=== PATIENT | male | born 1945 | race Caucasian/White ===

== ENCOUNTER 2019-09-26 08:23 | Inpatient (IN) | payer MEDICARE, BC, SELFPAY ==
[2019-09-26] VITALS (26 sets, daily range): BP systolic 132–250; BP diastolic 57–128; PULSE 62–83; RESP 16–20; TEMP 35.7–37.1; O2SAT 92–98; BMI 41.6; BMI 40.0
--- NOTE | 2019-09-26 08:29 | CT_ITS ---
STUDY: CT BRAIN WITHOUT CONTRAST REASON FOR EXAM: Male, 74 years old. PATIENT WITH HEADACHE AND N/V SINCE YESTERDAY. SEEN AT [facility] YESTERDAY FOR SAME AND DISCHARGED HOME. RADIATION DOSAGE (If Supplied By Facility): CTDIvol = ( 44.99 ) mGy, DLP = ( 897.35 ) mGycm TECHNIQUE: Transaxial CT imaging of the brain was performed without administration of intravenous contrast material. Individualized dose optimization techniques were used for this CT. COMPARISON: No relevant priors. FINDINGS: Normal soft tissue structures. Normal calvarium. There is mild cerebral atrophy with widening of the extra-axial spaces and ventricular dilatation. There are areas of decreased attenuation within the white matter tracts of the supratentorial brain, consistent with microvascular disease changes. Normal basal ganglia and thalami. Normal brainstem. Normal cerebellum. There is no intracranial hemorrhage. There are no findings of an acute ischemic infarction. Normal visualized paranasal sinuses. CT/Brain/Head without Contrast IMPRESSION: Senescent changes with no evidence of acute intracranial bleed, mass or ischemia. Electronically Signed: Dex Ferreira DO at 9:11 EDT , Service support ,
--- NOTE | 2019-09-26 08:31 | EKG12_ITS ---
Test Reason : HTN Blood Pressure : / mmHG Vent. Rate : 068 BPM Atrial Rate : 068 BPM P-R Int : 174 ms QRS Dur : 126 ms QT Int : 410 ms P-R-T Axes : 065 -27 082 degrees QTc Int : 435 ms Sinus rhythm with marked sinus arrhythmia Non-specific intra-ventricular conduction block Abnormal ECG Confirmed by CORIE SOTO, CARLEE ([id number]), pictures editor ANY ARORA ([id number]) on 10/07/2019 10:21:39 AM Referred By: CLAU Confirmed By:CARLEE FONTENOT MD
--- NOTE | 2019-09-26 08:42 | ED.RN ---
pt very [place], does have hearing aids with him.
--- NOTE | 2019-09-26 08:48 | ED.DCSUM_ITS ---
- ER Visit Summary Date of Service: 09/26/19 Chief Complaint: Headache History of Present Illness: The patient is a 74 M presenting with headache, nausea, vomiting. Patient states his headache started this morning gradual onset severe headache. He has had nausea vomiting for the past couple of days. He was seen at [facility] on September 24, 2019. At that time he had a CT scan of his abdomen which showed constipation. He was discharged with Zofran and mag citrate. He denies chest pain or shortness of breath. Denies fever. He did not take his medications today and is unsure if he took them yesterday. Physical Examination: Blood pressure 250/127, temperature 98.3. Heart rate 72, respiratory rate 18, pulse ox 96% on nasal cannula. Alert moderate distress. HEENT exam is unremarkable. Neck is supple. No meningismus Lungs are clear and equal bilaterally. Heart is regular rate and rhythm. Abdomen is soft nontender nondistended. No guarding or rebound Extremities are unremarkable. Skin is warm and dry. No focal neurologic deficit. Normal strength and sensation Remainder of exam is unremarkable. Emergency Department Course and Treatment: Repeat blood pressure 223/114. He was given labetalol IV. CBC, chemistries unremarkable other than glucose 233. EKG is sinus with sinus arrhythmia, rate of 68, no acute ischemic changes. CT head shows no acute process. His blood pressure remains high. He was started on a Cardene drip. Discussed with the hospitalist for admission. Disposition: Admission Impression: Hypertensive emergency This note was generated with [employer] dictation software. It may contain incorrect words, spelling, and punctuation that were not noted in review of the chart prior to signing ED Disposition - Plan for ED Patient:
[2019-09-26 08:52] LABS: Absolute Lymphocyte Count 1.86 X10^3/uL (0.83-4.51); Absolute Neutrophil Count 6.2 X10^3/uL (2.0-7.7); Basophil# 0.03 X10^3/uL; Basophil% 0.3 % (0-1); Eosinophil# 0.12 X10^3/uL; Eosinophils% 1.3 % (0-5); Hematocrit 53.6 % (40-54); Hemoglobin 17.4 g/dL (13.0-16.5); Lymphocyte # 1.86 X10^3/ul (4.0); Lymphocyte % 20.2 % (19-41); Mean Corp Hgb Conc 32.5 g/dL (32-36); Mean Corpuscular Volume 92.4 fL (80-94); Mean Platelet Vol. 10.2 fl (6.2-12.0); Monocyte# 0.88 X10^3/uL; Monocyte% 9.6 % (0-10); NRBC Flagged by Analyzer 0 % (0-5); Neutrophil # 6.23 X10^3/uL (2.7-7.7); Neutrophil % 67.6 % (47-70); Platelet Count 184 K/mm3 (150-450); RBC Distribution Width CV 13.8 % (11.6-14.6); RBC Distribution Width SD 45.1 fl (35.1-43.9); White Blood Count 9.2 K/mm3 (4.4-11.0)
[2019-09-26 09:09] LABS: AST(SGOT) 13 U/L (15-37); Alanine Aminotransfer ALT/SGPT 21 U/L (16-61); Albumin, Serum 3.2 g/dL (3.2-5.0); Alkaline Phosphatase 162 U/L (45-117); Bilirubin, Direct 0.22 mg/dL (0.00-0.30); Lipase 63 U/L (73-393); Protein, Total 7.2 g/dL (6.4-8.2)
[2019-09-26 09:11] LABS: Anion Gap 3 (5-15); BUN 15 mg/dL (7-18); BUN/Creat Ratio 12.8 RATIO (10-20); Calcium,Total 9.2 mg/dL (8.5-10.1); Chloride 99 mmol/L (98-107); Creatinine, Serum 1.17 mg/dL (0.70-1.30); EST Glomerular Filtration Rate 65 mL/min (>60); Est Glom Filt Rate - Afr Amer 79 mL/min (>60); Estimated Creatinine Clearance 55.21 ml/min; Glucose 233 mg/dL (74-106); Potassium 4.4 mmol/L (3.5-5.1); Sodium Level 136 mmol/L (136-145)
--- NOTE | 2019-09-26 09:18 | ED.RN ---
MD AWARE OF BP.
--- NOTE | 2019-09-26 11:04 | HP.PCM_ITS ---
Problem List (1) Hypertensive emergency Status: Acute History of Present Illness Date of Admission: 09/26/19 Chief Complaint: headache The patient is a 74 year old M presents with a left sided headache that began today. Headache is left sided. He presented to the ED. He states that he is compliant with his medication and has not missed any doses (except today). In the ED he had a Bp of 250/127. He received 20mg of IV labetolol at 0842 and BP remained high, so he then was started on a nicardipine gtt at 1001. Currently gtt is at 5mcg/h and BP at 1038 was 172/85. History is limited from the patient as he has profound presbycusis and unable to decipher much of what is asked of him. [] Past Medical History Medical History: Medical History (Last Updated 09/26/19 @ 11:[address] Teodoro Moses, DO) DM2 (diabetes mellitus, type 2) E11.9 HTN (hypertension) I10 Allergies No Known Allergies Allergy (Verified 09/26/19 08:28) Home Medications: Ambulatory Orders Medication Instructions Recorded Aspirin [Aspir 81] 81 mg PO DAILY 09/26/19 Atorvastatin Calcium [Lipitor] 40 mg PO DAILY 09/26/19 Carvedilol [Coreg] 25 mg PO BID 09/26/19 Doxycycline 100 mg PO DAILY 09/26/19 Duloxetine HCl 60 mg PO DAILY 09/26/19 Fluticasone/Salmeterol [Advair Hfa 2 puff INHALATION BID 09/26/19 115-21 Mcg Inhaler] Furosemide [Lasix] 40 mg PO DAILY 09/26/19 Gabapentin 300 mg PO TID 09/26/19 Insulin Detemir [Levemir FlexPen] 60 unit SQ DAILY 09/26/19 Insulin Detemir [Levemir FlexPen] 80 unit SQ DAILY 09/26/19 Ipratropium/Albuterol Sulfate 3 ml IH DAILY 09/26/19 [Iprat-Albut 0.5-3(2.5) mg/3 ml] Lactulose 30 ml PO DAILY 09/26/19 Lisinopril [Zestril] 20 mg PO BID 09/26/19 Oxycodone HCl/Acetaminophen 1 ea PO Q6H PRN 09/26/19 [Oxycodon-Acetaminophen 7.5-325] Pantoprazole Sodium [Protonix] 40 mg PO DAILY 09/26/19 Smoking Status: Former smoker Review of Systems Constitutional: Denies: Fever Eyes: Reports: Blurred vision. Denies: Double vision Unable to obtain accurate/complete ROS d/t: Limited due to profound presbycusis even with speaking loud. VTE Information - Inpt Only VTE Present on Admission: No VTE Pharm Prophylaxis ordered?: Yes Patient Problems: Active and Suspected Problems Hypertensive emergency (Acute) - Physical Exam Vitals/I&O's: Vital Signs Temp Pulse Resp BP Pulse Ox 37.1 C 71 17 172/85 H 96 09/26/19 09:59 09/26/19 10:38 09/26/19 10:38 09/26/19 10:38 09/26/19 10:38 Oxygen Flow Rate (L/min) 3 Oxygen Delivery Method Nasal Cannula Weight: 124.3 kg Body Mass Index (BMI) 41.6 Intake and Output for Last 24 Hours 09/24/19 09/25/19 09/26/19 23:59 23:59 23:59 Output Total 1350 / 1350 Balance -1350 / -1350 General: Alert, No apparent distress, - - [place] HEENT: Atraumatic, Normocephalic, - - No icterus Oral: Moist Mucosa, No Gingival or Mucosal Lesions/ Ulcerations Neck: No Nodes, Thyroid Normal Size and Texture Lungs: Clear to auscultation, Normal air movement, No rhonchi, No wheeze, No rales Cardiovascular: Regular rate, Regular Rhythm, Normal S1, Normal S2, No murmurs Abdomen: Bowel Sounds Present, Soft, Non Tender, Non-Distended, No Hepato- splenomegaly Extremities: No edema, No Calf Tenderness Skin: No rashes, No breakdown Neurological: Motor Exam 5/5 strength throughout, Coordination normal Psych/Mental Status: Normal Affect, Appropriate Laboratory Results 09/26/19 08:25: Troponin I < 0.015 09/26/19 08:30: WBC 9.2, RBC 5.80, Hgb 17.4 H, Hct 53.6, MCV 92.4, MCH 30.0, MCHC 32.5, RDW Std Deviation 45.1 H, RDW Coeff of Fredo 13.8, Plt Count 184, MPV 10.2, Immature Gran % (Auto) 1.000 H, Neut % (Auto) 67.6, Lymph % (Auto) 20.2, [place] % (Auto) 9.6, Eos % (Auto) 1.3, Baso % (Auto) 0.3, Absolute Neuts (auto) 6.2, Absolute Lymphs (auto) 1.86, Nucleated RBC % 0 09/26/19 08:30: Sodium 136, Potassium 4.4, Chloride 99, Carbon Dioxide 34.0 H, Anion Gap 3 L, BUN 15, Creatinine 1.17, Estim Creat Clear Calc 55.21, Est GFR (MDRD) Af Amer 79, Est GFR (MDRD) Non-Af 65, BUN/Creatinine Ratio 12.8, Glucose 233 H, Calcium 9.2 09/26/19 08:31: Total Bilirubin 0.80, Direct Bilirubin 0.22, AST 13 L, ALT 21, Alkaline Phosphatase 162 H, Total Protein 7.2, Albumin 3.2, Globulin 4.0, Lipase 63 L Clinical Impression(s) from Imaging Studies Brain CT 09/26/19 08:29 IMPRESSION: Senescent changes with no evidence of acute intracranial bleed, mass or ischemia. Electronically Signed: Dex Ferreira DO at 9:11 EDT , Service support , Current Medications Nicardipine HCl 25 mg/ Sodium (Chloride) 250 mls @ 50 mls/hr CONT INF .Q5H [facility]AU[facility]N; Protocol Stop: 09/26/19 14:19 Last Admin: 09/26/19 10:01 Dose: 5 mg/hr, 50 mls/hr Documented by: Assessment/Plan All Active Problems Hypertensive emergency (Acute) 1. hypertensive emergency * presented at 250/127, now down to 172/85 * he received a 1 time dose of labetolol and nicardipine gtt. * as BP is improved will have the patient take his AM meds and hold gtt * If BP remains stable, can deescalate to PCU status * If need to resume nicardipine gtt, will continue with ICU status 2. Headache * no SAH on CT * If persist despite medication, BP control, consider CTA +/- LP * acetaminophen, ketorolac 3. DM2 * continue basal * add SSI 4. VTE prophylaxis: LMWH Inpatient E&M: 70296 Init Hosp L3
[2019-09-26] MEDS: Ondansetron 4 MG/2 ML Vial IV ×2 (11:52→21:40)
[2019-09-26] MEDS: Lisinopril 20 MG Tablet PO ×2 (11:58→21:42)
[2019-09-26] MEDS: Furosemide 40 MG Tablet PO (11:58)
[2019-09-26] MEDS: Acetaminophen 325 MG Tablet 650 MG PO ×2 (11:58→19:02)
[2019-09-26] MEDS: Carvedilol 25 MG Tablet PO ×2 (11:58→21:42)
[2019-09-26 12:36] LABS: Bedside Glucose 235 mg/dL (70-110)
[2019-09-26] MEDS: Albuterol 2.5 MG/3 ML VIAL.NEB. INHALATION (13:41)
[2019-09-26] MEDS: Gabapentin 300 MG Capsule PO ×2 (14:55→21:42)
[2019-09-26] MEDS: oxyCODONE 5 MG Tablet PO (14:55)
[2019-09-26] MEDS: Magnesium Citrate 300 ML 150 ML PO (16:53)
[2019-09-26] MEDS: Insulin Lispro 100 UNIT/ML INSULN.PEN SC (16:57)
[2019-09-26 17:15] LABS: Bedside Glucose 193 mg/dL (70-110)
[2019-09-26] MEDS: 0.9% Saline Lock 10 ML Syringe IV ×3 (18:58→21:40)
[2019-09-26] MEDS: hydrALAZINE 20 MG/ML Vial 10 MG IV (18:58)
[2019-09-26] MEDS: proCHLORPERazine 10 MG/2 ML Vial 5 MG IV (19:00)
[2019-09-26 19:15] LABS: Bedside Glucose 176 mg/dL (70-110)
--- NOTE | 2019-09-26 19:16 | NURSING ---
Patient gives verbal consent for yelena Cuello to be updated. Attempted to leave message. Unable to. Voicemail box is full.
[2019-09-26] MEDS: Labetalol 20 MG/4 ML Vial 10 MG IV (20:34)
--- NOTE | 2019-09-26 20:49 | NURSING ---
PC from Khushboo kirk. Pt gave this nurse permission to update her. Update given. Reid RN
[2019-09-26 22:05] LABS: Bedside Glucose 202 mg/dL (70-110)
[2019-09-27] VITALS (18 sets, daily range): BP systolic 81–151; BP diastolic 45–83; PULSE 63–84; RESP 14–20; TEMP 36.6–36.9; O2SAT 92–95
[2019-09-27] MEDS: oxyCODONE 5 MG Tablet PO (00:31)
[2019-09-27] MEDS: proCHLORPERazine 10 MG/2 ML Vial 5 MG IV (02:42)
[2019-09-27] MEDS: Acetaminophen 325 MG Tablet 650 MG PO (02:42)
[2019-09-27] MEDS: Gabapentin 300 MG Capsule PO ×3 (05:59→21:19)
[2019-09-27 06:50] LABS: Anion Gap 6 (5-15); BUN 18 mg/dL (7-18); BUN/Creat Ratio 11.9 RATIO (10-20); Calcium,Total 8.7 mg/dL (8.5-10.1); Chloride 95 mmol/L (98-107); Creatinine, Serum 1.51 mg/dL (0.70-1.30); EST Glomerular Filtration Rate 49 mL/min (>60); Est Glom Filt Rate - Afr Amer 59 mL/min (>60); Estimated Creatinine Clearance 42.78 ml/min; Glucose 199 mg/dL (74-106); Potassium 4.5 mmol/L (3.5-5.1); Sodium Level 134 mmol/L (136-145)
[2019-09-27] MEDS: Insulin Lispro 100 UNIT/ML INSULN.PEN SC ×2 (06:55→13:01)
[2019-09-27 07:00] LABS: Bedside Glucose 183 mg/dL (70-110)
[2019-09-27] MEDS: Ipratropium/Albuterol Sulfate 3 ML AMPUL.NEB INHALATION (07:08)
[2019-09-27] MEDS: Budesonide Respules 0.5 MG/2 ML AMPUL.NEB. INHALATION ×2 (07:16→18:46)
[2019-09-27] MEDS: Carvedilol 25 MG Tablet PO (10:30)
[2019-09-27] MEDS: Lactulose 20 GM/30 ML UDC 30 GM PO (10:30)
[2019-09-27] MEDS: Pantoprazole Sodium 40 MG Tablet PO (10:30)
[2019-09-27] MEDS: DULoxetine Hcl 60 MG Capsule PO (10:30)
[2019-09-27] MEDS: Doxycycline 100 MG CAPSULE PO (10:30)
[2019-09-27] MEDS: Aspirin E.C. 81 MG Tablet PO (10:30)
[2019-09-27] MEDS: Furosemide 40 MG Tablet PO (10:30)
[2019-09-27] MEDS: Enoxaparin 40 MG/0.4 ML Syringe SC (10:31)
[2019-09-27] MEDS: Lisinopril 20 MG Tablet PO (10:31)
[2019-09-27] MEDS: 0.9% Saline Lock 10 ML Syringe IV (10:31)
--- NOTE | 2019-09-27 11:04 | PN_ITS ---
<Damion Luevano - Last Filed: 09/27/19 11:04> Patient Problems: Active and Suspected Problems (Last Updated 09/26/19 @ 11:[address] Teodoro Moses DO) Hypertensive emergency (Acute) Reason for Visit: constipation Subjective: HTN now normalized. Ongoing generalized abdominal discomfort. Some nausea this AM no vomiting. No BM today. He has chronic constipation issues that he notes are due to his home pain regimen. No fever/chills. No cough/SOB. No BM after mag citrate. Vitals/I&O's: Vital Signs Temp Pulse Resp BP Pulse Ox 98.4 F 83 17 108/60 94 09/27/19 08:19 09/27/19 08:19 09/27/19 08:19 09/27/19 08:19 09/27/19 08:19 Oxygen Flow Rate (L/min) 2 Oxygen Delivery Method Nasal Cannula Weight: 263 lb 10.766 oz Body Mass Index (BMI) 40.0 Intake and Output for Last 24 Hours 09/25/19 09/26/19 09/27/19 23:59 23:59 23:59 Intake Total 363.34 / 363.34 100 / 100 Output Total 3375 / 3375 Balance -3011.66 / -3011.66 100 / 100 General: Alert, Oriented x3, Cooperative HEENT: Atraumatic, PERRLA, EOMI, Normocephalic Neck: Supple, No JVD, Negative Carotid Bruits Lungs: Clear to auscultation, Normal air movement Cardiovascular: Regular rate, No murmurs Abdomen: Soft, Hypoactive Bowel Sounds, Tender Extremities: No edema, Capillary Refill Less than 3 Seconds Skin: No rashes, No breakdown Musculoskeletal: No Tenderness to Palpation of Joints or Extremities Neurological: Cranial nerves II-XII grossly intact Psych/Mental Status: Normal Affect, Appropriate, Alert and oriented to time, place, person, mood and affect Laboratory Results 09/26/19 12:31: POC Glucose 235 H 09/26/19 16:41: POC Glucose 193 H 09/26/19 19:05: POC Glucose 176 H 09/26/19 21:47: POC Glucose 202 H 09/27/19 04:53: Sodium 134 L, Potassium 4.5, Chloride 95 L, Carbon Dioxide 33.0 H, Anion Gap 6, BUN 18, Creatinine 1.51 H, Estim Creat Clear Calc 42.78, Est GFR (MDRD) Af Amer 59 L, Est GFR (MDRD) Non-Af 49 L, BUN/Creatinine Ratio 11.9, Glucose 199 H, Calcium 8.7 09/27/19 06:54: POC Glucose 183 H Current Medications Acetaminophen (Tylenol) 650 mg PO Q6H PRN PRN PRN Reason: Pain Score 1-10/Temp > 100.7 F Last Admin: 09/27/19 02:42 Dose: 650 mg Documented by: Albuterol Sulfate (Ventolin Aerosols) 2.5 mg INHALATION Q6HWA.RT [facility] Last Admin: 09/26/19 19:05 Dose: Not Given Documented by: Albuterol/Ipratropium (Duoneb) 3 ml INHALATION DAILY [facility] Aspirin (Ecotrin) 81 mg PO DAILY [facility] Last Admin: 09/27/19 10:30 Dose: 81 mg Documented by: Atorvastatin Calcium (Lipitor) 40 mg PO QHS [facility] Budesonide (Pulmicort Aerosol) 0.5 mg INHALATION Q12H.RT [facility] Last Admin: 09/27/19 07:16 Dose: 0.5 mg Documented by: Carvedilol (Coreg) 25 mg PO BID [facility] Last Admin: 09/27/19 10:30 Dose: 25 mg Documented by: Dextrose (D50w Syringe) 0 gm IV X1 PRN; Protocol PRN Reason: Hypoglycemia Doxycycline Monohydrate (Doxycycline) 100 mg PO DAILY [facility] Last Admin: 09/27/19 10:30 Dose: 100 mg Documented by: Duloxetine HCl (Cymbalta) 60 mg PO DAILY [facility] Last Admin: 09/27/19 10:30 Dose: 60 mg Documented by: Enoxaparin Sodium (Lovenox) 40 mg SC DAILY [facility] Last Admin: 09/27/19 10:31 Dose: 40 mg Documented by: Furosemide (Lasix) 40 mg PO DAILY [facility] Last Admin: 09/27/19 10:30 Dose: 40 mg Documented by: Gabapentin (Neurontin) 300 mg PO TID [facility] Last Admin: 09/27/19 05:59 Dose: 300 mg Documented by: Glucagon () 1 mg IM .X1 PRN PRN Reason: Hypoglycemia Hydralazine HCl (Apresoline Iv) 10 mg IV Q4H PRN PRN PRN Reason: BLOOD PRESSURE Last Admin: 09/26/19 18:58 Dose: 10 mg Documented by: Sodium Chloride () 250 mls @ 15 mls/hr IV .[id number] PRN PRN Reason: Saline Flush Sodium Chloride () 250 mls @ 15 mls/hr IV .[id number] PRN PRN Reason: Additional IVPB Infusion Insulin Glargine (Lantus ([facility])) 55 units SC QHS [facility] Last Admin: 09/26/19 21:48 Dose: 55 units Documented by: Insulin Glargine (Lantus ([facility])) 75 units SC 1100 [facility] Insulin Human Lispro (Humalog Kwikpen ([facility])) 0 unit SC TIDAC [facility]; Protocol Last Admin: 09/27/19 06:55 Dose: 1 units Documented by: Ketorolac Tromethamine (Toradol ([facility])) 15 mg IV Q6H PRN PRN PRN Reason: pain 1-10/10 Stop: 10/01/19 11:12 Labetalol HCl (Trandate) 10 mg IV Q4H PRN PRN PRN Reason: SBP > 160 Last Admin: 09/26/19 20:34 Dose: 10 mg Documented by: Lactulose (Chronulac, Cephulac) 30 gm PO DAILY [facility] Last Admin: 09/27/19 10:30 Dose: 30 gm Documented by: Lisinopril (Zestril) 20 mg PO BID [facility] Last Admin: 09/27/19 10:31 Dose: 20 mg Documented by: Ondansetron HCl (Zofran) 4 mg IV Q8H PRN PRN PRN Reason: NAUSEA/VOMITING Last Admin: 09/26/19 21:40 Dose: 4 mg Documented by: Oxycodone HCl (Oxyir) 5 mg PO Q6H PRN PRN PRN Reason: Pain Score 1-10/10 Last Admin: 09/27/19 00:31 Dose: 5 mg Documented by: Pantoprazole Sodium (Protonix) 40 mg PO DAILY [facility] Last Admin: 09/27/19 10:30 Dose: 40 mg Documented by: Prochlorperazine Edisylate (Compazine Iv) 5 mg IV Q4H PRN PRN PRN Reason: NAUSEA/VOMITING Last Admin: 09/27/19 02:42 Dose: 5 mg Documented by: Sodium Chloride () 10 - 40 ml IV UD PRN PRN Reason: SALINE FLUSH Last Admin: 09/27/19 10:31 Dose: 10 ml Documented by: STROKE Vital Signs/Narrative: Vital Signs Temp Pulse Resp BP Pulse Ox 09/27/19 08:19 98.4 F 83 17 108/60 94 09/27/19 07:19 80 20 H 93 09/27/19 07:15 78 Medical Necessity - Tobacco Use Smoking Status: Former smoker Assessment/Plan All Active Problems (Last Updated 09/26/19 @ 11:[address] Teodoro Moses, DO) Hypertensive emergency (Acute) 1. HTN emergency - resolved. Off nicardipine. No lebatolol or hydralazine given today. Home regimen continued. If BP goes back up will add to his oral regimen. CT brain with no SAH. 2. Constipation, chronic opiate related - add fleets enema. Pt will need more aggressive daily regimen with his ongoing opiate use. 3. DMt2 - continue current regimen DVT ppx: lovenox This patient was seen by Damion Luevano PA-C under the supervision of Dr. Moses. <Teodoro Moses - Last Filed: 09/27/19 11:48> Subjective: Still with left sided headache. No BM. Vitals/I&O's: Vital Signs Temp Pulse Resp BP Pulse Ox 36.9 C 83 17 108/60 94 09/27/19 08:19 09/27/19 08:19 09/27/19 08:19 09/27/19 08:19 09/27/19 08:19 Oxygen Flow Rate (L/min) 2 Oxygen Delivery Method Nasal Cannula Weight: 119.6 kg Body Mass Index (BMI) 40.0 Intake and Output for Last 24 Hours 09/25/19 09/26/19 09/27/19 23:59 23:59 23:59 Intake Total 363.34 / 363.34 100 / 100 Output Total 3375 / 3375 Balance -3011.66 / -3011.66 100 / 100 General: Alert, Cooperative HEENT: Atraumatic, Normocephalic Lungs: Clear to auscultation, Normal air movement, No rhonchi, No wheeze Cardiovascular: Regular rate, Regular Rhythm, Normal S1, Normal S2, No murmurs Abdomen: Soft, Hypoactive Bowel Sounds, Tender Extremities: No edema, No Calf Tenderness Skin: No rashes, No breakdown Psych/Mental Status: Normal Affect, Appropriate Laboratory Results 09/26/19 12:31: POC Glucose 235 H 09/26/19 16:41: POC Glucose 193 H 09/26/19 19:05: POC Glucose 176 H 09/26/19 21:47: POC Glucose 202 H 09/27/19 04:53: Sodium 134 L, Potassium 4.5, Chloride 95 L, Carbon Dioxide 33.0 H, Anion Gap 6, BUN 18, Creatinine 1.51 H, Estim Creat Clear Calc 42.78, Est GFR (MDRD) Af Amer 59 L, Est GFR (MDRD) Non-Af 49 L, BUN/Creatinine Ratio 11.9, Glucose 199 H, Calcium 8.7 09/27/19 06:54: POC Glucose 183 H Current Medications Acetaminophen (Tylenol) 650 mg PO Q6H PRN PRN PRN Reason: Pain Score 1-10/Temp > 100.7 F Last Admin: 09/27/19 02:42 Dose: 650 mg Documented by: Albuterol Sulfate (Ventolin Aerosols) 2.5 mg INHALATION Q6HWA.RT PRN PRN Reason: SHORTNESS OF BREATH Albuterol/Ipratropium (Duoneb) 3 ml INHALATION DAILY [facility] Aspirin (Ecotrin) 81 mg PO DAILY [facility] Last Admin: 09/27/19 10:30 Dose: 81 mg Documented by: Atorvastatin Calcium (Lipitor) 40 mg PO QHS [facility] Budesonide (Pulmicort Aerosol) 0.5 mg INHALATION Q12H.RT [facility] Last Admin: 09/27/19 07:16 Dose: 0.5 mg Documented by: Carvedilol (Coreg) 25 mg PO BID [facility] Last Admin: 09/27/19 10:30 Dose: 25 mg Documented by: Dextrose (D50w Syringe) 0 gm IV X1 PRN; Protocol PRN Reason: Hypoglycemia Doxycycline Monohydrate (Doxycycline) 100 mg PO DAILY [facility] Last Admin: 09/27/19 10:30 Dose: 100 mg Documented by: Duloxetine HCl (Cymbalta) 60 mg PO DAILY [facility] Last Admin: 09/27/19 10:30 Dose: 60 mg Documented by: Enoxaparin Sodium (Lovenox) 40 mg SC DAILY [facility] Last Admin: 09/27/19 10:31 Dose: 40 mg Documented by: Furosemide (Lasix) 40 mg PO DAILY [facility] Last Admin: 09/27/19 10:30 Dose: 40 mg Documented by: Gabapentin (Neurontin) 300 mg PO TID [facility] Last Admin: 09/27/19 05:59 Dose: 300 mg Documented by: Glucagon () 1 mg IM .X1 PRN PRN Reason: Hypoglycemia Hydralazine HCl (Apresoline Iv) 10 mg IV Q4H PRN PRN PRN Reason: BLOOD PRESSURE Last Admin: 09/26/19 18:58 Dose: 10 mg Documented by: Sodium Chloride () 250 mls @ 15 mls/hr IV .[id number] PRN PRN Reason: Saline Flush Sodium Chloride () 250 mls @ 15 mls/hr IV .[id number] PRN PRN Reason: Additional IVPB Infusion Insulin Glargine (Lantus ([facility])) 55 units SC QHS [facility] Last Admin: 09/26/19 21:48 Dose: 55 units Documented by: Insulin Glargine (Lantus ([facility])) 75 units SC 1100 [facility] Last Admin: 09/27/19 11:26 Dose: Not Given Documented by: Insulin Human Lispro (Humalog Kwikpen ([facility])) 0 unit SC TIDAC [facility]; Protocol Last Admin: 09/27/19 06:55 Dose: 1 units Documented by: Ketorolac Tromethamine (Toradol ([facility])) 15 mg IV Q6H PRN PRN PRN Reason: pain 1-01/08 Stop: 10/01/19 11:12 Last Admin: 09/27/19 11:11 Dose: 15 mg Documented by: Labetalol HCl (Trandate) 10 mg IV Q4H PRN PRN PRN Reason: SBP > 160 Last Admin: 09/26/19 20:34 Dose: 10 mg Documented by: Lactulose (Chronulac, Cephulac) 30 gm PO DAILY [facility] Last Admin: 09/27/19 10:30 Dose: 30 gm Documented by: Lisinopril (Zestril) 20 mg PO BID [facility] Last Admin: 09/27/19 10:31 Dose: 20 mg Documented by: Ondansetron HCl (Zofran) 4 mg IV Q8H PRN PRN PRN Reason: NAUSEA/VOMITING Last Admin: 09/27/19 11:11 Dose: 4 mg Documented by: Oxycodone HCl (Oxyir) 5 mg PO Q6H PRN PRN PRN Reason: Pain Score 1-10/10 Last Admin: 09/27/19 00:31 Dose: 5 mg Documented by: Pantoprazole Sodium (Protonix) 40 mg PO DAILY [facility] Last Admin: 09/27/19 10:30 Dose: 40 mg Documented by: Prochlorperazine Edisylate (Compazine Iv) 5 mg IV Q4H PRN PRN PRN Reason: NAUSEA/VOMITING Last Admin: 09/27/19 02:42 Dose: 5 mg Documented by: Sodium Chloride () 10 - 40 ml IV UD PRN PRN Reason: SALINE FLUSH Last Admin: 09/27/19 10:31 Dose: 10 ml Documented by: STROKE Vital Signs/Narrative: Vital Signs Temp Pulse Resp BP Pulse Ox 09/27/19 08:19 36.9 C 83 17 108/60 94 Assessment/Plan Patient seen and examined independently. Data reviewed. I agree with the above note by the physician cancer genetics assistant. 1. hypertensive emergency * improved * presented at 250/127 * he received a 1 time dose of labetolol and nicardipine gtt. * as BP is improved will have the patient take his AM meds and hold gtt * off nicardipine gtt since 09/25 2. Headache * improved * no SAH on CT * If persist despite medication, BP control, consider CTA +/- LP * acetaminophen, ketorolac 3. DM2 * continue basal * add SSI 4. constipation * refractory to Mag Citrate * add fleets 5. VTE prophylaxis: LMWH Inpatient E&M: 30108 Subs Hosp L2
[2019-09-27] MEDS: Fleet Enema 1 ML RECTAL (11:10)
[2019-09-27] MEDS: Ondansetron 4 MG/2 ML Vial IV (11:11)
[2019-09-27] MEDS: Ketorolac 15 MG/ML Vial IV (11:11)
[2019-09-27 12:41] LABS: Bedside Glucose 221 mg/dL (70-110)
--- NOTE | 2019-09-27 13:33 | RAD_ITS ---
HISTORY: PAIN EXAM: KUB COMPARISON: None FINDINGS: # of images incl. paperwork: 3 Hardware fixation of the right SI joint. Hardware fixation of the pubic rami and pubic symphysis. Right upper quadrant surgical clips. Right hemipelvis surgical clip. Multilevel degenerative disc disease and facet arthropathy. Severe bilateral femoral acetabular arthritis much greater on the left than right with [id number] sclerosis and subcortical cystic degenerative change No free air is perceived. No dilated or loops of bowel are seen. There is no mass or suspicious calcification. No evidence of obstruction. RAD/Abdomen Single View (Portable) IMPRESSION: No bowel obstruction or perforation perceived.. at 2306 Reported and signed by: Malcolm Infante MD Electronically Signed: Malcolm Infante MD at 23:05 EDT Tel , Service support ,
[2019-09-27] MEDS: Magnesium Hydroxide 30 ML UDC PO (14:58)
--- NOTE | 2019-09-27 15:47 | NURSING ---
Soap suds enema completed per order. Patient tolerated well. Continent of large, soft brown bm. Patient states he does feel better since having bm.
[2019-09-27 17:00] LABS: Bedside Glucose 141 mg/dL (70-110)
[2019-09-27] MEDS: Atorvastatin Calcium 40 MG Tablet PO (21:19)
[2019-09-27 21:30] LABS: Bedside Glucose 210 mg/dL (70-110)
[2019-09-28] VITALS (7 sets, daily range): BP systolic 99–126; BP diastolic 46–66; PULSE 59–81; RESP 16–18; TEMP 36.4–36.6; O2SAT 90–97
[2019-09-28] MEDS: Ketorolac 15 MG/ML Vial IV ×2 (03:53→14:16)
[2019-09-28] MEDS: 0.9% Saline Lock 10 ML Syringe IV ×2 (03:55→14:18)
[2019-09-28] MEDS: Gabapentin 300 MG Capsule PO ×2 (05:15→14:16)
[2019-09-28] MEDS: oxyCODONE 5 MG Tablet PO (05:23)
[2019-09-28] MEDS: Ipratropium/Albuterol Sulfate 3 ML AMPUL.NEB INHALATION (07:00)
[2019-09-28] MEDS: Budesonide Respules 0.5 MG/2 ML AMPUL.NEB. INHALATION (07:00)
[2019-09-28] MEDS: Insulin Lispro 100 UNIT/ML INSULN.PEN SC ×2 (07:00→11:43)
[2019-09-28 07:06] LABS: Bedside Glucose 174 mg/dL (70-110)
[2019-09-28] MEDS: DULoxetine Hcl 60 MG Capsule PO (10:23)
[2019-09-28] MEDS: Carvedilol 25 MG Tablet PO (10:23)
[2019-09-28] MEDS: Lactulose 20 GM/30 ML UDC 30 GM PO (10:23)
[2019-09-28] MEDS: Pantoprazole Sodium 40 MG Tablet PO (10:24)
[2019-09-28] MEDS: Aspirin E.C. 81 MG Tablet PO (10:24)
[2019-09-28] MEDS: Furosemide 40 MG Tablet PO (10:24)
[2019-09-28] MEDS: Lisinopril 20 MG Tablet PO (10:24)
[2019-09-28] MEDS: Enoxaparin 40 MG/0.4 ML Syringe SC (10:24)
[2019-09-28] MEDS: Doxycycline 100 MG CAPSULE PO (10:24)
[2019-09-28] MEDS: Magnesium Hydroxide 30 ML UDC PO (10:24)
--- NOTE | 2019-09-28 10:58 | CASEMGMT ---
JOANNA LE assessment: Face to Face with patient for initial transition planning/care coordination assessment. JOANNA LE introduced self and role at [facility], pt voices understanding and consents to assessment at this time. Pt is sitting up in bed in no distress at this time. Pt is A/Ox4 at this time and answers all questions appropriately at this time. Pt is hard of hearing. Care providers, pharmacy, and demographics verified at this time. Presentation: Pt w/ headache/N/V since yesterday. Pt seen at [facility] yesterday for same and discharged home. Admitting dx: Hypertensive emergency PCP: Erik Specialists: Pt states no current specialists. Preferred Pharmacy: [facility] Insurance: [employer] A/B, Miles Prescription Benefit: Yes Living Will/HPOA: Pt states does not have LW/HPOA and declines AD info at this time. LNOK: Salima Ramos, daughter Living Arrangements: Pt states lives with daughter in a 1 story house and states no concerns at home at this time. Pt states is independent with ADL's. Transportation: Pt states drives self and states no transportation concerns at this time. DME/HHC: Pt states has the following DME: cane, walker, cpap, and 3liters home oxygen w/ portable concentrator thru [facility]. Pt states has had HHC in the past and has been to [facility] in the past. Pt states no concerns with going home at time of discharge. Pt states is retired. Pt states does not smoke(quit in 1998) or drink ETOH. Pt states no further concerns/needs at this time. CM to follow for any further discharge planning/needs. Advised pt to ask for CM if any further questions/concerns/needs arise, voices understanding. Pt Goal: Home Plan[place] JOANNA LE
[2019-09-28] MEDS: Acetaminophen 325 MG Tablet 650 MG PO (11:49)
[2019-09-28 11:51] LABS: Bedside Glucose 210 mg/dL (70-110)
[2019-09-28] MEDS: Polyethylene Glycol 3350 17 GM PACKET PO (11:54)
--- NOTE | 2019-09-28 14:21 | DCINST_ITS ---
- Discharge Diagnoses Current Active Problems: Current Active and Chronic Problems (Last Updated 09/26/19 @ 11:[address] Teodoro Moses, DO) Hypertensive emergency (Acute) You will use the following diet at home:: Cardiac Your food should be the consistency of: Regular Your liquids should be the consistency of: Regular/Thin Discharge Activity: Return to Normal Activity Allergies/Adverse Reactions: Allergies No Known Allergies Allergy (Verified 09/26/19 08:28) Medications to take at Discharge Aspirin [Aspir 81] 81 mg PO DAILY 09/26/19 Atorvastatin Calcium [Lipitor] 40 mg PO DAILY 09/26/19 Carvedilol [Coreg] 25 mg PO BID 09/26/19 Doxycycline 100 mg PO DAILY 09/26/19 Duloxetine HCl 60 mg PO DAILY 09/26/19 Fluticasone/Salmeterol [Advair Hfa 115-21 Mcg Inhaler] 2 puff INHALATION BID 09/26/19 Furosemide [Lasix] 40 mg PO DAILY 09/26/19 Gabapentin 300 mg PO TID 09/26/19 Insulin Detemir [Levemir FlexPen] 55 unit SQ QHS 09/26/19 Insulin Detemir [Levemir FlexPen] 75 unit SQ DAILY 09/26/19 Ipratropium/Albuterol Sulfate [Iprat-Albut 0.5-3(2.5) mg/3 ml] 3 ml IH DAILY 09/26/19 Lactulose 30 ml PO DAILY 09/26/19 Lisinopril [Zestril] 20 mg PO BID 09/26/19 Oxycodone HCl/Acetaminophen [Oxycodon-Acetaminophen 7.5-325] 1 ea PO Q6H PRN 09/26/19 Pantoprazole Sodium [Protonix] 40 mg PO DAILY 09/26/19 Magnesium Hydroxide [Milk Of Magnesia] 30 ml PO DAILY #1 bottle 09/28/19 Polyethylene Glycol 3350 [Miralax] 17 gm PO DAILY PRN PRN #1 packet 09/28/19 The following prescriptions were given: Magnesium Hydroxide [Milk Of Magnesia] 30 ml PO DAILY #1 bottle Transmission Status: Received by [facility] [id number] Polyethylene Glycol 3350 [Miralax] 17 gm PO DAILY PRN PRN #1 packet PRN Reason: Constipation Transmission Status: Received by [facility] [id number] Please follow up with your Primary Care Physician in: 1-2 weeks Test Results: Test results from this visit will be discussed in further detail at your follow- up appointment, if applicable. Proposed Discharge Date: 09/28/19
--- NOTE | 2019-09-28 14:22 | DS.PCM_ITS ---
Discharge Date and Diagnosis - Problem List Patient Problems: Active and Suspected Problems (Last Updated 09/26/19 @ 11:[address] Teodoro Moses DO) Hypertensive emergency (Acute) Date of Admission: 09/26/19 Date of Discharge: 09/28/19 - Primary Discharge Diagnosis Acute Problems: Active Problems (Last Updated 09/26/19 @ 11:[address] Teodoro Moses DO) Hypertensive emergency (Acute) 2/2 pain due to severe constipation Constipation due to chronic opiate use DMt2 Hospital Course and Treatment Imaging Results: CT/Brain/Head without Contrast IMPRESSION: Senescent changes with no evidence of acute intracranial bleed, mass or ischemia. RAD/Abdomen Single View (Portable) IMPRESSION: No bowel obstruction or perforation perceived.. Operations: None Procedures: None Summary of Care Provided: Hospital course: The patient is a 74 year old M past medical history as above notable for chronic opiate use for chronic pain syndrome, who presented to the emergency room with complaints of headache, also with nausea, abdominal pain. The patient was found to have a severely elevated blood pressure at 250/127 and was given 20 mg of IV labetalol. Blood pressure was still elevated and he was started on a nicardipine drip. Patient was admitted to the PCU and placed on telemetry. CT of the brain was negative for bleed. Troponin was negative. The patient also complained of severe constipation for which she was recently seen in the ER with no luck moving his bowels. He was felt to have severe constipation aggravating abdominal pain and nausea which likely was contributing to his severely increased blood pressure. Patient was given an aggressive bowel regimen, in addition to his daily lactulose he was given milk of magnesia, MiraLAX, fleets enema, soapsuds enema. After the 2 enemas he was able to have multiple large bowel movements and had resolution of his constipation. He had well-controlled blood pressure on his home regimen after this with the need for no additional agents. A follow-up KUB did not show any obstruction. He does continue to have some retained stool and likely has more bowel movement pending. I have advised him to continue using daily milk of magnesia in addition to daily lactulose, and to use MiraLAX as needed if he still remains constipated. The patient was discharged home in stable condition. He will need follow-up with his PCP in 1 to 2 weeks. This patient was seen by Damion Luevano PA-C under the supervision of Doctor Shantell. [] Patient Problems: Active and Suspected Problems (Last Updated 09/26/19 @ 11:[address] Teodoro Moses DO) Hypertensive emergency (Acute) - Physical Exam Vitals/I&O's: Vital Signs Temp Pulse Resp BP Pulse Ox 97.5 F L 71 16 126/66 H 92 09/28/19 10:20 09/28/19 10:20 09/28/19 10:20 09/28/19 10:20 09/28/19 10:20 Oxygen Flow Rate (L/min) 3 Oxygen Delivery Method Nasal Cannula Weight: 260 lb 9.382 oz Body Mass Index (BMI) 40.0 Intake and Output for Last 24 Hours 09/26/19 09/27/19 09/28/19 23:59 23:59 23:59 Intake Total 363.34 / 363.34 2670 / 3150 720 / 720 Output Total 3375 / 3375 500 / 500 Balance -3011.66 / -3011.66 2670 / 3150 220 / 220 Laboratory Results 09/27/19 16:37: POC Glucose 141 H 09/27/19 21:17: POC Glucose 210 H 09/28/19 06:58: POC Glucose 174 H 09/28/19 11:42: POC Glucose 210 H Current Medications Acetaminophen (Tylenol) 650 mg PO Q6H PRN PRN PRN Reason: Pain Score 1-10/Temp > 100.7 F Last Admin: 09/28/19 11:49 Dose: 650 mg Documented by: Albuterol Sulfate (Ventolin Aerosols) 2.5 mg INHALATION Q6HWA.RT PRN PRN Reason: SHORTNESS OF BREATH Albuterol/Ipratropium (Duoneb) 3 ml INHALATION DAILY [facility] Last Admin: 09/28/19 07:00 Dose: 3 ml Documented by: Aspirin (Ecotrin) 81 mg PO DAILY [facility] Last Admin: 09/28/19 10:24 Dose: 81 mg Documented by: Atorvastatin Calcium (Lipitor) 40 mg PO QHS [facility] Last Admin: 09/27/19 21:19 Dose: 40 mg Documented by: Budesonide (Pulmicort Aerosol) 0.5 mg INHALATION Q12H.RT [facility] Last Admin: 09/28/19 07:00 Dose: 0.5 mg Documented by: Carvedilol (Coreg) 25 mg PO BID [facility] Last Admin: 09/28/19 10:23 Dose: 25 mg Documented by: Dextrose (D50w Syringe) 0 gm IV X1 PRN; Protocol PRN Reason: Hypoglycemia Doxycycline Monohydrate (Doxycycline) 100 mg PO DAILY [facility] Last Admin: 09/28/19 10:24 Dose: 100 mg Documented by: Duloxetine HCl (Cymbalta) 60 mg PO DAILY [facility] Last Admin: 09/28/19 10:23 Dose: 60 mg Documented by: Enoxaparin Sodium (Lovenox) 40 mg SC DAILY [facility] Last Admin: 09/28/19 10:24 Dose: 40 mg Documented by: Furosemide (Lasix) 40 mg PO DAILY [facility] Last Admin: 09/28/19 10:24 Dose: 40 mg Documented by: Gabapentin (Neurontin) 300 mg PO TID [facility] Last Admin: 09/28/19 14:16 Dose: 300 mg Documented by: Glucagon () 1 mg IM .X1 PRN PRN Reason: Hypoglycemia Hydralazine HCl (Apresoline Iv) 10 mg IV Q4H PRN PRN PRN Reason: BLOOD PRESSURE Last Admin: 09/26/19 18:58 Dose: 10 mg Documented by: Sodium Chloride () 250 mls @ 15 mls/hr IV .[id number] PRN PRN Reason: Saline Flush Sodium Chloride () 250 mls @ 15 mls/hr IV .[id number] PRN PRN Reason: Additional IVPB Infusion Insulin Glargine (Lantus (Bk)) 55 units SC QHS [facility] Last Admin: 09/27/19 21:17 Dose: 55 units Documented by: Insulin Glargine (Lantus (Bk)) 75 units SC 1100 [facility] Last Admin: 09/28/19 11:50 Dose: 75 units Documented by: Insulin Human Lispro (Humalog Kwikpen ([facility])) 0 unit SC TIDAC [facility]; Protocol Last Admin: 09/28/19 11:43 Dose: 2 units Documented by: Ketorolac Tromethamine (Toradol ([facility])) 15 mg IV Q6H PRN PRN PRN Reason: pain -01/08 Stop: 10/01/19 11:12 Last Admin: 09/28/19 14:16 Dose: 15 mg Documented by: Labetalol HCl (Trandate) 10 mg IV Q4H PRN PRN PRN Reason: SBP > 160 Last Admin: 09/26/19 20:34 Dose: 10 mg Documented by: Lactulose (Chronulac, Cephulac) 30 gm PO DAILY [facility] Last Admin: 09/28/19 10:23 Dose: 30 gm Documented by: Lisinopril (Zestril) 20 mg PO BID [facility] Last Admin: 09/28/19 10:24 Dose: 20 mg Documented by: Magnesium Hydroxide (Milk Of Magnesia) 30 ml PO DAILY [facility] Last Admin: 09/28/19 10:24 Dose: 30 ml Documented by: Ondansetron HCl (Zofran) 4 mg IV Q8H PRN PRN PRN Reason: NAUSEA/VOMITING Last Admin: 09/27/19 11:11 Dose: 4 mg Documented by: Oxycodone HCl (Oxyir) 5 mg PO Q6H PRN PRN PRN Reason: Pain Score 1-10/10 Last Admin: 09/28/19 05:23 Dose: 5 mg Documented by: Pantoprazole Sodium (Protonix) 40 mg PO DAILY [facility] Last Admin: 09/28/19 10:24 Dose: 40 mg Documented by: Prochlorperazine Edisylate (Compazine Iv) 5 mg IV Q4H PRN PRN PRN Reason: NAUSEA/VOMITING Last Admin: 09/27/19 02:42 Dose: 5 mg Documented by: Sodium Chloride () 10 - 40 ml IV UD PRN PRN Reason: SALINE FLUSH Last Admin: 09/28/19 14:18 Dose: 10 ml Documented by: Discharge Activity: Return to Normal Activity Home Medications: Medications to take at Discharge Aspirin [Aspir 81] 81 mg PO DAILY 09/26/19 Atorvastatin Calcium [Lipitor] 40 mg PO DAILY 09/26/19 Carvedilol [Coreg] 25 mg PO BID 09/26/19 Doxycycline 100 mg PO DAILY 09/26/19 Duloxetine HCl 60 mg PO DAILY 09/26/19 Fluticasone/Salmeterol [Advair Hfa 115-21 Mcg Inhaler] 2 puff INHALATION BID 09/26/19 Furosemide [Lasix] 40 mg PO DAILY 09/26/19 Gabapentin 300 mg PO TID 09/26/19 Insulin Detemir [Levemir FlexPen] 55 unit SQ QHS 09/26/19 Insulin Detemir [Levemir FlexPen] 75 unit SQ DAILY 09/26/19 Ipratropium/Albuterol Sulfate [Iprat-Albut 0.5-3(2.5) mg/3 ml] 3 ml IH DAILY 09/26/19 Lactulose 30 ml PO DAILY 09/26/19 Lisinopril [Zestril] 20 mg PO BID 09/26/19 Oxycodone HCl/Acetaminophen [Oxycodon-Acetaminophen 7.5-325] 1 ea PO Q6H PRN 09/26/19 Pantoprazole Sodium [Protonix] 40 mg PO DAILY 09/26/19 Magnesium Hydroxide [Milk Of Magnesia] 30 ml PO DAILY #1 bottle 09/28/19 Polyethylene Glycol 3350 [Miralax] 17 gm PO DAILY PRN PRN #1 packet 09/28/19 Following Prescrptions Were Given to Patient: Magnesium Hydroxide [Milk Of Magnesia] 30 ml PO DAILY #1 bottle Transmission Status: Received by [facility] 1448 Polyethylene Glycol 3350 [Miralax] 17 gm PO DAILY PRN PRN #1 packet PRN Reason: Constipation Transmission Status: Received by [facility] 1448 Primary Care Physician: Dex Valencia DO [Primary Care Provider] - Please follow up with your Primary Care Physician in: 1-2 weeks Medical Necessity - Tobacco Use Smoking Status: Former smoker Meaningful Use Info Meaningful Use Diagnoses (Choose all that apply): None applicable
--- NOTE | 2019-09-28 15:15 | NURSING ---
Spoke with Dr. Stinson, who wants pt to be seen by PCP this week to get kidney function rechecked. Pt notified and verbalizes understanding.
== END 2019-09-28 18:16 | disposition home or self-care (01) | DRG 305 ==
LOC: ED 09:38 → ICU 12:46 → PCU 15:28
PROVIDERS: Emergency Provider Emergency Medicine; PCP Family Medicine; Visit Provider Internal Medicine
DX: I16.0 Hypertensive urgency (principal); Z68.41 Body mass index [BMI] 40.0-44.9, adult; K59.03 Drug induced constipation; T40.605A Adverse effect of unspecified narcotics, initial encounter; E11.9 Type 2 diabetes mellitus without complications; E66.01 Morbid (severe) obesity due to excess calories; Z79.891 Long term (current) use of opiate analgesic; H91.10 Presbycusis, unspecified ear; I10 Essential (primary) hypertension; Z79.4 Long term (current) use of insulin; Z79.82 Long term (current) use of aspirin; Z79.899 Other long term (current) drug therapy; Z87.891 Personal history of nicotine dependence; R51 Headache
CPT/HCPCS: 70450; 74018; 80048; 80076; 82962; 83690; 84484; 85025; 93005; 94640; 99285; J7040; J7050; A4216; J2405

== ENCOUNTER 2019-10-17 12:59 | Emergency (ER) | payer MEDICARE, BC, SELFPAY ==
[2019-09-26 11:13] VITALS: BMI 40.0
[2019-10-17 13:01] VITALS: BP 142/80; PULSE 83; RESP 18; TEMP 35.9; O2SAT 94; BMI 40.4
[2019-10-17 13:13] VITALS: O2SAT 95
--- NOTE | 2019-10-17 13:37 | CT_ITS ---
STUDY: CT ABDOMEN AND PELVIS WITH CONTRAST REASON FOR EXAM: Male, 74 years old. Left flank pain. RADIATION DOSAGE (If Supplied By Facility): CTDIvol = ( 19.65 ) mGy, DLP = ( 1540.76 ) mGycm TECHNIQUE: Transaxial images were obtained from the dome of the diaphragm to the symphysis pubis without oral contrast. 100 ml of Isovue-370 contrast was administered. Sagittal and coronal images were reconstructed. Individualized dose optimization techniques were used for this CT. COMPARISON: None. FINDINGS: The visualized lung bases are clear. The visualized portions of the heart and pericardium are within normal limits. The patient is status post cholecystectomy. The liver is within normal limits. There are no suspicious hepatic lesions. The spleen is normal in size. The pancreas is within normal limits. The adrenal glands are within normal limits. There are no renal or ureteral stones. There is no hydronephrosis. There are no focal renal lesions. Normal visualized stomach. There is no bowel obstruction or inflammation. The appendix is visualized and appears normal. The aorta is normal in caliber. There is no abdominal or pelvic free air, free fluid, fluid collection or lymphadenopathy. There are no destructive osseous lesions. There are postsurgical changes in the pubic symphysis and right sacroiliac joint. There are degenerative changes in the hips. CT/Abdomen/Pelvis W IV Cont ONLY IMPRESSION: No acute abdominal or pelvic pathology. Electronically Signed: Contreras Urbina, at 15:19 EDT Tel , Service support ,
--- NOTE | 2019-10-17 13:45 | ED.DCSUM_ITS ---
History of Present Illness Chief Complaint: Flank Pain Informant: Patient - Abdominal Pain/Flank Pain Onset: Days Context: Gradual Onset Timing: Continuous Narrative: Patient is a 74-year-old male with history of chronic pain on chronic opioid therapy as well as hypertension constipation presenting with worsening left flank pain. Patient states with past 3 to 4 months he has had a bulge in his left flank area. Yesterday while he was driving to his primary care doctor he had sudden onset of severe worsening of the pain. Pain radiates slightly to his groin area. He has associated nausea, and episode of vomiting and diarrhea. He denies any blood in his stool. He denies any blood in his vomit. Patient states before that episode diarrhea his last bowel movement 3 days before. Patient states the pain seems to be worse when he lays on his left side. PCP yesterday thought he might have an abdominal wall hernia. He also has a bad hip on that side to his not sure if the pains are related or not. He denies any associated chest pain or shortness of breath. Patient wears 3 L of oxygen at his baseline. He denies any worsening swelling of his legs. Denies any other complaints at this time. Past Medical History - Allergies and Home Meds Allergies/Adverse Reactions: Allergies No Known Allergies Allergy (Verified 10/17/19 13:00) Primary Care Physician: Dex Valencai DO [Primary Care Provider] - Past Medical History: - - Pretension, diabetes mellitus, coronary artery disease, chronic pain, constipation, GERD Surgical History: - Smoking Status: Former smoker Review of Systems General: Reports: Malaise. Denies: Chills, Fever, Sweats Eyes: Denies: Visual changes - bilaterally, Diplopia ENT: Denies: Rhinorrhea, Sore throat Cardiovascular: Denies: Chest pain, Palpitations Respiratory: Denies: Dyspnea, Cough, Dyspnea on exertion Gastrointestinal: Reports: Abdominal pain, Nausea, Vomiting, Diarrhea. Denies: Melena, Hematochezia Genitourinary: Denies: Dysuria, Hematuria, Frequency Musculoskeletal: Denies: Back pain, Extremity Pain Skin: Denies: Rash, Wounds Neurological: Denies: Headache, Weakness, Numbness Physical Exam Vital Signs/Narrative: Vital Signs Temp Pulse Resp BP Pulse Ox 10/17/19 13:13 95 10/17/19 13:01 96.6 F L 83 18 142/80 H 94 Inital Vital Signs reviewed: Yes General: Well nourished, Well developed, No Acute Distress Head: Normocephalic, Atraumatic Eyes: Perrl, EOMI ENT: Moist mucous membranes, No rhinorrhea Neck: Supple, Nontender, No JVD Cardiovascular: Regular rate, Regular rhythm, No murmurs Respiratory: No distress, CTA bilaterally, Chest nontender. Negative for: Diminished, Decreased Air Movement Abdomen: Soft, Nontender, Nondistended, Normal bowel sounds, - - Protuberant abdomen, asymmetry of the left abdomen compared to the right consistent with a possibly large abdominal wall hernia. The area itself is soft. No ascites or fluid wave appreciated.. Negative for: Guarding, Rebound tenderness Back: Nontender, Normal Inspection. Negative for: CVA tenderness, Spinal t enderness Extremities: Nontender, No edema Skin: Normal color, No rash Neurological: Alert, Oriented x3, Cranial nerves II-XII grossly intact, Normal Strength, Normal Sensation Psychological: Normal affect, Normal Mood Diagnostic/Tx/Re-eval Clinical Impression(s) from Imaging Studies Abdomen/Pelvis CT 10/17/19 13:37 IMPRESSION: No acute abdominal or pelvic pathology. Electronically Signed: Contreras Urbina, at 15:19 EDT Tel , Service support , Laboratory Data 10/17/19 10/17/19 10/17/19 13:45 13:45 14:50 WBC 9.5 RBC 5.43 Hgb 16.5 Hct 49.3 MCV 90.8 MCH 30.4 MCHC 33.5 RDW Std Deviation 42.5 RDW Coeff of Fredo 13.1 Plt Count 207 MPV 10.3 Immature Gran % (Auto) 0.800 Neut % (Auto) 75.4 H Lymph % (Auto) 14.3 L [place] % (Auto) 7.9 Eos % (Auto) 1.3 Baso % (Auto) 0.3 Absolute Neuts (auto) 7.2 Absolute Lymphs (auto) 1.36 Nucleated RBC % 0 Sodium 132 L Potassium 4.5 Chloride 99 Carbon Dioxide 28.0 Anion Gap 5 BUN 16 Creatinine 1.24 Estim Creat Clear Calc 53.85 Est GFR (MDRD) Af Amer 74 Est GFR (MDRD) Non-Af 61 BUN/Creatinine Ratio 12.9 Glucose 415 H Calcium 8.9 Total Bilirubin 0.90 AST 12 L ALT 23 Alkaline Phosphatase 180 H Troponin I < 0.015 Total Protein 7.0 Albumin 3.3 Globulin 3.7 Albumin/Globulin Ratio 0.9 Lipase 90 Urine Color Yellow Urine Clarity Clear Urine pH 6.5 Ur Specific [place] 1.010 Urine Protein 100 H Urine Glucose (UA) 1000 H Urine Ketones Negative Urine Occult Blood 10 H Urine Nitrite Negative Urine Bilirubin Negative Urine Urobilinogen Normal Ur Leukocyte Esterase Negative Urine RBC 0 SEEN Urine WBC 0 SEEN Ur Squamous Epith Cells 0 SEEN Urine Bacteria 0 SEEN Urine Mucus 0 SEEN - Medical Decision Making Clinical Impression(s) from Imaging Studies Abdomen/Pelvis CT 10/17/19 13:37 IMPRESSION: No acute abdominal or pelvic pathology. Electronically Signed: Contreras Valdezedison, at 15:19 EDT Tel , Service support , Laboratory Data 10/17/19 10/17/19 10/17/19 13:45 13:45 14:50 WBC 9.5 RBC 5.43 Hgb 16.5 Hct 49.3 MCV 90.8 MCH 30.4 MCHC 33.5 RDW Std Deviation 42.5 RDW Coeff of Fredo 13.1 Plt Count 207 MPV 10.3 Immature Gran % (Auto) 0.800 Neut % (Auto) 75.4 H Lymph % (Auto) 14.3 L [place] % (Auto) 7.9 Eos % (Auto) 1.3 Baso % (Auto) 0.3 Absolute Neuts (auto) 7.2 Absolute Lymphs (auto) 1.36 Nucleated RBC % 0 Sodium 132 L Potassium 4.5 Chloride 99 Carbon Dioxide 28.0 Anion Gap 5 BUN 16 Creatinine 1.24 Estim Creat Clear Calc 53.85 Est GFR (MDRD) Af Amer 74 Est GFR (MDRD) Non-Af 61 BUN/Creatinine Ratio 12.9 Glucose 415 H Calcium 8.9 Total Bilirubin 0.90 AST 12 L ALT 23 Alkaline Phosphatase 180 H Troponin I < 0.015 Total Protein 7.0 Albumin 3.3 Globulin 3.7 Albumin/Globulin Ratio 0.9 Lipase 90 Urine Color Yellow Urine Clarity Clear Urine pH 6.5 Ur Specific [place] 1.010 Urine Protein 100 H Urine Glucose (UA) 1000 H Urine Ketones Negative Urine Occult Blood 10 H Urine Nitrite Negative Urine Bilirubin Negative Urine Urobilinogen Normal Ur Leukocyte Esterase Negative Urine RBC 0 SEEN Urine WBC 0 SEEN Ur Squamous Epith Cells 0 SEEN Urine Bacteria 0 SEEN Urine Mucus 0 SEEN Evaluated for 3 to 4 months of left flank pain. He feels that he has a bulge in his abdomen. His abdomen is asymmetric and he has a broad bulge that is noted on exam. It is soft and does not really feel like abscess, fluid collection or hernia. Patient abdomen is protuberant and this might just be an asymmetry of it. There is no overlying skin changes. His abdomen is otherwise soft. Work- up including CT of abdomen pelvis and blood work does not show any acute process. The exact cause of pain is not clear however I do not suspect diverticulitis, obstruction, pyelonephritis or kidney stone. Lab work was remarkable for hyperglycemia with a normal anion gap. Patient states he ate a slice of cake before coming in. He states his blood sugars actually been under more control lately. He is counseled that his blood sugar is elevated today and to keep a close eye on it. Patient is given a Lidoderm patch for pain control. He is instructed to follow-up with his primary care doctor for further evaluation. Patient is counseled on signs and symptoms requiring return to the emergency room. Patient verbalizes agreement and understand this plan. Patient discharged home in stable and improved condition. ED Disposition - Plan for ED Patient: Disposition: Home or Assisted Living Diagnosis: Abdominal pain of unknown cause, Hyperglycemia due to diabetes mellitus Instructions: ED Diabetic Hyperglycemia, ED Flank Pain Uncertain Cause Referrals: Dex Valencia DO [Primary Care Provider] - Additional Instructions: A Lidoderm patch was placed on you today. If you find it helpful you can buy them [id number]. They are 4% Lidoderm patches and they are sold at most pharmacies/drugstores.
[2019-10-17 13:57] LABS: Absolute Lymphocyte Count 1.36 X10^3/uL (0.83-4.51); Absolute Neutrophil Count 7.2 X10^3/uL (2.0-7.7); Basophil# 0.03 X10^3/uL; Basophil% 0.3 % (0-1); Eosinophil# 0.12 X10^3/uL; Eosinophils% 1.3 % (0-5); Hematocrit 49.3 % (40-54); Hemoglobin 16.5 g/dL (13.0-16.5); Lymphocyte # 1.36 X10^3/ul (4.0); Lymphocyte % 14.3 % (19-41); Mean Corp Hgb Conc 33.5 g/dL (32-36); Mean Corpuscular Hgb 30.4 pg (27.0-32.0); Mean Corpuscular Volume 90.8 fL (80-94); Mean Platelet Vol. 10.3 fl (6.2-12.0); Monocyte# 0.75 X10^3/uL; Monocyte% 7.9 % (0-10); NRBC Flagged by Analyzer 0 % (0-5); Neutrophil # 7.17 X10^3/uL (2.7-7.7); Neutrophil % 75.4 % (47-70); Platelet Count 207 K/mm3 (150-450); RBC Distribution Width CV 13.1 % (11.6-14.6); RBC Distribution Width SD 42.5 fl (35.1-43.9); Red Blood Count 5.43 M/mm3 (4.6-6.2); White Blood Count 9.5 K/mm3 (4.4-11.0)
[2019-10-17 14:14] LABS: ALB/GLOB Ratio 0.9 RATIO (0.9-2.4); AST(SGOT) 12 U/L (15-37); Alanine Aminotransfer ALT/SGPT 23 U/L (16-61); Albumin, Serum 3.3 g/dL (3.2-5.0); Alkaline Phosphatase 180 U/L (45-117); Anion Gap 5 (5-15); BUN 16 mg/dL (7-18); BUN/Creat Ratio 12.9 RATIO (10-20); Calcium,Total 8.9 mg/dL (8.5-10.1); Chloride 99 mmol/L (98-107); Creatinine, Serum 1.24 mg/dL (0.70-1.30); EST Glomerular Filtration Rate 61 mL/min (>60); Est Glom Filt Rate - Afr Amer 74 mL/min (>60); Estimated Creatinine Clearance 53.85 ml/min; Globulin 3.7 g/dL (2.2-4.2); Glucose 415 mg/dL (74-106); Lipase 90 U/L (73-393); Potassium 4.5 mmol/L (3.5-5.1); Sodium Level 132 mmol/L (136-145)
[2019-10-17 14:57] LABS: Bacteria 0 SEEN /hpf (None Seen); Mucous, Urine 0 SEEN /hpf (<or=2+); Red Blood Cells-Urine 0 SEEN /hpf (0-5); Squamous Epithelial Cells - UA 0 SEEN /hpf (0-5); White Blood Cells 0 SEEN /hpf (0-5)
[2019-10-17 15:02] LABS: Color, Urine Yellow (Yellow); Glucose, Dipstick 1000 mg/dl (Normal); Ketone-Dipstick Negative (Negative); Leukocyte Esterase-Dipstick Negative /ul (Negative); Nitrite-Dipstick Negative (Negative); Occult Blood-Urine 10 /ul (Negative); Protein-Dipstick 100 mg/dl (Negative); Urine Bilirubin Dipstick Negative (Negative); Urine Clarity Clear (Clear); Urine Urobilinogen Normal (Normal); Urine pH 6.5 (5.0 - 8.0)
[2019-10-17] MEDS: Lidocaine 5% Patch 1 PATCH TOPICAL (16:26)
[2019-10-17 16:34] VITALS: BP 186/93; PULSE 89; RESP 18; O2SAT 99
== END 2019-10-17 17:00 | disposition home or self-care (01) ==
PROVIDERS: Emergency Provider Emergency Medicine; PCP Family Medicine
DX: R10.9 Unspecified abdominal pain (principal); E11.65 Type 2 diabetes mellitus with hyperglycemia; I10 Essential (primary) hypertension; Z79.891 Long term (current) use of opiate analgesic; G89.29 Other chronic pain; K21.9 Gastro-esophageal reflux disease without esophagitis; I25.10 Atherosclerotic heart disease of native coronary artery without angina pectoris; Z87.891 Personal history of nicotine dependence; Z79.4 Long term (current) use of insulin; Z79.899 Other long term (current) drug therapy
CPT/HCPCS: 74177; 80053; 81001; 83690; 84484; 85025; 99284; Q9967; A4216

== ENCOUNTER 2019-11-29 15:44 | Emergency (ER) | payer MEDICARE, BC, SELFPAY ==
[2019-11-29 15:45] VITALS: BP 119/66; PULSE 72; RESP 20; TEMP 36.6; BMI 39.8
--- NOTE | 2019-11-29 16:22 | CT_ITS ---
STUDY: CT BRAIN WITHOUT CONTRAST REASON FOR EXAM: Male, 74 years old. DYSARTHRIA, HTN URGENCY, NOT MAKING SENSE PER FAMILY,CY=[id number], COPD,DB RADIATION DOSAGE (If Supplied By Facility): CTDIvol = ( 44.99 ) mGy, DLP = ( 863.60 ) mGycm TECHNIQUE: Transaxial CT imaging of the brain was performed without administration of intravenous contrast material. Individualized dose optimization techniques were used for this CT. COMPARISON: 09/26/2019. FINDINGS: Normal soft tissue structures. Normal calvarium. There is mild cerebral atrophy with widening of the extra-axial spaces and ventricular dilatation. There are areas of decreased attenuation within the white matter tracts of the supratentorial brain, consistent with microvascular disease changes. There is no intracranial hemorrhage. There are no findings of an acute ischemic infarction. Chronic left occipital infarct is unchanged compared to the prior study. Normal visualized paranasal sinuses. Prior mastoidectomy. There is soft tissue density in the left middle air cavity. Left ossicles are eroded or destroyed. No change compared to the prior study. CT/Brain/Head without Contrast IMPRESSION: 1. No acute findings. 2. Chronic left occipital infarct. 3. Microvascular ischemia. Mild atrophy. 4. Left mastoidectomy with chronic soft tissue changes in the mesotympanum. Electronically Signed: Kinga Lopez MD at 17:58 EDT Tel , Service support ,
--- NOTE | 2019-11-29 16:22 | EKG12_ITS ---
Test Reason : Blood Pressure : / mmHG Vent. Rate : 074 BPM Atrial Rate : 074 BPM P-R Int : 192 ms QRS Dur : 120 ms QT Int : 410 ms P-R-T Axes : 010 -40 054 degrees QTc Int : 455 ms Sinus rhythm with Premature atrial complexes Left axis deviation Non-specific intra-ventricular conduction delay Abnormal ECG Confirmed by CORIE SOTO, CARLEE ([id number]), graphic editor PRASANNA LOBO ([id number]) on 12/03/2019 11:26:19 AM Referred By: MINOO Confirmed By:CARLEE FONTENOT MD
--- NOTE | 2019-11-29 16:23 | ED.DCSUM_ITS ---
History of Present Illness Chief Complaint: Fatigue Informant: Patient, Family, Electronic Intelligence Officer Narrative: Patient presents via EMS with a chief complaint of slurred speech which has resolved. Patient states that he was having difficulty maintaining his blood sugars during the night consequently did not get out of bed till around 10 this morning. He states that he did eat some breakfast. Just prior to arrival he states he took a Percocet 7.5 mg tablet. He is prescribed this to take up to 4 times per day for chronic pain. Shortly thereafter his brother noticed that he was having slurred speech and could not understand him. He denied any arm or leg symptoms other than his chronic pain. No headache or visual symptoms. Patient states that he did drink some juice upon EMS arrival his blood sugar was in the normal range. Family is at his bedside and states that he seems appropriate at his baseline for them. Past Medical History - Allergies and Home Meds Allergies/Adverse Reactions: Allergies No Known Allergies Allergy (Verified 11/29/19 16:51) Primary Care Physician: Dex Valencia DO [Primary Care Provider] - Surgical History: - Smoking Status: Former smoker Review of Systems General: Denies: Chills, Fever, Sweats Eyes: Denies: Visual changes - bilaterally, Diplopia ENT: Denies: Rhinorrhea, Sore throat Cardiovascular: Denies: Chest pain, Palpitations Respiratory: Denies: Dyspnea, Cough, Dyspnea on exertion Gastrointestinal: Denies: Abdominal pain, Nausea, Vomiting, Diarrhea, Melena, Hematochezia Genitourinary: Denies: Dysuria, Hematuria, Frequency Musculoskeletal: Reports: Extremity Pain - Dysarthria. Denies: Back pain Skin: Denies: Rash, Wounds Neurological: Reports: -. Denies: Headache, Weakness, Numbness Physical Exam Vital Signs/Narrative: Vital Signs Temp Pulse Resp BP 11/29/19 15:45 97.8 F 72 20 H 119/66 Inital Vital Signs reviewed: Yes General: Well nourished, Well developed, No Acute Distress Head: Normocephalic, Atraumatic Eyes: Perrl, EOMI ENT: Moist mucous membranes, No rhinorrhea Neck: Supple, Nontender Cardiovascular: Regular rate, Regular rhythm, No murmurs Respiratory: No distress, CTA bilaterally, Chest nontender Abdomen: Soft, Nontender, Nondistended, Normal bowel sounds Back: Nontender, Normal Inspection Extremities: Nontender, No edema Skin: Normal color, No rash Neurological: Alert, Oriented x3, Cranial nerves II-XII grossly intact, Normal Strength, Normal Sensation Psychological: Normal affect, Normal Mood Diagnostic/Tx/Re-eval Clinical Impression(s) from Imaging Studies Brain CT 11/29/19 16:22 IMPRESSION: 1. No acute findings. 2. Chronic left occipital infarct. 3. Microvascular ischemia. Mild atrophy. 4. Left mastoidectomy with chronic soft tissue changes in the mesotympanum. Electronically Signed: Kinga Lopez MD at 17:58 EDT Tel , Service support , Laboratory Last Values WBC 14.1 K/mm3 (4.4-11.0) H 11/29/19 16:40 RBC 4.91 M/mm3 (4.6-6.2) 11/29/19 16:40 Hgb 14.4 g/dL (13.0-16.5) 11/29/19 16:40 Hct 45.7 % (40-54) 11/29/19 16:40 MCV 93.1 fL (80-94) 11/29/19 16:40 MCH 29.3 pg (27.0-32.0) 11/29/19 16:40 MCHC 31.5 g/dL (32-36) L 11/29/19 16:40 RDW Std Deviation 44.5 fl (35.1-43.9) H 11/29/19 16:40 RDW Coeff of Fredo 13.1 % (11.6-14.6) 11/29/19 16:40 Plt Count 205 K/mm3 (150-450) 11/29/19 16:40 MPV 10.2 fl (6.2-12.0) 11/29/19 16:40 Immature Gran % (Auto) 0.600 % (0.0-0.9) 11/29/19 16:40 Neut % (Auto) 76.9 % (47-70) H 11/29/19 16:40 Lymph % (Auto) 10.1 % (19-41) L 11/29/19 16:40 [place] % (Auto) 11.6 % (0-10) H 11/29/19 16:40 Eos % (Auto) 0.6 % (0-5) 11/29/19 16:40 Baso % (Auto) 0.2 % (0-1) 11/29/19 16:40 Absolute Neuts (auto) 10.8 X10^3/uL (2.0-7.7) H 11/29/19 16:40 Absolute Lymphs (auto) 1.43 X10^3/uL (0.83-4.51) 11/29/19 16:40 Nucleated RBC % 0 % (0-5) 11/29/19 16:40 Diff Path Review July11/29/19 16:40 Sodium 136 mmol/L (136-145) 11/29/19 16:40 Potassium 4.2 mmol/L (3.5-5.1) 11/29/19 16:40 Chloride 104 mmol/L (98-107) 11/29/19 16:40 Carbon Dioxide 29.0 mmol/L (21.0-32.0) 11/29/19 16:40 Anion Gap 3 (5-15) L 11/29/19 16:40 BUN 41 mg/dL (7-18) H 11/29/19 16:40 Creatinine 1.66 mg/dL (0.70-1.30) H 11/29/19 16:40 Estim Creat Clear Calc 40.22 ml/min 11/29/19 16:40 Est GFR (MDRD) Af Amer 53 mL/min (>60) L 11/29/19 16:40 Est GFR (MDRD) Non-Af 43 mL/min (>60) L 11/29/19 16:40 BUN/Creatinine Ratio 24.7 RATIO (10-20) H 11/29/19 16:40 Glucose 219 mg/dL (74-106) H 11/29/19 16:40 Calcium 8.2 mg/dL (8.5-10.1) L 11/29/19 16:40 Total Bilirubin 0.90 mg/dL (0.20-1.00) 11/29/19 16:40 AST 110 U/L (15-37) H 11/29/19 16:40 ALT 172 U/L (16-61) H 11/29/19 16:40 Alkaline Phosphatase 156 U/L (45-117) H 11/29/19 16:40 Total Protein 6.1 g/dL (6.4-8.2) L 11/29/19 16:40 Albumin 2.7 g/dL (3.2-5.0) L 11/29/19 16:40 Globulin 3.4 g/dL (2.2-4.2) 11/29/19 16:40 Albumin/Globulin Ratio 0.8 RATIO (0.9-2.4) L 11/29/19 16:40 Urine Color Yellow (Yellow) 11/29/19 18:24 Urine Clarity Clear (Clear) 11/29/19 18:24 Urine pH 5.0 (5.0 - 8.0) 11/29/19 18:24 Ur Specific [place] 1.020 (1.002-1.030) 11/29/19 18:24 Urine Protein 500 mg/dl (Negative) H 11/29/19 18:24 Urine Glucose (UA) 50 mg/dl (Normal) H 11/29/19 18:24 Urine Ketones Negative mg/dl (Negative) 11/29/19 18:24 Urine Occult Blood Negative /ul (Negative) 11/29/19 18:24 Urine Nitrite Negative (Negative) 11/29/19 18:24 Urine Bilirubin Negative mg/dL (Negative) 11/29/19 18:24 Urine Urobilinogen Normal mg/dl (Normal) 11/29/19 18:24 Ur Leukocyte Esterase 100 /ul (Negative) H 11/29/19 18:24 Urine RBC 0 SEEN /hpf (0-5) 11/29/19 18:24 Urine WBC 0-5 SEEN /hpf (0-5) 11/29/19 18:24 Ur Squamous Epith Cells 0 SEEN /hpf (0-5) 11/29/19 18:24 Urine Bacteria 0 SEEN /hpf (None Seen) 11/29/19 18:24 Hyaline Casts 0-5 SEEN /lpf (0-5) 11/29/19 18:24 Urine Mucus 0 SEEN /hpf (<or=2+) 11/29/19 18:24 - Rhythm Strip Rhythm Strip: Sinus Rhythm Rate: 74 Ectopy: PAC(s) - EKG Initial EKG Interpretation: Sinus Rhythm - EKG demonstrates a sinus rhythm with PACs. No concerning features of ACS. Nonspecific intraventricular conduction delay - Medical Decision Making Blood work shows some evidence of dehydration he received a liter of IV fluids. He has had no symptoms since he has been here. Given his problems with managing his blood sugar recently is very possible he was hypoglycemic and after ingestion of juice his symptoms resolved. Is also possible this could be opiate reaction. Less likely but still possible would be TIA. Patient states he feels fine after eating. He would like to go home I think this is a very reasonable option for him. Return if worsening or concerns and follow-up with primary care this week. ED Disposition - Plan for ED Patient: Disposition: Home or Assisted Living Diagnosis: Dysarthria, Dehydration Instructions: ED Dehydration Adult Referrals: Dex Valencia DO [Primary Care Provider] - 3-5 Days Additional Instructions: Please monitor your blood sugar carefully and stay in contact with your slip cover cutter.
[2019-11-29 16:45] LABS: Absolute Lymphocyte Count 1.43 X10^3/uL (0.83-4.51); Absolute Neutrophil Count 10.8 X10^3/uL (2.0-7.7); Basophil# 0.03 X10^3/uL; Basophil% 0.2 % (0-1); Eosinophil# 0.09 X10^3/uL; Eosinophils% 0.6 % (0-5); Hematocrit 45.7 % (40-54); Hemoglobin 14.4 g/dL (13.0-16.5); Lymphocyte # 1.43 X10^3/ul (4.0); Lymphocyte % 10.1 % (19-41); Mean Corp Hgb Conc 31.5 g/dL (32-36); Mean Corpuscular Hgb 29.3 pg (27.0-32.0); Mean Corpuscular Volume 93.1 fL (80-94); Mean Platelet Vol. 10.2 fl (6.2-12.0); Monocyte# 1.64 X10^3/uL; Monocyte% 11.6 % (0-10); NRBC Flagged by Analyzer 0 % (0-5); Neutrophil # 10.82 X10^3/uL (2.7-7.7); Neutrophil % 76.9 % (47-70); POSITIVE DIFFERENTIAL YES; Platelet Count 205 K/mm3 (150-450); RBC Distribution Width CV 13.1 % (11.6-14.6); RBC Distribution Width SD 44.5 fl (35.1-43.9); Red Blood Count 4.91 M/mm3 (4.6-6.2); White Blood Count 14.1 K/mm3 (4.4-11.0)
[2019-11-29 16:55] LABS: Differential Indicated SCAN CRITERIA MET
[2019-11-29 17:05] VITALS: BP 114/62; PULSE 78; RESP 17
[2019-11-29 17:11] LABS: ALB/GLOB Ratio 0.8 RATIO (0.9-2.4); AST(SGOT) 110 U/L (15-37); Alanine Aminotransfer ALT/SGPT 172 U/L (16-61); Albumin, Serum 2.7 g/dL (3.2-5.0); Alkaline Phosphatase 156 U/L (45-117); Anion Gap 3 (5-15); BUN 41 mg/dL (7-18); BUN/Creat Ratio 24.7 RATIO (10-20); Calcium,Total 8.2 mg/dL (8.5-10.1); Chloride 104 mmol/L (98-107); Creatinine, Serum 1.66 mg/dL (0.70-1.30); EST Glomerular Filtration Rate 43 mL/min (>60); Est Glom Filt Rate - Afr Amer 53 mL/min (>60); Estimated Creatinine Clearance 40.22 ml/min; Globulin 3.4 g/dL (2.2-4.2); Glucose 219 mg/dL (74-106); Potassium 4.2 mmol/L (3.5-5.1); Protein, Total 6.1 g/dL (6.4-8.2); Sodium Level 136 mmol/L (136-145)
[2019-11-29] MEDS: 0.9% Normal Saline 1,000 ML 999 ML IV (18:00)
[2019-11-29 18:34] LABS: Bacteria 0 SEEN /hpf (None Seen); Mucous, Urine 0 SEEN /hpf (<or=2+); Red Blood Cells-Urine 0 SEEN /hpf (0-5); Squamous Epithelial Cells - UA 0 SEEN /hpf (0-5)
[2019-11-29 18:40] LABS: Color, Urine Yellow (Yellow); Glucose, Dipstick 50 mg/dl (Normal); Ketone-Dipstick Negative (Negative); Leukocyte Esterase-Dipstick 100 /ul (Negative); Nitrite-Dipstick Negative (Negative); Occult Blood-Urine Negative /ul (Negative); Protein-Dipstick 500 mg/dl (Negative); Urine Bilirubin Dipstick Negative (Negative); Urine Clarity Clear (Clear); Urine Urobilinogen Normal (Normal)
[2019-11-29 18:48] LABS: White Blood Cells 0-5 SEEN /hpf (0-5)
[2019-11-29 18:49] LABS: Hyaline Cast 0-5 SEEN /lpf (0-5)
[2019-11-29 19:09] VITALS: BP 140/66; PULSE 76; RESP 20
[2019-11-30 09:42] LABS: Pathologist Review Reviewed
== END 2019-11-29 19:42 | disposition home or self-care (01) ==
PROVIDERS: Emergency Provider Emergency Medicine; PCP Family Medicine
DX: E86.0 Dehydration (principal); R47.1 Dysarthria and anarthria; G89.29 Other chronic pain; Z79.891 Long term (current) use of opiate analgesic; Z87.891 Personal history of nicotine dependence
CPT/HCPCS: 70450; 80053; 81001; 85025; 93005; 96360; 99285; J7030; A4216

== ENCOUNTER 2019-12-05 01:51 | Emergency (ER) | payer MEDICARE, BC, SELFPAY ==
[2019-12-05] VITALS (8 sets, daily range): BP systolic 129–159; BP diastolic 60–114; PULSE 65–78; RESP 14–24; TEMP 36.2–37; O2SAT 93–99; BMI 39.9
--- NOTE | 2019-12-05 02:15 | ED.RN ---
This nurse spoke with jose l noyola to update pt medicines at [phone] per pt request.
[2019-12-05 02:16] LABS: Bedside Glucose 139 mg/dL (70-110)
--- NOTE | 2019-12-05 02:20 | EKG12_ITS ---
Test Reason : N/V Blood Pressure : / mmHG Vent. Rate : 073 BPM Atrial Rate : 073 BPM P-R Int : 186 ms QRS Dur : 112 ms QT Int : 396 ms P-R-T Axes : 056 -53 036 degrees QTc Int : 436 ms Sinus rhythm with marked sinus arrhythmia Left axis deviation ICRBBB Abnormal ECG Confirmed by CORIE SOTO, CARLEE ([id number]), book or script editor ANY ARORA ([id number]) on 12/09/2019 10:04:32 AM Referred By: Confirmed By:CARLEE FONTENOT MD
--- NOTE | 2019-12-05 02:20 | CT_ITS ---
STUDY: CT ABDOMEN AND PELVIS WITH CONTRAST REASON FOR EXAM: Male, 74 years old. VOMITING SINCE 9PM,ELEVATED WBC,diaphoretic -- hx:diabetes,hld,htn,copd,cholecystectomy RADIATION DOSAGE (If Supplied By Facility): CTDIvol = ( 23.71 ) mGy, DLP = ( 1266.81 ) mGycm TECHNIQUE: Transaxial 3.75 mm images were obtained from the dome of the diaphragm to the symphysis pubis without oral contrast. IV 100mL Isovue-370 was administered. Sagittal and coronal images were reconstructed. There is obesity, the entirety of soft tissue is not imaged. Individualized dose optimization techniques were used for this CT. COMPARISON: CT abdomen pelvis 10/17/2019. FINDINGS: Mild atelectasis/scarring in the bases. The visualized portions of the heart are within normal limits. Mild stable hepatosplenomegaly.. There are surgical clips in the gallbladder fossa consistent with a prior cholecystectomy. Otherwise normal spleen. Normal pancreas. Stable bilateral nodularity of the adrenal glands. Mild stable bilateral renal cortical thinning. There is no obstructive uropathy, obstructive renal or ureteral calculi.. Normal visualized stomach. Mild fluid-filled small bowel without obstruction. Fecal stasis. Normal colon. The appendix is visualized and appears normal. Normal abdominal aorta. Normal inferior vena cava. Normal retroperitoneum. Normal urinary bladder. There is a stable left-sided inguinal hernia containing adipose tissue. Subcutaneous stranding of the anterior abdominal wall. There are diffuse degenerative changes of the visualized lumbar spine and bilateral hip joints. Prior surgical fusion of the symphysis pubis and right iliosacral joint. CT/Abdomen/Pelvis W IV Cont ONLY IMPRESSION: Mild small bowel ileus suspected. There is no other acute abdomen and pelvic pathology. Other nonacute findings as outlined above. Electronically Signed: Maria E Blankenship MD at 5:13 EDT , Service support ,
--- NOTE | 2019-12-05 02:31 | ED.DCSUM_ITS ---
- ER Visit Summary Date of Service: 12/05/19 Chief Complaint: Vomiting History of Present Illness: The patient is a 74 M presenting with vomiting. He states this started around 9 PM. He states he had several episodes of vomiting. He does not believe he had blood in his emesis. He denies diarrhea. He c omplains of left lower quadrant abdominal pain. He has had subjective fever. He denies chest pain or shortness of breath. He has a mild headache. Denies other complaints. Physical Examination: Vitals are stable. Patient is afebrile. Alert no acute distress. HEENT exam is unremarkable. Neck is supple. Lungs are clear and equal bilaterally. Heart is regular rate and rhythm. Abdomen is soft left lower quadrant tenderness with no guarding or rebound Extremities are unremarkable. Skin is warm and dry. No focal neurologic deficit. Remainder of exam is unremarkable. Emergency Department Course and Treatment: Patient was given IV fluids, Zofran. EKG is sinus rhythm rate of 73 with no acute ischemic changes. CBC shows white count 17. Chemistries show glucose 149, BUN 28. Alk phos 180. ALT 66, lipase 217. Troponin is negative. CT abdomen pelvis shows mild small bowel ileus suspected. There is no other acute abdomen and pelvic pathology. Patient feels improved in the ED. He is tolerating p.o. He began to feel nauseated again. He will be observed. Will be signed out to the oncoming physician. Disposition: pending Impression: Vomiting, Ileus This note was generated with [employer] dictation software. It may contain incorrect words, spelling, and punctuation that were not noted in review of the chart prior to signing ED Disposition - Plan for ED Patient: Referrals: Dex Valencia DO [Primary Care Provider] -
[2019-12-05 02:32] LABS: Absolute Lymphocyte Count 1.32 X10^3/uL (0.83-4.51); Absolute Neutrophil Count 13.7 X10^3/uL (2.0-7.7); Basophil# 0.03 X10^3/uL; Basophil% 0.2 % (0-1); Differential Indicated SCAN CRITERIA MET; Eosinophil# 0.18 X10^3/uL; Eosinophils% 1.1 % (0-5); Hemoglobin 17.2 g/dL (13.0-16.5); Lymphocyte # 1.32 X10^3/ul (4.0); Lymphocyte % 7.7 % (19-41); Mean Corp Hgb Conc 32.5 g/dL (32-36); Mean Corpuscular Hgb 29.8 pg (27.0-32.0); Mean Corpuscular Volume 91.9 fL (80-94); Mean Platelet Vol. 10.2 fl (6.2-12.0); Monocyte# 1.66 X10^3/uL; Monocyte% 9.7 % (0-10); NRBC Flagged by Analyzer 0 % (0-5); Neutrophil # 13.73 X10^3/uL (2.7-7.7); Neutrophil % 80.6 % (47-70); POSITIVE DIFFERENTIAL YES; Platelet Count 253 K/mm3 (150-450); RBC Distribution Width CV 12.9 % (11.6-14.6); RBC Distribution Width SD 43.5 fl (35.1-43.9); Red Blood Count 5.77 M/mm3 (4.6-6.2)
[2019-12-05] MEDS: 0.9% Normal Saline 1,000 ML 1000 ML IV (02:37)
[2019-12-05] MEDS: Ondansetron 4 MG/2 ML Vial IV (02:37)
[2019-12-05 02:59] LABS: AST(SGOT) 24 U/L (15-37); Alanine Aminotransfer ALT/SGPT 66 U/L (16-61); Albumin, Serum 3.5 g/dL (3.2-5.0); Alkaline Phosphatase 180 U/L (45-117); Anion Gap 8 (5-15); BUN 28 mg/dL (7-18); BUN/Creat Ratio 23.5 RATIO (10-20); Calcium,Total 8.5 mg/dL (8.5-10.1); Chloride 104 mmol/L (98-107); Creatinine, Serum 1.19 mg/dL (0.70-1.30); EST Glomerular Filtration Rate 64 mL/min (>60); Est Glom Filt Rate - Afr Amer 77 mL/min (>60); Estimated Creatinine Clearance 56.11 ml/min; Globulin 3.6 g/dL (2.2-4.2); Glucose 149 mg/dL (74-106); Lipase 217 U/L (73-393); Potassium 3.9 mmol/L (3.5-5.1); Protein, Total 7.1 g/dL (6.4-8.2); Sodium Level 139 mmol/L (136-145)
[2019-12-05 03:24] LABS: Differential Comment SCANNED
[2019-12-05 04:35] LABS: Mucous, Urine 0 SEEN /hpf (<or=2+); Red Blood Cells-Urine 0 SEEN /hpf (0-5); Squamous Epithelial Cells - UA 0 SEEN /hpf (0-5); White Blood Cells 0 SEEN /hpf (0-5)
[2019-12-05 04:36] LABS: Color, Urine Yellow (Yellow); Glucose, Dipstick 50 mg/dl (Normal); Ketone-Dipstick Negative (Negative); Leukocyte Esterase-Dipstick Negative /ul (Negative); Nitrite-Dipstick Negative (Negative); Occult Blood-Urine Negative /ul (Negative); Protein-Dipstick 500 mg/dl (Negative); Urine Bilirubin Dipstick Negative (Negative); Urine Clarity Clear (Clear); Urine Urobilinogen Normal (Normal)
[2019-12-05 04:47] LABS: Bacteria RARE /hpf (None Seen); Fine Granular Cast- Urine 0-5 SEEN /lpf (0-5)
--- NOTE | 2019-12-05 07:11 | ED.RN ---
PT ABLE TO KEEP WATER DOWN. PT STATES SLIGHTLY NAUSEATED BUT STATES FEELS BETTER
--- NOTE | 2019-12-05 07:39 | ED.RN ---
daughter called for check in-updated
--- NOTE | 2019-12-05 08:11 | ED.RN ---
pt states ate a sandwich and had a drink. states ready to go home
--- NOTE | 2019-12-05 08:20 | ED.VISSUMM ---
- ER Visit Summary Date of Service: 12/05/19 Chief Complaint: [] History of Present Illness: The patient is a 74 M [] Physical Examination: [] Test Results: [] Emergency Department Course and Treatment: [] Treatment Plan: [] Disposition: Patient signed out to me to follow patient pending p.o. challenge. He presented with nausea, vomiting and sweating. Lab work-up was remarkable for leukocytosis with no shift and a very mild transaminitis which is not significantly changed from before. Urinalysis does not show infection. CT of the abdomen and pelvis with contrast shows a stable inguinal hernia and a small bowel ileus that is mild. Likely this is the cause of his nausea and vomiting. As patient is tolerating drink and food, and otherwise feels well I think he is a good candidate for outpatient follow-up. He will be discharged home with a course of Zofran. He is given return precautions. He verbalized agreement understand this plan. His daughter comes to pick him up. Impression: Ileus Nausea and vomiting, not intractable This note was generated with [employer] dictation software. It may contain incorrect words, spelling, and punctuation that were not noted in review of the chart prior to signing ED Disposition - Plan for ED Patient: Disposition: Home or Assisted Living Diagnosis: Nausea and vomiting in adult, Ileus Instructions: ED Nausea Vomiting Adult, ED Diet for Vomiting or Diarrhea Adult Prescriptions: Ondansetron [Zofran Odt] 4 mg PO Q8H PRN PRN #10 tab PRN Reason: Nausea Transmission Status: Pending to [id number] Referrals: Dex Valencia DO [Primary Care Provider] - Additional Instructions: Try to stick to a bland diet over the next 24 to 48 hours. Drink plenty fluids. Return the emergency room if you have worsening symptoms, develop abdominal pain or cannot keep any fluids down.
[2019-12-08 13:47] LABS: Pathologist Review Reviewed
== END 2019-12-05 09:21 | disposition home or self-care (01) ==
PROVIDERS: Emergency Provider Emergency Medicine; PCP Family Medicine
DX: K56.7 Ileus, unspecified (principal); R11.2 Nausea with vomiting, unspecified; E11.9 Type 2 diabetes mellitus without complications; Z79.4 Long term (current) use of insulin; Z79.899 Other long term (current) drug therapy
CPT/HCPCS: 36415; 74177; 80053; 81001; 82962; 83690; 84484; 85025; 93005; 96361; 96374; 99285; J7030; Q9967; J2405

== ENCOUNTER 2020-01-25 11:36 | Observation (INO) | payer MEDICARE, BC, SELFPAY ==
[2019-12-05 01:52] VITALS: BMI 39.9
--- NOTE | 2020-01-18 13:09 | EKG12_ITS ---
Test Reason : PREOP Blood Pressure : / mmHG Vent. Rate : 070 BPM Atrial Rate : 070 BPM P-R Int : 178 ms QRS Dur : 122 ms QT Int : 398 ms P-R-T Axes : 055 -61 055 degrees QTc Int : 429 ms Sinus rhythm with marked sinus arrhythmia Left anterior fascicular block Abnormal ECG Confirmed by CORIE SOTO, CARLEE ([id number]), proposal editor PRASANNA LOBO ([id number]) on 01/19/2020 9:13:44 AM Referred By: Doug Weller Confirmed By:CARLEE FONTENOT MD
[2020-01-18 13:18] LABS: Absolute Lymphocyte Count 2.69 X10^3/uL (0.83-4.51); Absolute Neutrophil Count 4.4 X10^3/uL (2.0-7.7); Basophil# 0.03 X10^3/uL; Basophil% 0.4 % (0-1); Eosinophil# 0.15 X10^3/uL; Eosinophils% 1.8 % (0-5); Hematocrit 49.4 % (40-54); Hemoglobin 15.8 g/dL (13.0-16.5); Lymphocyte # 2.69 X10^3/ul (4.0); Mean Corpuscular Hgb 29.6 pg (27.0-32.0); Mean Corpuscular Volume 92.7 fL (80-94); Monocyte# 0.83 X10^3/uL; Monocyte% 10.2 % (0-10); NRBC Flagged by Analyzer 0 % (0-5); Neutrophil # 4.39 X10^3/uL (2.7-7.7); Neutrophil % 53.7 % (47-70); Platelet Count 211 K/mm3 (150-450); RBC Distribution Width CV 12.7 % (11.6-14.6); RBC Distribution Width SD 43.6 fl (35.1-43.9); Red Blood Count 5.33 M/mm3 (4.6-6.2); White Blood Count 8.2 K/mm3 (4.4-11.0)
[2020-01-18 13:43] LABS: Magnesium 1.9 mg/dL (1.6-2.6)
[2020-01-18 13:50] LABS: Anion Gap 6 (5-15); BUN 24 mg/dL (7-18); Chloride 99 mmol/L (98-107); EST Glomerular Filtration Rate 63 mL/min (>60); Est Glom Filt Rate - Afr Amer 76 mL/min (>60); Glucose 89 mg/dL (74-106); Potassium 4.1 mmol/L (3.5-5.1); Sodium Level 136 mmol/L (136-145)
[2020-01-18 14:11] LABS: Hemoglobin A1c 7.5 % (3.8-5.6)
[2020-01-25] VITALS (12 sets, daily range): BP systolic 106–154; BP diastolic 49–78; PULSE 57–76; RESP 16–18; TEMP 36.1–36.9; O2SAT 95–98; BMI 38.1
[2020-01-25] MEDS: Lactated Ringers 1,000 ML 100 ML IV (11:23)
[2020-01-25 11:25] LABS: Bedside Glucose 132 mg/dL (70-110)
[2020-01-25] MEDS: Gabapentin 600 MG Tablet PO (11:40)
[2020-01-25] MEDS: Acetaminophen 500 MG Tablet 1000 MG PO ×2 (11:40→21:40)
[2020-01-25] MEDS: Cefazolin 2 GM in 0.9% Normal Saline 100 ML IV (12:22)
--- NOTE | 2020-01-25 12:30 | HIP_PTH ---
PATIENT: CHIQUITA BAIN LOC: MS3 U#:[id number] AGE/SX: 74/M ROOM: [facility] [place] RE01/25/[address]: Dr. Doug Weller DO : 1945 BED: 1 DIS: 01/26/2020 SPEC #: [id number] RECD: 01/25/20 15:44 STATUS: WOLF REQ #: [id number] FELICITAS: 01/25/20 12:[address]: Doug Weller DEPT: SURGICAL PATHOLOGY RECD BY: Sarah Patino ENTERED: 01/26/20 09:40 SP TYPE: TOTAL HIP OTHR DR: Dr. Dex Valencia DO Tissues: Hip, NOS Procedures: Decalcification bone/plaque Surgery Specimen Level IV HEADER OPERATION: ERAS, total hip replacement PRE-OP DIAGNOSIS: Unilateral primary osteoarthritis left hip TISSUE SUBMITTED: Bone and soft tissue left hip MICROSCOPIC DIAGNOSIS Bone and soft tissue, left hip, total hip replacement/resection: Femoral head with degenerative osteoarthritic changes. Fragments of fibroadipose tissue, fibroconnective tissue and skeletal muscle tissue with reactive changes. KEO:bre 01/29/20 MICROSCOPIC DESCRIPTION Slides are reviewed. GROSS DESCRIPTION Received is one container labeled with the patient's name and designated bone and soft tissue hip, left. The specimen consists of a hand femoral head with portion of femoral neck. The femoral head measures 5 x 5 x 5 cm and the femoral neck measures 1.5 cm in length. The articular surface displays prominent osteophyte formation, eburnation and bone erosion. Also present in the specimen container are multiple irregular fragments of bone reamings and pink-yellow soft tissue measuring in aggregate 11 x 12 x 4 cm. Controller Mechanic sections are submitted in two cassettes as follows: 1 - soft tissue, 2 - bone after decalcification. / KEO:bre 01/26/20 TC:5 CPT: 77206, 25103
[2020-01-25] MEDS: Lactated Ringers 1,000 ML 125 ML IV ×2 (13:00→21:39)
--- NOTE | 2020-01-25 13:40 | PCM.OPRPT ---
Report of Operation Date of Procedure: 01/25/20 Pre-Operative Diagnosis: OA left hip Post-Operative Diagnosis: same Surgery/Procedure Performed:: left THR market research specialist: Jabier Gr Type of Anesthesia:: Spinal Anesthesiologist: Lele Bradford Estimated Blood Loss (mL): 150 cc - Admit VTE Documentation VTE Present on Admission: No VTE Mechan Device Prophylaxis: SCD's, Thigh High DAVEY Hose VTE Pharm Prophylaxis ordered?: Yes
--- NOTE | 2020-01-25 14:20 | RAD_ITS ---
STUDY: X-RAY - PELVIS AND LEFT HIP REASON FOR EXAM: Male, 74 years old. Post op left hip TECHNIQUE: 2 views of the pelvis and hip. COMPARISON: Comparison is made with prior study dated 09/27/2019. FINDINGS: There is a non-specific bowel gas pattern. Normal visualized soft tissue structures. The patient is status post screw fixation of the right sacroiliac joint as well as prior screw and mesh fixation of the superior pubic rami bilaterally. Normal bilateral ischial tuberosities. Patient is status post left total hip replacement. There is good alignment. Moderate degree of joint space narrowing and osteoarthritis involving the right hip joint. RAD/Hip Min 2 Views (Portable) IMPRESSION: Status post left total hip replacement. There is good alignment. Electronically Signed: Dorian Pantoja, at 14:43 EDT , Service support ,
[2020-01-25 14:46] LABS: Bedside Glucose 56 mg/dL (70-110)
[2020-01-25 14:48] LABS: Hematocrit 41.2 % (40-54); Hemoglobin 13.4 g/dL (13.0-16.5); Mean Corp Hgb Conc 32.5 g/dL (32-36); Mean Corpuscular Hgb 30.1 pg (27.0-32.0); Mean Corpuscular Volume 92.6 fL (80-94); Mean Platelet Vol. 10.1 fl (6.2-12.0); Platelet Count 200 K/mm3 (150-450); RBC Distribution Width CV 12.8 % (11.6-14.6); RBC Distribution Width SD 43.3 fl (35.1-43.9); Red Blood Count 4.45 M/mm3 (4.6-6.2); White Blood Count 8.8 K/mm3 (4.4-11.0)
[2020-01-25 15:06] LABS: Anion Gap 6 (5-15); BUN 19 mg/dL (7-18); BUN/Creat Ratio 17.1 RATIO (10-20); Calcium,Total 8.3 mg/dL (8.5-10.1); Chloride 108 mmol/L (98-107); Creatinine, Serum 1.11 mg/dL (0.70-1.30); EST Glomerular Filtration Rate 69 mL/min (>60); Est Glom Filt Rate - Afr Amer 84 mL/min (>60); Estimated Creatinine Clearance 60.16 ml/min; Glucose 62 mg/dL (74-106); Potassium 3.8 mmol/L (3.5-5.1); Sodium Level 141 mmol/L (136-145)
[2020-01-25 15:16] LABS: Bedside Glucose 58 mg/dL (70-110)
[2020-01-25 15:36] LABS: Bedside Glucose 104 mg/dL (70-110)
[2020-01-25] MEDS: Gabapentin 300 MG Capsule PO (16:27)
[2020-01-25] MEDS: oxyCODONE 5 MG Tablet PO ×2 (16:27→21:47)
[2020-01-25] MEDS: Aspirin 81 MG TAB.CHEW PO (16:28)
[2020-01-25] MEDS: Lactulose 20 GM/30 ML UDC PO ×2 (18:03→21:39)
[2020-01-25] MEDS: Albuterol 2.5 MG/3 ML VIAL.NEB. INHALATION (19:10)
[2020-01-25] MEDS: Cefazolin 1 GM/50 ML BAG IV (20:07)
[2020-01-25] MEDS: Atorvastatin Calcium 40 MG Tablet PO (21:40)
[2020-01-25] MEDS: Senna/Docusate Sodium 1 Tablet 2 TABLET PO (21:40)
[2020-01-25] MEDS: Carvedilol 25 MG Tablet PO (21:41)
[2020-01-25] MEDS: Lubiprostone 24 MCG Capsule PO (21:43)
[2020-01-25] MEDS: Insulin Lispro 100 UNIT/ML INSULN.PEN SC (21:44)
[2020-01-25 22:15] LABS: Bedside Glucose 202 mg/dL (70-110)
[2020-01-26] MEDS: oxyCODONE 5 MG Tablet PO ×4 (02:03→15:06)
[2020-01-26 02:07] VITALS: BP 125/64; PULSE 64; RESP 18; TEMP 36.4; O2SAT 95
[2020-01-26 02:20] VITALS: PULSE 60; RESP 18
[2020-01-26] MEDS: Albuterol 2.5 MG/3 ML VIAL.NEB. INHALATION ×2 (02:20→06:55)
[2020-01-26] MEDS: Cefazolin 1 GM/50 ML BAG IV (04:17)
[2020-01-26] MEDS: Acetaminophen 500 MG Tablet 1000 MG PO ×2 (05:17→13:34)
[2020-01-26] MEDS: Insulin Lispro 100 UNIT/ML INSULN.PEN SC ×2 (06:31→11:40)
[2020-01-26 06:41] LABS: Bedside Glucose 174 mg/dL (70-110)
[2020-01-26 06:55] VITALS: PULSE 72; RESP 18; O2SAT 90
--- NOTE | 2020-01-26 07:38 | PCM.PN.ORT ---
Subjective: Patient lying in bed pain well managed. Patient denies chest pain, shortness of breath, calf pain, nausea vomiting. Patient states he is ready for discharge home today. Objective: The dressing is clean dry intact. Negative signs and symptoms of DVT. Vital signs labs reviewed noted in medical record. Patient is afebrile. Patient is neurovascular is otherwise intact. Patient no respiratory distress, speaking in full sentences. - Physical Exam Vitals/I&O's: Vital Signs Temp Pulse Resp BP Pulse Ox 97.5 F L 60 18 125/64 H 95 01/26/20 02:07 01/26/20 02:20 01/26/20 02:20 01/26/20 02:07 01/26/20 02:07 Oxygen Flow Rate (L/min) 3 Oxygen Delivery Method Nasal Cannula Weight: 117.1 kg Body Mass Index (BMI) 38.1 Intake and Output for Last 24 Hours 01/24/20 01/25/20 01/26/20 23:59 23:59 23:59 Intake Total 2922.41 / 3422.41 1590 / 1590 Output Total 725 / 725 Balance 2922.41 / 3422.41 865 / 865 General: Alert, Oriented x3, Cooperative HEENT: PERRLA Oral: Moist Mucosa Neurological: Cranial nerves II-XII grossly intact Psych/Mental Status: Normal Affect, Alert and oriented to time, place, person, mood and affect Laboratory Results 01/25/20 11:09: POC Glucose 132 H 01/25/20 14:35: WBC 8.8, RBC 4.45 L, Hgb 13.4, Hct 41.2, MCV 92.6, MCH 30.1, MCHC 32.5, RDW Std Deviation 43.3, RDW Coeff of Fredo 12.8, Plt Count 200, MPV 10.1 01/25/20 14:35: Sodium 141, Potassium 3.8, Chloride 108 H, Carbon Dioxide 27.0, Anion Gap 6, BUN 19 H, Creatinine 1.11, Estim Creat Clear Calc 60.16, Est GFR (MDRD) Af Amer 84, Est GFR (MDRD) Non-Af 69, BUN/Creatinine Ratio 17.1, Glucose 62 L, Calcium 8.3 L 01/25/20 14:42: POC Glucose 56 L 01/25/20 15:02: POC Glucose 58 L 01/25/20 15:32: POC Glucose 104 01/25/20 21:37: POC Glucose 202 H 01/26/20 06:29: POC Glucose 174 H Current Medications Acetaminophen (Acetaminophen 500 Mg Tablet) 1,000 mg PO Q8 [facility] Last Admin: 01/26/20 05:17 Dose: 1,000 mg Documented by: Albuterol Sulfate (Albuterol 2.5 Mg/3 Ml Vial.Neb.) 2.5 mg INHALATION Q6H.RT [facility] Last Admin: 01/26/20 06:55 Dose: 2.5 mg Documented by: Aspirin (Aspirin 81 Mg Tab.Chew) 81 mg PO BIDCM [facility] Last Admin: 01/25/20 16:28 Dose: 81 mg Documented by: Atorvastatin Calcium (Atorvastatin Calcium 40 Mg Tablet) 40 mg PO DAILY@2200 [facility] Last Admin: 01/25/20 21:40 Dose: 40 mg Documented by: Carvedilol (Carvedilol 25 Mg Tablet) 25 mg PO BID [facility] Last Admin: 01/25/20 21:41 Dose: 25 mg Documented by: Duloxetine HCl (Duloxetine Hcl 60 Mg Capsule) 60 mg PO DAILY [facility] Furosemide (Furosemide 40 Mg Tablet) 40 mg PO DAILY [facility] Gabapentin (Gabapentin 300 Mg Capsule) 300 mg PO TIDCM [facility] Last Admin: 01/25/20 16:27 Dose: 300 mg Documented by: Insulin Glargine (Insulin Glargine 100 Units/Ml Pen) 70 units SC DAILY [facility] Insulin Human Lispro (Insulin Lispro 100 Unit/Ml Insuln.Pen) 0 unit SC [facility]; Protocol Last Admin: 01/26/20 06:31 Dose: 1 units Documented by: Lactulose (Lactulose 20 Gm/30 Ml Udc) 20 gm PO 4X/DAY [facility] Last Admin: 01/25/20 21:39 Dose: 20 gm Documented by: Lisinopril (Lisinopril 20 Mg Tablet) 20 mg PO DAILY [facility] Lubiprostone (Lubiprostone 24 Mcg Capsule) 24 mcg PO BID [facility] Last Admin: 01/25/20 21:43 Dose: 24 mcg Documented by: Ondansetron HCl (Ondansetron 4 Mg/2 Ml Vial) 4 mg IV Q8H PRN PRN PRN Reason: NAUSEA Oxycodone HCl (Oxycodone 5 Mg Tablet) 5 - 10 mg PO Q4H PRN PRN PRN Reason: Pain Score 4-10 Last Admin: 01/26/20 06:31 Dose: 10 mg Documented by: Pantoprazole Sodium (Pantoprazole Sodium 40 Mg Tablet) 40 mg PO DAILY [facility] Polyethylene Glycol (Polyethylene Glycol 3350 17 Gm Packet) 17 gm PO DAILY [facility] Promethazine HCl (Promethazine 25 Mg/Ml Syringe) 12.5 mg IM Q6H PRN PRN; Protocol PRN Reason: NAUSEA/VOMITING Senna/Docusate Sodium (Senna/Docusate Sodium 1 Tablet) 2 tablet PO BID [facility] Last Admin: 01/25/20 21:40 Dose: 2 tablet Documented by: Sodium Chloride (0.9% Nacl Peripheral Flush Adult/Peds) 5 - 15 ml IV UD PRN PRN Reason: SALINE FLUSH Sodium Chloride (0.9% Saline Lock 10 Ml Syringe) 10 - 40 ml IV UD PRN PRN Reason: SALINE FLUSH Medical Necessity - Tobacco Use Smoking Status: Former smoker Tobacco Use: Non-smoker Assessment/Plan All Active Problems (Last Updated 09/26/19 @ 11:[address] Teodoro Moses, DO) Hypertensive emergency (Acute) Status post left total hip arthroplasty Plan 1. Continue all pain medications as prescribed 2. Continue physical therapy weight-bear as tolerated with walker 3. Continue aspirin 81 mg 1 p.o. every 12 hours x30 days for postop DVT prophylaxis 4. Encourage incentive spirometry 5. Follow-up as scheduled see pink sheet 6. Discharge home today after p.m. therapy
[2020-01-26 07:40] VITALS: BP 155/76; PULSE 97; RESP 18; TEMP 36.7; O2SAT 98
[2020-01-26 07:41] LABS: Hematocrit 41.5 % (40-54); Hemoglobin 13.2 g/dL (13.0-16.5); Mean Corp Hgb Conc 31.8 g/dL (32-36); Mean Corpuscular Volume 94.3 fL (80-94); Mean Platelet Vol. 10.3 fl (6.2-12.0); Platelet Count 161 K/mm3 (150-450); RBC Distribution Width CV 12.6 % (11.6-14.6); RBC Distribution Width SD 43.4 fl (35.1-43.9); White Blood Count 8.8 K/mm3 (4.4-11.0)
--- NOTE | 2020-01-26 07:46 | DCINST_ITS ---
Discharge Diet: No Restrictions Discharge Activity: May Not Drive, May Shower, Use Walker May shower in (days): 3 - only if incision is dry and without drainage. Do NOT soak/submerge in tub/pool/poe/stream/hot tub. May resume sexual activity in: No Restrictions Ice area for (Minutes): 20 - every hour while awake Weight Bearing Status: Weight bearing as tolerated Lifting Restrictions: 20 pounds Elevate: Operative Extremity Call your doctor if your incision/area has: Continuous Slow Oozing, Sudden Increased Bleeding, Increased Pain/ Swelling, Increased Redness, Foul Smelling Discharge Call your doctor if you observe: Fever of 101 or Higher, Inability to urinate, Inability to have a bowel movement, Shortness of breath, Fainting spells, Chest pain, Increased palpitations (irregular heartbeat), Calf discomfort, Uncontrolled pain Change Dressing in (Days):: 0 - Change daily and as needed. Remove Dressing in (days):: 8 Cleanse incision/area with: Soap & Water Allergies/Adverse Reactions: Allergies celecoxib [From Celebrex] Adverse Reaction (Verified 01/25/20 10:58) PT UNSURE OF REACTION Medications to take at Discharge Atorvastatin Calcium [Lipitor] 40 mg PO DAILY 09/26/19 Carvedilol [Coreg] 25 mg PO BID 09/26/19 Duloxetine HCl 60 mg PO DAILY 09/26/19 Furosemide [Lasix] 40 mg PO DAILY 09/26/19 Gabapentin 300 mg PO TID 09/26/19 Insulin Detemir [Levemir FlexPen] 70 unit SQ DAILY 09/26/19 Lactulose 30 ml PO 4X/DAY 09/26/19 Lisinopril [Zestril] 20 mg PO DAILY 09/26/19 Pantoprazole Sodium [Protonix] 40 mg PO DAILY 09/26/19 Albuterol Aerosols [Ventolin Aerosols] 2.5 mg INHALATION Q6H 11/29/19 Ondansetron [Zofran Odt] 4 mg PO Q8H PRN PRN #10 tab 12/05/19 Albuterol Sulfate [Albuterol Sulfate HFA] 2 puff IH Q6H 01/13/20 Insulin Lispro [Humalog] 0 unit SQ TID 01/13/20 Lubiprostone [Amitiza] 24 mcg PO BID 01/13/20 Polyethylene Glycol 3350 [Miralax] 17 gm PO DAILY 01/13/20 Acetaminophen [Tylenol] 1,000 mg PO Q8 #90 tab 01/26/20 Aspirin [Aspirin, Baby] 81 mg PO BIDCM #60 tab.chew 01/26/20 Oxycodone [Oxyir] 5 - 10 mg PO Q4H PRN PRN 7 Days #84 tablet 01/26/20 Senna/Docusate Sodium [Senokot-S] 2 tablet PO BID tablet 01/26/20 The following prescriptions were given: Aspirin [Aspirin, Baby] 81 mg PO BIDCM #60 tab.chew Transmission Status: Pending to [id number] Oxycodone [Oxyir] 5 - 10 mg PO Q4H PRN PRN 7 Days #84 tablet PRN Reason: Pain Score 4-10 Transmission Status: Sent to [id number] Acetaminophen [Tylenol] 1,000 mg PO Q8 #90 tab Transmission Status: Pending to [id number] Orders to be completed after discharge: 12 Lead EKG [[facility]] Time Frame: 01/18/20, Facility: [facility], Location: Cardiovascular Services Primary Care Physician: Dex Valencia DO [Primary Care Provider] - Test Results: Test results from this visit will be discussed in further detail at your follow- up appointment, if applicable. Please Follow Up With: Jabier Gr PA-C When: as scheduled see pink sheet
[2020-01-26] MEDS: Lisinopril 20 MG Tablet PO (07:56)
[2020-01-26] MEDS: Aspirin 81 MG TAB.CHEW PO (07:56)
[2020-01-26] MEDS: Pantoprazole Sodium 40 MG Tablet PO (07:56)
[2020-01-26] MEDS: Lactulose 20 GM/30 ML UDC PO ×2 (07:56→13:34)
[2020-01-26] MEDS: Furosemide 40 MG Tablet PO (07:56)
[2020-01-26] MEDS: Senna/Docusate Sodium 1 Tablet 2 TABLET PO (07:56)
[2020-01-26] MEDS: Carvedilol 25 MG Tablet PO (07:56)
[2020-01-26] MEDS: DULoxetine Hcl 60 MG Capsule PO (07:56)
[2020-01-26] MEDS: Lubiprostone 24 MCG Capsule PO (07:57)
[2020-01-26] MEDS: Gabapentin 300 MG Capsule PO ×2 (07:57→11:40)
[2020-01-26] MEDS: Polyethylene Glycol 3350 17 GM PACKET PO (07:57)
[2020-01-26 08:05] LABS: Anion Gap 3 (5-15); BUN 18 mg/dL (7-18); BUN/Creat Ratio 14.8 RATIO (10-20); Calcium,Total 7.8 mg/dL (8.5-10.1); Chloride 101 mmol/L (98-107); Creatinine, Serum 1.22 mg/dL (0.70-1.30); EST Glomerular Filtration Rate 62 mL/min (>60); Est Glom Filt Rate - Afr Amer 75 mL/min (>60); Estimated Creatinine Clearance 54.73 ml/min; Glucose 175 mg/dL (74-106); Potassium 4.1 mmol/L (3.5-5.1); Sodium Level 135 mmol/L (136-145)
--- NOTE | 2020-01-26 10:55 | CASEMGMT ---
Addendum entered by Rivas Toro 01/26/20 19:27: 1500: Call has been placed to [facility]. They confirm pt is receiving SN services only. They were made aware of pt/family wishing to continue w/[facility] for SN services and also go to [facility] for OP therapy. They confirmed that insurance will not cover for both HHC and OP therapy at the same time. They can add PT/OT services to [facility] if pt/family wish. JOANNA LE to room at this time. Salima, pt's daughter, is now present. Salima placed call to pt's niece/caregiver, Giuliana at this time as well and placed her on speaker phone. Pt, Salima, and Giuliana all made aware that [facility] confirms pt cannot have HHC and OP therapy at this time. Salima and Giuliana discussed plan. Giuliana states that Dr Weller was adamant that pt go to [facility] for OP therapy. They decided together and with pt's approval to have [facility] see pt tomorrow and discharge him from their services and then pt will go to OP therapy on Sunday 01/28 @ 0900 as scheduled. Giuliana and Salima state they will look into pt going to PCP or podiatry office to assist with Uniboot application until compression socks arrive. Call placed to [facility] and spoke w/Merry. She was made aware pt is discharging home today and was updated on above. She states they will plan to discharge pt from [facility] services this week and will help facilitate pt/family with plans for Uniboot application. Discharge instructions faxed to [facility] at this time. Plan: Home w/family support. [facility] plan to discharge pt from their services this week and pt to begin OP therapy @ [facility] on Saturday. Original Note: RN MIMI RETAIL MAINTENANCE TECHNICIAN CM to room to meet with patient for initial transition planning/care coordination assessment. JOANNA LE introduced self and role at [facility]. Pt voices understanding and consents to assessment at this time. Pt sitting up in recliner chair at this time. Pt is A/O at this time and answers all questions appropriately. Pt's niece, Giuliana, is pt's primary caregiver and she was on facetime call during assessment as well. Care providers, pharmacy, and demographics verified/updated at this time. PCP: Dr Valencia Specialists: Dr Weller-ortho, Dr May--pulmonology in [place]. Dr Suazo--endocrinology in [place]. Also sees manager systems (Dr Laboy in [place]), college tutor in [place], and decontamination worker (Dr Mcneal in [place]) Preferred Pharmacy: [facility] Insurance: [facility], [place] Prescription Benefit: Yes Living Will/HPOA: [facility] does not have LW or HCPOA . Interested in more information. LNOK: DaughterSalima. Niece, Giuliana Living Arrangements: Lives in one-story home w/ramp. Daughter, Salima, lives w/him but she works full-time. NieceGiuliana, lives nearby and helps take care of him daily. Pt able to bath/dress self. Giuliana manages all home tasks, medication mgmt, appts, grocery shopping, and meals. Transportation: Giuliana and Salima DME: has the following DME: glucometer w/button on chest, shower chair, raised toilet seat, cane, CPAP, nebulizer, intermediate card tender, sock aide. Pt also has O2 @ 3 L/M through [employer] continuously. Uses 3 L/M bleed-in through CPAP. Pt/Giuliana state no need for further DME at this time. HHC/SNF: SNF in [place] after trach. Giuliana states pt is active w/[facility] for SN. She states the plan is for him to go to [facility] for OP therapy and keep SN through HHC. Giuliana states Dr Weller wants pt to go to [facility] for OP therapy instead of doing therapy through HHC in order to be able to work on the machines. She states nurse comes in weekly to apply uniboots until the compression socks come in. Pt has one more fitting for the socks remaining. RN MIMI informed Giuliana that insurance will not cover for HHC and OP therapy at the same time. She states [facility] was aware of this plan and are okay with it. Giuliana made aware this RN CM would inquire about this and would talk with her and pt's daughter after this was checked into. Giuliana also states they would like to have an aide as well to stay with pt @ night. Giuliana made aware, an aide through [facility] would only come in to help bath/dress, that they do not stay longer than this. PLAN: TBD. Home w/resumption of HHC: SN and add PT/OT or OP therapy @ [facility]. Zay GARVINN RN CM
[2020-01-26 11:45] LABS: Bedside Glucose 229 mg/dL (70-110)
[2020-01-26 15:10] VITALS: BP 105/52; PULSE 69; RESP 18; TEMP 36.5; O2SAT 96
--- NOTE | 2020-01-26 15:51 | CASEMGMT ---
Social Work Note SW received referral for advanced directives. SW attempted to meet with pt, pt currently discharging from [facility] is getting wheeled out of pt's room. SW provided pt with advanced directives documents and was previously provided vp digital marketing social media and crm rack card for pt to schedule outpatient appointment. Dorota White MSW, OBSTETRIC ANAESTHETIST
== END 2020-01-26 15:49 | disposition home health service (06) ==
LOC: MS3 19:07
PROVIDERS: Anesthesiology; Admitting Provider Orthopaedic Surgery; PCP Family Medicine; Referring Provider Orthopaedic Surgery; Visit Provider Orthopaedic Surgery
PROC: 0SRB0JZ Replacement of Left Hip Joint with Synthetic Substitute, Open Approach (ICD-10-PCS; CPT 27130; principal; 2020-01-25 12:05)
DX: M16.12 Unilateral primary osteoarthritis, left hip (principal); Z79.899 Other long term (current) drug therapy; I10 Essential (primary) hypertension; Z87.891 Personal history of nicotine dependence; J44.9 Chronic obstructive pulmonary disease, unspecified; G47.30 Sleep apnea, unspecified; K21.9 Gastro-esophageal reflux disease without esophagitis; E11.9 Type 2 diabetes mellitus without complications; E78.00 Pure hypercholesterolemia, unspecified; N19 Unspecified kidney failure
CPT/HCPCS: 01214; 27130; 36415; 73502; 80048; 82962; 83036; 83735; 85025; 85027; 87081; 87635; 88305; 88311; 93005; 94640; 96361; 96365; 96366; 97116; 97162; 97166; 97530; 97535; 99218; 99251; C1776; C9803; J7120; A4216; G0378; G0379; G0463; J2405; U0003

== ENCOUNTER 2020-01-31 15:18 | Inpatient (IN) | payer MEDICARE, BC, SELFPAY ==
[2020-01-25 16:14] VITALS: BMI 38.1
[2020-01-31] VITALS (8 sets, daily range): BP systolic 149–176; BP diastolic 67–86; PULSE 58–80; RESP 16–20; TEMP 36.6–36.7; O2SAT 98–100; BMI 40.1; BMI 38.4; BMI 38.3
--- NOTE | 2020-01-31 16:28 | CT_ITS ---
We are attempting to reach an attending provider to discuss findings. An addendum with communication details will be sent when the communication is complete. STUDY: CT BRAIN WITHOUT CONTRAST REASON FOR EXAM: Male, 74 years old. ARM WEAKNESS, RECENT HIP REPLACEMENT RADIATION DOSAGE (If Supplied By Facility): CTDIvol = ( 44.99 ) mGy, DLP = ( 880.47 ) mGycm TECHNIQUE: Transaxial CT imaging of the brain was performed without administration of intravenous contrast material. Individualized dose optimization techniques were used for this CT. COMPARISON: 11/29/2019 FINDINGS: Normal soft tissue structures. Normal calvarium. Left lens replacement. Normal size ventricles and extra-axial spaces for the patient''s age. There are areas of decreased attenuation within the white matter tracts of the supratentorial brain, consistent with microvascular disease changes. Normal age-related changes of the basal ganglia. Normal brainstem. Normal cerebellum. There is no intracranial hemorrhage. There are no findings of an acute ischemic infarction. Remote left superior temporooccipital infarct. Interval development of ischemic changes in the more inferior left temporooccipital region. An acute infarct is not excluded and correlation with MRI is recommended if possible. Normal visualized paranasal sinuses. Left mastoidectomy. Prosthetic stapes on the left. CT/Brain/Head without Contrast IMPRESSION: Interval development of ischemic changes in the inferior left temporooccipital region. An acute infarct is not excluded and correlation with MRI is recommended if possible. No evidence of hemorrhage. Electronically Signed: Miles Bansal MD at 17:25 EST Tel , Service support ,
--- NOTE | 2020-01-31 16:29 | EKG12_ITS ---
Test Reason : Blood Pressure : / mmHG Vent. Rate : 059 BPM Atrial Rate : 059 BPM P-R Int : 174 ms QRS Dur : 134 ms QT Int : 418 ms P-R-T Axes : 096 026 074 degrees QTc Int : 413 ms Sinus bradycardia with Premature atrial complexes Non-specific intra-ventricular conduction block Abnormal ECG Confirmed by RASHID SOTO, EVELYN ([id number]), communications editor PRASANNA LOBO ([id number]) on 02/02/2020 11:29:13 AM Referred By: [facility] Confirmed By:EVELYN MIKE MD
--- NOTE | 2020-01-31 16:32 | ED.VIS.GEN ---
History of Present Illness Chief Complaint: Lower Extremity Injury Informant: Patient, Family Onset: Days Context: Gradual Onset Narrative: Patient is a 74-year-old male that is 6 days postop from left total hip performed by Dr. Weller, presenting from home for increased swelling of his left lower extremity, bleeding through his dressing and increased arm weakness. His daughter and niece have been taking care of him. They note that he has been more weak for the past few days and seems to be shaking in his hands and dropping things. The door is having a hard time holding a can of soda. Patient's been seen in his recliner not elevating his leg since has been home. Patient has some chronic paresthesias of his leg but this is unchanged. States his pain is controlled with pain medication but worse with movement. He is not sure if he is on any blood thinners. He denies any worsening shortness of breath. He states he wears oxygen at home because of COPD but his breathing feels like it is at his baseline. No other complaints at this time. Past Medical History - Allergies and Home Meds Allergies/Adverse Reactions: Allergies celecoxib [From Celebrex] Adverse Reaction (Verified 01/31/20 15:23) PT UNSURE OF REACTION Past Medical History: - - Diabetes mellitus, hypertension, COPD, GERD Surgical History: - Lives: With Family Smoking Status: Current every day smoker - Family History Maternal Family History: Reports: No pertinent history Paternal Family History: Reports: No pertinent history Review of Systems General: Denies: Chills, Fever, Sweats Eyes: Denies: Visual changes - bilaterally, Diplopia ENT: Denies: Rhinorrhea, Sore throat Cardiovascular: Denies: Chest pain, Palpitations Respiratory: Denies: Dyspnea, Cough, Dyspnea on exertion Gastrointestinal: Denies: Abdominal pain, Nausea, Vomiting, Diarrhea, Melena, Hematochezia Genitourinary: Denies: Dysuria, Hematuria, Frequency Musculoskeletal: Reports: Swelling - LLE, Extremity Pain - left hip-surgical site . Denies: Back pain Skin: Denies: Rash, Wounds Neurological: Reports: Weakness - bilateral hands , - - tremor . Denies: Headache, Numbness Physical Exam Vital Signs/Narrative: Vital Signs Temp Pulse Resp BP Pulse Ox 01/31/20 16:29 65 18 149/67 H 99 01/31/20 15:19 98.0 F 62 19 H 155/77 H 100 Inital Vital Signs reviewed: Yes General: Well nourished, Well developed, Obese, No Acute Distress Head: Normocephalic, Atraumatic Eyes: Perrl, EOMI ENT: Moist mucous membranes, No rhinorrhea Neck: Supple, Nontender, No JVD Cardiovascular: Regular rate, Regular rhythm, No murmurs Respiratory: No distress, CTA bilaterally, Chest nontender Abdomen: Soft, Nontender, Nondistended, Normal bowel sounds Back: Nontender, Normal Inspection Extremities: Tenderness - with ROM of left hip , Edema - L>R, 3+ pitting. Negative for: Calf Tenderness Skin: Normal color, No rash, - - Incision site of left hip is clean and dry. Rose in place. No active bleeding. No infectious findings. Neurological: Alert, Oriented x3, Cranial nerves II-XII grossly intact, Normal Strength, Normal Sensation, - - NIH equals 0, normal [id number] and coordination. Negative for: Normal Gait, Left side facial droop, Right side facial droop Psychological: Normal affect, Normal Mood Diagnostic/Tx/Re-eval Chest X-Ray - ED: 1 View, Read by ED Physician, Read by Radiologist, No Acute Disease Clinical Impression(s) from Imaging Studies Brain CT 01/31/20 16:28 IMPRESSION: Interval development of ischemic changes in the inferior left temporooccipital region. An acute infarct is not excluded and correlation with MRI is recommended if possible. No evidence of hemorrhage. Electronically Signed: Miles Bansal MD at 17:25 EST Tel , Service support , ADDENDUM: 01/31/20 1828 IMPRESSION: Interval development of ischemic changes in the inferior left temporooccipital region. An acute infarct is not excluded and correlation with MRI is recommended if possible. No evidence of hemorrhage. N.B. : The above information has been verbally conveyed by Miles Bansal MD to Amanda Hallman MD, on 01/31/2020 18:21:43 (ET). Electronically Signed: Miles Bansal MD at 17:25 EST Tel , Service support , Chest X-Ray 01/31/20 17:00 IMPRESSION: No acute pulmonary findings. Electronically Signed: Miles Bansal MD at 17:30 EST Tel , Service support , Hip/Pelvis X-Ray 01/31/20 17:00 IMPRESSION: Stable unremarkable left hip arthroplasty. Electronically Signed: Miles Bansal MD at 17:32 EST Tel , Service support , Chest CTA 01/31/20 17:38 IMPRESSION: Normal CTA chest examination, without a demonstrated pulmonary embolism or aortic dissection. Electronically Signed: Miles Bansal MD at 18:26 EST Tel , Service support , Laboratory Data 01/31/20 01/31/20 01/31/20 15:40 15:40 15:52 WBC 7.2 RBC 4.22 L Hgb 12.6 L Hct 40.3 MCV 95.5 H MCH 29.9 MCHC 31.3 L RDW Std Deviation 46.2 H RDW Coeff of Fredo 13.2 Plt Count 278 MPV 10.2 Immature Gran % (Auto) 2.000 H Neut % (Auto) 60.1 Lymph % (Auto) 20.9 Ballard % (Auto) 14.6 H Eos % (Auto) 1.8 Baso % (Auto) 0.6 Absolute Neuts (auto) 4.3 Absolute Lymphs (auto) 1.50 Nucleated RBC % 0 Sodium 139 Potassium 4.2 Chloride 103 Carbon Dioxide 32.0 Anion Gap 4 L BUN 28 H Creatinine 1.29 Estim Creat Clear Calc 51.76 Est GFR (MDRD) Af Amer 70 Est GFR (MDRD) Non-Af 58 L BUN/Creatinine Ratio 21.7 H Glucose 92 Calcium 8.5 Total Bilirubin 0.60 AST 12 L ALT 22 Alkaline Phosphatase 134 H Troponin I 0.059 H Total Protein 6.2 L Albumin 2.4 L Globulin 3.8 Albumin/Globulin Ratio 0.6 L Urine Color Yellow Urine Clarity Clear Urine pH 6.0 Ur Specific [place] 1.010 Urine Protein 30 H Urine Glucose (UA) Normal Urine Ketones Negative Urine Occult Blood Negative Urine Nitrite Negative Urine Bilirubin Negative Urine Urobilinogen 1 H Ur Leukocyte Esterase Negative Urine RBC 0 SEEN Urine WBC 0 SEEN Ur Squamous Epith Cells 0 SEEN Urine Bacteria 0 SEEN Urine Mucus 0 SEEN - Rhythm Strip Rhythm Strip: Sinus Rhythm Rate: 59 Ectopy: PAC(s) - EKG Initial EKG Interpretation: Sinus Bradycardia, - - Sinus bradycardia at a rate of 59 with PACs Normal axis Normal intervals Normal ST segments - Medical Decision Making Patient is evaluated for wound check from a left total hip last week as well as generalized weakness and weakness of his upper extremity since his surgery. On exam patient has no focal neurologic deficits. He is slightly somnolent but answers questions appropriately. He has some blood soaking through his dressing but there is no active bleeding underneath the dressing and the incision site appears to be healing very well. No drainage, redness or signs of infection. Generalized work-up including head CT, EKG and lab work is obtained. He does have some pain with range of motion of the hips I did obtain a x-ray which does not show any acute process. His surgical dressing is exchanged per the recommendation of orthopedics. Patient does have asymmetric edema which is not surprising given his recent hip surgery however I do not have access to ultrasound to rule out DVT. He does have a bump in his troponin but no acute EKG changes. CTA obtained given his leg swelling, recent surgery and patient of his troponin. Negative for any acute process. Kidney function is at his baseline. CT of the brain also shows an area of possible acute infarct. He does not have neurologic symptoms consistent with the area of infarct however he needs to be evaluated further for these new findings. Patient is agreeable this plan of care. Case also discussed with his daughter over the phone who is agreeable with plan of care. While patient was in the ER attempting to give a urine sample he did fall forward and landed on his knees. He did not hit his hip. X-ray obtained of the left knee does not show any acute process. He did not hit his head. Note patient is incredibly weak and cannot really weight-bear at all. Patient is given a dose of aspirin in the emergency room. ED Disposition - Plan for ED Patient: Disposition: [facility] Diagnosis: Abnormal cardiac enzyme level, Status post left hip replacement, Acute ischemic stroke
[2020-01-31 16:37] LABS: Bacteria 0 SEEN /hpf (None Seen); Mucous, Urine 0 SEEN /hpf (<or=2+); Red Blood Cells-Urine 0 SEEN /hpf (0-5); Squamous Epithelial Cells - UA 0 SEEN /hpf (0-5); White Blood Cells 0 SEEN /hpf (0-5)
[2020-01-31 16:43] LABS: Absolute Neutrophil Count 4.3 X10^3/uL (2.0-7.7); Basophil# 0.04 X10^3/uL; Basophil% 0.6 % (0-1); Eosinophil# 0.13 X10^3/uL; Eosinophils% 1.8 % (0-5); Hematocrit 40.3 % (40-54); Hemoglobin 12.6 g/dL (13.0-16.5); Lymphocyte % 20.9 % (19-41); Mean Corp Hgb Conc 31.3 g/dL (32-36); Mean Corpuscular Hgb 29.9 pg (27.0-32.0); Mean Corpuscular Volume 95.5 fL (80-94); Mean Platelet Vol. 10.2 fl (6.2-12.0); Monocyte# 1.05 X10^3/uL; Monocyte% 14.6 % (0-10); NRBC Flagged by Analyzer 0 % (0-5); Neutrophil # 4.31 X10^3/uL (2.7-7.7); Neutrophil % 60.1 % (47-70); Platelet Count 278 K/mm3 (150-450); RBC Distribution Width CV 13.2 % (11.6-14.6); RBC Distribution Width SD 46.2 fl (35.1-43.9); Red Blood Count 4.22 M/mm3 (4.6-6.2); White Blood Count 7.2 K/mm3 (4.4-11.0)
[2020-01-31 16:51] LABS: Color, Urine Yellow (Yellow); Glucose, Dipstick Normal (Normal); Ketone-Dipstick Negative (Negative); Leukocyte Esterase-Dipstick Negative /ul (Negative); Nitrite-Dipstick Negative (Negative); Occult Blood-Urine Negative /ul (Negative); Protein-Dipstick 30 mg/dl (Negative); Urine Bilirubin Dipstick Negative (Negative); Urine Clarity Clear (Clear); Urine Urobilinogen 1 mg/dl (Normal)
[2020-01-31 17:00] LABS: ALB/GLOB Ratio 0.6 RATIO (0.9-2.4); AST(SGOT) 12 U/L (15-37); Alanine Aminotransfer ALT/SGPT 22 U/L (16-61); Albumin, Serum 2.4 g/dL (3.2-5.0); Alkaline Phosphatase 134 U/L (45-117); Anion Gap 4 (5-15); BUN 28 mg/dL (7-18); BUN/Creat Ratio 21.7 RATIO (10-20); Calcium,Total 8.5 mg/dL (8.5-10.1); Chloride 103 mmol/L (98-107); Creatinine, Serum 1.29 mg/dL (0.70-1.30); EST Glomerular Filtration Rate 58 mL/min (>60); Est Glom Filt Rate - Afr Amer 70 mL/min (>60); Estimated Creatinine Clearance 51.76 ml/min; Globulin 3.8 g/dL (2.2-4.2); Glucose 92 mg/dL (74-106); Potassium 4.2 mmol/L (3.5-5.1); Protein, Total 6.2 g/dL (6.4-8.2); Sodium Level 139 mmol/L (136-145)
--- NOTE | 2020-01-31 17:00 | RAD_ITS ---
STUDY: X-RAY - PELVIS AND LEFT HIP REASON FOR EXAM: Male, 74 years old. Pt had hip replacement here 3 days ago. Family concerned with swelling of lt leg and drainage on dressing. TECHNIQUE: 2 views of the pelvis and hip. COMPARISON: 01/25/2020 FINDINGS: Stable right sacroiliac hardware. Stable hardware in the bilateral superior pubic rami and across the pubic symphysis. The left-sided superior pubic ramus plate is fractured, unchanged. Stable left hip arthroplasty. Stable right hip osteoarthritis. Clips in the pelvis. Pelvic phleboliths. Left lateral skin luís. RAD/HIP, UNI W/ Pelvis 2-3 Views IMPRESSION: Stable unremarkable left hip arthroplasty. Electronically Signed: Miles Bansal MD at 17:32 EST Tel , Service support ,
--- NOTE | 2020-01-31 17:00 | RAD_ITS ---
STUDY: X-RAY CHEST REASON FOR EXAM: Male, 74 years old. WEAKNESS TECHNIQUE: Single frontal view of the chest. COMPARISON: None. FINDINGS: The lungs are clear and expanded. There is no demonstrated pleural abnormality. Prominent cardiac silhouette. Normal mediastinum and jose. Normal visualized pulmonary arteries. Normal visualized aortic arch and descending thoracic aorta. Normal visualized thoracic spine. Normal visualized ribs, clavicles, and shoulders. There is no demonstrated abnormality of the visualized soft tissue structures of the upper abdomen. RAD/Chest 1 View (Portable) IMPRESSION: No acute pulmonary findings. Electronically Signed: Miles Bansal MD at 17:30 EST Tel , Service support ,
--- NOTE | 2020-01-31 17:38 | CT_ITS ---
STUDY: CTA CHEST REASON FOR EXAM: Male, 74 years old. SOB. Lt hip replacement 3 days ago. Lt leg red and swollen RADIATION DOSAGE (If Supplied By Facility): CTDIvol = ( 15.04 ) mGy, DLP = ( 569.54 ) mGycm TECHNIQUE: The examination was performed with the intravenous administration of IV 100mL Isovue-370. Post-processing of the angiographic images was performed, with multiplanar reformation and 3D reconstruction. Individualized dose optimization techniques were used for this CT. COMPARISON: None. FINDINGS: Normal enhancement of the main pulmonary artery and right and left pulmonary arteries. Normal enhancement of the bilateral peripheral pulmonary arteries. There is no demonstrated pulmonary embolism. Normal thoracic aorta and visualized great vessels. There is no demonstrated aortic dissection. Normal heart and pericardium. Normal mediastinum. Normal hilar regions. Normal visualized trachea and bronchi. Right lower lobe atelectasis. Normal pleura. Normal chest wall structures. There are degenerative changes of thoracic spine. Normal visualized upper abdomen. CT/CTA Chest W/WO Contrast IMPRESSION: Normal CTA chest examination, without a demonstrated pulmonary embolism or aortic dissection. Electronically Signed: Miles Bansal MD at 18:26 EST Tel , Service support ,
[2020-01-31] MEDS: Aspirin 81 MG TAB.CHEW 324 MG PO (18:52)
--- NOTE | 2020-01-31 18:59 | HP.PCM_ITS ---
Problem List (1) Status post left hip replacement Status: Acute (2) Abnormal cardiac enzyme level Status: Acute (3) Acute ischemic stroke Status: Suspected (4) Chronic pain syndrome Status: Chronic (5) Chronic respiratory failure Status: Chronic (6) Type 2 diabetes mellitus Status: Chronic (7) Hypertension Status: Chronic History of Present Illness Date of Admission: 01/31/20 Chief Complaint: Drainage through the left hip surgical scar, weakness. The patient is a 74 year old M with past medical history as mentioned above presented to the emergency room because of increasing drainage and bleeding from the dressing of the left hip surgical scar as well as weakness. The patient is a very poor informant and was not able to provide consistent history. He mentioned that he came in today because of bleeding and drainage on the dressing of the left hip surgery that he had 6 days ago. Patient underwent left total hip replacement 6 days ago and he was discharged home. His daughter and niece has been taking care of him. Today, they noted that there is more drainage coming from the dressing on the surgical scar. They stated that he has been very weak, both hands, similar and he has been dropping things from his hands. Patient states that he had chronic paresthesia of both legs because of neuropathy. He mentioned that his left leg is more swollen than usual but usually both legs are mildly swollen and red. He denied fever or chills. He reported chronic cough, no worsening shortness of breath. He had a history of type 2 diabetes mellitus, has been on insulin and hemoglobin A1c was 7.5% on December,. He had a history of hypertension which seemed to be under fair control on Coreg and lisinopril. He had a history of chronic respiratory failure, has been on home oxygen at 3 L. He had remote history of tracheostomy and tracheostomy opening still there. In the emergency department, his blood pressure was slight elevated, was afebrile, pulse ox was 96% on 3 L which is his baseline. Routine blood work was remarkable for hemoglobin of 12.6 g/dL, otherwise normal. LFT was unremarkable. EKG revealed sinus bradycardia and PACs, no acute segment changes. Troponin was 0.059. Urinalysis was unremarkable. CT scan brain showed development of ischemic changes in the inferior left temporal occipital region, acute infarct cannot be ruled out. X- ray of the pelvis and left hip revealed stable left hip arthroplasty. Chest x- ray showed no acute findings. CTA chest showed no PE or dissection, no infiltrate or consolidation. He is being admitted for suspected stroke and abnormal cardiac enzymes in setting of recent left total hip replacement. Past Medical History Past Medical History (Chronic Problems): Chronic Problems (Last Updated 09/26/19 @ 11:[address] Teodoro Moses DO) Chronic pain syndrome (Chronic) Chronic respiratory failure (Chronic) Type 2 diabetes mellitus (Chronic) Hypertension (Chronic) Medical History: Medical History (Last Updated 09/26/19 @ 11:[address] Teodoro Moses DO) DM2 (diabetes mellitus, type 2) E11.9 HTN (hypertension) I10 Allergies celecoxib [From Celebrex] Adverse Reaction (Verified 01/31/20 15:23) PT UNSURE OF REACTION Home Medications: Ambulatory Orders Medication Instructions Recorded Atorvastatin Calcium [Lipitor] 40 mg PO DAILY 09/26/19 Carvedilol [Coreg] 25 mg PO BID 09/26/19 Duloxetine HCl 60 mg PO DAILY 09/26/19 Furosemide [Lasix] 40 mg PO DAILY 09/26/19 Gabapentin 300 mg PO TID 09/26/19 Insulin Detemir [Levemir FlexPen] 70 unit SQ DAILY 09/26/19 Lactulose 30 ml PO 4X/DAY 09/26/19 Lisinopril [Zestril] 20 mg PO DAILY 09/26/19 Pantoprazole Sodium [Protonix] 40 mg PO DAILY 09/26/19 Albuterol Aerosols [Ventolin 2.5 mg INHALATION Q6H 11/29/19 Aerosols] Ondansetron [Zofran Odt] 4 mg PO Q8H PRN PRN #10 tab 12/05/19 Albuterol Sulfate [Albuterol 2 puff IH Q6H 01/13/20 Sulfate HFA] Insulin Lispro [Humalog] 0 unit SQ TID 01/13/20 Lubiprostone [Amitiza] 24 mcg PO BID 01/13/20 Polyethylene Glycol 3350 [Miralax] 17 gm PO DAILY 01/13/20 Acetaminophen [Tylenol] 1,000 mg PO Q8 #90 tab 01/26/20 Aspirin [Aspirin, Baby] 81 mg PO BIDCM #60 tab.chew 01/26/20 Oxycodone [Oxyir] 5 - 10 mg PO Q4H PRN PRN 7 Days 01/26/20 #84 tab Senna/Docusate Sodium [Senokot-S] 2 tab PO BID tab 01/26/20 Doxycycline [Vibramycin] 100 mg PO BID 01/31/20 Latanoprost 0.005% [Xalatan 1 drp EACH EYE QHS 01/31/20 Opthalmic] Surgical History: total knee arthroplasty, - - Tracheostomy. Lives: With Family Smoking Status: Former smoker Alcohol: None Drugs: None - *Family History Maternal History Items: No pertinent history Paternal History Items: No pertinent history Review of Systems Constitutional: Reports: Weakness. Denies: Anorexia, Chills, Fever Eyes: Denies: Blurred vision, Double vision, Drainage, Redness HEENT: Reports: Difficulty Hearing. Denies: Ear Pain, Eye Pain, Nasal Congestion, Sore Throat Cardiovascular: Denies: Chest Pain, Chest Pressure, Chest Tightness, Heaviness, Light Headedness, Palpitations, Syncope Respiratory: Reports: Cough. Denies: Pleuritic Pain, Shortness of Breath, Sputum production, Wheezing Gastrointestinal: Denies: Abdominal Pain, Constipation, Diarrhea, Nausea, Vomiting Genitourinary: Denies: Dysuria, Frequency, Hematuria Musculoskeletal: Denies: Arm Pain, Back Pain, Foot Pain Skin: Denies: Dryness, Rash Neurological: Denies: Balance problems, Double vision, Slurred speech, Confusion, Headaches, Numbness Psychiatric: Reports: Depression. Denies: Anxiety Endocrine: Denies: Change in Body Habitus, Polydipsia, Polyuria VTE Information - Inpt Only VTE Present on Admission: No VTE Mechan Device Prophylaxis: None VTE Pharm Prophylaxis ordered?: Yes Patient Problems: Active and Suspected Problems (Last Updated 09/26/19 @ 11:[address] Teodoro Moses, DO) Status post left hip replacement (Acute) Abnormal cardiac enzyme level (Acute) Acute ischemic stroke (Suspected) - Physical Exam Vitals/I&O's: Vital Signs Temp Pulse Resp BP Pulse Ox 98.0 F 80 20 H 171/86 H 100 01/31/20 15:19 01/31/20 18:49 01/31/20 18:49 01/31/20 18:49 01/31/20 18:49 Oxygen Flow Rate (L/min) 2 Oxygen Delivery Method Nasal Cannula Weight: 272 lb 4.334 oz Body Mass Index (BMI) 40.1 General: Alert, Oriented x3, Cooperative, No apparent distress HEENT: Atraumatic, PERRLA, EOMI, Normocephalic, - - Tracheostomy opening, no tube. Oral: Moist Mucosa, No Gingival or Mucosal Lesions/ Ulcerations Neck: Supple, No JVD, Negative Carotid Bruits, Trachea Midline, Thyroid Normal Size and Texture Lungs: Clear to auscultation, Normal air movement, No wheeze, No rales, Diminished, Rhonchi Cardiovascular: Regular rate, Regular Rhythm, Normal S1, Normal S2, PMI Normal Abdomen: Bowel Sounds Present, Soft, Non Tender, Non-Distended, No Hepato- splenomegaly, Obese Extremities: No clubbing, No cyanosis, Edema - Chronic bilateral lymphedema, stasis dermatitis. Skin: No rashes, No breakdown, Incision Lymphatic: No Cervical, Supraclavicular, or Inguinal Adenopathy Neurological: Cranial nerves II-XII grossly intact, Motor Exam 5/5 strength throughout Psych/Mental Status: Normal Affect, Appropriate, Alert and oriented to time, place, person, mood and affect Laboratory Results 01/31/20 15:40: WBC 7.2, RBC 4.22 L, Hgb 12.6 L, Hct 40.3, MCV 95.5 H, MCH 29.9, MCHC 31.3 L, RDW Std Deviation 46.2 H, RDW Coeff of Fredo 13.2, Plt Count 278, MPV 10.2, Immature Gran % (Auto) 2.000 H, Neut % (Auto) 60.1, Lymph % (Auto) 20.9, [place] % (Auto) 14.6 H, Eos % (Auto) 1.8, Baso % (Auto) 0.6, Absolute Neuts (auto) 4.3, Absolute Lymphs (auto) 1.50, Nucleated RBC % 0 01/31/20 15:40: Sodium 139, Potassium 4.2, Chloride 103, Carbon Dioxide 32.0, Anion Gap 4 L, BUN 28 H, Creatinine 1.29, Estim Creat Clear Calc 51.76, Est GFR (MDRD) Af Amer 70, Est GFR (MDRD) Non-Af 58 L, BUN/Creatinine Ratio 21.7 H, Glucose 92, Calcium 8.5, Total Bilirubin 0.60, AST 12 L, ALT 22, Alkaline Phosphatase 134 H, Troponin I 0.059 H, Total Protein 6.2 L, Albumin 2.4 L, Globulin 3.8, Albumin/Globulin Ratio 0.6 L 01/31/20 15:52: Urine Color Yellow, Urine Clarity Clear, Urine pH 6.0, Ur Specific [place] 1.010, Urine Protein 30 H, Urine Glucose (UA) Normal, Urine Ketones Negative, Urine Occult Blood Negative, Urine Nitrite Negative, Urine Bilirubin Negative, Urine Urobilinogen 1 H, Ur Leukocyte Esterase Negative, Ur ine RBC 0 SEEN, Urine WBC 0 SEEN, Ur Squamous Epith Cells 0 SEEN, Urine Bacteria 0 SEEN, Urine Mucus 0 SEEN Clinical Impression(s) from Imaging Studies Brain CT 01/31/20 16:28 IMPRESSION: Interval development of ischemic changes in the inferior left temporooccipital region. An acute infarct is not excluded and correlation with MRI is recommended if possible. No evidence of hemorrhage. Electronically Signed: Miles Bansal MD at 17:25 EST Tel , Service support , ADDENDUM: 01/31/20 1828 IMPRESSION: Interval development of ischemic changes in the inferior left temporooccipital region. An acute infarct is not excluded and correlation with MRI is recommended if possible. No evidence of hemorrhage. N.B. : The above information has been verbally conveyed by Miles Bansal MD to Amanda Hallman MD, on 01/31/2020 18:21:43 (ET). Electronically Signed: Miles Bansal MD at 17:25 EST Tel , Service support , Chest X-Ray 01/31/20 17:00 IMPRESSION: No acute pulmonary findings. Electronically Signed: Miles Bansal MD at 17:30 EST Tel , Service support , Hip/Pelvis X-Ray 01/31/20 17:00 IMPRESSION: Stable unremarkable left hip arthroplasty. Electronically Signed: Miles Bansal MD at 17:32 EST Tel , Service support , Chest CTA 01/31/20 17:38 IMPRESSION: Normal CTA chest examination, without a demonstrated pulmonary embolism or aortic dissection. Electronically Signed: Miles Bansal MD at 18:26 EST Tel , Service support , Current Medications Iopamidol (Contrast Allergy Safety Check) 0 ml IV X1 VAUGHN Assessment/Plan All Active Problems (Last Updated 09/26/19 @ 11:[address] Teodoro Moses, DO) Status post left hip replacement (Acute) Abnormal cardiac enzyme level (Acute) This is a 75 years old male patient presented to the emergency room because of drainage on the dressing of the left hip surgical scar as well as vague weakness and he was found to have abnormal findings on the CT scan brain which could be due to acute stroke and also found to have abnormal cardiac enzymes and he is being admitted for evaluation and treatment. #1 upper extremity weakness/dropping objects/abnormal CT scan brain: His symptoms are nonfocal. CT brain revealed development of ischemic changes in the inferior left temporal occipital region, acute infarct cannot be ruled out. Patient has no focal deficit on physical exam. EKG reviewed as above, revealed sinus bradycardia, PACs, no acute changes. Blood pressure slightly elevated. Acute stroke cannot be ruled out. Plan: Admit to PCU, cardiac monitoring, NIH stroke scale, continue aspirin and statins, MRI brain, 2D echocardiogram, bilateral carotid Doppler, repeat CBC and BMP tomorrow morning, PT OT evaluation and treatment. #2 abnormal cardiac enzymes: Without chest pain or acute ischemic changes on EKG. Plan: Cardiac monitoring, serial cardiac enzymes, 2D echocardiogram, repeat EKG tomorrow morning, continue aspirin, statins, Coreg and lisinopril. #3 status post recent left hip replacement: No active bleeding at the surgical site. X-ray of the hip reviewed, unremarkable. Plan: Pain control, orthopedic surgery consult. #4 type 2 diabetes mellitus: ADA diet, Accu-Cheks, insulin sliding scale, continue Levemir. Hemoglobin A1c was 7.5% this month. #5 hypertension: Blood pressure slightly elevated, will allow permissive hypertension in case of acute stroke, continue Coreg, hold lisinopril. #6 chronic respiratory failure: On home oxygen at 3 L, currently he is stable on 3 L. Chest x-ray showed no acute findings. #7 depression: Continue duloxetine. #8 chronic bilateral leg lymphedema: With chronic erythema, continue Lasix. #9 chronic pain syndrome: OxyIR as needed for pain, Tylenol as needed. #10 DVT prophylaxis: Subcu Lovenox. This note was generated with [employer] dictation software. It may contain incorrect words, spelling, and punctuation that were not noted in checking the note before signing. Inpatient E&M: 73405 Init Hosp L3
--- NOTE | 2020-01-31 19:26 | NURSING ---
Pt's melany Giordano informed of pt's fall from the side of the bed and that patient to be admitted pending a room assignment..
--- NOTE | 2020-01-31 19:38 | RAD_ITS ---
STUDY: X-RAY - LEFT KNEE REASON FOR EXAM: Male, 74 years old. LEFT KNEE PAIN TECHNIQUE: 2 view(s) of the knee. COMPARISON: None. FINDINGS: Normal visualized distal femur. Normal visualized proximal tibia and fibula. Normal proximal tibiofibular articulation. Normal medial femorotibial compartment. Normal lateral femorotibial compartment. Normal patellofemoral articulation. The soft tissue structures are unremarkable. RAD/Knee 1 or 2 Views IMPRESSION: Normal x-ray examination of the knee. Electronically Signed: Miles Bansal MD at 20:08 EST Tel , Service support ,
--- NOTE | 2020-01-31 20:49 | ECHOCS_ITS ---
Reason For Study: ABN EKG Procedure This was a 2D Doppler, Color Flow transthoracic echocardiogram. The study was technically difficult. Due to body habitus and recent LT THR. Exam performed in supine position. Contrast injection was performed. Exam performed portable in patient room. Left Ventricle Normal LV size. Mild concentric left ventricular hypertrophy. Left ventricular systolic function is normal. The estimated ejection fraction is 60 %. Stage 1 diastolic dysfunction. No regional wall motion abnormalities noted. Right Ventricle Normal RV size. Normal systolic function. Atria Normal left atrium. Normal right atrium. Mitral Valve Normal mitral valve. Tricuspid Valve Normal tricuspid valve. Aortic Valve Trisinus/trileaflet aortic valve. Pulmonic Valve Normal pulmonic valve. Great Vessels Normal aortic root. The pulmonary artery is normal size. Normal inferior vena cava. Pericardium/Pleural No pericardial effusion. Medication Diluted definity 3.0ml given slow IV push to enhance endocardial definition. MMode/2D Measurements & Calculations LVIDd: 6.1 cm IVSd: 1.3 cm Ao root diam: 3.4 cm LVIDs: 4.5 cm LVPWd: 1.2 cm LA dimension: 4.2 cm RVDd: 3.9 cm FS: 25.9 % LAV(MOD-bp): 60.4 ml LA A4 area: 19.9 cm2 RA A4 area: 22.0 cm2 LAV(MOD-bp) Indexed: 26.2 ml/m2 LAV(MOD-sp2): 61.8 ml LAV(MOD-sp4): 57.2 ml Time Measurements MV dec time: 0.26 sec Doppler Measurements & Calculations MV E max gerardo: 102.0 cm/sec Lat Peak E' Gerardo: 9.5 cm/sec Med Peak E' Gerardo: 7.6 cm/sec MV A max gerardo: 110.1 cm/sec E/E' lat: 10.7 E/E' med: 13.4 MV E/A: 0.93 LV V1 max: 132.0 cm/sec PA V2 max: 97.1 cm/sec LV V1 max P.0 mmHg Interpretation Summary Normal LV size. Mild concentric left ventricular hypertrophy. Left ventricular systolic function is normal. The estimated ejection fraction is 60 %. Stage 1 diastolic dysfunction. Contrast injection was performed. Ordering Physician: Fani Cordova Referring Physician: Dex Valencia Performed By: Odilia Randhawa, VICKIE, RVT
--- NOTE | 2020-01-31 20:49 | CDU_ITS ---
Reason For Study: STROKE Rt. Velocities/BP Lt. Velocities/BP Prox CCA 136/17 cm/sec. Prox CCA 155/16 cm/sec. Mid CCA 132/15 cm/sec. Mid CCA 171/18 cm/sec. Dist CCA 101/13 cm/sec. Dist CCA 118/19 cm/sec. Prox ICA 85/16 cm/sec. Prox ICA 91/29 cm/sec. Mid ICA 94/25 cm/sec. Mid ICA 103/34 cm/sec. Dist ICA 67/16 cm/sec. Dist ICA 156/32 cm/sec. Rt. ICA/CCA = .7. Lt. ICA/CCA = 1.0. Prox ECA 119/0 cm/sec. Prox ECA 138/10 cm/sec. Rt. Vert. 65/16 cm/sec. Lt. Vert. 83/19 cm/sec. Right Extracranial There is homogeneous, irregular atherosclerotic plaque noted in the right common carotid artery. There is heterogeneous, irregular atherosclerotic plaque noted in the right internal carotid artery. There is homogeneous, smooth atherosclerotic plaque noted in the right external carotid artery. Antegrade flow is noted in the right vertebral artery. There is heterogeneous, irregular atherosclerotic plaque noted in the right bulb. Left Extracranial There is homogeneous, smooth atherosclerotic plaque noted in the left common carotid artery. There is heterogeneous, irregular atherosclerotic plaque noted in the left internal carotid artery. There is heterogeneous, smooth atherosclerotic plaque noted in the left external carotid artery. Antegrade flow is noted in the left vertebral artery. There is heterogeneous, irregular atherosclerotic plaque noted in the left bulb. Procedure Carotid Duplex [id number]. Exam performed portable in patient room. Interpretation Summary Irregular plaque at the proximal right internal carotid artery with a less than 50% stenosis. Less than 50% stenosis right external carotid Irregular plaque at the proximal left internal carotid with 50 to 69% stenosis suggested in the distal left internal carotid. Hemodynamically significant stenosis does not appear to be present Less than 50% stenosis left external carotid Patent and antegrade vertebrals bilaterally Ordering Physician: Fani Cordova Referring Physician: BERNARDO CANALES Performed By: Manuela Delatorre, VICKIE, RVT
[2020-01-31 21:01] LABS: Prothrombin Time (Protime)PT. 12.4 SECONDS (11.7-14.9)
[2020-01-31] MEDS: Gabapentin 300 MG Capsule PO (22:21)
[2020-01-31] MEDS: Acetaminophen 325 MG Tablet 650 MG PO (22:22)
[2020-01-31] MEDS: oxyCODONE 5 MG Tablet PO (22:22)
[2020-01-31] MEDS: Latanoprost 0.005% 1 Bottle 1 DRP EACH EYE (22:22)
[2020-01-31] MEDS: Lactulose 20 GM/30 ML UDC PO (22:22)
[2020-01-31] MEDS: Atorvastatin Calcium 40 MG Tablet PO (22:23)
[2020-01-31 22:35] LABS: Bedside Glucose 136 mg/dL (70-110)
[2020-02-01] VITALS (13 sets, daily range): BP systolic 129–172; BP diastolic 49–80; PULSE 59–92; RESP 16–18; TEMP 36.2–37.1; O2SAT 97–100; BMI 38.3
[2020-02-01 03:11] LABS: Anion Gap 4 (5-15); BUN 24 mg/dL (7-18); BUN/Creat Ratio 22.4 RATIO (10-20); Calcium,Total 8.6 mg/dL (8.5-10.1); Chloride 104 mmol/L (98-107); Creatinine, Serum 1.07 mg/dL (0.70-1.30); EST Glomerular Filtration Rate 72 mL/min (>60); Est Glom Filt Rate - Afr Amer 87 mL/min (>60); Glucose 120 mg/dL (74-106); Potassium 4.6 mmol/L (3.5-5.1); Sodium Level 138 mmol/L (136-145)
[2020-02-01 03:46] LABS: Bedside Glucose 115 mg/dL (70-110)
[2020-02-01 04:05] LABS: Absolute Neutrophil Count 5.3 X10^3/uL (2.0-7.7); Basophil# 0.05 X10^3/uL; Basophil% 0.6 % (0-1); Eosinophil# 0.12 X10^3/uL; Eosinophils% 1.5 % (0-5); Hematocrit 37.2 % (40-54); Hemoglobin 11.8 g/dL (13.0-16.5); Mean Corp Hgb Conc 31.7 g/dL (32-36); Mean Corpuscular Hgb 29.8 pg (27.0-32.0); Mean Corpuscular Volume 93.9 fL (80-94); Mean Platelet Vol. 9.9 fl (6.2-12.0); Monocyte# 1.19 X10^3/uL; Monocyte% 14.5 % (0-10); NRBC Flagged by Analyzer 0 % (0-5); Neutrophil # 5.32 X10^3/uL (2.7-7.7); Neutrophil % 64.6 % (47-70); Platelet Count 271 K/mm3 (150-450); RBC Distribution Width CV 13.1 % (11.6-14.6); RBC Distribution Width SD 44.7 fl (35.1-43.9); Red Blood Count 3.96 M/mm3 (4.6-6.2); White Blood Count 8.2 K/mm3 (4.4-11.0)
[2020-02-01] MEDS: oxyCODONE 5 MG Tablet PO ×4 (04:18→23:08)
[2020-02-01] MEDS: Acetaminophen 325 MG Tablet 650 MG PO ×4 (04:19→23:07)
--- NOTE | 2020-02-01 05:55 | EKG12_ITS ---
Test Reason : AM EKG Blood Pressure : / mmHG Vent. Rate : 068 BPM Atrial Rate : 068 BPM P-R Int : 168 ms QRS Dur : 124 ms QT Int : 398 ms P-R-T Axes : 051 -08 071 degrees QTc Int : 423 ms Sinus rhythm with Premature atrial complexes Poor R wave progression Confirmed by CORIE SOTO, CARLEE ([id number]), supervising film or videotape editor PRASANNA LOBO ([id number]) on 02/03/2020 10:45:40 AM Referred By: VALENTIN Confirmed By:CARLEE FONTENOT MD
[2020-02-01] MEDS: Gabapentin 300 MG Capsule PO ×3 (06:42→21:37)
[2020-02-01 07:06] LABS: Bedside Glucose 96 mg/dL (70-110)
[2020-02-01] MEDS: Carvedilol 25 MG Tablet PO ×2 (08:16→16:46)
[2020-02-01] MEDS: Aspirin 81 MG TAB.CHEW PO ×2 (08:17→16:46)
--- NOTE | 2020-02-01 08:30 | MRI_ITS ---
We are attempting to reach an attending provider to discuss findings. An addendum with communication details will be sent when the communication is complete. STUDY: MRI BRAIN WITHOUT CONTRAST REASON FOR EXAM: Male, 74 years old. weakness, recent hip surgery TECHNIQUE: Standardized multiplanar fat and water weighted pulse sequences were obtained. COMPARISON: CT 01/31/2020 FINDINGS: There is mild cerebral atrophy with widening of the extra-axial spaces and ventricular dilatation. There are a limited number of small white matter hyperintensities, distributed throughout the deep white matter tracts of the cerebral hemispheres, consistent with mild chronic white matter ischemic changes. 3 cm area of hyperintensity the posterior left parietal lobe demonstrates restricted diffusion consistent with an acute infarct. Normal T2* images of the brain without demonstrated susceptibility artifact. There is no demonstrated hemosiderin stain. Normal bilateral basal ganglia. Normal thalami. There is no extra-axial fluid accumulation. Normal flow voids within the major intracranial circulation suggesting patency by spin echo criteria. There is enlargement of the sella turcica with increased CSF within the sella and flattening of the pituitary gland consistent with an empty sellar syndrome. Normal infundibular stalk, hypothalamus, and optic chiasm. Normal tectal plate and pineal gland. Normal midbrain, murali and medulla. Normal cerebellum. Normal basal cisterns. 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 Normal bilateral internal auditory canals. There is an ocular lens implant the left globe. Normal right globe. The intraorbital contents otherwise are normal. Normal visualized paranasal sinuses. Normal calvarium and skull base. Normal visualized soft tissue structures. Normal visualized upper cervical spine. MRI/Brain without Contrast IMPRESSION: Involutional changes of the brain, as described above. 3 cm acute infarct in the posterior left parietal lobe. Electronically Signed: Cristhian Grier MD at 10:05 EST Tel , Service support ,
--- NOTE | 2020-02-01 09:30 | PN_ITS ---
Patient Problems: Active and Suspected Problems (Last Updated 09/26/19 @ 11:[address] Teodoro Moses, DO) Acute ischemic stroke (Acute) Status post left hip replacement (Acute) Abnormal cardiac enzyme level (Acute) Acute ischemic stroke (Suspected) Reason for Visit: Suspected CVA Subjective: Patient is a 75-year-old lady with recent left total hip replacement who presented with weakness as well as drainage involving the scar. CT of the brain obtained demonstrated Interval development of ischemic changes in the inferior left temporooccipital region admitted to monitored bed for subsequent work-up Objective: GENERAL: cooperative HEENT: Atraumatic; EYES; Anicteric, Normal Conjunctiva NECK; supple, normal thyroid, RESPIRATORY: Diminished to auscultation CARDIOVASCULAR: Regular S1 S2, GI: soft, normoactive bowel sounds, : No Renal angle tenderness; EXTREMITIES: No edema, no clubbing, MUSCULOSKELETAL: Left hip incision with some drainage NEURO: Awake; no lateralizing signs. SKIN: No Rash PSYCH; Flat affect Vitals/I&O's: Vital Signs Temp Pulse Resp BP Pulse Ox 97.6 F L 63 16 164/65 H 99 02/01/20 07:41 02/01/20 07:41 02/01/20 07:41 02/01/20 07:41 02/01/20 07:41 Oxygen Flow Rate (L/min) 3 Oxygen Delivery Method Nasal Cannula Weight: 117.9 kg Body Mass Index (BMI) 38.3 Intake and Output for Last 24 Hours 01/31/20 01/31/20 02/01/20 00:59 23:59 23:59 Intake Total 480 / 480 Output Total 600 / 600 Balance -120 / -120 Laboratory Results 01/31/20 15:40: WBC 7.2, RBC 4.22 L, Hgb 12.6 L, Hct 40.3, MCV 95.5 H, MCH 29.9, MCHC 31.3 L, RDW Std Deviation 46.2 H, RDW Coeff of Fredo 13.2, Plt Count 278, MPV 10.2, Immature Gran % (Auto) 2.000 H, Neut % (Auto) 60.1, Lymph % (Auto) 20.9, Elk % (Auto) 14.6 H, Eos % (Auto) 1.8, Baso % (Auto) 0.6, Absolute Neuts (auto) 4.3, Absolute Lymphs (auto) 1.50, Nucleated RBC % 0 01/31/20 15:40: Sodium 139, Potassium 4.2, Chloride 103, Carbon Dioxide 32.0, Anion Gap 4 L, BUN 28 H, Creatinine 1.29, Estim Creat Clear Calc 51.76, Est GFR (MDRD) Af Amer 70, Est GFR (MDRD) Non-Af 58 L, BUN/Creatinine Ratio 21.7 H, Glucose 92, Calcium 8.5, Total Bilirubin 0.60, AST 12 L, ALT 22, Alkaline Phosphatase 134 H, Troponin I 0.059 H, Total Protein 6.2 L, Albumin 2.4 L, Globulin 3.8, Albumin/Globulin Ratio 0.6 L 01/31/20 15:40: PT 12.4, INR 1.0 01/31/20 15:52: Urine Color Yellow, Urine Clarity Clear, Urine pH 6.0, Ur Specific [place] 1.010, Urine Protein 30 H, Urine Glucose (UA) Normal, Urine Ketones Negative, Urine Occult Blood Negative, Urine Nitrite Negative, Urine Bilirubin Negative, Urine Urobilinogen 1 H, Ur Leukocyte Esterase Negative, Urine RBC 0 SEEN, Urine WBC 0 SEEN, Ur Squamous Epith Cells 0 SEEN, Urine Bacteria 0 SEEN, Urine Mucus 0 SEEN 01/31/20 21:21: Troponin I 0.054 H 01/31/20 22:19: POC Glucose 136 H 01/31/20 23:50: Troponin I 0.045 02/01/20 02:48: WBC 8.2, RBC 3.96 L, Hgb 11.8 L, Hct 37.2 L, MCV 93.9, MCH 29.8, MCHC 31.7 L, RDW Std Deviation 44.7 H, RDW Coeff of Fredo 13.1, Plt Count 271, MPV 9.9, Immature Gran % (Auto) 1.800 H, Neut % (Auto) 64.6, Lymph % (Auto) 17.0 L, [place]k % (Auto) 14.5 H, Eos % (Auto) 1.5, Baso % (Auto) 0.6, Absolute Neuts (auto) 5.3, Absolute Lymphs (auto) 1.40, Nucleated RBC % 0 02/01/20 02:48: Sodium 138, Potassium 4.6, Chloride 104, Carbon Dioxide 30.0, Anion Gap 4 L, BUN 24 H, Creatinine 1.07, Estim Creat Clear Calc 62.40, Est GFR (MDRD) Af Amer 87, Est GFR (MDRD) Non-Af 72, BUN/Creatinine Ratio 22.4 H, Glucose 120 H, Calcium 8.6 02/01/20 02:48: Troponin I 0.036 02/01/20 03:42: POC Glucose 115 H 02/01/20 06:39: POC Glucose 96 Current Medications Acetaminophen (Acetaminophen 325 Mg Tablet) 650 mg PO Q6H PRN PRN PRN Reason: Pain Score 1-10/Temp > 100.7 F Last Admin: 02/01/20 04:19 Dose: 650 mg Documented by: Albuterol Sulfate (Albuterol 2.5 Mg/3 Ml Vial.Neb.) 2.5 mg INHALATION Q2H PRN PRN PRN Reason: Shortness of breath, wheezing Aspirin (Aspirin 81 Mg Tab.Chew) [facility] Last Admin: 02/01/20 08:17 Dose: 81 mg Documented by: Atorvastatin Calcium (Atorvastatin Calcium 40 Mg Tablet) 40 mg PO DAILY@2200 [facility] Last Admin: 01/31/20 22:23 Dose: 40 mg Documented by: Carvedilol (Carvedilol 25 Mg Tablet) [facility] Last Admin: 02/01/20 08:16 Dose: 25 mg Documented by: Duloxetine HCl (Duloxetine Hcl 60 Mg Capsule) 60 mg PO DAILY [facility] Enoxaparin Sodium (Enoxaparin 40 Mg/0.4 Ml Syringe) 40 mg SC DAILY [facility] Furosemide (Furosemide 40 Mg Tablet) 40 mg PO DAILY [facility] Gabapentin (Gabapentin 300 Mg Capsule) 300 mg PO TID [facility] Last Admin: 02/01/20 06:42 Dose: 300 mg Documented by: Insulin Glargine (Insulin Glargine 100 Units/Ml Pen) 70 units SC DAILY [facility] Insulin Human Lispro (Insulin Lispro 100 Unit/Ml Insuln.Pen) 0 unit SC [facility]; Protocol Last Admin: 02/01/20 06:43 Dose: Not Given Documented by: Lactulose (Lactulose 20 Gm/30 Ml Udc) 20 gm PO 4X/DAY [facility] Last Admin: 01/31/20 22:22 Dose: 20 gm Documented by: Latanoprost (Latanoprost 0.005% 1 Bottle) 1 drop EACH EYE QHS [facility] Last Admin: 01/31/20 22:22 Dose: 1 drop Documented by: Lubiprostone (Lubiprostone 24 Mcg Capsule) 24 mcg PO BID [facility] Magnesium Hydroxide (Magnesium Hydroxide 30 Ml Udc) 30 ml PO DAILY PRN PRN PRN Reason: Constipation Ondansetron HCl (Ondansetron 4 Mg/2 Ml Vial) 4 mg IV Q8H PRN PRN PRN Reason: NAUSEA/VOMITING Oxycodone HCl (Oxycodone 5 Mg Tablet) 5 mg PO Q6H PRN PRN PRN Reason: Pain Score 6-10 Last Admin: 02/01/20 04:18 Dose: 5 mg Documented by: Pantoprazole Sodium (Pantoprazole Sodium 40 Mg Tablet) 40 mg PO DAILY [facility] Polyethylene Glycol (Polyethylene Glycol 3350 17 Gm Packet) 17 gm PO DAILY [facility] Senna/Docusate Sodium (Senna/Docusate Sodium 1 Tablet) 2 tablet PO BID PRN PRN PRN Reason: Constipation Sodium Chloride (0.9% Saline Lock 10 Ml Syringe) 10 - 40 ml IV UD PRN PRN Reason: SALINE FLUSH Zolpidem Tartrate (Zolpidem Tartrate 5 Mg Tablet) 5 mg PO QHS PRN PRN PRN Reason: INSOMNIA STROKE Vital Signs/Narrative: Vital Signs Temp Pulse Resp BP Pulse Ox 02/01/20 07:41 97.6 F L 63 16 164/65 H 99 02/01/20 06:40 67 Medical Necessity - Tobacco Use Smoking Status: Former smoker Assessment/Plan All Active Problems (Last Updated 09/26/19 @ 11:[address] Teodoro Moses, DO) Acute ischemic stroke (Acute) Status post left hip replacement (Acute) Abnormal cardiac enzyme level (Acute) Patient is a 75-year-old lady with recent left total hip replacement who presented with weakness as well as drainage involving the scar. CT of the brain obtained demonstrated Interval development of ischemic changes in the inferior left temporooccipital region admitted to monitored bed for subsequent work-up 1. Acute ischemic CVA ?CT of the brain obtained demonstrated Interval development of ischemic changes in the inferior left temporooccipital region. Admitted to monitored bed where patient is currently undergoing subsequent work-up to rule out acute CVA. MRI demonstrated a 3 cm acute infarct in the posterior left parietal lobe. Consult subsequently placed to neurology. As part of patient's management 2D echo and lipid panel ordered 2. Elevated cardiac enzymes ?Patient denied any chest pain EKG did not show any acute ischemic changes currently on a monitored bed for continuous telemetry echo ordered 3. Status post left hip replacement -On 01/25/[address] Weller consult placed orthopedic surgery 4. Hypertension - Blood pressure controlled, home medications continued with dose adjustment as needed 5. Depression ?Patient is on duloxetine did continue 6. Chronic hypoxic respiratory failure ?Patient is on baseline oxygen 3 L 7. Bilateral lymphedema ?Patient is on Lasix 8. Chronic pain syndrome -Pain medication as tolerated 9. Morbid obesity with BMI of 38.4 ?Weight loss advised 10. DVT prophylaxis ?Lovenox Clinical Impression(s) from Imaging Studies Brain CT 01/31/20 16:28 IMPRESSION: Interval development of ischemic changes in the inferior left temporooccipital region. An acute infarct is not excluded and correlation with MRI is recommended if possible. No evidence of hemorrhage. Electronically Signed: Miles Bansal MD at 17:25 EST Tel , Service support , ADDENDUM: 01/31/20 1828 IMPRESSION: Interval development of ischemic changes in the inferior left temporooccipital region. An acute infarct is not excluded and correlation with MRI is recommended if possible. No evidence of hemorrhage. N.B. : The above information has been verbally conveyed by Miles Bansal MD to Amanda Hallman MD, on 01/31/2020 18:21:43 (ET). Electronically Signed: Miles Bansal MD at 17:25 EST Tel , Service support , Chest X-Ray 01/31/20 17:00 IMPRESSION: No acute pulmonary findings. Electronically Signed: Miles Bansal MD at 17:30 EST Tel , Service support , Hip/Pelvis X-Ray 01/31/20 17:00 IMPRESSION: Stable unremarkable left hip arthroplasty. Electronically Signed: Miles Bansal MD at 17:32 EST Tel , Service support , Chest CTA 01/31/20 17:38 IMPRESSION: Normal CTA chest examination, without a demonstrated pulmonary embolism or aortic dissection. Electronically Signed: Miles Bansal MD at 18:26 EST Tel , Service support , Knee X-Ray 01/31/20 19:38 IMPRESSION: Normal x-ray examination of the knee. Electronically Signed: Miles Bansal MD at 20:08 EST Tel , Service support , Brain MRI 02/01/20 08:30 IMPRESSION: Involutional changes of the brain, as described above. 3 cm acute infarct in the posterior left parietal lobe. Electronically Signed: Cristhian Grier MD at 10:05 EST Tel , Service support , ADDENDUM: 02/01/20 1022 IMPRESSION: Involutional changes of the brain, as described above. 3 cm acute infarct in the posterior left parietal lobe. N.B. : The above information has been verbally conveyed by Cristhian Grier MD to Naa Vick RN, on 02/01/2020 10:15:42 (ET). Electronically Signed: Cristhian Grier MD at 10:05 EST Tel , Service support , Inpatient E&M: 73121 Subs Hosp L2
[2020-02-01] MEDS: Enoxaparin 40 MG/0.4 ML Syringe SC (10:07)
[2020-02-01] MEDS: Furosemide 40 MG Tablet PO (10:19)
[2020-02-01] MEDS: Senna/Docusate Sodium 1 Tablet 2 TABLET PO (10:19)
[2020-02-01] MEDS: Lactulose 20 GM/30 ML UDC PO ×4 (10:20→21:37)
[2020-02-01] MEDS: Polyethylene Glycol 3350 17 GM PACKET PO (10:20)
[2020-02-01] MEDS: DULoxetine Hcl 60 MG Capsule PO (10:20)
[2020-02-01] MEDS: Pantoprazole Sodium 40 MG Tablet PO (10:20)
--- NOTE | 2020-02-01 10:44 | CASEMGMT ---
Social Work Patient positive for stroke. PHQ-9 completed with patient. Patient with a 3/27 score. Patient with appropriate and engaged affect. Patient reports to have support from patient niece in the community. Patient reports to have a daughter as well but I haven't talked to her in awhile. Patient reports that patient niece helps me a lot. This social work nurse inquiring if patient has a health care power of cargo checker, patient denies having completed paperwork and is declining to complete documents while in the hospital. Robin DENNIS, ELIGIO
--- NOTE | 2020-02-01 10:51 | TELEMED_ITS ---
SOC Telemed has confirmed receipt of a request for visit. This document confirms receipt of the order initiating the consult. To find the results of the consultation, please view the patient's reports for the scanned Telemed Consult.
[2020-02-01 11:26] LABS: Bedside Glucose 234 mg/dL (70-110)
[2020-02-01] MEDS: Insulin Lispro 100 UNIT/ML INSULN.PEN SC ×3 (11:59→20:49)
--- NOTE | 2020-02-01 12:58 | CON.PCM_ITS ---
Reason for Consult Date of Consultation: 02/01/20 Reason for Consultation: Drainage s/p fall left THR wound History of Present Illness: The patient is a 74 year old M []who was brought into the ED by his family because they noticed RUE weakness. He fell while in the ED and it was noticed that he had sligh drainage from his hip incision. He underwent left THR on 01/25/2020 with no complications. PMHX, PSHx, Family HX, ROS, Medications and allergies reviewed as per the intake H & P. Past Medical History Past Medical History (Chronic Problems): Chronic Problems (Last Updated 09/26/19 @ 11:[address] Teodoro Moses DO) Chronic pain syndrome (Chronic) Chronic respiratory failure (Chronic) Type 2 diabetes mellitus (Chronic) Hypertension (Chronic) Medical History: Medical History (Last Updated 09/26/19 @ 11:[address] Teodoro Moses DO) DM2 (diabetes mellitus, type 2) E11.9 HTN (hypertension) I10 Allergies celecoxib [From Celebrex] Adverse Reaction (Verified 01/31/20 15:23) PT UNSURE OF REACTION Home Medications: Ambulatory Orders Medication Instructions Recorded Atorvastatin Calcium [Lipitor] 40 mg PO DAILY 09/26/19 Carvedilol [Coreg] 25 mg PO BID 09/26/19 Duloxetine HCl 60 mg PO DAILY 09/26/19 Furosemide [Lasix] 40 mg PO DAILY 09/26/19 Gabapentin 300 mg PO TID 09/26/19 Insulin Detemir [Levemir FlexPen] 70 unit SQ DAILY 09/26/19 Lactulose 30 ml PO 4X/DAY 09/26/19 Lisinopril [Zestril] 20 mg PO DAILY 09/26/19 Pantoprazole Sodium [Protonix] 40 mg PO DAILY 09/26/19 Albuterol Aerosols [Ventolin 2.5 mg INHALATION Q6H 11/29/19 Aerosols] Ondansetron [Zofran Odt] 4 mg PO Q8H PRN PRN #10 tab 12/05/19 Albuterol Sulfate [Albuterol 2 puff IH Q6H 01/13/20 Sulfate HFA] Insulin Lispro [Humalog] 0 unit SQ TID 01/13/20 Lubiprostone [Amitiza] 24 mcg PO BID 01/13/20 Polyethylene Glycol 3350 [Miralax] 17 gm PO DAILY 01/13/20 Acetaminophen [Tylenol] 1,000 mg PO Q8 #90 tab 01/26/20 Aspirin [Aspirin, Baby] 81 mg PO BIDCM #60 tab.chew 01/26/20 Oxycodone [Oxyir] 5 - 10 mg PO Q4H PRN PRN 7 Days 01/26/20 #84 tab Senna/Docusate Sodium [Senokot-S] 2 tab PO BID tab 01/26/20 Doxycycline [Vibramycin] 100 mg PO BID 01/31/20 Latanoprost 0.005% [Xalatan 1 drp EACH EYE QHS 01/31/20 Opthalmic] Surgical History: total knee arthroplasty, - - Tracheostomy. Lives: With Family Smoking Status: Former smoker Alcohol: None Drugs: None - *Family History Maternal History Items: No pertinent history Paternal History Items: No pertinent history Patient Problems: Active and Suspected Problems (Last Updated 09/26/19 @ 11:[address] Teodoro Moses, DO) Acute ischemic stroke (Acute) Status post left hip replacement (Acute) Abnormal cardiac enzyme level (Acute) Acute ischemic stroke (Suspected) - Physical Exam Vitals/I&O's: Vital Signs Temp Pulse Resp BP Pulse Ox 97.2 F L 60 18 143/56 H 98 02/01/20 11:53 02/01/20 11:53 02/01/20 11:53 02/01/20 11:53 02/01/20 11:53 Oxygen Flow Rate (L/min) 3 Oxygen Delivery Method Nasal Cannula Weight: 259 lb 14.8 oz Body Mass Index (BMI) 38.3 Intake and Output for Last 24 Hours 01/31/20 01/31/20 02/01/20 00:59 23:59 23:59 Intake Total 880 / 880 Output Total 1400 / 1400 Balance -520 / -520 General: Alert, Oriented x3, Cooperative, No apparent distress Extremities: Edema - With chronic vascular insufficiency changes bilaterally, unchanged from prior to surgery. Skin: Incision - Stable with minimal distal drainage. Patient had his dressing changed in the ED and ther has been no new drainage Neurological: Motor Exam 5/5 strength throughout, Sensory exam intact to light touch and pain Comment: MRI of brain reealed a left parietal lobe ischemic infarct Laboratory Results 01/31/20 15:40: WBC 7.2, RBC 4.22 L, Hgb 12.6 L, Hct 40.3, MCV 95.5 H, MCH 29.9, MCHC 31.3 L, RDW Std Deviation 46.2 H, RDW Coeff of Fredo 13.2, Plt Count 278, MPV 10.2, Immature Gran % (Auto) 2.000 H, Neut % (Auto) 60.1, Lymph % (Auto) 20.9, [place] % (Auto) 14.6 H, Eos % (Auto) 1.8, Baso % (Auto) 0.6, Absolute Neuts (auto) 4.3, Absolute Lymphs (auto) 1.50, Nucleated RBC % 0 01/31/20 15:40: Sodium 139, Potassium 4.2, Chloride 103, Carbon Dioxide 32.0, Anion Gap 4 L, BUN 28 H, Creatinine 1.29, Estim Creat Clear Calc 51.76, Est GFR (MDRD) Af Amer 70, Est GFR (MDRD) Non-Af 58 L, BUN/Creatinine Ratio 21.7 H, Glucose 92, Calcium 8.5, Total Bilirubin 0.60, AST 12 L, ALT 22, Alkaline Phosphatase 134 H, Troponin I 0.059 H, Total Protein 6.2 L, Albumin 2.4 L, Globulin 3.8, Albumin/Globulin Ratio 0.6 L 01/31/20 15:40: PT 12.4, INR 1.0 01/31/20 15:52: Urine Color Yellow, Urine Clarity Clear, Urine pH 6.0, Ur Specific [place] 1.010, Urine Protein 30 H, Urine Glucose (UA) Normal, Urine Ketones Negative, Urine Occult Blood Negative, Urine Nitrite Negative, Urine Bilirubin Negative, Urine Urobilinogen 1 H, Ur Leukocyte Esterase Negative, Urine RBC 0 SEEN, Urine WBC 0 SEEN, Ur Squamous Epith Cells 0 SEEN, Urine Bacteria 0 SEEN, Urine Mucus 0 SEEN 01/31/20 21:21: Troponin I 0.054 H 01/31/20 22:19: POC Glucose 136 H 01/31/20 23:50: Troponin I 0.045 02/01/20 02:48: WBC 8.2, RBC 3.96 L, Hgb 11.8 L, Hct 37.2 L, MCV 93.9, MCH 29.8, MCHC 31.7 L, RDW Std Deviation 44.7 H, RDW Coeff of Fredo 13.1, Plt Count 271, MPV 9.9, Immature Gran % (Auto) 1.800 H, Neut % (Auto) 64.6, Lymph % (Auto) 17.0 L, [place] % (Auto) 14.5 H, Eos % (Auto) 1.5, Baso % (Auto) 0.6, Absolute Neuts (auto) 5.3, Absolute Lymphs (auto) 1.40, Nucleated RBC % 0 02/01/20 02:48: Sodium 138, Potassium 4.6, Chloride 104, Carbon Dioxide 30.0, Anion Gap 4 L, BUN 24 H, Creatinine 1.07, Estim Creat Clear Calc 62.40, Est GFR (MDRD) Af Amer 87, Est GFR (MDRD) Non-Af 72, BUN/Creatinine Ratio 22.4 H, Glucose 120 H, Calcium 8.6 02/01/20 02:48: Troponin I 0.036 02/01/20 03:42: POC Glucose 115 H 02/01/20 06:39: POC Glucose 96 02/01/20 11:14: POC Glucose 234 H Current Medications Acetaminophen (Acetaminophen 325 Mg Tablet) 650 mg PO Q6H PRN PRN PRN Reason: Pain Score 1-10/Temp > 100.7 F Last Admin: 02/01/20 10:41 Dose: 650 mg Documented by: Albuterol Sulfate (Albuterol 2.5 Mg/3 Ml Vial.Neb.) 2.5 mg INHALATION Q2H PRN PRN PRN Reason: Shortness of breath, wheezing Aspirin (Aspirin 81 Mg Tab.Chew) [facility] Last Admin: 02/01/20 08:17 Dose: 81 mg Documented by: Atorvastatin Calcium (Atorvastatin Calcium 40 Mg Tablet) 40 mg PO DAILY@2200 [facility] Last Admin: 01/31/20 22:23 Dose: 40 mg Documented by: Carvedilol (Carvedilol 25 Mg Tablet) [facility] Last Admin: 02/01/20 08:16 Dose: 25 mg Documented by: Duloxetine HCl (Duloxetine Hcl 60 Mg Capsule) 60 mg PO DAILY [facility] Last Admin: 02/01/20 10:20 Dose: 60 mg Documented by: Enoxaparin Sodium (Enoxaparin 40 Mg/0.4 Ml Syringe) 40 mg SC DAILY [facility] Last Admin: 02/01/20 10:07 Dose: 40 mg Documented by: Furosemide (Furosemide 40 Mg Tablet) 40 mg PO DAILY [facility] Last Admin: 02/01/20 10:19 Dose: 40 mg Documented by: Gabapentin (Gabapentin 300 Mg Capsule) 300 mg PO TID [facility] Last Admin: 02/01/20 06:42 Dose: 300 mg Documented by: Insulin Glargine (Insulin Glargine 100 Units/Ml Pen) 70 units SC DAILY [facility] Last Admin: 02/01/20 10:08 Dose: 70 units Documented by: Insulin Human Lispro (Insulin Lispro 100 Unit/Ml Insuln.Pen) 0 unit SC [facility]; Protocol Last Admin: 02/01/20 11:59 Dose: 2 units Documented by: Lactulose (Lactulose 20 Gm/30 Ml Udc) 20 gm PO 4X/DAY [facility] Last Admin: 02/01/20 10:20 Dose: 20 gm Documented by: Latanoprost (Latanoprost 0.005% 1 Bottle) 1 drop EACH EYE QHS [facility] Last Admin: 01/31/20 22:22 Dose: 1 drop Documented by: Lubiprostone (Lubiprostone 24 Mcg Capsule) 24 mcg PO BID [facility] Magnesium Hydroxide (Magnesium Hydroxide 30 Ml Udc) 30 ml PO DAILY PRN PRN PRN Reason: Constipation Ondansetron HCl (Ondansetron 4 Mg/2 Ml Vial) 4 mg IV Q8H PRN PRN PRN Reason: NAUSEA/VOMITING Oxycodone HCl (Oxycodone 5 Mg Tablet) 5 mg PO Q6H PRN PRN PRN Reason: Pain Score 6-10 Last Admin: 02/01/20 10:40 Dose: 5 mg Documented by: Pantoprazole Sodium (Pantoprazole Sodium 40 Mg Tablet) 40 mg PO DAILY [facility] Last Admin: 02/01/20 10:20 Dose: 40 mg Documented by: Polyethylene Glycol (Polyethylene Glycol 3350 17 Gm Packet) 17 gm PO DAILY [facility] Last Admin: 02/01/20 10:20 Dose: 17 gm Documented by: Senna/Docusate Sodium (Senna/Docusate Sodium 1 Tablet) 2 tablet PO BID PRN PRN PRN Reason: Constipation Last Admin: 02/01/20 10:19 Dose: 2 tablet Documented by: Sodium Chloride (0.9% Saline Lock 10 Ml Syringe) 10 - 40 ml IV UD PRN PRN Reason: SALINE FLUSH Zolpidem Tartrate (Zolpidem Tartrate 5 Mg Tablet) 5 mg PO QHS PRN PRN PRN Reason: INSOMNIA Assessment/Plan All Active Problems (Last Updated 09/26/19 @ 11:[address] Teodoro Moses, DO) Acute ischemic stroke (Acute) Status post left hip replacement (Acute) Abnormal cardiac enzyme level (Acute) s/p Left THR -- continue PT with WBAT Left parietal lobe acute ischemic infarct (etiology undetermined) -- treatment as per hospitalist. Patient may need rehabilitation unit stay secondary to CVA.
--- NOTE | 2020-02-01 14:00 | CASEMGMT ---
JOANNA LE assessment: Face to Face with patient for initial transition planning/care coordination assessment. JOANNA LE introduced self and role at [facility], pt voices understanding and consents to assessment at this time. Pt is sitting up in chair in no distress at this time. Pt is A/Ox4 at this time and answers all questions appropriately at this time. Pt is currently on 3liters of oxygen nc at this time and pt states this is his home dose. Care providers, pharmacy, and demographics verified at this time Presentation: Pt had hip replacement 3 days ago and family concerned with swelling of left leg and drainage on dressing Admitting dx: Susp stroke, abn cardiac enzyme PCP: Erik Specialists: Pt states no current specialists. [facility]erred [facility]acy: [facility] Insurance: [employer] A/B, [place] Prescription Benefit: Yes Living Will/HPOA: Pt states does not have LW/HPOA and declines AD info at this time. LNOK: Giuliana Ramos, niece/blast furnace operator; Salima Ramos, daughter Living Arrangements: Pt states lives with daughter in 1 story home with 2-3steps in and states no concerns at home at this time. Pt states niece/daughter help with ADL's. Transportation: Pt states drives self and states no transportation concerns at this time. DME/HHC: Pt states has the following DME: cane, walker, grab bars, shower chair and 3liters nc home oxygen but is not sure who it's through. Pt states no need for any further DME. Pt states has had HHC in the past and has been to [facility] in the past. Pt states that his niece cares for him and is at home with him for about 6hours/day. Pt states no concerns with going home at time of discharge. Pt states is retired. Pt states does not smoke cigarettes or drink ETOH. Pt states no further concerns/needs at this time. CM to follow for any further discharge planning/needs. Advised pt to ask for CM if any further questions/concerns/needs arise, voices understanding. Pt Goal: [place] JOANNA LE
[2020-02-01 17:16] LABS: Bedside Glucose 229 mg/dL (70-110)
--- NOTE | 2020-02-01 17:37 | NURSING ---
This RN updated the pt's daughter, Salima and niece, Alejandrina via phone.
[2020-02-01 21:26] LABS: Bedside Glucose 236 mg/dL (70-110)
[2020-02-01] MEDS: Latanoprost 0.005% 1 Bottle 1 DRP EACH EYE (21:37)
[2020-02-01] MEDS: Atorvastatin Calcium 40 MG Tablet PO (21:37)
[2020-02-02] VITALS (9 sets, daily range): BP systolic 117–174; BP diastolic 54–82; PULSE 60–99; RESP 18; TEMP 36.2–36.6; O2SAT 98–100; BMI 38.3
[2020-02-02] MEDS: Gabapentin 300 MG Capsule PO ×3 (05:49→22:01)
[2020-02-02] MEDS: Insulin Lispro 100 UNIT/ML INSULN.PEN SC ×4 (06:34→22:00)
[2020-02-02 06:41] LABS: Bedside Glucose 178 mg/dL (70-110)
[2020-02-02 07:40] LABS: Hematocrit 37.9 % (40-54); Mean Corp Hgb Conc 31.7 g/dL (32-36); Mean Corpuscular Hgb 29.6 pg (27.0-32.0); Mean Corpuscular Volume 93.3 fL (80-94); Mean Platelet Vol. 9.3 fl (6.2-12.0); Platelet Count 270 K/mm3 (150-450); RBC Distribution Width CV 12.9 % (11.6-14.6); RBC Distribution Width SD 43.9 fl (35.1-43.9); Red Blood Count 4.06 M/mm3 (4.6-6.2); White Blood Count 9.6 K/mm3 (4.4-11.0)
[2020-02-02] MEDS: Carvedilol 25 MG Tablet PO ×2 (08:08→16:03)
[2020-02-02] MEDS: Aspirin 81 MG TAB.CHEW PO ×2 (08:08→16:03)
[2020-02-02 08:09] LABS: Anion Gap 3 (5-15); BUN 18 mg/dL (7-18); Calcium,Total 8.7 mg/dL (8.5-10.1); Chloride 98 mmol/L (98-107); EST Glomerular Filtration Rate 88 mL/min (>60); Est Glom Filt Rate - Afr Amer 107 mL/min (>60); Estimated Creatinine Clearance 74.19 ml/min; Glucose 159 mg/dL (74-106); Magnesium 1.8 mg/dL (1.6-2.6); Potassium 4.5 mmol/L (3.5-5.1); Sodium Level 135 mmol/L (136-145)
[2020-02-02] MEDS: DULoxetine Hcl 60 MG Capsule PO (09:27)
[2020-02-02] MEDS: Enoxaparin 40 MG/0.4 ML Syringe SC (09:27)
[2020-02-02] MEDS: Lactulose 20 GM/30 ML UDC PO ×3 (09:27→18:32)
[2020-02-02] MEDS: Furosemide 40 MG Tablet PO (09:27)
[2020-02-02] MEDS: Polyethylene Glycol 3350 17 GM PACKET PO (09:28)
[2020-02-02] MEDS: Pantoprazole Sodium 40 MG Tablet PO (09:31)
[2020-02-02] MEDS: Senna/Docusate Sodium 1 Tablet 2 TABLET PO (09:32)
[2020-02-02] MEDS: oxyCODONE 5 MG Tablet PO ×2 (09:46→16:03)
[2020-02-02 11:40] LABS: Bedside Glucose 292 mg/dL (70-110)
--- NOTE | 2020-02-02 12:30 | PN_ITS ---
<Damion Luevano - Last Filed: 02/03/20 11:56> Patient Problems: Active and Suspected Problems (Last Updated 09/26/19 @ 11:[address] Teodoro Moses DO) Acute ischemic stroke (Acute) Status post left hip replacement (Acute) Abnormal cardiac enzyme level (Acute) Acute ischemic stroke (Suspected) Reason for Visit: stroke Subjective: pt notes improvement in weakness. ambulating int he hallway without difficulty. no new slurred speech, vision changes, parasthesias, swallowing difficulty. pt a waiting neuro eval. Vitals/I&O's: Vital Signs Temp Pulse Resp BP Pulse Ox 98.0 F 60 18 95/55 L 96 02/03/20 09:15 02/03/20 09:15 02/03/20 09:15 02/03/20 09:15 02/03/20 09:15 Oxygen Flow Rate (L/min) 3 Oxygen Delivery Method Nasal Cannula Weight: 259 lb 14.8 oz Body Mass Index (BMI) 38.3 Intake and Output for Last 24 Hours 02/01/20 02/02/20 02/03/20 23:59 23:59 23:59 Intake Total 1520 / 1520 1030 / 1030 450 / 450 Output Total 2400 / 2400 1775 / 1775 975 / 975 Balance -880 / -880 -745 / -745 -525 / -525 General: Alert, Oriented x3, Cooperative HEENT: Atraumatic, PERRLA, EOMI, Normocephalic Neck: Supple, No JVD, Negative Carotid Bruits Lungs: Clear to auscultation, Normal air movement Cardiovascular: Regular rate, No murmurs Abdomen: Bowel Sounds Present, Soft, Non Tender Extremities: No edema, Capillary Refill Less than 3 Seconds Skin: No rashes, No breakdown Musculoskeletal: No Tenderness to Palpation of Joints or Extremities Neurological: Cranial nerves II-XII grossly intact Psych/Mental Status: Normal Affect, Appropriate Laboratory Results 02/02/20 16:44: POC Glucose 240 H 02/02/20 21:59: POC Glucose 177 H 02/03/20 06:20: WBC 10.9, RBC 4.15 L, Hgb 12.5 L, Hct 38.9 L, MCV 93.7, MCH 30.1, MCHC 32.1, RDW Std Deviation 44.3 H, RDW Coeff of Frdeo 13.1, Plt Count 293, MPV 9.4 02/03/20 06:20: Sodium 135 L, Potassium 4.3, Chloride 97 L, Carbon Dioxide 35.0 H, Anion Gap 3 L, BUN 20 H, Creatinine 1.03, Estim Creat Clear Calc 64.83, Est GFR (MDRD) Af Amer 91, Est GFR (MDRD) Non-Af 75, BUN/Creatinine Ratio 19.4, Glucose 162 H, Calcium 8.7 02/03/20 06:38: POC Glucose 170 H 02/03/20 07:50: POC Glucose 167 H STROKE Vital Signs/Narrative: Vital Signs Temp Pulse Resp BP Pulse Ox 02/03/20 09:15 98.0 F 60 18 95/55 L 96 02/03/20 09:10 98.0 F 60 18 95/55 L 96 Medical Necessity - Tobacco Use Smoking Status: Former smoker Tobacco Use: Cigarettes Assessment/Plan All Active Problems (Last Updated 09/26/19 @ 11:[address] Teodoro Moses, DO) Acute ischemic stroke (Acute) Status post left hip replacement (Acute) Abnormal cardiac enzyme level (Acute) 1. Acute ischemic stroke - neuro eval pending at time of exam. aspirin/statin continued. echo without pfo. pt doing well with improvement in new weakness. PT/OT/ST evals. Follow up neuro as o/p. 2. s/p left total hip - resume outpatient therapy, f/u with dr. Weller. 3. indeterminate trop - likel 2/2 acute cva, negative ekg, no chest pain. no significant rise. 4. HTN - stable 5. Dmt2 , obesity - home insulin + SSI. survey worker consult. DC planning: awaiting SOC consult. This patient was seenby Damion Luevano PA-C under the supervision of Dr. Curry. <Jose Curry - Last Filed: 02/03/20 12:54> Vitals/I&O's: Vital Signs Temp Pulse Resp BP Pulse Ox 98.0 F 60 18 95/55 L 96 02/03/20 09:15 02/03/20 09:15 02/03/20 09:15 02/03/20 09:15 02/03/20 09:15 Oxygen Flow Rate (L/min) 3 Oxygen Delivery Method Nasal Cannula Weight: 117.9 kg Body Mass Index (BMI) 38.3 Intake and Output for Last 24 Hours 02/01/20 02/02/20 02/03/20 23:59 23:59 23:59 Intake Total 1520 / 1520 1030 / 1030 450 / 450 Output Total 2400 / 2400 1775 / 1775 975 / 975 Balance -880 / -880 -745 / -745 -525 / -525 Laboratory Results 02/02/20 16:44: POC Glucose 240 H 02/02/20 21:59: POC Glucose 177 H 02/03/20 06:20: WBC 10.9, RBC 4.15 L, Hgb 12.5 L, Hct 38.9 L, MCV 93.7, MCH 30.1, MCHC 32.1, RDW Std Deviation 44.3 H, RDW Coeff of Fredo 13.1, Plt Count 293, MPV 9.4 02/03/20 06:20: Sodium 135 L, Potassium 4.3, Chloride 97 L, Carbon Dioxide 35.0 H, Anion Gap 3 L, BUN 20 H, Creatinine 1.03, Estim Creat Clear Calc 64.83, Est GFR (MDRD) Af Amer 91, Est GFR (MDRD) Non-Af 75, BUN/Creatinine Ratio 19.4, Glucose 162 H, Calcium 8.7 02/03/20 06:38: POC Glucose 170 H 02/03/20 07:50: POC Glucose 167 H STROKE Vital Signs/Narrative: Vital Signs Temp Pulse Resp BP Pulse Ox 02/03/20 09:15 98.0 F 60 18 95/55 L 96 02/03/20 09:10 98.0 F 60 18 95/55 L 96 Assessment/Plan This patient was seen in conjunction with Damion Luevano PA-C . I have independently interviewed and examined the patient and reviewed pertinent historical, laboratory, and other data. Please refer to Damion Luevano PA-C note for details of this patient's presentation, findings, and recommendations. I have reviewed Damion Luevano PA-C note and concur with documented findings. In brief, Patient is a 75-year-old lady with recent left total hip replacement who presented with weakness as well as drainage involving the scar. CT of the brain obtained demonstrated Interval development of ischemic changes in the inferior left temporooccipital region admitted to monitored bed for subsequent work-up Inpatient E&M: 48165 Subs Hosp L2
[2020-02-02 16:51] LABS: Bedside Glucose 240 mg/dL (70-110)
--- NOTE | 2020-02-02 21:45 | PCM.HOSP.N ---
Hospitalist Note Neurology consultation with reported NIH 1, in addition to L parietal acute infarct, noted also a small punctate diffuse weighted in the R frontal, possible embolic stroke in addition. Noted in custodial will need cardiac monitoring for PAF assessment, recommended adding plavix in addition x 21 days with 300 mg load now then 75 mg daily starting tomorrow, recommended continued BP, DM, Lipid control. Recommended continued outpatient neurology outpatient assessment as well as follow-up eye evaluation prior to any return to driving.
[2020-02-02] MEDS: Atorvastatin Calcium 40 MG Tablet PO (22:01)
[2020-02-02] MEDS: Acetaminophen 325 MG Tablet 650 MG PO (22:01)
[2020-02-02] MEDS: Latanoprost 0.005% 1 Bottle 1 DRP EACH EYE (22:01)
[2020-02-02 22:10] LABS: Bedside Glucose 177 mg/dL (70-110)
--- NOTE | 2020-02-02 22:45 | NURSING ---
NIHSS and VS late at this time d/t teleneurology consult.
[2020-02-03] VITALS (8 sets, daily range): BP systolic 95–160; BP diastolic 54–64; PULSE 60–116; RESP 14–20; TEMP 36.7; O2SAT 96–98
[2020-02-03] MEDS: oxyCODONE 5 MG Tablet PO ×2 (02:10→09:41)
[2020-02-03] MEDS: Gabapentin 300 MG Capsule PO (05:58)
[2020-02-03] MEDS: Insulin Lispro 100 UNIT/ML INSULN.PEN SC (06:39)
[2020-02-03 06:46] LABS: Bedside Glucose 170 mg/dL (70-110)
[2020-02-03 07:26] LABS: Hematocrit 38.9 % (40-54); Hemoglobin 12.5 g/dL (13.0-16.5); Mean Corp Hgb Conc 32.1 g/dL (32-36); Mean Corpuscular Hgb 30.1 pg (27.0-32.0); Mean Corpuscular Volume 93.7 fL (80-94); Mean Platelet Vol. 9.4 fl (6.2-12.0); Platelet Count 293 K/mm3 (150-450); RBC Distribution Width CV 13.1 % (11.6-14.6); RBC Distribution Width SD 44.3 fl (35.1-43.9); Red Blood Count 4.15 M/mm3 (4.6-6.2); White Blood Count 10.9 K/mm3 (4.4-11.0)
[2020-02-03] MEDS: Aspirin 81 MG TAB.CHEW PO (07:54)
[2020-02-03] MEDS: Carvedilol 25 MG Tablet PO (07:54)
[2020-02-03 08:07] LABS: Anion Gap 3 (5-15); BUN 20 mg/dL (7-18); BUN/Creat Ratio 19.4 RATIO (10-20); Calcium,Total 8.7 mg/dL (8.5-10.1); Chloride 97 mmol/L (98-107); Creatinine, Serum 1.03 mg/dL (0.70-1.30); EST Glomerular Filtration Rate 75 mL/min (>60); Est Glom Filt Rate - Afr Amer 91 mL/min (>60); Estimated Creatinine Clearance 64.83 ml/min; Glucose 162 mg/dL (74-106); Potassium 4.3 mmol/L (3.5-5.1); Sodium Level 135 mmol/L (136-145)
[2020-02-03 08:21] LABS: Bedside Glucose 167 mg/dL (70-110)
[2020-02-03] MEDS: Albuterol 2.5 MG/3 ML VIAL.NEB. INHALATION (08:40)
--- NOTE | 2020-02-03 08:51 | PCM.DC ---
- Discharge Diagnoses Current Active Problems: Current Active and Chronic Problems (Last Updated 09/26/19 @ 11:[address] Teodoro Moses, DO) Acute ischemic stroke (Acute) Status post left hip replacement (Acute) Abnormal cardiac enzyme level (Acute) Chronic pain syndrome (Chronic) Chronic respiratory failure (Chronic) Type 2 diabetes mellitus (Chronic) Hypertension (Chronic) You will use the following diet at home:: Cardiac Your food should be the consistency of: Regular Your liquids should be the consistency of: Regular/Thin Discharge Activity: May Not Drive - no driving until you have had vision evaluation with opthalmology, and until cleared by your family medicine provider, May not drive while taking narcotic pain medications. Allergies/Adverse Reactions: Allergies celecoxib [From Celebrex] Adverse Reaction (Verified 01/31/20 15:23) PT UNSURE OF REACTION Medications to take at Discharge Atorvastatin Calcium [Lipitor] 40 mg PO DAILY 09/26/19 Carvedilol [Coreg] 25 mg PO BID 09/26/19 Duloxetine HCl 60 mg PO DAILY 09/26/19 Furosemide [Lasix] 40 mg PO DAILY 09/26/19 Gabapentin 300 mg PO TID 09/26/19 Insulin Detemir [Levemir FlexPen] 70 unit SQ DAILY 09/26/19 Lactulose 30 ml PO 4X/DAY 09/26/19 Pantoprazole Sodium [Protonix] 40 mg PO DAILY 09/26/19 Albuterol Aerosols [Ventolin Aerosols] 2.5 mg INHALATION Q6H 11/29/19 Ondansetron [Zofran Odt] 4 mg PO Q8H PRN PRN #10 tab 12/05/19 Albuterol Sulfate [Albuterol Sulfate HFA] 2 puff IH Q6H 01/13/20 Insulin Lispro [Humalog] 0 unit SQ TID 01/13/20 Lubiprostone [Amitiza] 24 mcg PO BID 01/13/20 Polyethylene Glycol 3350 [Miralax] 17 gm PO DAILY 01/13/20 Acetaminophen [Tylenol] 1,000 mg PO Q8 #90 tab 01/26/20 Aspirin [Aspirin, Baby] 81 mg PO BIDCM #60 tab.chew 01/26/20 Oxycodone [Oxyir] 5 - 10 mg PO Q4H PRN PRN 7 Days #84 tab 01/26/20 Senna/Docusate Sodium [Senokot-S] 2 tab PO BID tab 01/26/20 Latanoprost 0.005% [Xalatan Opthalmic] 1 drp EACH EYE QHS 01/31/20 Acetaminophen [Tylenol Tablet] 650 mg PO Q6H PRN PRN tab 02/02/20 Magnesium Hydroxide [Milk Of Magnesia] 30 ml PO DAILY PRN PRN udc 02/02/20 Clopidogrel Bisulfate [Plavix] 75 mg PO DAILY #30 tab 02/03/20 The following prescriptions were given: Clopidogrel Bisulfate [Plavix] 75 mg PO DAILY #30 tab Transmission Status: Received by [id number] Orders to be completed after discharge: 30-Day Event [employer] [[facility]] Time Frame: 02/03/20, Location: None Selected Primary Care Physician: Dex Valencia DO [Primary Care Provider] - Please follow up with your Primary Care Physician in: 1-2 weeks Test Results: Test results from this visit will be discussed in further detail at your follow-up appointment, if applicable. Please Follow Up With: Talon Sales MD - Neurology When: 2 weeks Please Follow Up With: Doug Weller DO - Orthopedics When: as directed Please Follow Up With: opthalmology - vision exam When: 2-4 weeks Please Follow Up With: Leland Lincoln MD - 30 day heart monitor When: 4 weeks Proposed Discharge Date: 02/03/20
[2020-02-03] MEDS: Polyethylene Glycol 3350 17 GM PACKET PO (09:30)
[2020-02-03] MEDS: DULoxetine Hcl 60 MG Capsule PO (09:31)
[2020-02-03] MEDS: Enoxaparin 40 MG/0.4 ML Syringe SC (09:31)
[2020-02-03] MEDS: Pantoprazole Sodium 40 MG Tablet PO (09:31)
[2020-02-03] MEDS: Furosemide 40 MG Tablet PO (09:31)
--- NOTE | 2020-02-03 10:58 | PHA.DC.MR ---
Pharmacy Service has performed discharge medication reconciliation for this patient. Home Medications Atorvastatin Calcium [Lipitor] 40 mg PO DAILY 09/26/19 Carvedilol [Coreg] 25 mg PO BID 09/26/19 Duloxetine HCl 60 mg PO DAILY 09/26/19 Furosemide [Lasix] 40 mg PO DAILY 09/26/19 Gabapentin 300 mg PO TID 09/26/19 Insulin Detemir [Levemir FlexPen] 70 unit SQ DAILY 09/26/19 Lactulose 30 ml PO 4X/DAY 09/26/19 Pantoprazole Sodium [Protonix] 40 mg PO DAILY 09/26/19 Albuterol Aerosols [Ventolin Aerosols] 2.5 mg INHALATION Q6H 11/29/19 Ondansetron [Zofran Odt] 4 mg PO Q8H PRN PRN #10 tab 12/05/19 Albuterol Sulfate [Albuterol Sulfate HFA] 2 puff IH Q6H 01/13/20 Insulin Lispro [Humalog] 0 unit SQ TID 01/13/20 Lubiprostone [Amitiza] 24 mcg PO BID 01/13/20 Polyethylene Glycol 3350 [Miralax] 17 gm PO DAILY 01/13/20 Acetaminophen [Tylenol] 1,000 mg PO Q8 #90 tab 01/26/20 Aspirin [Aspirin, Baby] 81 mg PO BIDCM #60 tab.chew 01/26/20 Oxycodone [Oxyir] 5 - 10 mg PO Q4H PRN PRN 7 Days #84 tab 01/26/20 Senna/Docusate Sodium [Senokot-S] 2 tab PO BID tab 01/26/20 Latanoprost 0.005% [Xalatan Opthalmic] 1 drp EACH EYE QHS 01/31/20 Magnesium Hydroxide [Milk Of Magnesia] 30 ml PO DAILY PRN PRN udc 02/02/20 Clopidogrel Bisulfate [Plavix] 75 mg PO DAILY #30 tab 02/03/20 The patient's discharge medication list was reviewed for discrepancies and discrepancies were resolved.
--- NOTE | 2020-02-03 11:37 | CASEMGMT ---
Pt has OP therapy already set up s/p hip surgery and states no need for any further therapy at this time. Costa MARSHALL CM
--- NOTE | 2020-02-03 12:00 | PCM.DC.SUM ---
<ThomasrosemaryJose - Last Filed: 02/02/20 16:21> Discharge Date and Diagnosis - Problem List Patient Problems: Active and Suspected Problems (Last Updated 09/26/19 @ 11:[address] Teodoro Moses DO) Acute ischemic stroke (Acute) Status post left hip replacement (Acute) Abnormal cardiac enzyme level (Acute) Acute ischemic stroke (Suspected) - Primary Discharge Diagnosis Acute Problems: Active Problems (Last Updated 09/26/19 @ 11:[address] Teodoro Moses DO) Acute ischemic stroke (Acute) Status post left hip replacement (Acute) Abnormal cardiac enzyme level (Acute) Suspected Problems: Suspected Problems (Last Updated 09/26/19 @ 11:[address] Teodoro Moses DO) Acute ischemic stroke (Suspected) - Secondary Discharge Diagnosis Chronic Problems: Chronic Problems (Last Updated 09/26/19 @ 11:[address] Teodoro Moses DO) Chronic pain syndrome (Chronic) Chronic respiratory failure (Chronic) Type 2 diabetes mellitus (Chronic) Hypertension (Chronic) Hospital Course and Treatment Summary of Care Provided: This patient was seen in conjunction with Damion Luevano PA-C . I have independently interviewed and examined the patient and reviewed pertinent historical, laboratory, and other data. Please refer to Damion Luevano PA-C note for details of this patient's presentation, findings, and recommendations. I have reviewed Damion Luevano PA-C note and concur with documented findings. In brief, Patient is a 75-year-old lady with recent left total hip replacement who presented with weakness as well as drainage involving the scar. CT of the brain obtained demonstrated Interval development of ischemic changes in the inferior left temporooccipital region admitted to monitored bed for subsequent work-up Hospital course: As documented above Patient Problems: Active and Suspected Problems (Last Updated 09/26/19 @ 11:[address] Teodoro Moses DO) Acute ischemic stroke (Acute) Status post left hip replacement (Acute) Abnormal cardiac enzyme level (Acute) Acute ischemic stroke (Suspected) - Physical Exam Vitals/I&O's: Vital Signs Temp Pulse Resp BP Pulse Ox 97.3 F L 66 18 164/69 H 100 02/02/20 13:30 02/02/20 15:00 02/02/20 13:30 02/02/20 13:30 02/02/20 13:30 Oxygen Flow Rate (L/min) 3 Oxygen Delivery Method Nasal Cannula Weight: 117.9 kg Body Mass Index (BMI) 38.3 Intake and Output for Last 24 Hours 01/31/20 02/01/20 02/02/20 23:59 23:59 23:59 Intake Total 1520 / 1520 580 / 580 Output Total 2400 / 2400 950 / 950 Balance -880 / -880 -370 / -370 Laboratory Results 02/01/20 16:31: POC Glucose 229 H 02/01/20 20:44: POC Glucose 236 H 02/02/20 06:33: POC Glucose 178 H 02/02/20 07:10: WBC 9.6, RBC 4.06 L, Hgb 12.0 L, Hct 37.9 L, MCV 93.3, MCH 29.6, MCHC 31.7 L, RDW Std Deviation 43.9, RDW Coeff of Fredo 12.9, Plt Count 270, MPV 9.3 02/02/20 07:10: Sodium 135 L, Potassium 4.5, Chloride 98, Carbon Dioxide 34.0 H, Anion Gap 3 L, BUN 18, Creatinine 0.90, Estim Creat Clear Calc 74.19, Est GFR (MDRD) Af Amer 107, Est GFR (MDRD) Non-Af 88, BUN/Creatinine Ratio 20.0, Glucose 159 H, Calcium 8.7, Magnesium 1.8 02/02/20 11:26: POC Glucose 292 H Current Medications Acetaminophen (Acetaminophen 325 Mg Tablet) 650 mg PO Q6H PRN PRN PRN Reason: Pain Score 1-10/Temp > 100.7 F Last Admin: 02/01/20 23:07 Dose: 650 mg Documented by: Albuterol Sulfate (Albuterol 2.5 Mg/3 Ml Vial.Neb.) 2.5 mg INHALATION Q2H PRN PRN PRN Reason: Shortness of breath, wheezing Aspirin ([facility] 81 Mg [facility].Chew) [facility] Last Admin: 02/02/20 16:03 Dose: 81 mg Documented by: Atorvastatin Calcium (Atorvastatin Calcium 40 Mg Tablet) 40 mg PO DAILY@2200 [facility] Last Admin: 02/01/20 21:37 Dose: 40 mg Documented by: Carvedilol (Carvedilol 25 Mg Tablet) [facility] Last Admin: 02/02/20 16:03 Dose: 25 mg Documented by: Duloxetine HCl (Duloxetine Hcl 60 Mg Capsule) 60 mg PO DAILY [facility] Last Admin: 02/02/20 09:27 Dose: 60 mg Documented by: Enoxaparin Sodium (Enoxaparin 40 Mg/0.4 Ml Syringe) 40 mg SC DAILY [facility] Last Admin: 02/02/20 09:27 Dose: 40 mg Documented by: Furosemide (Furosemide 40 Mg Tablet) 40 mg PO DAILY [facility] Last Admin: 02/02/20 09:27 Dose: 40 mg Documented by: Gabapentin (Gabapentin 300 Mg Capsule) 300 mg PO TID [facility] Last Admin: 02/02/20 13:26 Dose: 300 mg Documented by: Insulin Glargine (Insulin Glargine 100 Units/Ml Pen) 70 units SC DAILY [facility] Last Admin: 02/02/20 09:27 Dose: 70 units Documented by: Insulin Human Lispro (Insulin Lispro 100 Unit/Ml Insuln.Pen) 0 unit SC [facility]; Protocol Last Admin: 02/02/20 11:28 Dose: 3 units Documented by: Lactulose (Lactulose 20 Gm/30 Ml Udc) 20 gm PO 4X/DAY [facility] Last Admin: 02/02/20 13:26 Dose: 20 gm Documented by: Latanoprost (Latanoprost 0.005% 1 Bottle) 1 drop EACH EYE QHS [facility] Last Admin: 02/01/20 21:37 Dose: 1 drop Documented by: Magnesium Hydroxide (Magnesium Hydroxide 30 Ml Udc) 30 ml PO DAILY PRN PRN PRN Reason: Constipation Ondansetron HCl (Ondansetron 4 Mg/2 Ml Vial) 4 mg IV Q8H PRN PRN PRN Reason: NAUSEA/VOMITING Oxycodone HCl (Oxycodone 5 Mg Tablet) 5 mg PO Q6H PRN PRN PRN Reason: Pain Score 6-10 Last Admin: 02/02/20 16:03 Dose: 5 mg Documented by: Pantoprazole Sodium (Pantoprazole Sodium 40 Mg Tablet) 40 mg PO DAILY [facility] Last Admin: 02/02/20 09:31 Dose: 40 mg Documented by: Polyethylene Glycol (Polyethylene Glycol 3350 17 Gm Packet) 17 gm PO DAILY [facility] Last Admin: 02/02/20 09:28 Dose: 17 gm Documented by: Senna/Docusate Sodium (Senna/Docusate Sodium 1 Tablet) 2 tablet PO BID PRN PRN PRN Reason: Constipation Last Admin: 02/02/20 09:32 Dose: 2 tablet Documented by: Sodium Chloride (0.9% Saline Lock 10 Ml Syringe) 10 - 40 ml IV UD PRN PRN Reason: SALINE FLUSH Zolpidem Tartrate (Zolpidem Tartrate 5 Mg Tablet) 5 mg PO QHS PRN PRN PRN Reason: INSOMNIA Home Medications: Medications to take at Discharge Atorvastatin Calcium [Lipitor] 40 mg PO DAILY 09/26/19 Carvedilol [Coreg] 25 mg PO BID 09/26/19 Duloxetine HCl 60 mg PO DAILY 09/26/19 Furosemide [Lasix] 40 mg PO DAILY 09/26/19 Gabapentin 300 mg PO TID 09/26/19 Insulin Detemir [Levemir FlexPen] 70 unit SQ DAILY 09/26/19 Lactulose 30 ml PO 4X/DAY 09/26/19 Pantoprazole Sodium [Protonix] 40 mg PO DAILY 09/26/19 Albuterol Aerosols [Ventolin Aerosols] 2.5 mg INHALATION Q6H 11/29/19 Ondansetron [Zofran Odt] 4 mg PO Q8H PRN PRN #10 tab 12/05/19 Albuterol Sulfate [Albuterol Sulfate HFA] 2 puff IH Q6H 01/13/20 Insulin Lispro [Humalog] 0 unit SQ TID 01/13/20 Lubiprostone [Amitiza] 24 mcg PO BID 01/13/20 Polyethylene Glycol 3350 [Miralax] 17 gm PO DAILY 01/13/20 Acetaminophen [Tylenol] 1,000 mg PO Q8 #90 tab 01/26/20 Aspirin [Aspirin, Baby] 81 mg PO BIDCM #60 tab.chew 01/26/20 Oxycodone [Oxyir] 5 - 10 mg PO Q4H PRN PRN 7 Days #84 tab 01/26/20 Senna/Docusate Sodium [Senokot-S] 2 tab PO BID tab 01/26/20 Latanoprost 0.005% [Xalatan Opthalmic] 1 drp EACH EYE QHS 01/31/20 Magnesium Hydroxide [Milk Of Magnesia] 30 ml PO DAILY PRN PRN udc 11/03/20 Clopidogrel Bisulfate [Plavix] 75 mg PO DAILY #30 tab 02/03/20 Following Prescriptions Were Given to Patient: Clopidogrel Bisulfate [Plavix] 75 mg PO DAILY #30 tab Transmission Status: Received by [id number] Other Amb Orders: 30-Day Event Recorder [[facility]] Time Frame: 02/03/20, Location: None Selected Primary Care Physician: Dex Valencia DO [Primary Care Provider] - Meaningful Use Info Meaningful Use Diagnoses (Choose all that apply): None applicable Inpatient E&M: 92609 Disch Hosp <Damion Luevano PA - Last Filed: 02/03/20 12:03> Discharge Date and Diagnosis Date of Admission: 01/31/20 Date of Discharge: 02/02/20 - Primary Discharge Diagnosis Acute Problems: Active Problems (Last Updated 09/26/19 @ 11:[address] Teodoro Moses DO) Acute ischemic stroke posterior left parietal lobe Recent left total hip revision Indeterminate troponin likely 2/2 acute CVA no EKG changes. Suspected Problems: Suspected Problems (Last Updated 09/26/19 @ 11:[address] Teodoro Moses DO) Acute ischemic stroke (Suspected) - Secondary Discharge Diagnosis Chronic Problems: Chronic Problems (Last Updated 09/26/19 @ 11:[address] Teodoro Moses DO) Chronic pain syndrome (Chronic) Chronic respiratory failure (Chronic) Type 2 diabetes mellitus (Chronic) Hypertension (Chronic) Hospital Course and Treatment Imaging Results: IMAGING: CT/Brain/Head without Contrast IMPRESSION: Interval development of ischemic changes in the inferior left temporooccipital region. An acute infarct is not excluded and correlation with MRI is recommended if possible. No evidence of hemorrhage. RAD/Chest 1 View (Portable) IMPRESSION: No acute pulmonary findings. RAD/HIP, UNI W/ Pelvis 2-3 Views IMPRESSION: Stable unremarkable left hip arthroplasty. CT/CTA Chest W/WO Contrast IMPRESSION: Normal CTA chest examination, without a demonstrated pulmonary embolism or aortic dissection. RAD/Knee 1 or 2 Views IMPRESSION: Normal x-ray examination of the knee. 2D TTE: Interpretation Summary Normal LV size. Mild concentric left ventricular hypertrophy. Left ventricular systolic function is normal. The estimated ejection fraction is 60 %. Stage 1 diastolic dysfunction. Contrast injection was performed. MRI/Brain without Contrast IMPRESSION: Involutional changes of the brain, as described above. 3 cm acute infarct in the posterior left parietal lobe. Consults: SOC - Teleneurology Operations: None Procedures: 2-D Echocardiogram Summary of Care Provided: Hospital course: The patient is a 74 year old M with pmhx as above notably for left total hip revision with Dr. Weller 6 days prior to presentation. He had increased weakness in the left lower extremity. In the ER CT brain showed possible acute stroke and he had indeterminate cardiac enzymes. He had no chest pain or EKG changes. CTA chest showed no PE. Troponin was cycled and became negative without a significant rise. He was admitted for stroke. MRI brain was obtained and demonstrated 3 cm left acute parietal lobe infarct. He was already on aspirin BID for his surgical dvt ppx and was taking atorvastatin at home. Echo was obtained with results as above, no PFO. Carotid duplex showed less than 50-69% stenosis left internal carotid. SOC was consulted. SOC recommended addition of plavix and 30 day monitor. teletypesetter monitor arranged with Dr. Lincoln. Follow up with cardiology in 4 weeks. He was discharged home with resumption of outpatient therapy. He will need follow up with PCP in 1-2 weeks, neurology 2 weeks, orthopedic surgery as directed. This patient was seen by Damion Luevano PA-C under the supervision of Doctor Curry. [] - Physical Exam Vitals/I&O's: Vital Signs Temp Pulse Resp BP Pulse Ox 97.3 F L 66 18 164/69 H 100 02/02/20 13:30 02/02/20 15:00 02/02/20 13:30 02/02/20 13:30 02/02/20 13:30 Oxygen Flow Rate (L/min) 3 Oxygen Delivery Method Nasal Cannula Weight: 259 lb 14.8 oz Body Mass Index (BMI) 38.3 Intake and Output for Last 24 Hours 01/31/20 02/01/20 02/02/20 23:59 23:59 23:59 Intake Total 1520 / 1520 580 / 580 Output Total 2400 / 2400 950 / 950 Balance -880 / -880 -370 / -370 General: Alert, Oriented x3, Cooperative HEENT: Atraumatic, PERRLA, EOMI, Normocephalic Neck: Supple, No JVD, Negative Carotid Bruits Lungs: Clear to auscultation, Normal air movement Cardiovascular: Regular rate, No murmurs Abdomen: Bowel Sounds Present, Soft, Non Tender Extremities: No edema, Capillary Refill Less than 3 Seconds Skin: No rashes, No breakdown Musculoskeletal: No Tenderness to Palpation of Joints or Extremities Neurological: Cranial nerves II-XII grossly intact Psych/Mental Status: Normal Affect, Appropriate, Alert and oriented to time, place, person, mood and affect Laboratory Results 02/01/20 16:31: POC Glucose 229 H 02/01/20 20:44: POC Glucose 236 H 02/02/20 06:33: POC Glucose 178 H 02/02/20 07:10: WBC 9.6, RBC 4.06 L, Hgb 12.0 L, Hct 37.9 L, MCV 93.3, MCH 29.6, MCHC 31.7 L, RDW Std Deviation 43.9, RDW Coeff of Fredo 12.9, Plt Count 270, MPV 9.3 02/02/20 07:10: Sodium 135 L, Potassium 4.5, Chloride 98, Carbon Dioxide 34.0 H, Anion Gap 3 L, BUN 18, Creatinine 0.90, Estim Creat Clear Calc 74.19, Est GFR (MDRD) Af Amer 107, Est GFR (MDRD) Non-Af 88, BUN/Creatinine Ratio 20.0, Glucose 159 H, Calcium 8.7, Magnesium 1.8 02/02/20 11:26: POC Glucose 292 H Current Medications Acetaminophen (Acetaminophen 325 Mg Tablet) 650 mg PO Q6H PRN PRN PRN Reason: Pain Score 1-10/Temp > 100.7 F Last Admin: 02/01/20 23:07 Dose: 650 mg Documented by: Albuterol Sulfate (Albuterol 2.5 Mg/3 Ml Vial.Neb.) 2.5 mg INHALATION Q2H PRN PRN PRN Reason: Shortness of breath, wheezing Aspirin (Aspirin 81 Mg Tab.Chew) 81 mg PO BIDCM [facility] Last Admin: 02/02/20 08:08 Dose: 81 mg Documented by: Atorvastatin Calcium (Atorvastatin Calcium 40 Mg Tablet) 40 mg PO DAILY@2200 [facility] Last Admin: 02/01/20 21:37 Dose: 40 mg Documented by: Carvedilol (Carvedilol 25 Mg Tablet) 25 mg PO BIDCM [facility] Last Admin: 02/02/20 08:08 Dose: 25 mg Documented by: Duloxetine HCl (Duloxetine Hcl 60 Mg Capsule) 60 mg PO DAILY [facility] Last Admin: 02/02/20 09:27 Dose: 60 mg Documented by: Enoxaparin Sodium (Enoxaparin 40 Mg/0.4 Ml Syringe) 40 mg SC DAILY [facility] Last Admin: 02/02/20 09:27 Dose: 40 mg Documented by: Furosemide (Furosemide 40 Mg Tablet) 40 mg PO DAILY [facility] Last Admin: 02/02/20 09:27 Dose: 40 mg Documented by: Gabapentin (Gabapentin 300 Mg Capsule) 300 mg PO TID [facility] Last Admin: 02/02/20 13:26 Dose: 300 mg Documented by: Insulin Glargine (Insulin Glargine 100 Units/Ml Pen) 70 units SC DAILY [facility] Last Admin: 02/02/20 09:27 Dose: 70 units Documented by: Insulin Human Lispro (Insulin Lispro 100 Unit/Ml Insuln.Pen) 0 unit SC [facility]; Protocol Last Admin: 02/02/20 11:28 Dose: 3 units Documented by: Lactulose (Lactulose 20 Gm/30 Ml Udc) 20 gm PO 4X/DAY [facility] Last Admin: 02/02/20 13:26 Dose: 20 gm Documented by: Latanoprost (Latanoprost 0.005% 1 Bottle) 1 drop EACH EYE QHS [facility] Last Admin: 02/01/20 21:37 Dose: 1 drop Documented by: Magnesium Hydroxide (Magnesium Hydroxide 30 Ml Udc) 30 ml PO DAILY PRN PRN PRN Reason: Constipation Ondansetron HCl (Ondansetron 4 Mg/2 Ml Vial) 4 mg IV Q8H PRN PRN PRN Reason: NAUSEA/VOMITING Oxycodone HCl (Oxycodone 5 Mg Tablet) 5 mg PO Q6H PRN PRN PRN Reason: Pain Score 6-10 Last Admin: 02/02/20 09:46 Dose: 5 mg Documented by: Pantoprazole Sodium (Pantoprazole Sodium 40 Mg Tablet) 40 mg PO DAILY [facility] Last Admin: 02/02/20 09:31 Dose: 40 mg Documented by: Polyethylene Glycol (Polyethylene Glycol 3350 17 Gm Packet) 17 gm PO DAILY [facility] Last Admin: 02/02/20 09:28 Dose: 17 gm Documented by: Senna/Docusate Sodium (Senna/Docusate Sodium 1 Tablet) 2 tablet PO BID PRN PRN PRN Reason: Constipation Last Admin: 02/02/20 09:32 Dose: 2 tablet Documented by: Sodium Chloride (0.9% Saline Lock 10 Ml Syringe) 10 - 40 ml IV UD PRN PRN Reason: SALINE FLUSH Zolpidem Tartrate (Zolpidem Tartrate 5 Mg Tablet) 5 mg PO QHS PRN PRN PRN Reason: INSOMNIA Discharge Diet: Low fat/ Low Cholesterol, 2000 mg Sodium Diet Discharge Activity: Return to Normal Activity Please follow up with your Primary Care Physician in: 1-2 weeks Please Follow Up With: Talon Sales MD When: 2 weeks Please Follow Up With: Doug Weller DO When: as directed Disposition: Home Minutes spent on discharge:: 35 Patient Condition:: Stable Medical Necessity - Tobacco Use Smoking Status: Former smoker Tobacco Use: Cigarettes
--- NOTE | 2020-02-04 15:35 | CASEMGMT ---
JOANNA LE Discharge F/U Phone Call LACE: 13 Strata: 3 Discharge date: 02/03/2020 Call date: 02/04/2020 Call time: [id number] Admission dx: Suspected Stroke, abn cardiac enzyme Pt's niece/caregiver, Giuliana Ramos, answered phone and answered questions for pt at this time. Niece states that pt is doing well and is night and day' compared to before and states this is a good thing. Niece states no questions regarding d/c instructions/medications at this time. Niece states f/u appt's are scheduled and plans to keep. She also states pt has first OP therapy appt tomorrow. Niece states no suggestions for [facility] at this time. Niece voices no further questions/concerns/needs at this time. [place] JOANNA LE
== END 2020-02-03 11:37 | disposition home or self-care (01) | DRG 65 ==
LOC: ED 16:25 → PCU 19:15
PROVIDERS: Admitting Provider Hospitalist; Emergency Provider Emergency Medicine; PCP Family Medicine; Visit Provider Internal Medicine
DX: I63.9 Cerebral infarction, unspecified (principal); J96.11 Chronic respiratory failure with hypoxia; Z68.41 Body mass index [BMI] 40.0-44.9, adult; Z96.642 Presence of left artificial hip joint; R74.8 Abnormal levels of other serum enzymes; J44.9 Chronic obstructive pulmonary disease, unspecified; Z99.81 Dependence on supplemental oxygen; I10 Essential (primary) hypertension; K21.9 Gastro-esophageal reflux disease without esophagitis; E66.01 Morbid (severe) obesity due to excess calories; W18.30XA Fall on same level, unspecified, initial encounter; Y93.89 Activity, other specified; Y92.230 Patient room in hospital as the place of occurrence of the external cause; Y99.8 Other external cause status; R53.1 Weakness; E11.40 Type 2 diabetes mellitus with diabetic neuropathy, unspecified; Z79.4 Long term (current) use of insulin; Z79.899 Other long term (current) drug therapy; Z87.891 Personal history of nicotine dependence; F32.9 Major depressive disorder, single episode, unspecified; I89.0 Lymphedema, not elsewhere classified; G89.4 Chronic pain syndrome
CPT/HCPCS: 36415; 70450; 70551; 71045; 71275; 73502; 73560; 80048; 80053; 81001; 82962; 83735; 84484; 85025; 85027; 85610; 92610; 93005; 93306; 93880; 94640; 94667; 97116; 97162; 97166; 97530; 99251; 99285; Q9957; Q9967; A4216; C8929; G0463

== ENCOUNTER 2020-02-05 19:07 | Emergency (ER) | payer MEDICARE, BC, SELFPAY ==
[2020-02-03 14:10] VITALS: BMI 38.3
[2020-02-05 19:07] VITALS: BP 127/49; PULSE 83; RESP 18; TEMP 36.5; O2SAT 98; BMI 37.6
--- NOTE | 2020-02-05 20:16 | ED.VIS.GEN ---
History of Present Illness Chief Complaint: Other, Pain/Inj Informant: Patient Narrative: 74-year-old male with past medical history of hypertension, COPD, diabetes presents with bleeding wound. Patient had Jason removed from his left hip wound this morning. States that this was from a recent hip replacement. Patient is on a blood thinner and had some oozing this afternoon. Was advised by his family to come to the emergency department for evaluation. Denies any fever, chills, pain in that hip. Past Medical History - Allergies and Home Meds Allergies/Adverse Reactions: Allergies celecoxib [From Celebrex] Adverse Reaction (Verified 01/31/20 15:23) PT UNSURE OF REACTION Primary Care Physician: Dex Valencia DO [Primary Care Provider] - Prior records reviewed: Yes Past Medical History: - - HTN, CVA, DM Surgical History: total knee arthroplasty, - Lives: With Family Smoking Status: Former smoker Alcohol: None Drugs: None - Family History Maternal Family History: Reports: No pertinent history Paternal Family History: Reports: No pertinent history Review of Systems General: Denies: Chills, Fever, Sweats Eyes: Denies: Visual changes - bilaterally, Diplopia ENT: Denies: Rhinorrhea, Sore throat Cardiovascular: Denies: Chest pain, Palpitations Respiratory: Denies: Dyspnea, Cough, Dyspnea on exertion Gastrointestinal: Denies: Abdominal pain, Nausea, Vomiting, Diarrhea, Melena, Hematochezia Genitourinary: Denies: Dysuria, Hematuria, Frequency Musculoskeletal: Denies: Back pain, Extremity Pain Skin: Reports: Wounds. Denies: Rash Neurological: Denies: Headache, Weakness, Numbness Physical Exam Vital Signs/Narrative: Vital Signs Temp Pulse Resp BP Pulse Ox 02/05/20 19:07 97.7 F L 83 18 127/49 H 98 General: Well nourished, Well developed, No Acute Distress Head: Normocephalic, Atraumatic Eyes: Perrl, EOMI ENT: Moist mucous membranes, No rhinorrhea Neck: Supple, Nontender Cardiovascular: Regular rate, Regular rhythm, No murmurs Respiratory: No distress, CTA bilaterally, Chest nontender Abdomen: Soft, Nontender, Nondistended, Normal bowel sounds Back: Nontender, Normal Inspection Extremities: Nontender, No edema Skin: Normal color, No rash, - - Well healing left hip incision with small area dehisence. Not actively bleeding. No surrounding erythema. Neurological: Alert, Oriented x3, Cranial nerves II-XII grossly intact, Normal Strength, Normal Sensation Psychological: Normal affect, Normal Mood Diagnostic/Tx/Re-eval - Medical Decision Making Appears well nontoxic. Vital signs within normal limits. No evidence of infection. Not actively bleeding. Patient will have the wound Steri-Stripped and will follow up with his orthopedist. Stable at time of discharge. Impression: 1. Wound bleeding - resolved 2. Wound dehiscence ED Disposition - Plan for ED Patient: Disposition: Home or Assisted Living Instructions: Wound Care Referrals: Dex Valencia DO [Primary Care Provider] - 2 Days
[2020-02-05 20:22] VITALS: BP 142/69; PULSE 72; RESP 15; O2SAT 98
== END 2020-02-05 20:56 | disposition home or self-care (01) ==
LOC: ED 20:27
PROVIDERS: Emergency Provider Emergency Medicine; PCP Family Medicine
DX: T81.30XA Disruption of wound, unspecified, initial encounter (principal); E11.9 Type 2 diabetes mellitus without complications; J44.9 Chronic obstructive pulmonary disease, unspecified; I10 Essential (primary) hypertension; Z96.642 Presence of left artificial hip joint; Z86.73 Personal history of transient ischemic attack (TIA), and cerebral infarction without residual deficits; Z87.891 Personal history of nicotine dependence; Z79.4 Long term (current) use of insulin; Z79.02 Long term (current) use of antithrombotics/antiplatelets; Z79.899 Other long term (current) drug therapy
CPT/HCPCS: 99282

== ENCOUNTER 2020-03-08 13:00 | Outpatient (RCR) | payer MEDICARE, BC, SELFPAY ==
[2020-03-02 09:17] VITALS: BP 129/48; PULSE 18; RESP 18; TEMP 36.3; BMI 40.4
--- NOTE | 2020-03-02 10:30 | PCM.WC.HP ---
(1) Peripheral vascular disease due to secondary diabetes mellitus Status: Acute Code(s): E13.51 - Other specified diabetes mellitus with diabetic peripheral angiopathy without gangrene (2) Acute ischemic stroke Status: Acute Code(s): I63.9 - Cerebral infarction, unspecified (3) Status post left hip replacement Status: Acute Code(s): Z96.642 - Presence of left artificial hip joint (4) Type 2 diabetes mellitus Status: Chronic Code(s): E11.9 - Type 2 diabetes mellitus without complications (5) Edema of both lower legs due to peripheral venous insufficiency Status: Acute Code(s): I87.2 - Venous insufficiency (chronic) (peripheral); R60.9 - Edema, unspecified (6) Stasis dermatitis of both legs Status: Acute Code(s): I87.2 - Venous insufficiency (chronic) (peripheral) History of Present Illness Date of Service: 03/02/20 Chief Complaint: Follow-up on bilateral lower extremity edema with intermittent blisters. Patient was just in [place]na boots bilaterally. History of Wound: 74-year-old white male with history of ischemic stroke approximately 3 weeks ago. Followed by Dr. Morse for possible atrial fib patient is currently has a Holter monitor. Patient complains for years discoloration of the lower extremities from knees down and blistering intermittently to bilateral lower extremities. At this time he has not have any blisters apparent. Patient displays no pitting edema just edema. Patient's last hemoglobin A1c was 7.4. Patient will be scheduled for a arterial brachial study and venous study to determine the cause of his blistering. Patient will be placed in double layer Tubigrip's till results are established. Then patient will probably refer to vascular for further studies and treatment. Past Medical History Past Medical History: Chronic Problems (Last Updated 09/26/19 @ 11:[address] Teodoro Moses, DO) Chronic pain syndrome (Chronic) Chronic respiratory failure (Chronic) Type 2 diabetes mellitus (Chronic) Hypertension (Chronic) Past Medical History: Ischemic stroke. Peripheral vascular disease due to his diabetes type 2 Surgical History: total knee arthroplasty, - Allergies/Adverse Reactions: Allergies celecoxib [From Celebrex] Adverse Reaction (Verified 03/02/20 09:29) PT UNSURE OF REACTION Home Medications: Ambulatory Orders Medication Instructions Recorded Atorvastatin Calcium [Lipitor] 40 mg PO DAILY 09/26/19 Carvedilol [Coreg] 25 mg PO BID 09/26/19 Duloxetine HCl 60 mg PO DAILY 09/26/19 Furosemide [Lasix] 40 mg PO DAILY 09/26/19 Gabapentin 300 mg PO TID 09/26/19 Insulin Detemir [Levemir FlexPen] 70 unit SQ DAILY 09/26/19 Lactulose 30 ml PO 4X/DAY 09/26/19 Pantoprazole Sodium [Protonix] 40 mg PO DAILY 09/26/19 Albuterol Aerosols [Ventolin 2.5 mg INHALATION Q6H 11/29/19 Aerosols] Ondansetron [Zofran Odt] 4 mg PO Q8H PRN PRN #10 tab 12/05/19 Albuterol Sulfate [Albuterol 2 puff IH Q6H 01/13/20 Sulfate HFA] Insulin Lispro [Humalog] 0 unit SQ TID 01/13/20 Lubiprostone [Amitiza] 24 mcg PO BID 01/13/20 Polyethylene Glycol 3350 [Miralax] 17 gm PO DAILY 01/13/20 Acetaminophen [Tylenol] 1,000 mg PO Q8 #90 tab 01/26/20 Aspirin [Aspirin, Baby] 81 mg PO BIDCM #60 tab.chew 01/26/20 Senna/Docusate Sodium [Senokot-S] 2 tab PO BID tab 01/26/20 Latanoprost 0.005% [Xalatan 1 drp EACH EYE QHS 01/31/20 Opthalmic] Magnesium Hydroxide [Milk Of 30 ml PO DAILY PRN PRN udc 02/02/20 Magnesia] Clopidogrel Bisulfate [Plavix] 75 mg PO DAILY #30 tab 02/03/20 - Family History Maternal No pertinent history Paternal No pertinent history Lives: Spouse/ Significant Other Smoking Status: Former smoker Review of Systems Constitutional: Denies: Chills, Fever Eyes: Denies: Blurred vision, Drainage, Pain HEENT: Denies: Difficulty Hearing, Difficulty Swallowing, Sore Throat, Visual Changes Cardiovascular: Denies: Chest Pain, Palpitations, Syncope Respiratory: Denies: Cough, Shortness of Breath Gastrointestinal: Denies: Abdominal Pain, Nausea, Vomiting Genitourinary: Denies: Dysuria, Frequency Musculoskeletal: Reports: - - Lower leg extremity edema. Denies: Joint Pain, Muscle pain Skin: Denies: Jaundice, Rash Neurological: Denies: Balance problems, Change in Speech, Difficulty swallowing, Focal weakness Psychiatric: Denies: Anxiety, Depression Endocrine: Denies: Change in Body Habitus Hematologic/ Lymphatic: Denies: Adenopathy - Physical Exam Vital Signs Temp Pulse Resp BP 97.4 F L 18 L 18 129/48 H 03/02/20 09:17 03/02/20 09:17 03/02/20 09:17 03/02/20 09:17 General: Oriented x3, Cooperative, Well developed HEENT: Atraumatic, PERRLA Oral: Moist Mucosa Neck: Supple, No JVD Lungs: Clear to auscultation, Normal air movement Cardiovascular: Regular rate, Regular Rhythm Abdomen: Bowel Sounds Present, Soft, Non Tender, No Hepato-splenomegaly Extremities: No clubbing, Edema Skin: No breakdown, Rash Present Wound Measurements and Assessment WC - Nurse 1 - General Ulcer Measurement Start: 03/02/20 09:04 Freq: Status: Active Protocol: Activity Type Activity Date Activity User E-Sign Co-Sign Detail Recorded Client Recorded Date Recorded By Document 03/02/20 09:17 [email or web address] [id number] 03/02/20 09:25 [facility] 03/02/20 09:17 Wound Center Nurse 1 [Edema Assessment] -Lower Limb Edema Present Yes -Right Calf (cm) 48 -Right Ankle (cm) 26.5 -Left Calf (cm) 45.5 -Left Ankle (cm) 27 WC - Nurse 2 - General Ulcer CM Notes Start: 03/02/20 09:04 Freq: Status: Active Protocol: Activity Type Activity Date Activity User E-Sign Co-Sign Detail Recorded Client Recorded Date Recorded By Document 03/02/20 09:42 MW [id number] 03/02/20 09:48 MW 03/02/20 09:42 Pain Scale: 0-10 Numeric [Pain] -Is Patient Pain Free? Yes - Nurse 3 - General Ulcer D/C NN Start: 03/02/20 09:04 Freq: Status: Active Protocol: Activity Type Activity Date Activity User E-Sign Co-Sign Detail Recorded Client Recorded Date Recorded By Document 03/02/20 10:01 MT [id number] 03/02/20 10:03 MT 03/02/20 10:01 Wound Care Nurse 3 [Compression Applied] Right -Tubular Bandage Double Layer -Size of Tubigrip Used Size F -Size F ($) 2 Left -Tubular Bandage Double Layer -Size of Tubigrip Used Size F -Size F ($) 2 - Visit Discharge [Visit Discharge Information] -Discharge Condition Stable -Ambulatory Status Cane -Transportation Private Auto -Accompanied by NIECE -Medication Reconcilliation completed No & provided to patient/care provider -Clinical Summary of Care Provided Yes Musculoskeletal: No Tenderness to Palpation of Joints or Extremities Lymphatic: No Cervical, Supraclavicular, or Inguinal Adenopathy Neurological: Cranial nerves II-XII grossly intact, Neuro grossly intact Psych/Mental Status: Normal Affect, Appropriate Debridement Note Post-Debridement Measurements/Treatment WC - Nurse 2 - General Ulcer CM Notes Start: 03/02/20 09:04 Freq: Status: Active Protocol: Activity Type Activity Date Activity User E-Sign Co-Sign Detail Recorded Client Recorded Date Recorded By Document 03/02/20 09:42 MW [id number] 03/02/20 09:48 MW 03/02/20 09:42 Pain Scale: 0-10 Numeric Is Patient Pain Free? Yes - Nurse 3 - General Ulcer D/C NN Start: 03/02/20 09:04 Freq: Status: Active Protocol: Activity Type Activity Date Activity User E-Sign Co-Sign Detail Recorded Client Recorded Date Recorded By Document 03/02/20 10:01 MT [id number] 03/02/20 10:03 MT 03/02/20 10:01 Wound Care Nurse 3 Right -Tubular Bandage Double Layer -Size of Tubigrip Used Size F -Size F ($) 2 Left -Tubular Bandage Double Layer -Size of Tubigrip Used Size F -Size F ($) 2 - Visit Discharge Discharge Condition Stable Ambulatory Status Cane Transportation Private Auto Accompanied by NIECE Medication Reconcilliation completed & No provided to patient/care provider Clinical Summary of Care Provided Yes No debridement was completed today Assessment/Plan Arterial brachial studies and venous studies Active Problems (Last Updated 09/26/19 @ 11:[address] Teodoro Moses, DO) Acute ischemic stroke (Acute) Peripheral vascular disease due to secondary diabetes mellitus (Acute) Edema of both lower legs due to peripheral venous insufficiency (Acute) Status post left hip replacement (Acute) Type 2 diabetes mellitus (Chronic) Assessment: Edema lower extremities due to his diabetes. Peripheral vascular disease due to his diabetes. Stasis dermatitis Plan: Schedule patient for the arterial brachial studies and the venous studies. Follow-up in a couple of weeks after both studies are done for results. Double layer Tubigrip's to be worn until seen again. Follow-up as needed sooner if problems occur
--- NOTE | 2020-03-08 13:11 | VDLE_ITS ---
Reason For Study: edema RIGHT LEFT CFV is compressible, spontaneous, phasic, CFV is compressible, spontaneous, phasic, competent and demonstrates normal competent, and demonstrates normal augmentation. augmentation. FV is compressible, spontaneous, phasic, FV is compressible, spontaneous, phasic, competent and demonstrates normal competent and demonstrates normal augmentation. augmentation. POP V is compressible, spontaneous, phasic, POP V is compressible, spontaneous, phasic, competent and demonstrates normal competent and demonstrates normal augmentation. augmentation. T/P Trunk is compressible. T/P Trunk is compressible. PTV is compressible. PTV is compressible. RT PerV is compressible. LT PerV is compressible. SFJ is competent and measures .83 cm. SFJ is competent and measures .67 cm. GSV proximal thigh measures .49 x .44 cm. GSV proximal thigh measures .28 x .29 cm. GSV at knee measures .34 x .37 cm. GSV at knee measures .45 x .44 cm. GSV INCOMPETENT throughout for greater than GSV INCOMPETENT throughout for greater than 0.5 seconds. 0.5 seconds. SSV proximal calf is INCOMPETENT for greater SSV proximal calf is INCOMPETENT for greater than 0.5 seconds and measures .41 x .41 cm. than 0.5 seconds and measures .34 x .36 cm. Auricular Therapist V 10 cm proximal to the medial Soleus V is dilated and noncompressible. malleolus is incompetent for greater than .5 seconds. Procedure This is a venous duplex using B-mode, color flow and spectral Doppler. Exam performed in department. The exam was diagnostic. A preliminary report was called and/or faxed to Marry Brooks. Interpretation Summary Acute deep vein thrombosis is noted in the left soleus vein. The remainder of the left lower extremity deep venous system is patent and compressible. Deep veins of the right lower extremity are patent and compressible segmentally. There is no evidence of right lower extremity deep vein thrombosis. Valvular competence appears intact within the proximal deep venous systems bilaterally. The great saphenous veins appear bilaterally patent and compressible segmentally. Sapheno-femoral junctions are bilaterally competent . Segmental valvular incompetence is noted within the great saphenous veins bilaterally. Small saphenous veins are patent and incompetent bilaterally. An incompetent block placer vein is noted in the right calf, located 10 centimeters proximal to the right medial malleolus. Ordering Physician: Marry Brooks Performed By: Kuldip Roque RVT
== END 2020-03-31 23:59 ==
LOC: CVS 13:00
PROVIDERS: PCP Family Medicine; Referring Provider Family Medicine; Visit Provider Nurse Practitioner
DX: I73.9 Peripheral vascular disease, unspecified (principal); R60.0 Localized edema
CPT/HCPCS: 93970; 99213; G0463

== ENCOUNTER → 2020-04-27 10:12 | Outpatient (CLI) | payer MEDICARE, BC, SELFPAY ==
[2020-03-04 10:05] VITALS: BMI 40.4
--- NOTE | 2020-04-27 10:15 | EKG12_ITS ---
Test Reason : FOLLOW UP Blood Pressure : / mmHG Vent. Rate : 065 BPM Atrial Rate : 065 BPM P-R Int : 166 ms QRS Dur : 118 ms QT Int : 430 ms P-R-T Axes : 020 032 044 degrees QTc Int : 447 ms Sinus rhythm with marked sinus arrhythmia Otherwise normal ECG Confirmed by RASHID SOTO, EVELYN ([id number]), mapping editor PRASANNA LOBO ([id number]) on 04/28/2020 11:16:41 AM Referred By: Dex Valencia Confirmed By:EVELYN MIKE MD
== END ==
PROVIDERS: PCP Family Medicine; Referring Provider Family Medicine; Visit Provider Family Medicine
DX: I10 Essential (primary) hypertension (principal)
CPT/HCPCS: 93005

== ENCOUNTER 2020-05-12 18:56 | Inpatient (IN) | payer MEDICARE, BC, SELFPAY ==
[2020-03-04 10:05] VITALS: BMI 40.4
[2020-05-12 18:57] VITALS: BP 176/74; PULSE 71; RESP 22; TEMP 35.9; O2SAT 95; BMI 43.9
--- NOTE | 2020-05-12 19:21 | ED.DCSUM_ITS ---
History of Present Illness Chief Complaint: General Illness Informant: Patient Narrative: 74-year-old male presenting with shortness of breath which is worse over the last couple of weeks. But has increased cough and shortness of breath. He states he has a history of heart failure. Patient states his daughter tested positive for Covid?19 however his test was negative. He has not had fevers, chills. He does state that he has body aches but states this is mostly in his back. He states it feels like my bones hurt. Patient also states that he went to follow-up with his doctor and they told him it was his kidneys and to get to the ER because he has decreased urine output over the last 3 days. That he is dehydrated from the diarrhea and nausea and vomiting. He states he has known CKD stage III. - Past Medical History (1) Essential (primary) hypertension Status: Chronic (2) Hyperlipidemia Status: Chronic (3) Ischemic cerebrovascular accident (CVA) Status: Chronic Comment: 3 cm acute infarct in the posterior left parietal lobe. MRI 01/31/2020 (4) Peripheral vascular disease due to secondary diabetes mellitus Status: Chronic (5) Stasis dermatitis of both legs Status: Chronic (6) Type 2 diabetes mellitus Status: Chronic Past Medical History - Allergies and Home Meds Allergies/Adverse Reactions: Allergies celecoxib [From Celebrex] Adverse Reaction (Verified 05/12/20 18:59) PT UNSURE OF REACTION Primary Care Physician: Dex Valencia DO [Primary Care Provider] - Prior records reviewed: Yes Past Medical History: - - reviewed in problem list Surgical History: noncontributory, total knee arthroplasty, - Lives: Alone Smoking Status: Former smoker Alcohol: None Drugs: None - Family History Maternal Family History: Reports: No pertinent history Paternal Family History: Reports: No pertinent history Review of Systems General: Denies: Chills, Fever, Malaise Eyes: Denies: Visual changes - left, Visual changes - right ENT: Denies: Bilateral ear pain, Left ear pain Cardiovascular: Denies: Chest pain, Palpitations Respiratory: Reports: Dyspnea, Cough, Dyspnea on exertion Gastrointestinal: Reports: Nausea, Vomiting, Diarrhea Genitourinary: Denies: Dysuria, Hematuria Musculoskeletal: Reports: Myalgias. Denies: Arthralgias Skin: Denies: Rash, Abscess Neurological: Denies: Headache, Parasthesia, Numbness Psych: Denies: Depression, Anxiety Physical Exam Vital Signs/Narrative: Vital Signs Temp Pulse Resp BP Pulse Ox 05/12/20 18:57 96.6 F L 71 22 H 176/74 H 95 General: Obese, No Acute Distress Head: Normocephalic, Atraumatic Eyes: Perrl, EOMI ENT: Moist mucous membranes, No rhinorrhea Cardiovascular: Regular rate, Regular rhythm Respiratory: No distress, CTA bilaterally Extremities: Nontender, Edema Skin: Normal color, No rash. Negative for: Cyanosis, Diaphoresis Neurological: Alert, Oriented x3, Cranial nerves II-XII grossly intact Psychological: Normal affect, Normal Mood Diagnostic/Tx/Re-eval Clinical Impression(s) from Imaging Studies Chest X-Ray 05/12/20 20:25 IMPRESSION: Hyperinflation and chronic interstitial changes in the lower lobes. No definitive evidence for acute cardiopulmonary pathology Electronically Signed: Dejuan Laughlin MD at 20:42 EST , Service support , Laboratory Data 05/12/20 05/12/20 05/12/20 19:48 20:00 20:00 WBC 6.9 RBC 4.54 L Hgb 13.1 Hct 41.2 MCV 90.7 MCH 28.9 MCHC 31.8 L RDW Std Deviation 44.0 H RDW Coeff of Fredo 13.2 Plt Count 149 L MPV 10.4 Immature Gran % (Auto) 0.600 Neut % (Auto) 68.4 Lymph % (Auto) 14.7 L [place] % (Auto) 15.6 H Eos % (Auto) 0.4 Baso % (Auto) 0.3 Absolute Neuts (auto) 4.7 Absolute Lymphs (auto) 1.02 Nucleated RBC % 0 Sodium 136 Potassium 4.1 Chloride 104 Carbon Dioxide 31.0 Anion Gap 1 L BUN 17 Creatinine 1.28 Estim Creat Clear Calc 45.38 Est GFR (MDRD) Af Amer 71 Est GFR (MDRD) Non-Af 59 L BUN/Creatinine Ratio 13.3 Glucose 188 H Lactic Acid Calcium 8.0 L Total Bilirubin 0.50 AST 11 L ALT 20 Alkaline Phosphatase 151 H Troponin I < 0.015 B-Natriuretic Peptide Total Protein 6.3 L Albumin 2.8 L Globulin 3.5 Albumin/Globulin Ratio 0.8 L Urine Color Yellow Urine Clarity Clear Urine pH 6.0 Ur Specific [place] 1.020 Urine Protein 500 H Urine Glucose (UA) 100 H Urine Ketones Negative Urine Occult Blood 10 H Urine Nitrite Negative Urine Bilirubin Negative Urine Urobilinogen Normal Ur Leukocyte Esterase Negative Urine RBC 0-5 SEEN Urine WBC 0 SEEN Ur Squamous Epith Cells 0-5 SEEN Urine Bacteria 0 SEEN Urine Mucus 0 SEEN 05/12/20 05/12/20 20:00 20:00 WBC RBC Hgb Hct MCV MCH MCHC RDW Std Deviation RDW Coeff of Fredo Plt Count MPV Immature Gran % (Auto) Neut % (Auto) Lymph % (Auto) [place] % (Auto) Eos % (Auto) Baso % (Auto) Absolute Neuts (auto) Absolute Lymphs (auto) Nucleated RBC % Sodium Potassium Chloride Carbon Dioxide Anion Gap BUN Creatinine Estim Creat Clear Calc Est GFR (MDRD) Af Amer Est GFR (MDRD) Non-Af BUN/Creatinine Ratio Glucose Lactic Acid 0.8 Calcium Total Bilirubin AST ALT Alkaline Phosphatase Troponin I B-Natriuretic Peptide 245.3 H Total Protein Albumin Globulin Albumin/Globulin Ratio Urine Color Urine Clarity Urine pH Ur Specific [place] Urine Protein Urine Glucose (UA) Urine Ketones Urine Occult Blood Urine Nitrite Urine Bilirubin Urine Urobilinogen Ur Leukocyte Esterase Urine RBC Urine WBC Ur Squamous Epith Cells Urine Bacteria Urine Mucus - Rhythm Strip Rhythm Strip: Sinus Rhythm Rate: 85 - EKG Follow-up EKG Interpretation: Sinus Rhythm, Sinus Arrythmia, - - PVCs - Medical Decision Making Patient presents with shortness of breath, cough, worsening lower extremity edema. He was concerned he was in renal failure because he had not made urine in a couple days. He did urinate prior to coming to the ER. Patient states he has not had a fever, myalgias, change in taste or smell. Patient is having difficulty getting around his home because he has lower extremity edema that is significantly worse. He is wearing his 3 L of oxygen which she wears baseline. He denies chest pain but has some lower back pain that he states is from coughing. Patient had EKG performed on arrival which is sinus rhythm with a slight sinus arrhythmia interpreted by myself. Chest x-ray shows no acute cardiopulmonary process as interpreted by myself and radiology does agree. Patient lab work shows no leukocytosis. GFR is slightly decreased but he is not in renal failure. Electrolytes are normal. Urinalysis was negative. Patient did have a Covid antigen test which was positive. I think given his significant morbidities and lower extremity edema he should be admitted to the hospital. I spoke with hospitalist who agreed. Patient stable on admission. Impression: 1. CHF exacerbation 2. Covid?19 ED Disposition - Plan for ED Patient: Disposition: Home or Assisted Living Referrals: Dex Valencia DO [Primary Care Provider] -
--- NOTE | 2020-05-12 19:30 | EKG12_ITS ---
Test Reason : GENERAL Blood Pressure : / mmHG Vent. Rate : 085 BPM Atrial Rate : 085 BPM P-R Int : 160 ms QRS Dur : 114 ms QT Int : 382 ms P-R-T Axes : -16 -25 055 degrees QTc Int : 454 ms Sinus rhythm with sinus arrhythmia with occasional Premature ventricular complexes Otherwise normal ECG Confirmed by FREDY SOTO, BRIGETTE ([id number]), writer editor PRASANNA LOBO ([id number]) on 05/16/2020 12:32:05 P M Referred By: SLOANE Confirmed By:MJ DANIEL MD
[2020-05-12 20:00] VITALS: BP 181/91; PULSE 63; RESP 22; TEMP 37.1; O2SAT 98
[2020-05-12 20:12] LABS: Bacteria 0 SEEN /hpf (None Seen); Mucous, Urine 0 SEEN /hpf (<or=2+); White Blood Cells 0 SEEN /hpf (0-5)
[2020-05-12] MEDS: Ondansetron 4 MG/2 ML Vial IV (20:12)
[2020-05-12 20:15] LABS: Color, Urine Yellow (Yellow); Glucose, Dipstick 100 mg/dl (Normal); Ketone-Dipstick Negative (Negative); Leukocyte Esterase-Dipstick Negative /ul (Negative); Nitrite-Dipstick Negative (Negative); Occult Blood-Urine 10 /ul (Negative); Protein-Dipstick 500 mg/dl (Negative); Urine Bilirubin Dipstick Negative (Negative); Urine Clarity Clear (Clear); Urine Urobilinogen Normal (Normal)
[2020-05-12 20:17] LABS: Absolute Lymphocyte Count 1.02 X10^3/uL (0.83-4.51); Absolute Neutrophil Count 4.7 X10^3/uL (2.0-7.7); Basophil# 0.02 X10^3/uL; Basophil% 0.3 % (0-1); Eosinophil# 0.03 X10^3/uL; Eosinophils% 0.4 % (0-5); Hematocrit 41.2 % (40-54); Hemoglobin 13.1 g/dL (13.0-16.5); Lymphocyte # 1.02 X10^3/ul (4.0); Lymphocyte % 14.7 % (19-41); Mean Corp Hgb Conc 31.8 g/dL (32-36); Mean Corpuscular Hgb 28.9 pg (27.0-32.0); Mean Corpuscular Volume 90.7 fL (80-94); Mean Platelet Vol. 10.4 fl (6.2-12.0); Monocyte# 1.08 X10^3/uL; Monocyte% 15.6 % (0-10); NRBC Flagged by Analyzer 0 % (0-5); Neutrophil # 4.73 X10^3/uL (2.7-7.7); Neutrophil % 68.4 % (47-70); Platelet Count 149 K/mm3 (150-450); RBC Distribution Width CV 13.2 % (11.6-14.6); Red Blood Count 4.54 M/mm3 (4.6-6.2); White Blood Count 6.9 K/mm3 (4.4-11.0)
[2020-05-12 20:18] LABS: POSITIVE COUNT NO; POSITIVE DIFFERENTIAL NO; POSITIVE MORPHOLOGY NO
--- NOTE | 2020-05-12 20:25 | RAD_ITS ---
STUDY: X-RAY CHEST REASON FOR EXAM: Male, 74 years old. pt not producing urine, diarrhea, legs swollen, vomiting and nausea, left side pain, increased cough TECHNIQUE: AP portable COMPARISON: 01/31/2020 FINDINGS: Lungs are hyperinflated and there is prominence of interstitial markings in both lower lobes.. There is no demonstrated pleural abnormality. The heart is mildly enlarged. Normal mediastinum and jose. Normal visualized pulmonary arteries. Normal visualized aortic arch and descending thoracic aorta. Spine and shoulders demonstrate degenerative change Normal visualized ribs, clavicles, and shoulders. There is no demonstrated abnormality of the visualized soft tissue structures of the upper abdomen. No significant change since prior study. RAD/Chest 1 View (Portable) IMPRESSION: Hyperinflation and chronic interstitial changes in the lower lobes. No definitive evidence for acute cardiopulmonary pathology Electronically Signed: Dejuan Laughlin MD at 20:42 EST , Service support ,
[2020-05-12] MEDS: Morphine 4 MG/ML Syringe IM (20:27)
[2020-05-12 20:33] LABS: ALB/GLOB Ratio 0.8 RATIO (0.9-2.4); AST(SGOT) 11 U/L (15-37); Alanine Aminotransfer ALT/SGPT 20 U/L (16-61); Albumin, Serum 2.8 g/dL (3.2-5.0); Alkaline Phosphatase 151 U/L (45-117); Anion Gap 1 (5-15); BUN 17 mg/dL (7-18); BUN/Creat Ratio 13.3 RATIO (10-20); Chloride 104 mmol/L (98-107); Creatinine, Serum 1.28 mg/dL (0.70-1.30); EST Glomerular Filtration Rate 59 mL/min (>60); Est Glom Filt Rate - Afr Amer 71 mL/min (>60); Estimated Creatinine Clearance 45.38 ml/min; Globulin 3.5 g/dL (2.2-4.2); Glucose 188 mg/dL (74-106); Potassium 4.1 mmol/L (3.5-5.1); Protein, Total 6.3 g/dL (6.4-8.2); Sodium Level 136 mmol/L (136-145)
[2020-05-12 20:49] LABS: Red Blood Cells-Urine 0-5 SEEN /hpf (0-5); Squamous Epithelial Cells - UA 0-5 SEEN /hpf (0-5)
[2020-05-12 20:59] LABS: BNP,B-Type NATRIURETIC PEPTIDE 245.3 pg/mL (0-100)
[2020-05-12 21:00] VITALS: BP 189/64; PULSE 64; RESP 15; TEMP 37.1; O2SAT 98
[2020-05-12 21:01] LABS: Lactic Acid 0.8 mmol/L (0.4-1.9)
[2020-05-12 22:00] VITALS: BP 184/68; PULSE 77; RESP 18; TEMP 36.8; O2SAT 95
--- NOTE | 2020-05-12 22:13 | HP.PCM_ITS ---
History of Present Illness Date of Admission: 05/12/20 Chief Complaint: worsening lower extremity edema, nausea, vomiting, diarrhea The patient is a 74 year old M with an extensive PMH as outlined who was admitted via the ED with a complaint of nausea, vomiting, diarrhea and worsening lower extremity edema. he says the nausea, vomiting and diarrhea started about 3 days ago and was worsening. He had been told by his PCP he had stage 3 kidney disease, so he was worried his kidneys were also being affected as he wasn't eating and drinking very well and his urine output had decreased. He denied any fever, though he admitted to chills; he denied any shortness of breath, wheezing, or coughing. Review of systems was otherwise negative. Vitals in the ED showed temp of 98.5F, with BP of 189/74, ID of 76 and RR of 21; he was saturating at 96% on 3 L of oxygen which is his baseline. Chemistry showed sodium of 136 with creatinine of 1.28. Initial BNP was 245.3 initial troponin was negative. CBC was essentially unremarkable chest x-ray shows hyperinflation and chronic interstitial changes in the lower lobes with no evidence of acute cardiopulmonary pathology. EKG showed no acute ST changes. Covid test done in the ED was positive. He has been admitted to be managed for COVID-19 infection. [] Past Medical History Past Medical History (Chronic Problems): Chronic Problems (Last Reviewed 03/04/20 @ 10:[address] Leland Lincoln MD) Ischemic cerebrovascular accident (CVA) (Chronic 01/31/20) 3 cm acute infarct in the posterior left parietal lobe. 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 Leland Linclon MD) Ischemic cerebrovascular accident (CVA) (Chronic) Onset Date: 01/31/20 I63.9 3 cm acute infarct in the posterior left parietal lobe. 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) I87.2, R60.9 Stasis dermatitis of both legs (Chronic) I87.2 Type 2 diabetes mellitus (Chronic) E11.9 COPD (chronic obstructive pulmonary disease) J44.9 Chronic pain syndrome G89.4 Chronic respiratory failure J96.10 Obesity E66.9 Elevated troponin Onset Date: 01/31/20 R77.8 Allergies celecoxib [From Celebrex] Adverse Reaction (Verified 05/12/20 18:59) PT UNSURE OF REACTION Home Medications: Ambulatory Orders Medication Instructions Recorded Atorvastatin Calcium [Lipitor] 40 mg PO DAILY 09/26/19 Carvedilol [Coreg] 25 mg PO BID 09/26/19 Duloxetine HCl 60 mg PO DAILY 09/26/19 Furosemide [Lasix] 40 mg PO DAILY 09/26/19 Gabapentin 300 mg PO TID 09/26/19 Insulin Detemir [Levemir FlexPen] 60 unit SQ DAILY 09/26/19 Lactulose 30 ml PO 4X/DAY 09/26/19 Pantoprazole Sodium [Protonix] 40 mg PO DAILY 09/26/19 Albuterol Aerosols [Ventolin 2.5 mg INHALATION Q6H 11/29/19 Aerosols] Ondansetron [Zofran Odt] 4 mg PO Q8H PRN PRN #10 tab 12/05/19 Albuterol Sulfate [Albuterol 2 puff IH Q6H 01/13/20 Sulfate HFA] Insulin Lispro [Humalog] 0 unit SQ TID 01/13/20 Lubiprostone [Amitiza] 24 mcg PO BID 01/13/20 Polyethylene Glycol 3350 [Miralax] 17 gm PO DAILY 01/13/20 Acetaminophen [Tylenol] 1,000 mg PO Q8 #90 tab 01/26/20 Aspirin [Aspirin, Baby] 81 mg PO BIDCM #60 tab.chew 01/26/20 Latanoprost 0.005% [Xalatan 1 drp EACH EYE QHS 11/01/20 Opthalmic] Clopidogrel Bisulfate [Plavix] 75 mg PO DAILY #30 tab 02/03/20 fluoxetine 10 mg capsule 10 mg PO DAILY cap 03/04/20 lisinopril 10 mg tablet 10 mg PO DAILY tab 03/04/20 Buprenorphine 10 mcg TD QWEEK 05/12/20 Doxycycline Hyclate 100 mg PO DAILY 05/12/20 Apixaban [Eliquis] 5 mg PO DAILY 05/13/20 Surgical History: Surgical History (Last Reviewed 03/04/20 @ 10:[address] Leland Lincoln MD) History of tracheostomy Z98.890 Status post left hip replacement Z96.642 Surgical History: noncontributory, total knee arthroplasty, - Lives: Alone Smoking Status: Former smoker Alcohol: None Drugs: None - *Family History Maternal History Items: No pertinent history Paternal History Items: No pertinent history Review of Systems Constitutional: Reports: Anorexia, Malaise, Weakness, Fatigue. Denies: Chills, Fever Eyes: Denies: Blurred vision HEENT: Denies: Head Aches, Sinus Congestion, Sinus Drainage Cardiovascular: Denies: Chest Pain, Palpitations Respiratory: Denies: Cough, Shortness of breath at rest, Sputum production Gastrointestinal: Reports: Diarrhea, Nausea, Vomiting. Denies: Abdominal Pain Genitourinary: Reports: - - decreaed urine output. Denies: Dysuria Musculoskeletal: Denies: Joint Pain, Joint Tenderness Skin: Denies: Rash, Wounds Neurological: Denies: Numbness, Tingling, Focal weakness Psychiatric: Denies: Anxiety, Depression, Homicidal Ideations, Suicidal Ideations Hematologic/ Lymphatic: Denies: Easy Bruising, Easy Bleeding VTE Information - Inpt Only VTE Present on Admission: No VTE Pharm Prophylaxis ordered?: Yes Patient Problems: Active and Suspected Problems (Last Reviewed 03/04/20 @ 10:[address] Leland Lincoln MD) COVID-19 (Acute) - Physical Exam Vitals/I&O's: Vital Signs Temp Pulse Resp BP Pulse Ox 98.7 F 64 15 189/64 H 98 05/12/20 21:00 05/12/20 21:00 05/12/20 21:00 05/12/20 21:00 05/12/20 21:00 Oxygen Flow Rate (L/min) 3 Oxygen Delivery Method Nasal Cannula Weight: 264 lb Body Mass Index (BMI) 43.9 General: Alert, Oriented x3, Cooperative, No apparent distress HEENT: Atraumatic, PERRLA, EOMI, Normocephalic, - - hard of hearing Oral: Dry Mucosa Neck: Supple, No JVD, Negative Carotid Bruits Lungs: - - diminished breath sounds bibasally, no wheezes or crackles. Cardiovascular: Regular rate, Regular Rhythm, Normal S1, Normal S2, No murmurs Abdomen: Bowel Sounds Present, Soft, Non Tender, Non-Distended, No Hepato- splenomegaly Extremities: No clubbing, No cyanosis, Capillary Refill Less than 3 Seconds, - - 2+bipedal nonpitting edema due to lymphedema Skin: No rashes, No breakdown, - - stasis dermatitis of both Lower extremities Musculoskeletal: No Tenderness to Palpation of Joints or Extremities Lymphatic: No Cervical, Supraclavicular, or Inguinal Adenopathy Neurological: Cranial nerves II-XII grossly intact, Neuro grossly intact, Motor Exam 5/5 strength throughout Psych/Mental Status: Normal Affect, Appropriate, Alert and oriented to time, place, person, mood and affect Microbiology Past 72 Hours 05/12/20 19:45 Mucosa - Nose SARS-CoV-2 Antigen (Rapid) - Final SARS-CoV-2 (COVID 19) Laboratory Results 05/12/20 19:48: Urine Color Yellow, Urine Clarity Clear, Urine pH 6.0, Ur Specific [place] 1.020, Urine Protein 500 H, Urine Glucose (UA) 100 H, Urine Ketones Negative, Urine Occult Blood 10 H, Urine Nitrite Negative, Urine Bilirubin Negative, Urine Urobilinogen Normal, Ur Leukocyte Esterase Negative, Urine RBC 0-5 SEEN, Urine WBC 0 SEEN, Ur Squamous Epith Cells 0-5 SEEN, Urine Bacteria 0 SEEN, Urine Mucus 0 SEEN 05/12/20 20:00: WBC 6.9, RBC 4.54 L, Hgb 13.1, Hct 41.2, MCV 90.7, MCH 28.9, MCHC 31.8 L, RDW Std Deviation 44.0 H, RDW Coeff of Fredo 13.2, Plt Count 149 L, MPV 10.4, Immature Gran % (Auto) 0.600, Neut % (Auto) 68.4, Lymph % (Auto) 14.7 L, Div[place] % (Auto) 15.6 H, Eos % (Auto) 0.4, Baso % (Auto) 0.3, Absolute Neuts (auto) 4.7, Absolute Lymphs (auto) 1.02, Nucleated RBC % 0 05/12/20 20:00: Sodium 136, Potassium 4.1, Chloride 104, Carbon Dioxide 31.0, Anion Gap 1 L, BUN 17, Creatinine 1.28, Estim Creat Clear Calc 45.38, Est GFR (MDRD) Af Amer 71, Est GFR (MDRD) Non-Af 59 L, BUN/Creatinine Ratio 13.3, Glucose 188 H, Calcium 8.0 L, Total Bilirubin 0.50, AST 11 L, ALT 20, Alkaline Phosphatase 151 H, Troponin I < 0.015, Total Protein 6.3 L, Albumin 2.8 L, Gl obulin 3.5, Albumin/Globulin Ratio 0.8 L 05/12/20 20:00: Lactic Acid 0.8 05/12/20 20:00: B-Natriuretic Peptide 245.3 H Assessment/Plan All Active Problems (Last Reviewed 03/04/20 @ 10:[address] Leland Lincoln MD) COVID-19 (Acute) 74 y/o admitted with a complaint of nausea, vomiting and diarrhea and found to be covid 19 positive. #Acute COVID 19 infection * admit to COVID 19 floor * hydrate gently with IVF * start remdesivir and decadrone * check covid labs * titrate oxygen to maintain sats >90% * breathing treatment with bronchodilators * check D dimer, and if elevated, check CTA of the chest * #Acute gastroenteritis * Nausea, vomiting and diarrhea improving. Been hydrated gently with IV fluids. * If diarrhea persists, will get stool for enteric pathogens. #Benign essential hypertension * BP was elevaged at time of review. * continue home meds- carvedilol and lisinopril * IV hydralazine prn * #Chronic respiratory failure due to COPD: not in exacerbation. Breathing treatments with bronchodilators. Titrate oxygen to maintain saturation above 90%. Tach chronic lower extremity edema with stasis dermatitis: Consult wound care. #Hyperlipidemia: On statin #History of CVA in posterior left parietal lobe: on aspirin and plavix as well as statin. #Chronic pain syndrome: Follows with Dr. Austin. On buprenorphine 10 mcg also on gabapentin #Type 2 diabetes mellitus: ISS. Accuchecks ACHS. continue lantus 60Iu daily. #Depression: on prozac. DVT prohylaxis: on lovenox Code status: full code * Patient counseled extensively about different types of CODE STATUS including full code, DNR CCA and DNR CCA. Patient elects to be full code. * Total [id number] time 17 minutes. Inpatient E&M: 08448 Init Hosp L3 Procedures: 79969 Advncd Care Plan 30 Min
[2020-05-12 22:23] VITALS: BP 189/74; PULSE 76; RESP 21; TEMP 36.9; O2SAT 96
[2020-05-12] MEDS: Morphine 4 MG/ML Syringe IV (22:29)
[2020-05-12 23:27] VITALS: BP 214/90; PULSE 87; RESP 20; TEMP 37.1; O2SAT 100
[2020-05-12 23:37] VITALS: BMI 44.2
[2020-05-12 23:48] VITALS: BMI 44.2
[2020-05-12 23:53] LABS: International Normalized Ratio 1.1; Prothrombin Time (Protime)PT. 13.8 SECONDS (11.7-14.9)
[2020-05-12 23:58] LABS: D-Dimer Quantitative (DVT/PE) 3.65 FEU/ug/m (0.27-0.49)
[2020-05-13] VITALS (20 sets, daily range): BP systolic 146–197; BP diastolic 60–96; PULSE 60–104; RESP 14–20; TEMP 36.6–36.9; O2SAT 88–97
[2020-05-13 00:31] LABS: Procalcitonin 0.14 ng/mL (0.00-0.09)
[2020-05-13] MEDS: oxyCODONE 5 MG Tablet PO ×3 (00:35→17:12)
[2020-05-13] MEDS: dexAMETHasone 10 MG/ML Vial 6 MG IV ×2 (00:37→12:19)
[2020-05-13] MEDS: 0.9% Saline Lock 10 ML Syringe IV ×5 (00:37→18:10)
--- NOTE | 2020-05-13 00:52 | CT_ITS ---
STUDY: CTA CHEST REASON FOR EXAM: Male, 74 years old. ELEVATED D-DIMER, LOWER EXTEM EDEMA, CHILLS. RADIATION DOSAGE (If Supplied By Facility): CTDIvol = ( 16.225 ) mGy, DLP = ( 596.45 ) mGycm TECHNIQUE: The examination was performed with the intravenous administration of IV 100mL Isovue-370. Post-processing of the angiographic images was performed, with multiplanar reformation and 3D reconstruction. Individualized dose optimization techniques were used for this CT. COMPARISON: Portable chest x-ray 05/12/2020. CTA chest 01/31/2020. FINDINGS: Normal enhancement of the main pulmonary artery and right and left pulmonary arteries. Normal enhancement of the bilateral peripheral pulmonary arteries. There is no demonstrated pulmonary embolism. Normal thoracic aorta and visualized great vessels. There is no demonstrated aortic dissection. Normal heart and pericardium. There are calcifications of the coronary arteries. Normal mediastinum. Mild enlargement of right hilar lymph nodes with short diameter 1 cm. Mild increased size of mediastinal and left hilar lymph nodes likely lymphoid hyperplasia. Normal visualized trachea and bronchi. The lungs are well expanded. Stable bilateral hazy groundglass opacification and faint reticulonodular pattern with increased off airspace disease in the right middle lobe and lower lobe with component of atelectasis and volume loss, probable mild atelectasis in the left lower lobe, increased since previous exam. Trace right pleural fluid. Normal chest wall structures. There are degenerative changes of spine and shoulder joints. Stable bilateral perirenal stranding and prominent adrenal glands. CT/CTA Chest W/WO Contrast IMPRESSION: No demonstrated pulmonary embolism, aneurysm, leak or arterial dissection. Mild bilateral groundglass opacification and reticulonodular lung parenchyma appears stable which may be due to Inflammation such as pneumonitis, viral pneumonia is not excluded. Increased airspace disease in the right lower and middle lobe with atelectatic changes and volume loss, trace right pleural fluid. Superimposed inflammation since previous examination possible. No masses or pulmonary nodules. Mediastinal and hilar lymphoid hyperplasia / mild lymphadenopathy suspected. Other nonacute findings as outlined above. Electronically Signed: Maria E Blankenship MD at 3:34 EST , Service support ,
[2020-05-13 00:53] LABS: CPK Total, Creatine Kinase 65 U/L (39-308); LDH 171 U/L (87-241)
[2020-05-13] MEDS: hydrALAZINE 20 MG/ML Vial 10 MG IV ×2 (01:02→12:20)
[2020-05-13] MEDS: Albuterol 2.5 MG/3 ML VIAL.NEB. INHALATION ×4 (01:27→19:30)
[2020-05-13] MEDS: Morphine 4 MG/ML Syringe IV ×2 (03:00→10:37)
[2020-05-13] MEDS: Ondansetron 4 MG/2 ML Vial IV (03:56)
[2020-05-13] MEDS: Acetaminophen 500 MG Tablet 1000 MG PO ×3 (05:30→22:35)
[2020-05-13 06:00] LABS: Absolute Lymphocyte Count 0.68 X10^3/uL (0.83-4.51); Absolute Neutrophil Count 5.2 X10^3/uL (2.0-7.7); Basophil# 0.01 X10^3/uL; Basophil% 0.2 % (0-1); Hematocrit 43.5 % (40-54); Hemoglobin 13.4 g/dL (13.0-16.5); Lymphocyte # 0.68 X10^3/ul (4.0); Mean Corp Hgb Conc 30.8 g/dL (32-36); Mean Corpuscular Hgb 28.5 pg (27.0-32.0); Mean Corpuscular Volume 92.4 fL (80-94); Mean Platelet Vol. 10.3 fl (6.2-12.0); Monocyte# 0.24 X10^3/uL; Monocyte% 3.9 % (0-10); NRBC Flagged by Analyzer 0 % (0-5); Neutrophil # 5.23 X10^3/uL (2.7-7.7); Neutrophil % 84.3 % (47-70); Platelet Count 156 K/mm3 (150-450); RBC Distribution Width CV 13.1 % (11.6-14.6); RBC Distribution Width SD 44.6 fl (35.1-43.9); Red Blood Count 4.71 M/mm3 (4.6-6.2); White Blood Count 6.2 K/mm3 (4.4-11.0)
[2020-05-13 06:33] LABS: ALB/GLOB Ratio 0.8 RATIO (0.9-2.4); AST(SGOT) 45 U/L (15-37); Alanine Aminotransfer ALT/SGPT 50 U/L (16-61); Albumin, Serum 2.9 g/dL (3.2-5.0); Alkaline Phosphatase 183 U/L (45-117); Anion Gap 3 (5-15); BUN 14 mg/dL (7-18); BUN/Creat Ratio 13.2 RATIO (10-20); Calcium,Total 8.2 mg/dL (8.5-10.1); Chloride 100 mmol/L (98-107); Creatinine, Serum 1.06 mg/dL (0.70-1.30); EST Glomerular Filtration Rate 73 mL/min (>60); Est Glom Filt Rate - Afr Amer 88 mL/min (>60); Estimated Creatinine Clearance 52.75 ml/min; Globulin 3.6 g/dL (2.2-4.2); Glucose 214 mg/dL (74-106); Magnesium 1.7 mg/dL (1.6-2.6); Potassium 4.4 mmol/L (3.5-5.1); Protein, Total 6.5 g/dL (6.4-8.2); Sodium Level 134 mmol/L (136-145)
[2020-05-13 07:00] LABS: Alkaline Phosphatase 178 U/L (45-117)
[2020-05-13] MEDS: Pantoprazole Sodium 40 MG Tablet PO (08:07)
[2020-05-13] MEDS: Gabapentin 300 MG Capsule PO ×3 (08:07→17:12)
[2020-05-13] MEDS: Clopidogrel Bisulfate 75 MG Tablet PO (08:07)
[2020-05-13] MEDS: Polyethylene Glycol 3350 17 GM PACKET PO (08:08)
[2020-05-13] MEDS: Atorvastatin Calcium 40 MG Tablet PO (08:08)
[2020-05-13] MEDS: FLUoxetine 10 MG Capsule PO (08:08)
[2020-05-13] MEDS: Lactulose 20 GM/30 ML UDC PO (08:09)
--- NOTE | 2020-05-13 08:40 | NURSING ---
female phoned in- states she is Khushboo Klein- per pt okay to transfer phone to him and he can speak with her but pt states he would like all information to go through Giuliana Ramos. Says his daughter is his POA but she is home sick with COVID so she isn't feeling well. Khushboo informed that pt states information to be released to [facility] but okay to transfer Khushboo into his room to speak with him. Phone call transferred into pt room. Phoned Giuliana Ramos- inquired about amitiza and buprenorphine patch and cpap and brining those into hospital. Giuliana states she thinks she is waiting on refill for amitiza to be filled, states his buprenorphine patch was just applied last Saturday so not due to be changed until this upcoming Saturday and that she will bring in his CPAP from home. Instructions provided as to how to place belongings in labeled bag so can be delievered to correct unit/room and she verbalizes understanding.
[2020-05-13] MEDS: DULoxetine Hcl 60 MG Capsule PO (10:40)
[2020-05-13] MEDS: Carvedilol 25 MG Tablet PO ×2 (10:41→22:35)
[2020-05-13] MEDS: Doxycycline 100 MG CAPSULE PO (10:41)
[2020-05-13] MEDS: Aspirin E.C. 81 MG Tablet PO (10:41)
[2020-05-13] MEDS: Enoxaparin 40 MG/0.4 ML Syringe SC (10:49)
[2020-05-13] MEDS: Lisinopril 10 MG Tablet PO (10:49)
--- NOTE | 2020-05-13 10:55 | PCS.PANDOC ---
PANDEMIC DOCUMENTATION INITIATED: Date: 03/07/2020 Time:
--- NOTE | 2020-05-13 11:33 | CASEMGMT ---
Addendum entered by Brent Hoskins 05/13/20 15:01: Patient has portable concentrator available per niece so patient will not need any further oxygen scripts for discharge. Agusto GUARDADO Original Note: JOANNA LE Assessment Intro role of CM to patient via phone to room. The patient is awake, alert and able to participate in assessment. Pt states he lives independently in own home. No care needs. His niece Giuliana Ramos is contact printer dry film for information re: medical and he would prefer we call her. He lives with his daughter Salima Ramos who is also positive for covid-19. COVID-19 test: Positive Rapid @ [facility] Diagnosis: COVID 19 PCP: Dr. Dex Valencia Insurance [facility] Pharmacy: [facility] Prescription coverage: yes Living arrangements: Pt lives independently at home. States no care needs and no assistance needed with ADL's, meals, chores. LNOK: Niece Giuliana is contact. Patient does have daughter Salima, but states he would like Giuliana to be contacted first. HHC: past, not sure of agency SNF: denies DME: walker, cane, cpap, oxygen 2L continuous and through cpap. Pt states he has a concentrator, but no portability. Does not know supplier. Asked JOANNA LE to contact yelena to ask. Call to giuliana and she will check who concentrator was through and call back. Pt DC goal: home DC PLAN: home on discharge. Pt denies concerns at this time. PT/OT ordered, evals pending. Agusto GUARDADO
[2020-05-13] MEDS: Ondansetron ODT 4 MG Tablet PO ×2 (12:19→15:29)
--- NOTE | 2020-05-13 14:08 | PCM.HP.ID ---
Problem List (1) COVID-19 Status: Acute Reason for Consult: covid Consulted by: Dr. Stinson History of Present Illness: The patient is a 74 year old M with chronic lung disease, on 3L O2 at home, presented with sx starting around 2/3, c/o chills, severe aches, fatigue, diarrhea, increased cough. No change in taste or smell. Daughter at home sick with covid. No chest pain. Sx worsened, came to ED 05/12, covid Ag (+), admitted on dex and remdesivir. Feeling much better today. Full ROS performed and neg except as noted above. - Medical History Past Medical History (Chronic Problems): Chronic Problems (Last Reviewed 03/04/20 @ 10:[address] Leland Lincoln MD) Ischemic cerebrovascular accident (CVA) (Chronic 01/31/20) 3 cm acute infarct in the posterior left parietal lobe. MRI 01/31/2020 Essential (primary) hypertension (Chronic) Hyperlipidemia (Chronic) Stenosis of left carotid artery (Chronic) Irregular plaque at the proximal left internal carotid with 50 to 69% stenosis suggested in the distal left internal carotid 02/01/2020 Peripheral vascular disease due to secondary diabetes mellitus (Chronic) Edema of both lower legs due to peripheral venous insufficiency (Chronic) Stasis dermatitis of both legs (Chronic) Type 2 diabetes mellitus (Chronic) Allergies/Adverse Reactions: Allergies celecoxib [From Celebrex] Adverse Reaction (Verified 05/12/20 18:59) PT UNSURE OF REACTION Home Medications: Ambulatory Orders Medication Instructions Recorded Atorvastatin Calcium [Lipitor] 40 mg PO DAILY 09/26/19 Carvedilol [Coreg] 25 mg PO BID 09/26/19 Duloxetine HCl 60 mg PO DAILY 09/26/19 Furosemide [Lasix] 40 mg PO DAILY 09/26/19 Gabapentin 300 mg PO TID 09/26/19 Insulin Detemir [Levemir FlexPen] 60 unit SQ DAILY 09/26/19 Lactulose 30 ml PO 4X/DAY 09/26/19 Pantoprazole Sodium [Protonix] 40 mg PO DAILY 09/26/19 Albuterol Aerosols [Ventolin 2.5 mg INHALATION Q6H 11/29/19 Aerosols] Ondansetron [Zofran Odt] 4 mg PO Q8H PRN PRN #10 tab 12/05/19 Albuterol Sulfate [Albuterol 2 puff IH Q6H 01/13/20 Sulfate HFA] Insulin Lispro [Humalog] 0 unit SQ TID 01/13/20 Lubiprostone [Amitiza] 24 mcg PO BID 01/13/20 Polyethylene Glycol 3350 [Miralax] 17 gm PO DAILY 01/13/20 Acetaminophen [Tylenol] 1,000 mg PO Q8 #90 tab 01/26/20 Aspirin [Aspirin, Baby] 81 mg PO BIDCM #60 tab.chew 01/26/20 Latanoprost 0.005% [Xalatan 1 drp EACH EYE QHS 01/31/20 Opthalmic] Clopidogrel Bisulfate [Plavix] 75 mg PO DAILY #30 tab 02/03/20 fluoxetine 10 mg capsule 10 mg PO DAILY cap 03/04/20 lisinopril 10 mg tablet 10 mg PO DAILY tab 03/04/20 Buprenorphine 10 mcg TD QWEEK 05/12/20 Doxycycline Hyclate 100 mg PO DAILY 05/12/20 - Social History SMOKING STATUS:: Former smoker Vital Signs Temp Pulse Resp BP Pulse Ox 98.1 F 104 H 20 H 180/60 H 93 05/13/20 10:50 05/13/20 12:20 05/13/20 13:00 05/13/20 12:20 05/13/20 12:27 Oxygen Flow Rate (L/min) 3 Oxygen Delivery Method Nasal Cannula Weight: 120.4 kg Body Mass Index (BMI) 44.2 Microbiology Past 72 Hours 05/12/20 19:45 SARS-CoV-2 Antigen (Rapid) - Final Mucosa - Nose SARS-CoV-2 (COVID 19) Laboratory Tests Past 24 Hrs 05/12/20 05/12/20 05/12/20 19:48 20:00 20:00 WBC 6.9 RBC 4.54 L Hgb 13.1 Hct 41.2 MCV 90.7 MCH 28.9 MCHC 31.8 L RDW Std Deviation 44.0 H RDW Coeff of Fredo 13.2 Plt Count 149 L MPV 10.4 Immature Gran % (Auto) 0.600 Neut % (Auto) 68.4 Lymph % (Auto) 14.7 L [place] % (Auto) 15.6 H Eos % (Auto) 0.4 Baso % (Auto) 0.3 Absolute Neuts (auto) 4.7 Absolute Lymphs (auto) 1.02 Nucleated RBC % 0 PT INR D-Dimer Quant (PE/DVT) Sodium 136 Potassium 4.1 Chloride 104 Carbon Dioxide 31.0 Anion Gap 1 L BUN 17 Creatinine 1.28 Estim Creat Clear Calc 45.38 Est GFR (MDRD) Af Amer 71 Est GFR (MDRD) Non-Af 59 L BUN/Creatinine Ratio 13.3 Glucose 188 H Lactic Acid Calcium 8.0 L Magnesium Total Bilirubin 0.50 AST 11 L ALT 20 Alkaline Phosphatase 151 H Lactate Dehydrogenase Total Creatine Kinase Troponin I < 0.015 B-Natriuretic Peptide Total Protein 6.3 L Albumin 2.8 L Globulin 3.5 Albumin/Globulin Ratio 0.8 L Procalcitonin Urine Color Yellow Urine Clarity Clear Urine pH 6.0 Ur Specific [place] 1.020 Urine Protein 500 H Urine Glucose (UA) 100 H Urine Ketones Negative Urine Occult Blood 10 H Urine Nitrite Negative Urine Bilirubin Negative Urine Urobilinogen Normal Ur Leukocyte Esterase Negative Urine RBC 0-5 SEEN Urine WBC 0 SEEN Ur Squamous Epith Cells 0-5 SEEN Urine Bacteria 0 SEEN Urine Mucus 0 SEEN 05/12/20 05/12/20 05/12/20 20:00 20:00 20:00 WBC RBC Hgb Hct MCV MCH MCHC RDW Std Deviation RDW Coeff of Fredo Plt Count MPV Immature Gran % (Auto) Neut % (Auto) Lymph % (Auto) [place] % (Auto) Eos % (Auto) Baso % (Auto) Absolute Neuts (auto) Absolute Lymphs (auto) Nucleated RBC % PT 13.8 INR 1.1 D-Dimer Quant (PE/DVT) 3.65 H* Sodium Potassium Chloride Carbon Dioxide Anion Gap BUN Creatinine Estim Creat Clear Calc Est GFR (MDRD) Af Amer Est GFR (MDRD) Non-Af BUN/Creatinine Ratio Glucose Lactic Acid 0.8 Calcium Magnesium Total Bilirubin AST ALT Alkaline Phosphatase Lactate Dehydrogenase Total Creatine Kinase Troponin I B-Natriuretic Peptide 245.3 H Total Protein Albumin Globulin Albumin/Globulin Ratio Procalcitonin Urine Color Urine Clarity Urine pH Ur Specific [place] Urine Protein Urine Glucose (UA) Urine Ketones Urine Occult Blood Urine Nitrite Urine Bilirubin Urine Urobilinogen Ur Leukocyte Esterase Urine RBC Urine WBC Ur Squamous Epith Cells Urine Bacteria Urine Mucus 05/12/20 05/13/20 05/13/20 20:00 00:25 05:38 WBC 6.2 RBC 4.71 Hgb 13.4 Hct 43.5 MCV 92.4 MCH 28.5 MCHC 30.8 L RDW Std Deviation 44.6 H RDW Coeff of Fredo 13.1 Plt Count 156 MPV 10.3 Immature Gran % (Auto) 0.600 Neut % (Auto) 84.3 H Lymph % (Auto) 11.0 L [place] % (Auto) 3.9 Eos % (Auto) 0.0 Baso % (Auto) 0.2 Absolute Neuts (auto) 5.2 Absolute Lymphs (auto) 0.68 L Nucleated RBC % 0 PT INR D-Dimer Quant (PE/DVT) Sodium Potassium Chloride Carbon Dioxide Anion Gap BUN Creatinine Estim Creat Clear Calc Est GFR (MDRD) Af Amer Est GFR (MDRD) Non-Af BUN/Creatinine Ratio Glucose Lactic Acid Calcium Magnesium Total Bilirubin AST ALT Alkaline Phosphatase Lactate Dehydrogenase 171 Total Creatine Kinase 65 Troponin I < 0.015 B-Natriuretic Peptide Total Protein Albumin Globulin Albumin/Globulin Ratio Procalcitonin 0.14 H Urine Color Urine Clarity Urine pH Ur Specific [place] Urine Protein Urine Glucose (UA) Urine Ketones Urine Occult Blood Urine Nitrite Urine Bilirubin Urine Urobilinogen Ur Leukocyte Esterase Urine RBC Urine WBC Ur Squamous Epith Cells Urine Bacteria Urine Mucus 05/13/20 05/13/20 05:38 05:38 WBC RBC Hgb Hct MCV MCH MCHC RDW Std Deviation RDW Coeff of Fredo Plt Count MPV Immature Gran % (Auto) Neut % (Auto) Lymph % (Auto) [place] % (Auto) Eos % (Auto) Baso % (Auto) Absolute Neuts (auto) Absolute Lymphs (auto) Nucleated RBC % PT INR D-Dimer Quant (PE/DVT) Sodium 134 L Potassium 4.4 Chloride 100 Carbon Dioxide 31.0 Anion Gap 3 L BUN 14 Creatinine 1.06 Estim Creat Clear Calc 52.75 Est GFR (MDRD) Af Amer 88 Est GFR (MDRD) Non-Af 73 BUN/Creatinine Ratio 13.2 Glucose 214 H Lactic Acid Calcium 8.2 L Magnesium 1.7 Total Bilirubin 0.60 AST 45 H ALT 50 Alkaline Phosphatase 183 H 178 H Lactate Dehydrogenase Total Creatine Kinase Troponin I B-Natriuretic Peptide Total Protein 6.5 Albumin 2.9 L Globulin 3.6 Albumin/Globulin Ratio 0.8 L Procalcitonin Urine Color Urine Clarity Urine pH Ur Specific [place] Urine Protein Urine Glucose (UA) Urine Ketones Urine Occult Blood Urine Nitrite Urine Bilirubin Urine Urobilinogen Ur Leukocyte Esterase Urine RBC Urine WBC Ur Squamous Epith Cells Urine Bacteria Urine Mucus - Other Studies Radiology: [] reviewed Other Studies: [] Route of nutrition/ use of supplements: [] Nutritional Intake: [] IV Site: [] Martinez Catheter: [] - Physical Exam General: Alert, Oriented x3, Cooperative, No apparent distress HEENT: Atraumatic, PERRLA, EOMI Neck: Supple, No Nodes Lungs: Clear to auscultation, Diminished Cardiovascular: Regular rate, Regular Rhythm Abdomen: Soft, Non Tender, Non-Distended Extremities: No edema Skin: No rashes Musculoskeletal: No Tenderness to Palpation of Joints or Extremities Neurological: Cranial nerves II-XII grossly intact - Assessment/Plan Antibiotics: [] Assessment/Plan: [] covid with hypoxia - on 3L at home. Sx started around 2/3, so he is about on his 10th day of symptoms. Sat as low as 92% on 3L O2 here. Feeling better on dex and remdesivir. Will order another dose of remdesivir for now. Ok for home today or tomorrow to complete 10 days total of dex. Quarantine for 20 days total, stop date 05/24. D-dimer was elevated, consider 2 weeks of eliquis 2.5mg bid or xarelto 10mg daily. will follow, thank you, d/w Dr. Stinson and nursing
--- NOTE | 2020-05-13 16:19 | PCM.PROGNOTE ---
Patient Problems: Active and Suspected Problems (Last Reviewed 03/04/20 @ 10:[address] Leland Lincoln MD) COVID-19 (Acute) Subjective: Patient was seen and examined today, I had extensive conversation with the patient as well as his knees who provides most of his medical care as an outpatient. I also talked with infectious diseases about his care, infectious diseases stated that the patient could be discharged home on dexamethasone. Patient's niece however stated she felt more comfortable with the patient getting another dose of remdesivir and he could be reevaluated in the morning for discharge and I agreed. I also called the patient's PCP and clarified some meds that the patient was taking, he was supposed to be on Eliquis 5 mg twice daily but he was only taking it daily at home. Patient does not complain of any increased shortness of breath today, he does complain of body aches and chronic pain. - Physical Exam Vitals/I&O's: Vital Signs Temp Pulse Resp BP Pulse Ox 97.8 F 70 18 167/81 H 96 05/13/20 15:37 05/13/20 15:37 05/13/20 15:37 05/13/20 15:37 05/13/20 15:45 Oxygen Flow Rate (L/min) 3 Oxygen Delivery Method Nasal Cannula Weight: 120.4 kg Body Mass Index (BMI) 44.2 Intake and Output for Last 24 Hours 05/11/20 05/12/20 05/13/20 23:59 23:59 23:59 Intake Total 751.25 / 751.25 Output Total 1350 / 1350 Balance -598.75 / -598.75 General: Alert, Oriented x3, Cooperative, No apparent distress, Well developed HEENT: Atraumatic, PERRLA, EOMI, Normocephalic, - - There is a small tracheostomy opening present on the patient's neck Oral: Moist Mucosa Neck: Supple, No JVD, Trachea Midline, Thyroid Normal Size and Texture Lungs: Clear to auscultation, No rhonchi, No wheeze, Diminished Cardiovascular: Regular rate, Regular Rhythm, Normal S1, Normal S2, No murmurs, PMI Normal, No rub noted, No Gallop Abdomen: Bowel Sounds Present, Soft, Non Tender, Non-Distended Extremities: No clubbing, No cyanosis, Capillary Refill Less than 3 Seconds Skin: No rashes, No breakdown Musculoskeletal: No Tenderness to Palpation of Joints or Extremities Neurological: Cranial nerves II-XII grossly intact, Neuro grossly intact, Sensory exam intact to light touch and pain, Coordination normal Psych/Mental Status: Normal Affect, Appropriate, Alert and oriented to time, place, person, mood and affect Microbiology Past 72 Hours 05/12/20 19:45 Mucosa - Nose SARS-CoV-2 Antigen (Rapid) - Final SARS-CoV-2 (COVID 19) Laboratory Results 05/12/20 19:48: Urine Color Yellow, Urine Clarity Clear, Urine pH 6.0, Ur Specific [place] 1.020, Urine Protein 500 H, Urine Glucose (UA) 100 H, Urine Ketones Negative, Urine Occult Blood 10 H, Urine Nitrite Negative, Urine Bilirubin Negative, Urine Urobilinogen Normal, Ur Leukocyte Esterase Negative, Urine RBC 0-5 SEEN, Urine WBC 0 SEEN, Ur Squamous Epith Cells 0-5 SEEN, Urine Bacteria 0 SEEN, Urine Mucus 0 SEEN 05/12/20 20:00: WBC 6.9, RBC 4.54 L, Hgb 13.1, Hct 41.2, MCV 90.7, MCH 28.9, MCHC 31.8 L, RDW Std Deviation 44.0 H, RDW Coeff of Fredo 13.2, Plt Count 149 L, MPV 10.4, Immature Gran % (Auto) 0.600, Neut % (Auto) 68.4, Lymph % (Auto) 14.7 L, [place] % (Auto) 15.6 H, Eos % (Auto) 0.4, Baso % (Auto) 0.3, Absolute Neuts (auto) 4.7, Absolute Lymphs (auto) 1.02, Nucleated RBC % 0 05/12/20 20:00: Sodium 136, Potassium 4.1, Chloride 104, Carbon Dioxide 31.0, Anion Gap 1 L, BUN 17, Creatinine 1.28, Estim Creat Clear Calc 45.38, Est GFR (MDRD) Af Amer 71, Est GFR (MDRD) Non-Af 59 L, BUN/Creatinine Ratio 13.3, Glucose 188 H, Calcium 8.0 L, Total Bilirubin 0.50, AST 11 L, ALT 20, Alkaline Phosphatase 151 H, Troponin I < 0.015, Total Protein 6.3 L, Albumin 2.8 L, Globulin 3.5, Albumin/Globulin Ratio 0.8 L 05/12/20 20:00: Lactic Acid 0.8 05/12/20 20:00: B-Natriuretic Peptide 245.3 H 05/12/20 20:00: PT 13.8, INR 1.1, D-Dimer Quant (PE/DVT) 3.65 H* 05/12/20 20:00: Procalcitonin 0.14 H 05/13/20 00:25: Lactate Dehydrogenase 171, Total Creatine Kinase 65, Troponin I < 0.015 05/13/20 05:38: WBC 6.2, RBC 4.71, Hgb 13.4, Hct 43.5, MCV 92.4, MCH 28.5, MCHC 30.8 L, RDW Std Deviation 44.6 H, RDW Coeff of Fredo 13.1, Plt Count 156, MPV 10.3, Immature Gran % (Auto) 0.600, Neut % (Auto) 84.3 H, Lymph % (Auto) 11.0 L, [place] % (Auto) 3.9, Eos % (Auto) 0.0, Baso % (Auto) 0.2, Absolute Neuts (auto) 5.2, Absolute Lymphs (auto) 0.68 L, Nucleated RBC % 0 05/13/20 05:38: Sodium 134 L, Potassium 4.4, Chloride 100, Carbon Dioxide 31.0, Anion Gap 3 L, BUN 14, Creatinine 1.06, Estim Creat Clear Calc 52.75, Est GFR (MDRD) Af Amer 88, Est GFR (MDRD) Non-Af 73, BUN/Creatinine Ratio 13.2, Glucose 214 H, Calcium 8.2 L, Magnesium 1.7, Total Bilirubin 0.60, AST 45 H, ALT 50, Alkaline Phosphatase 183 H, Total Protein 6.5, Albumin 2.9 L, Globulin 3.6, Albumin/Globulin Ratio 0.8 L 05/13/20 05:38: Alkaline Phosphatase 178 H Current Medications Acetaminophen (Acetaminophen 500 Mg Tablet) 1,000 mg PO Q8 [facility] Last Admin: 05/13/20 15:29 Dose: 1,000 mg Documented by: Albuterol Sulfate (Albuterol 2.5 Mg/3 Ml Vial.Neb.) 2.5 mg INHALATION Q6HWA.RT [facility] Last Admin: 05/13/20 13:00 Dose: 2.5 mg Documented by: Apixaban (Apixaban 5 Mg Tablet) 5 mg PO BID [facility] Aspirin (Aspirin E.C. 81 Mg Tablet) 81 mg PO DAILY@0800 [facility] Atorvastatin Calcium (Atorvastatin Calcium 40 Mg Tablet) 40 mg PO DAILY [facility] Last Admin: 05/13/20 08:08 Dose: 40 mg Documented by: Carvedilol (Carvedilol 25 Mg Tablet) 25 mg PO BID [facility] Last Admin: 05/13/20 10:41 Dose: 25 mg Documented by: Dexamethasone (Dexamethasone 4 Mg Tablet) 6 mg PO DAILY [facility] Doxycycline Monohydrate (Doxycycline 100 Mg Capsule) 100 mg PO DAILY [facility] Last Admin: 05/13/20 10:41 Dose: 100 mg Documented by: Duloxetine HCl (Duloxetine Hcl 60 Mg Capsule) 60 mg PO DAILY [facility] Last Admin: 05/13/20 10:40 Dose: 60 mg Documented by: Fluoxetine HCl (Fluoxetine 10 Mg Capsule) 10 mg PO DAILY [facility] Last Admin: 05/13/20 08:08 Dose: 10 mg Documented by: Gabapentin (Gabapentin 300 Mg Capsule) 300 mg PO TIDCM [facility] Last Admin: 05/13/20 12:20 Dose: 300 mg Documented by: Sodium Chloride () 250 mls @ 15 mls/hr IV .[id number] PRN PRN Reason: Saline Flush Last Infusion: 05/13/20 00:50 Dose: 0 mls/hr Documented by: Sodium Chloride () 250 mls @ 15 mls/hr IV .[id number] PRN PRN Reason: Additional IVPB Infusion Remdesivir 100 mg/ Sodium (Chloride) 250 mls @ 125 mls/hr IV Q24H [facility] Stop: 05/16/20 16:29 Last Admin: 05/13/20 15:29 Dose: 125 mls/hr Documented by: Insulin Glargine (Insulin Glargine 100 Units/Ml Pen) 60 units SC DAILY [facility] Last Admin: 05/13/20 10:43 Dose: 60 units Documented by: Lactulose (Lactulose 20 Gm/30 Ml Udc) 20 gm PO 0800,1200,1700,2200 [facility] Last Admin: 05/13/20 14:06 Dose: Not Given Documented by: Latanoprost (Latanoprost 0.005% 1 Bottle) 1 drop EACH EYE QHS [facility] Lisinopril (Lisinopril 10 Mg Tablet) 10 mg PO DAILY [facility] Last Admin: 05/13/20 10:49 Dose: 10 mg Documented by: Lubiprostone (Lubiprostone 24 Mcg Capsule) 24 mcg PO BID [facility] Morphine Sulfate (Morphine 4 Mg/Ml Syringe) 4 mg IV Q3H PRN PRN PRN Reason: Pain Score 6-10 Last Admin: 05/13/20 10:37 Dose: 4 mg Documented by: Non-Formulary Medication (Buprenorphine) 10 mcg TD QWEEK [facility] Ondansetron HCl (Ondansetron Odt 4 Mg Tablet) 4 mg PO Q8H PRN PRN PRN Reason: NAUSEA Last Admin: 05/13/20 12:19 Dose: 4 mg Documented by: Ondansetron HCl (Ondansetron 4 Mg/2 Ml Vial) 4 mg IV Q8H PRN PRN PRN Reason: NAUSEA/VOMITING Last Admin: 05/13/20 03:56 Dose: 4 mg Documented by: Oxycodone HCl (Oxycodone 5 Mg Tablet) 5 mg PO Q4H PRN PRN PRN Reason: Pain Score 4-5 Last Admin: 05/13/20 12:19 Dose: 5 mg Documented by: Pantoprazole Sodium (Pantoprazole Sodium 40 Mg Tablet) 40 mg PO DAILY [facility] Last Admin: 05/13/20 08:07 Dose: 40 mg Documented by: Polyethylene Glycol (Polyethylene Glycol 3350 17 Gm Packet) 17 gm PO DAILY [facility] Last Admin: 05/13/20 08:08 Dose: 17 gm Documented by: Sodium Chloride (0.9% Saline Lock 10 Ml Syringe) 10 - 40 ml IV UD PRN PRN Reason: SALINE FLUSH Last Admin: 05/13/20 12:20 Dose: 10 ml Documented by: Throat Lozenges (Benzocaine/Menthol 1 Lozenge) 1 lozenge MUCOUS MEM Q2H PRN PRN PRN Reason: SORE THROAT Medical Necessity - Tobacco Use Smoking Status: Former smoker Assessment/Plan All Active Problems (Last Reviewed 03/04/20 @ 10:[address] Leland Lincoln MD) COVID-19 (Acute) #1 COVID-19 pneumonia-patient will remain on remdesivir and dexamethasone at this time #2 chronic hypoxic respiratory failure secondary to COPD and sleep apnea-patient's present oxygen setting is the same as his home setting. 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 Inpatient E&M: 33241 Subs Hosp L2
--- NOTE | 2020-05-13 17:14 | NURSING ---
pt monitoring his blood sugar with his own freestyle eduard device- reports blood sugar 385
[2020-05-13] MEDS: Latanoprost 0.005% 1 Bottle 1 DRP EACH EYE (22:33)
[2020-05-13] MEDS: Insulin Lispro 100 UNIT/ML INSULN.PEN SC (22:35)
[2020-05-13] MEDS: APIXABAN 5 MG TABLET PO (22:35)
[2020-05-13 22:46] LABS: Bedside Glucose 315 mg/dL (70-110)
[2020-05-14] VITALS (7 sets, daily range): BP systolic 154–163; BP diastolic 78–89; PULSE 55–79; RESP 15–18; TEMP 36.4–36.8; O2SAT 93–96
[2020-05-14] MEDS: Albuterol 2.5 MG/3 ML VIAL.NEB. INHALATION ×2 (02:30→07:40)
[2020-05-14] MEDS: oxyCODONE 5 MG Tablet PO ×2 (04:02→08:37)
[2020-05-14 06:06] LABS: Hematocrit 40.6 % (40-54); Hemoglobin 12.6 g/dL (13.0-16.5); Mean Corpuscular Volume 90.2 fL (80-94); Mean Platelet Vol. 10.3 fl (6.2-12.0); Platelet Count 160 K/mm3 (150-450); RBC Distribution Width CV 12.9 % (11.6-14.6); RBC Distribution Width SD 42.7 fl (35.1-43.9); White Blood Count 7.5 K/mm3 (4.4-11.0)
[2020-05-14] MEDS: Acetaminophen 500 MG Tablet 1000 MG PO ×2 (06:20→11:38)
[2020-05-14] MEDS: Insulin Lispro 100 UNIT/ML INSULN.PEN SC (06:21)
--- NOTE | 2020-05-14 06:22 | NURSING ---
Blood glucose checked on pt's home equipment. 270
[2020-05-14 06:42] LABS: ALB/GLOB Ratio 0.7 RATIO (0.9-2.4); AST(SGOT) 20 U/L (15-37); Alanine Aminotransfer ALT/SGPT 33 U/L (16-61); Albumin, Serum 2.5 g/dL (3.2-5.0); Alkaline Phosphatase 151 U/L (45-117); Anion Gap 4 (5-15); BUN 22 mg/dL (7-18); Calcium,Total 8.1 mg/dL (8.5-10.1); Chloride 98 mmol/L (98-107); Creatinine, Serum 1.22 mg/dL (0.70-1.30); EST Glomerular Filtration Rate 62 mL/min (>60); Est Glom Filt Rate - Afr Amer 75 mL/min (>60); Estimated Creatinine Clearance 47.61 ml/min; Globulin 3.4 g/dL (2.2-4.2); Glucose 299 mg/dL (74-106); Potassium 4.1 mmol/L (3.5-5.1); Protein, Total 5.9 g/dL (6.4-8.2); Sodium Level 133 mmol/L (136-145)
[2020-05-14] MEDS: FLUoxetine 10 MG Capsule PO (08:38)
[2020-05-14] MEDS: dexAMETHasone 4 MG Tablet 6 MG PO (08:38)
[2020-05-14] MEDS: Gabapentin 300 MG Capsule PO ×2 (08:38→11:38)
[2020-05-14] MEDS: APIXABAN 5 MG TABLET PO (08:38)
[2020-05-14] MEDS: Doxycycline 100 MG CAPSULE PO (08:38)
[2020-05-14] MEDS: Pantoprazole Sodium 40 MG Tablet PO (08:39)
[2020-05-14] MEDS: Aspirin E.C. 81 MG Tablet PO (08:39)
[2020-05-14] MEDS: Atorvastatin Calcium 40 MG Tablet PO (08:45)
[2020-05-14] MEDS: DULoxetine Hcl 60 MG Capsule PO (08:47)
[2020-05-14] MEDS: Lisinopril 10 MG Tablet PO (08:47)
[2020-05-14] MEDS: Carvedilol 25 MG Tablet PO (08:51)
--- NOTE | 2020-05-14 09:20 | DCINST_ITS ---
- Discharge Diagnoses Current Active Problems: Current Active and Chronic Problems (Last Reviewed 03/04/20 @ 10:[address] Leland Lincoln MD) COVID-19 (Acute) Ischemic cerebrovascular accident (CVA) (Chronic 01/31/20) 3 cm acute infarct in the posterior left parietal lobe. MRI 01/31/2020 Essential (primary) hypertension (Chronic) Hyperlipidemia (Chronic) Peripheral vascular disease due to secondary diabetes mellitus (Chronic) Stasis dermatitis of both legs (Chronic) Type 2 diabetes mellitus (Chronic) You will use the following diet at home:: No restrictions Your food should be the consistency of: Regular Your liquids should be the consistency of: Regular/Thin Discharge Activity: Return to Normal Activity Weight Bearing Status: Full weight bearing Additional Instructions: Quarantine for 10 days after symptoms/positive COVID test Start dexamethasone 05/15/20 Allergies/Adverse Reactions: Allergies celecoxib [From Celebrex] Adverse Reaction (Verified 05/12/20 18:59) PT UNSURE OF REACTION Medications to take at Discharge Atorvastatin Calcium [Lipitor] 40 mg PO DAILY 09/26/19 Carvedilol [Coreg] 25 mg PO BID 09/26/19 Duloxetine HCl 60 mg PO DAILY 09/26/19 Furosemide [Lasix] 40 mg PO DAILY 09/26/19 Gabapentin 300 mg PO TID 09/26/19 Insulin Detemir [Levemir FlexPen] 60 unit SQ DAILY 09/26/19 Lactulose 30 ml PO 4X/DAY 09/26/19 Pantoprazole Sodium [Protonix] 40 mg PO DAILY 09/26/19 Albuterol Aerosols [Ventolin Aerosols] 2.5 mg INHALATION Q6H 11/29/19 Ondansetron [Zofran Odt] 4 mg PO Q8H PRN PRN #10 tab 12/05/19 Albuterol Sulfate [Albuterol Sulfate HFA] 2 puff IH Q6H 01/13/20 Insulin Lispro [Humalog] 0 unit SQ TID 01/13/20 Lubiprostone [Amitiza] 24 mcg PO BID 01/13/20 Polyethylene Glycol 3350 [Miralax] 17 gm PO DAILY 01/13/20 Acetaminophen [Tylenol] 1,000 mg PO Q8 #90 tab 01/26/20 Latanoprost 0.005% [Xalatan Opthalmic] 1 drp EACH EYE QHS 11/01/20 fluoxetine 10 mg capsule 10 mg PO DAILY cap 03/04/20 lisinopril 10 mg tablet 10 mg PO DAILY tab 03/04/20 Buprenorphine 10 mcg TD QWEEK 05/12/20 Doxycycline Hyclate 100 mg PO DAILY 05/12/20 Apixaban [Eliquis] 5 mg PO BID tab 05/14/20 Aspirin E.C. [Ecotrin] 81 mg PO DAILY@0800 tab 05/14/20 dexAMETHasone [Dexamethasone] 6 mg PO DAILY #21 tab 05/14/20 The following prescriptions were given: dexAMETHasone [Dexamethasone] 6 mg PO DAILY #21 tab Transmission Status: Pending to [id number] Primary Care Physician: Dex Valencia DO [Primary Care Provider] - Please follow up with your Primary Care Physician in: in 2 weeks Test Results: Test results from this visit will be discussed in further detail at your follow- up appointment, if applicable.
--- NOTE | 2020-05-14 18:23 | PCM.DC.SUM ---
Discharge Date and Diagnosis - Problem List Patient Problems: Active and Suspected Problems (Last Reviewed 03/04/20 @ 10:[address] Leland Lincoln MD) COVID-19 (Acute) Date of Admission: 05/12/20 Date of Discharge: 05/14/20 - Primary Discharge Diagnosis Acute Problems: Active Problems (Last Reviewed 03/04/20 @ 10:[address] 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 Leland Lincoln MD) Ischemic cerebrovascular accident (CVA) (Chronic 01/31/20) 3 cm acute infarct in the posterior left parietal lobe. MRI 01/31/2020 Essential (primary) hypertension (Chronic) Hyperlipidemia (Chronic) Stenosis of left carotid artery (Chronic) Irregular plaque at the proximal left internal carotid with 50 to 69% stenosis suggested in the distal left internal carotid 02/01/2020 Peripheral vascular disease due to secondary diabetes mellitus (Chronic) Edema of both lower legs due to peripheral venous insufficiency (Chronic) Stasis dermatitis of both legs (Chronic) Type 2 diabetes mellitus (Chronic) Hospital Course and Treatment Operations: None Procedures: None Summary of Care Provided: The patient is a 74 year old M was seen in the emergency room at [facility] with a chief complaint of worsening shortness of breath over 2 weeks. Patient had increased cough also. Patient stated his daughter tested positive for COVID-19 however his recent test was negative. Work-up in the emergency room included a CBC which was normal, D-dimer was elevated at 3.65, beta natruretic peptide was elevated at 245, patient underwent a CTA of his chest which showed no evidence of pulmonary emboli but showed evidence of bilateral groundglass opacification and retronodular lung parenchyma. Increased airspace disease in the right lower and middle lobe with atelectatic changes and volume loss was also noted. Patient's Covid antigen test was positive. Patient was admitted to [place] [address], he was given IV remdesivir and dexamethasone, he was seen in consultation by infectious diseases. Patient was able to maintain his pulse ox on home oxygen setting 3 L. On 05/14/2020, patient was seen and examined: General: Alert, Oriented x3, Cooperative, No apparent distress, Well developed HEENT: Atraumatic, PERRLA, EOMI, Normocephalic, - - There is a small tracheostomy opening present on the patient's neck Oral: Moist Mucosa Neck: Supple, No JVD, Trachea Midline, Thyroid Normal Size and Texture, there is a presence of a small tracheostomy in the lower neck Lungs: Clear to auscultation, No rhonchi, No wheeze, Diminished Cardiovascular: Regular rate, Regular Rhythm, Normal S1, Normal S2, No murmurs, PMI Normal, No rub noted, No Gallop Abdomen: Bowel Sounds Present, Soft, Non Tender, Non-Distended Extremities: No clubbing, No cyanosis, Capillary Refill Less than 3 Seconds Skin: No rashes, No breakdown Musculoskeletal: No Tenderness to Palpation of Joints or Extremities Neurological: Cranial nerves II-XII grossly intact, Neuro grossly intact, Sensory exam intact to light touch and pain, Coordination normal Psych/Mental Status: Normal Affect, Appropriate, Alert and oriented to time, place, person, mood and affect Patient was seen and examined on 05/14/2020 and felt to be stable for discharge home. Patient Problems: Active and Suspected Problems (Last Reviewed 03/04/20 @ 10:[address] Leland Lincoln MD) COVID-19 (Acute) - Physical Exam Vitals/I&O's: Vital Signs Temp Pulse Resp BP Pulse Ox 97.6 F L 79 15 163/89 H 93 05/14/20 11:41 05/14/20 11:41 05/14/20 11:41 05/14/20 11:41 05/14/20 11:41 Oxygen Flow Rate (L/min) 3 Oxygen Delivery Method Nasal Cannula Weight: 120.4 kg Body Mass Index (BMI) 44.2 Intake and Output for Last 24 Hours 05/12/20 05/13/20 05/14/20 23:59 23:59 23:59 Intake Total 1781.25 / 1781.25 900 / 900 Output Total 1350 / 1350 640 / 640 Balance 431.25 / 431.25 260 / 260 Microbiology Past 72 Hours 05/12/20 19:45 Mucosa - Nose SARS-CoV-2 Antigen (Rapid) - Final SARS-CoV-2 (COVID 19) Laboratory Results 05/13/20 22:27: POC Glucose 315 H 05/14/20 05:36: WBC 7.5, RBC 4.50 L, Hgb 12.6 L, Hct 40.6, MCV 90.2, MCH 28.0, MCHC 31.0 L, RDW Std Deviation 42.7, RDW Coeff of Fredo 12.9, Plt Count 160, MPV 10.3 05/14/20 05:36: Sodium 133 L, Potassium 4.1, Chloride 98, Carbon Dioxide 31.0, Anion Gap 4 L, BUN 22 H, Creatinine 1.22, Estim Creat Clear Calc 47.61, Est GFR (MDRD) Af Amer 75, Est GFR (MDRD) Non-Af 62, BUN/Creatinine Ratio 18.0, Glucose 299 H, Calcium 8.1 L, Total Bilirubin 0.40, AST 20, ALT 33, Alkaline Phosphatase 151 H, Total Protein 5.9 L, Albumin 2.5 L, Globulin 3.4, Albumin/Globulin Ratio 0.7 L Discharge Activity: Return to Normal Activity Weight Bearing Status: Full weight bearing Home Medications: Medications to take at Discharge Atorvastatin Calcium [Lipitor] 40 mg PO DAILY 09/26/19 Carvedilol [Coreg] 25 mg PO BID 09/26/19 Duloxetine HCl 60 mg PO DAILY 09/26/19 Furosemide [Lasix] 40 mg PO DAILY 09/26/19 Gabapentin 300 mg PO TID 09/26/19 Insulin Detemir [Levemir FlexPen] 60 unit SQ DAILY 09/26/19 Lactulose 30 ml PO 4X/DAY 09/26/19 Pantoprazole Sodium [Protonix] 40 mg PO DAILY 09/26/19 Albuterol Aerosols [Ventolin Aerosols] 2.5 mg INHALATION Q6H 11/29/19 Ondansetron [Zofran Odt] 4 mg PO Q8H PRN PRN #10 tab 12/05/19 Albuterol Sulfate [Albuterol Sulfate HFA] 2 puff IH Q6H 01/13/20 Insulin Lispro [Humalog] 0 unit SQ TID 01/13/20 Lubiprostone [Amitiza] 24 mcg PO BID 01/13/20 Polyethylene Glycol 3350 [Miralax] 17 gm PO DAILY 01/13/20 Acetaminophen [Tylenol] 1,000 mg PO Q8 #90 tab 01/26/20 Latanoprost 0.005% [Xalatan Opthalmic] 1 drp EACH EYE QHS 01/31/20 fluoxetine 10 mg capsule 10 mg PO DAILY cap 03/04/20 lisinopril 10 mg tablet 10 mg PO DAILY tab 03/04/20 Buprenorphine 10 mcg TD QWEEK 05/12/20 Doxycycline Hyclate 100 mg PO DAILY 05/12/20 Apixaban [Eliquis] 5 mg PO BID tab 05/14/20 Aspirin E.C. [Ecotrin] 81 mg PO DAILY@0800 tab 05/14/20 dexAMETHasone [Dexamethasone] 6 mg PO DAILY #21 tab 05/14/20 Following Prescriptions Were Given to Patient: dexAMETHasone [Dexamethasone] 6 mg PO DAILY #21 tab Transmission Status: Received by [id number] Primary Care Physician: Dex Valencia DO [Primary Care Provider] - Please follow up with your Primary Care Physician in: in 2 weeks Disposition: Home Minutes spent on discharge:: 32 Patient Condition:: Stable Medical Necessity - Tobacco Use Smoking Status: Former smoker Meaningful Use Info Meaningful Use Diagnoses (Choose all that apply): None applicable Inpatient E&M: 44062 Disch Hosp
--- NOTE | 2020-05-16 14:09 | CASEMGMT ---
Addendum entered by Brent Hoskins 05/16/20 14:13: Patient returned call to hospital. Pt states he is doing well. His oxygen is staying above 91%. Reviewed if he feels increased shortness of breath or his oxygen level by the pulse ox reading is below 90% at rest or with activity and does not return above 90% to contact his PCP. He will have a telephone f/u with this week. Reviewed decadron order. Pt has medication and no questions. He is quarantining @ home and has family bringing meals for him. No concerns and no care improvement suggestions. Kevyn SARKARM Original Note: JOANNA LE DC PHONE CALL DC DATE: 05/14/20 DC Disposition: Home Diagnosis on Discharge: COVID-19 pneumonia LACE/STRATA: 14/4 Attempted call to patient's home. No answer and no messaging with name identifier. Kevyn SARKARM
== END 2020-05-14 13:00 | disposition home or self-care (01) | DRG 177 ==
LOC: ED 22:14 → MS2 22:37
PROVIDERS: Admitting Provider Student in an Organized Health Care Education/Training Program; Emergency Provider Student in an Organized Health Care Education/Training Program; PCP Family Medicine; Visit Provider Internal Medicine
DX: U07.1 COVID-19 (principal); J12.82 Pneumonia due to coronavirus disease 2019; J44.0 Chronic obstructive pulmonary disease with (acute) lower respiratory infection; J96.11 Chronic respiratory failure with hypoxia; Z68.41 Body mass index [BMI] 40.0-44.9, adult; I12.9 Hypertensive chronic kidney disease with stage 1 through stage 4 chronic kidney disease, or unspecified chronic kidney disease; G47.30 Sleep apnea, unspecified; E11.51 Type 2 diabetes mellitus with diabetic peripheral angiopathy without gangrene; E78.5 Hyperlipidemia, unspecified; Z86.718 Personal history of other venous thrombosis and embolism; E86.0 Dehydration; Z86.73 Personal history of transient ischemic attack (TIA), and cerebral infarction without residual deficits; E11.22 Type 2 diabetes mellitus with diabetic chronic kidney disease; Z87.891 Personal history of nicotine dependence; E66.9 Obesity, unspecified; Z99.81 Dependence on supplemental oxygen; Z79.4 Long term (current) use of insulin; Z79.899 Other long term (current) drug therapy; Z79.51 Long term (current) use of inhaled steroids; Z79.02 Long term (current) use of antithrombotics/antiplatelets; K52.9 Noninfective gastroenteritis and colitis, unspecified; G89.4 Chronic pain syndrome; F32.9 Major depressive disorder, single episode, unspecified; R79.1 Abnormal coagulation profile; Z93.0 Tracheostomy status; I87.2 Venous insufficiency (chronic) (peripheral); R60.0 Localized edema; N18.9 Chronic kidney disease, unspecified
CPT/HCPCS: 36415; 71045; 71275; 80053; 81001; 82550; 82962; 83605; 83615; 83735; 83880; 84075; 84145; 84484; 85025; 85027; 85379; 85610; 87040; 87426; 93005; 94640; 97162; 97166; 99251; 99285; J7050; Q9967; A4216; G0463; J2405

== ENCOUNTER 2020-05-24 13:01 | Inpatient (IN) | payer MEDICARE, BC, SELFPAY ==
[2020-05-24] VITALS (7 sets, daily range): BP systolic 138–151; BP diastolic 57–71; PULSE 69–85; RESP 18–24; TEMP 36–36.7; O2SAT 91–95; BMI 39.0; BMI 39.1
[2020-05-24 14:19] LABS: Absolute Lymphocyte Count 1.07 X10^3/uL (0.83-4.51); Absolute Neutrophil Count 10.7 X10^3/uL (2.0-7.7); Basophil# 0.01 X10^3/uL; Basophil% 0.1 % (0-1); Hematocrit 42.1 % (40-54); Hemoglobin 13.3 g/dL (13.0-16.5); Lymphocyte # 1.07 X10^3/ul (4.0); Mean Corp Hgb Conc 31.6 g/dL (32-36); Mean Corpuscular Hgb 28.1 pg (27.0-32.0); Mean Platelet Vol. 10.4 fl (6.2-12.0); Monocyte% 11.3 % (0-10); NRBC Flagged by Analyzer 0 % (0-5); Neutrophil # 10.66 X10^3/uL (2.7-7.7); Neutrophil % 79.9 % (47-70); Platelet Count 149 K/mm3 (150-450); RBC Distribution Width CV 13.2 % (11.6-14.6); RBC Distribution Width SD 43.4 fl (35.1-43.9); Red Blood Count 4.73 M/mm3 (4.6-6.2); White Blood Count 13.3 K/mm3 (4.4-11.0)
--- NOTE | 2020-05-24 14:25 | RAD_ITS ---
STUDY: X-RAY CHEST REASON FOR EXAM: Male, 74 years old. Cough TECHNIQUE: Single AP portable view of the chest. COMPARISON: Comparison is made with prior study dated 05/12/2020. FINDINGS: EKG electrodes are seen. Mild degree of vascular congestion. There now is evidence of the patchy infiltrates at both lung bases as well as in the right midlung. There is no demonstrated pleural abnormality. There is borderline cardiomegaly. Normal mediastinum and jose. Normal visualized pulmonary arteries. Normal visualized aortic arch and descending thoracic aorta. Normal visualized thoracic spine. There is degenerative osteoarthritis of the bilateral shoulders. There is no demonstrated abnormality of the visualized soft tissue structures of the upper abdomen. RAD/Chest 1 View (Portable) IMPRESSION: Findings suggest a mild degree of vascular congestion with superimposed bibasilar pulmonary infiltrates. Electronically Signed: oDrian Pantoja MD at 14:53 EST , Service support ,
[2020-05-24 14:43] LABS: ALB/GLOB Ratio 0.6 RATIO (0.9-2.4); AST(SGOT) 16 U/L (15-37); Alanine Aminotransfer ALT/SGPT 22 U/L (16-61); Alkaline Phosphatase 83 U/L (45-117); Anion Gap 5 (5-15); BUN 24 mg/dL (7-18); BUN/Creat Ratio 16.7 RATIO (10-20); Calcium,Total 7.7 mg/dL (8.5-10.1); Chloride 104 mmol/L (98-107); Creatinine, Serum 1.44 mg/dL (0.70-1.30); EST Glomerular Filtration Rate 51 mL/min (>60); Est Glom Filt Rate - Afr Amer 62 mL/min (>60); Estimated Creatinine Clearance 46.37 ml/min; Globulin 3.4 g/dL (2.2-4.2); Glucose 162 mg/dL (74-106); Lactic Acid 0.8 mmol/L (0.4-1.9); Potassium 4.4 mmol/L (3.5-5.1); Protein, Total 5.4 g/dL (6.4-8.2); Sodium Level 136 mmol/L (136-145)
--- NOTE | 2020-05-24 15:05 | ED.VISSUMM ---
- ER Visit Summary Date of Service: 05/24/20 Chief Complaint: Increasing shortness of breath and failure to thrive History of Present Illness: The patient is a 74 M diagnosed with COVID-19 on May 13. Patient was hospitalized for 2 days at that time per the family. He has been doing well over the last week with nausea and increased shortness of breath and generalized weakness. Decreased p.o. intake. Today his pulse ox was 81% on 2 to 3 L at home and then to increase his oxygen. He has been on oxygen in the past due to COPD prior to ever being diagnosed with Covid. Patient has extensive past medical history of a stroke, CHF, COPD, reflux, insulin-dependent diabetes, hypertension prior tracheostomy. Physical Examination: Older male vital signs stable on 4 L is 93%. He does not look septic or toxic he looks generally weak. H EENT exam unremarkable. Pupils round reactive light. Mildly dry mucous membranes. Neck nontender no lymphadenopathy. Lungs coarse breath sounds bilaterally. Few scattered rhonchi. No rales or wheezing. Heart regular rhythm no murmur. Rate about 75. Abdomen soft nontender normal bowel sounds no peritoneal signs. Patient moving all 4 extremities. He has chronic bilateral lower extremity edema and venous stasis changes that is not new. No calf pain. Neurologically is awake and alert. Answering questions and following commands. Moving all 4 extremities. Family is present in the room. Test Results: Chest x-ray portable 1 view shows bilateral streaking consistent with Covid pneumonitis. Film was interpreted by myself. CBC showed a white count of 13.3. Hemoglobin 13. No bands. Chemistry showed BUN 24 creatinine 1.4 consistent with mild dehydration. Gap of 5. Liver enzymes normal. Troponin normal. Lactic acid normal at 0.8. Emergency Department Course and Treatment: Older male extensive past medical history with Covid diagnosed about 11 days ago. Progressively getting worse. Requiring more oxygen and having decreased oral intake. He will need admission. Patient undergo work-up. He is receiving IV fluids and IV Decadron. Treatment Plan: To the hospitalist about admission to [facility]. Disposition: Admission Impression: COVID-19 pneumonitis Failure to thrive Hypoxia secondary to Covid pneumonitis Mild dehydration History of prior stroke, diabetes, COPD requiring O2 This note was generated with [employer] software. It may contain incorrect words, spelling, and punctuation that were not noted in review of the chart prior to signing ED Disposition - Plan for ED Patient: Referrals: Dex Valencia DO [Primary Care Provider] -
--- NOTE | 2020-05-24 15:28 | EKG12_ITS ---
Test Reason : SOB Blood Pressure : / mmHG Vent. Rate : 075 BPM Atrial Rate : 075 BPM P-R Int : 140 ms QRS Dur : 108 ms QT Int : 388 ms P-R-T Axes : 013 -26 041 degrees QTc Int : 433 ms Sinus rhythm with marked sinus arrhythmia Otherwise normal ECG Confirmed by RASHID SOTO, EVELYN ([id number]), editor managing director PRASANNA LOBO ([id number]) on 05/25/2020 12:51:06 PM Referred By: CHARLENE Confirmed By:EVELYN MIKE MD
--- NOTE | 2020-05-24 15:36 | PCM.HP.STD ---
Problem List (1) Chronic respiratory failure Status: Chronic (2) Ischemic cerebrovascular accident (CVA) Status: Chronic Comment: 3 cm acute infarct in the posterior left parietal lobe. MRI 01/31/2020 (3) Essential (primary) hypertension Status: Chronic (4) Hyperlipidemia Status: Chronic (5) Peripheral vascular disease due to secondary diabetes mellitus Status: Chronic (6) Stasis dermatitis of both legs Status: Chronic (7) Type 2 diabetes mellitus Status: Chronic History of Present Illness Date of Admission: 05/24/20 Chief Complaint: Shortness of breath, diarrhea. The patient is a 74 year old M with past medical history as mentioned above presented to the emergency room because of shortness of breath. Patient's niece was at the bedside and she is the caregiver and she has assisted patient giving history. Patient stated that his shortness of breath has been getting worse over the last 2 days, it is at rest, aggravated by any activity, associated with productive cough with minimal sputum and without relieving factors. He reported associated subjective fever as well and weakness and fatigue. Patient's niece mentioned that today, his pulse ox was 82% on 3 L. Patient does use home oxygen at 3 L at baseline. She increased his oxygen up to 4 L and his pulse ox was up to 90%. Patient denied any chest pain, palpitation, dizziness or lightheadedness. He reported diarrhea over the last couple of weeks, at least 4-5 times daily, loose stool without blood. He reported associated vague abdominal discomfort with this diarrhea as well as nausea and vomiting. He denied urinary symptoms. He was admitted for COVID-19 pneumonia on May 12, 2020 and he was discharged on May 14, 2020, discharged on oxygen at 3 L with his baseline at home. Her symptoms of COVID-19 started around May 07, 2020. In the emergency department, patient was afebrile, blood pressure and heart rate were stable, pulse ox was 92% on 4 L. Routine blood work was remarkable for mild leukocytosis, BUN of 24, creatinine is 1.44. LFT was unremarkable. Troponin was negative. Chest x-ray revealed patchy infiltrate at the lung bases which is consistent with recent COVID-19 pneumonia. He is being admitted for worsening shortness of breath in context of recent COVID-19 pneumonia, probable secondary bacterial HCAP, acute kidney injury. Past Medical History Past Medical History (Chronic Problems): Chronic Problems (Last Reviewed 03/04/20 @ 10:[address] Leland Linocln MD) Chronic respiratory failure (Chronic) Ischemic cerebrovascular accident (CVA) (Chronic 01/31/20) 3 cm acute infarct in the posterior left parietal lobe. 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 Leland Lincoln MD) Ischemic cerebrovascular accident (CVA) (Chronic) Onset Date: 01/31/20 I63.9 3 cm acute infarct in the posterior left parietal lobe. 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) I87.2, R60.9 Stasis dermatitis of both legs (Chronic) I87.2 Type 2 diabetes mellitus (Chronic) E11.9 COPD (chronic obstructive pulmonary disease) J44.9 Chronic pain syndrome G89.4 Chronic respiratory failure J96.10 Obesity E66.9 Elevated troponin Onset Date: 01/31/20 R77.8 Allergies celecoxib [From Celebrex] Adverse Reaction (Verified 05/12/20 18:59) PT UNSURE OF REACTION Home Medications: Ambulatory Orders Medication Instructions Recorded Atorvastatin Calcium [Lipitor] 40 mg PO DAILY 09/26/19 Carvedilol [Coreg] 25 mg PO BID 09/26/19 Furosemide [Lasix] 40 mg PO DAILY 09/26/19 Gabapentin 300 mg PO TID 09/26/19 Insulin Detemir [Levemir FlexPen] 60 unit SQ DAILY 09/26/19 Pantoprazole Sodium [Protonix] 40 mg PO DAILY 09/26/19 Albuterol Aerosols [Ventolin 2.5 mg INHALATION Q6H 11/29/19 Aerosols] Ondansetron [Zofran Odt] 4 mg PO Q8H PRN PRN #10 tab 12/05/19 Albuterol Sulfate [Albuterol 2 puff IH Q6H 01/13/20 Sulfate HFA] Insulin Lispro [Humalog] 0 unit SQ BID 01/13/20 Polyethylene Glycol 3350 [Miralax] 17 gm PO DAILY 01/13/20 Latanoprost 0.005% [Xalatan 1 drp EACH EYE DAILY 01/31/20 Opthalmic] fluoxetine 10 mg capsule 10 mg PO DAILY cap 03/04/20 Buprenorphine 10 mcg TD QWEEK 05/12/20 Doxycycline Hyclate 100 mg PO DAILY 05/12/20 Apixaban [Eliquis] 5 mg PO BID tab 05/14/20 Aspirin E.C. [Ecotrin] 81 mg PO DAILY@0800 tab 05/14/20 Acetaminophen [Tylenol] 1,000 mg PO Q8 PRN 05/24/20 Lisinopril 10 mg PO DAILY 05/24/20 Surgical History: Surgical History (Last Reviewed 03/04/20 @ 10:[address] Leland Lincoln MD) History of tracheostomy Z98.890 Status post left hip replacement Z96.642 Surgical History: total knee arthroplasty, - Psychiatric History: No pertinent psych hx Lives: With Family Smoking Status: Former smoker Alcohol: None Drugs: None - *Family History Maternal History Items: No pertinent history Paternal History Items: No pertinent history Review of Systems Constitutional: Reports: Fever, Weakness, Fatigue. Denies: Anorexia, Chills Eyes: Denies: Blurred vision, Double vision, Drainage, Redness HEENT: Denies: Difficulty Hearing, Ear Pain, Eye Pain, Nasal Congestion, Sore Throat Cardiovascular: Denies: Chest Pain, Chest Pressure, Chest Tightness, Heaviness, Light Headedness, Palpitations, Syncope Respiratory: Reports: Cough, Shortness of Breath, Shortness of breath upon exertion, Sputum production. Denies: Pleuritic Pain, Wheezing Gastrointestinal: Reports: Diarrhea, Nausea, Vomiting. Denies: Abdominal Pain, Constipation Genitourinary: Denies: Dysuria, Frequency, Hematuria Musculoskeletal: Denies: Arm Pain, Back Pain, Foot Pain Skin: Denies: Dryness, Rash Neurological: Denies: Balance problems, Double vision, Change in Speech, Slurred speech, Confusion, Focal weakness, Headaches, Incoordination Psychiatric: Denies: Anxiety, Depression Endocrine: Denies: Change in Body Habitus, Polydipsia, Polyuria VTE Information - Inpt Only VTE Present on Admission: No VTE Mechan Device Prophylaxis: None VTE Pharm Prophylaxis ordered?: No - Physical Exam Vitals/I&O's: Vital Signs Temp Pulse Resp BP Pulse Ox 97.6 F L 75 18 147/57 H 93 05/24/20 13:05 05/24/20 13:05 05/24/20 13:05 05/24/20 13:05 05/24/20 13:05 Oxygen Flow Rate (L/min) 3 Oxygen Delivery Method Nasal Cannula Weight: 264 lb 8.875 oz Body Mass Index (BMI) 39.0 General: Alert, Oriented x3, Cooperative, - - Mildly short of breath. HEENT: Atraumatic, PERRLA, EOMI, Normocephalic Oral: Moist Mucosa, No Gingival or Mucosal Lesions/ Ulcerations Neck: Supple, No JVD, Negative Carotid Bruits, Trachea Midline, Thyroid Normal Size and Texture Lungs: No wheeze, No rales, Diminished, Rhonchi, - - Decreased breath sounds bilateral, bilateral rhonchi. Cardiovascular: Regular rate, Regular Rhythm, Normal S1, Normal S2, PMI Normal Abdomen: Bowel Sounds Present, Soft, Non Tender, Non-Distended, No Hepato-splenomegaly, Obese Extremities: No clubbing, No cyanosis, Edema - Stasis dermatitis. Skin: No rashes, No breakdown Lymphatic: No Cervical, Supraclavicular, or Inguinal Adenopathy Neurological: Cranial nerves II-XII grossly intact, Motor Exam 5/5 strength throughout Psych/Mental Status: Normal Affect, Appropriate, Alert and oriented to time, place, person, mood and affect Laboratory Results 05/24/20 14:00: WBC 13.3 H, RBC 4.73, Hgb 13.3, Hct 42.1, MCV 89.0, MCH 28.1, MCHC 31.6 L, RDW Std Deviation 43.4, RDW Coeff of Fredo 13.2, Plt Count 149 L, MPV 10.4, Immature Gran % (Auto) 0.700, Neut % (Auto) 79.9 H, Lymph % (Auto) 8.0 L, Moore % (Auto) 11.3 H, Eos % (Auto) 0.0, Baso % (Auto) 0.1, Absolute Neuts (auto) 10.7 H, Absolute Lymphs (auto) 1.07, Nucleated RBC % 0 05/24/20 14:00: Sodium 136, Potassium 4.4, Chloride 104, Carbon Dioxide 27.0, Anion Gap 5, BUN 24 H, Creatinine 1.44 H, Estim Creat Clear Calc 46.37, Est GFR (MDRD) Af Amer 62, Est GFR (MDRD) Non-Af 51 L, BUN/Creatinine Ratio 16.7, Glucose 162 H, Calcium 7.7 L, Total Bilirubin 0.60, AST 16, ALT 22, Alkaline Phosphatase 83, Troponin I < 0.015, Total Protein 5.4 L, Albumin 2.0 L, Globulin 3.4, Albumin/Globulin Ratio 0.6 L 05/24/20 14:00: Lactic Acid 0.8 Clinical Impression(s) from Imaging Studies Chest X-Ray 05/24/20 14:25 IMPRESSION: Findings suggest a mild degree of vascular congestion with superimposed bibasilar pulmonary infiltrates. Electronically Signed: Dorian Pantoja MD at 14:53 EST , Service support , Current Medications Sodium Chloride () 1,000 mls @ 999 mls/hr IV .Q1H1M ONE Stop: 05/24/20 16:05 Assessment/Plan All Active Problems (Last Reviewed 03/04/20 @ 10:[address] Leland Lincoln MD) COVID-19 (Acute) This is a 74 years old male patient presented to the emergency room because of increasing shortness of breath with cough, had recent COVID-19 pneumonia, found to have bilateral pulmonary infiltrate on chest x-ray with leukocytosis and he reported subjective fever and he is being admitted for probable secondary bacterial pneumonia and also found to have acute kidney injury. #1 recent bilateral COVID-19 pneumonia with probable superimposed secondary bacterial healthcare associated pneumonia: Patient was discharged from the hospital on May 14, 2020, received IV in the severe and Decadron for acute COVID-19 pneumonia. Chest x-ray reviewed. Pulse ox was around 92% on 4 L of oxygen in the ED which is close to baseline. Plan: Admit to [facility] COVID-19 floor, COVID-19 isolation precautions, albuterol inhaler, incentive spirometer, start IV Zosyn, repeat CBC and BMP tomorrow morning, PT OT evaluation and treatment. #2 chronic hypoxic respiratory failure: Patient use oxygen at home at 3 L. He needed up to 4 L in the ED. Plan as above, IV antibiotics, bronchodilators, incentive spirometer, wean off oxygen as tolerated. #3 acute kidney injury: Admission BUN is 24, creatinine is 1.44. Baseline kidney function is normal. Plan: Gentle IV fluids for hydration, input output chart, encourage oral intake, repeat BMP tomorrow morning. #4 history of CVA: Stable, continue aspirin, Eliquis and statins. #5 hypertension: Blood pressure stable, continue Coreg and lisinopril. #6 type 2 diabetes mellitus: ADA diet, Accu-Cheks, insulin sliding scale, continue Lantus. #7 hyperlipidemia: Continue statins. #8 CODE STATUS: Full code, discussed with the patient. #9 DVT prophylaxis: Continue Eliquis. This note was generated with orderbolt dictation software. It may contain incorrect words, spelling, and punctuation that were not noted in checking the note before signing. Inpatient E&M: 04151 Init Hosp L3
[2020-05-24] MEDS: 0.9% Normal Saline 1,000 ML 999 ML IV (15:54)
[2020-05-24] MEDS: dexAMETHasone 10 MG/ML Vial IV (15:55)
[2020-05-24] MEDS: 0.9% Normal Saline 1,000 ML 75 ML IV (18:03)
[2020-05-24] MEDS: Gabapentin 300 MG Capsule PO (18:17)
[2020-05-24] MEDS: Insulin Lispro 100 UNIT/ML INSULN.PEN SC ×2 (18:17→21:31)
[2020-05-24] MEDS: Lactulose 20 GM/30 ML UDC PO (18:17)
[2020-05-24] MEDS: Carvedilol 25 MG Tablet PO (18:17)
[2020-05-24 18:26] LABS: Bedside Glucose 175 mg/dL (70-110)
[2020-05-24] MEDS: APIXABAN 5 MG TABLET PO (20:27)
[2020-05-24] MEDS: Acetaminophen 325 MG Tablet 650 MG PO (20:27)
[2020-05-24] MEDS: Latanoprost 0.005% 1 Bottle 1 DRP EACH EYE (20:27)
[2020-05-24] MEDS: Atorvastatin Calcium 40 MG Tablet PO (20:27)
[2020-05-24 20:57] LABS: International Normalized Ratio 1.2; Prothrombin Time (Protime)PT. 14.6 SECONDS (11.7-14.9)
[2020-05-25] VITALS (15 sets, daily range): BP systolic 132–167; BP diastolic 56–113; PULSE 55–70; RESP 15–20; TEMP 35.9–36.3; O2SAT 90–97
[2020-05-25 00:01] LABS: Bedside Glucose 343 mg/dL (70-110)
[2020-05-25 03:06] LABS: Bedside Glucose 362 mg/dL (70-110)
[2020-05-25 03:32] LABS: D-Dimer Quantitative (DVT/PE) 3.28 FEU/ug/m (0.27-0.49)
[2020-05-25] MEDS: Insulin Lispro 100 UNIT/ML INSULN.PEN 10 UNIT SC (04:45)
[2020-05-25 06:03] LABS: Absolute Lymphocyte Count 0.61 X10^3/uL (0.83-4.51); Absolute Neutrophil Count 4.3 X10^3/uL (2.0-7.7); Basophil# 0.01 X10^3/uL; Basophil% 0.2 % (0-1); Hematocrit 44.6 % (40-54); Hemoglobin 14.2 g/dL (13.0-16.5); Lymphocyte # 0.61 X10^3/ul (4.0); Lymphocyte % 11.4 % (19-41); Mean Corp Hgb Conc 31.8 g/dL (32-36); Mean Corpuscular Hgb 28.7 pg (27.0-32.0); Mean Corpuscular Volume 90.1 fL (80-94); Monocyte# 0.34 X10^3/uL; Monocyte% 6.4 % (0-10); NRBC Flagged by Analyzer 0 % (0-5); Neutrophil # 4.28 X10^3/uL (2.7-7.7); Neutrophil % 80.3 % (47-70); Platelet Count 117 K/mm3 (150-450); RBC Distribution Width CV 13.2 % (11.6-14.6); RBC Distribution Width SD 43.4 fl (35.1-43.9); Red Blood Count 4.95 M/mm3 (4.6-6.2); White Blood Count 5.3 K/mm3 (4.4-11.0)
[2020-05-25 06:23] LABS: Anion Gap 6 (5-15); BUN 27 mg/dL (7-18); BUN/Creat Ratio 20.1 RATIO (10-20); Chloride 104 mmol/L (98-107); Creatinine, Serum 1.34 mg/dL (0.70-1.30); EST Glomerular Filtration Rate 56 mL/min (>60); Est Glom Filt Rate - Afr Amer 67 mL/min (>60); Estimated Creatinine Clearance 49.83 ml/min; Glucose 338 mg/dL (74-106); Potassium 4.8 mmol/L (3.5-5.1); Sodium Level 138 mmol/L (136-145)
--- NOTE | 2020-05-25 07:20 | CT_ITS ---
STUDY: CTA CHEST REASON FOR EXAM: Male, 74 years old. ? PE SOB. COVID POSITIVE 05/07/20. HISTORY OF CHRONIC RESPIRATORY FAILURE RADIATION DOSAGE (If Supplied By Facility): CTDIvol = ( 12.66 ) mGy, DLP = ( 547.37 ) mGycm TECHNIQUE: The examination was performed with the intravenous administration of IV 100mL Isovue-370. Post-processing of the angiographic images was performed, with multiplanar reformation and 3D reconstruction. Individualized dose optimization techniques were used for this CT. COMPARISON: Comparison is made with prior study dated 05/13/2020. FINDINGS: There is evidence of nonocclusive intraluminal filling defects in branches of both the right and left upper lobe pulmonary arteries incomplete with the pulmonary emboli. Normal thoracic aorta and visualized great vessels. There is no demonstrated aortic dissection. Normal heart and pericardium. Normal mediastinum. Normal hilar regions. Normal visualized trachea and bronchi. The lungs are well expanded. Since prior study, there has been progressive bilateral patchy infiltrates in the peripheral distribution. This also evidence of a infiltrations in both lower lobes with tiny bilateral pleural effusions worse on the right side. Normal chest wall structures. There are degenerative changes of thoracic spine. Normal visualized upper abdomen. CT/CTA Chest W/WO Contrast IMPRESSION: Pulmonary emboli seen in branches of both the right and left upper lobe pulmonary arteries. Since prior study, there has been a progression of the bilateral patchy infiltrates in the peripheral lateral distribution with evidence of bibasilar infiltrates and small bilateral effusions worse on the right side. Electronically Signed: Dorian Pantoja MD at 8:44 EST , Service support ,
--- NOTE | 2020-05-25 08:28 | CASEMGMT ---
JOANNA CM Readmission Note; Index Admission: 05/12/20-05/14/20 Diagnosis: COVID 19 DC Disposition: home Current admission Diagnosis: CAMRON, pneumonia Patient returned to the emergency room with shortness of breath, covid. CXR showed bilateral infiltrates. pulse ox 92%on 4L NC. Patient was wearing 3L NC @ home on discharge has a cpap at night. Started on Zosyn, insulin coverate and decadron 10 mg IV x 1. 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 DC PLAN: anticipate home on discharge. Will evaluate for HHC needs and PT/OT evaluations have been ordered and are pending. Kevyn BEATTY RN ACM
[2020-05-25] MEDS: Insulin Lispro 100 UNIT/ML INSULN.PEN SC ×4 (08:42→20:16)
[2020-05-25] MEDS: Doxycycline 100 MG CAPSULE PO (08:43)
[2020-05-25] MEDS: Pantoprazole Sodium 40 MG Tablet PO (08:43)
[2020-05-25] MEDS: Lisinopril 10 MG Tablet PO (08:43)
[2020-05-25] MEDS: Carvedilol 25 MG Tablet PO ×2 (08:43→17:41)
[2020-05-25] MEDS: Gabapentin 300 MG Capsule PO ×3 (08:43→17:41)
[2020-05-25] MEDS: APIXABAN 5 MG TABLET PO (08:43)
[2020-05-25] MEDS: Aspirin E.C. 81 MG Tablet PO (08:44)
[2020-05-25] MEDS: FLUoxetine 10 MG Capsule PO (08:44)
--- NOTE | 2020-05-25 10:23 | PCM.PN.HOSP ---
Subjective: Patient seen and examined. He was admitted with a complaint of shortness of breath. Patient did have Covid about 2 weeks ago. He was subsequently discharged home but states his shortness of breath has worsened over the last few days prior to admission with increasing oxygen requirements. Chest x-ray showed patchy infiltrate at the lung bases he was admitted and managed for probable secondary bacterial pneumonia after COVID-19 infection as well as CAMRON. Patient states his shortness of breath is better this morning. He denies nausea vomiting or coughing. Review of systems otherwise negative. Of note, D-dimer was elevated at above 3. CTA of the chest was obtained today. Vitals/I&O's: Vital Signs Temp Pulse Resp BP Pulse Ox 96.8 F L 66 15 157/113 H 92 05/25/20 08:50 05/25/20 08:50 05/25/20 08:50 05/25/20 08:50 05/25/20 09:04 Oxygen Flow Rate (L/min) 3 Oxygen Delivery Method Nasal Cannula Weight: 265 lb Body Mass Index (BMI) 39.1 Intake and Output for Last 24 Hours 05/23/20 05/24/20 05/25/20 23:59 23:59 23:59 Intake Total 1050 / 1050 1050 / 1050 Output Total 850 / 850 Balance 1050 / 1050 200 / 200 General: Alert, Oriented x3, Cooperative, No apparent distress HEENT: Atraumatic, PERRLA, EOMI, Normocephalic Oral: Dry Mucosa Neck: Supple, No JVD, Negative Carotid Bruits Lungs: - - Diminished breath sounds bibasilarly. No wheezes or crackles. on 3L of oxygen. Cardiovascular: Regular rate, Regular Rhythm, Normal S1, Normal S2, No murmurs Abdomen: Bowel Sounds Present, Soft, Non Tender, Non-Distended, No Hepato-splenomegaly Extremities: No clubbing, No cyanosis, No edema, Capillary Refill Less than 3 Seconds Skin: No rashes, No breakdown Musculoskeletal: No Tenderness to Palpation of Joints or Extremities Lymphatic: No Cervical, Supraclavicular, or Inguinal Adenopathy Neurological: Cranial nerves II-XII grossly intact, Neuro grossly intact, Motor Exam 5/5 strength throughout Psych/Mental Status: Normal Affect, Appropriate, Alert and oriented to time, place, person, mood and affect Laboratory Results 05/24/20 14:00: WBC 13.3 H, RBC 4.73, Hgb 13.3, Hct 42.1, MCV 89.0, MCH 28.1, MCHC 31.6 L, RDW Std Deviation 43.4, RDW Coeff of Fredo 13.2, Plt Count 149 L, MPV 10.4, Immature Gran % (Auto) 0.700, Neut % (Auto) 79.9 H, Lymph % (Auto) 8.0 L, Snyder % (Auto) 11.3 H, Eos % (Auto) 0.0, Baso % (Auto) 0.1, Absolute Neuts (auto) 10.7 H, Absolute Lymphs (auto) 1.07, Nucleated RBC % 0 05/24/20 14:00: Sodium 136, Potassium 4.4, Chloride 104, Carbon Dioxide 27.0, Anion Gap 5, BUN 24 H, Creatinine 1.44 H, Estim Creat Clear Calc 46.37, Est GFR (MDRD) Af Amer 62, Est GFR (MDRD) Non-Af 51 L, BUN/Creatinine Ratio 16.7, Glucose 162 H, Calcium 7.7 L, Total Bilirubin 0.60, AST 16, ALT 22, Alkaline Phosphatase 83, Troponin I < 0.015, Total Protein 5.4 L, Albumin 2.0 L, Globulin 3.4, Albumin/Globulin Ratio 0.6 L 05/24/20 14:00: Lactic Acid 0.8 05/24/20 18:07: POC Glucose 175 H 05/24/20 20:40: PT 14.6, INR 1.2 05/24/20 21:29: POC Glucose 343 H 05/25/20 02:25: POC Glucose 362 H 05/25/20 02:50: D-Dimer Quant (PE/DVT) 3.28 H* 05/25/20 02:50: Troponin I < 0.015 05/25/20 05:50: WBC 5.3, RBC 4.95, Hgb 14.2, Hct 44.6, MCV 90.1, MCH 28.7, MCHC 31.8 L, RDW Std Deviation 43.4, RDW Coeff of Fredo 13.2, Plt Count 117 L, MPV 11.0, Immature Gran % (Auto) 1.700 H, Neut % (Auto) 80.3 H, Lymph % (Auto) 11.4 L, Snyder % (Auto) 6.4, Eos % (Auto) 0.0, Baso % (Auto) 0.2, Absolute Neuts (auto) 4.3, Absolute Lymphs (auto) 0.61 L, Nucleated RBC % 0 05/25/20 05:50: Sodium 138, Potassium 4.8, Chloride 104, Carbon Dioxide 28.0, Anion Gap 6, BUN 27 H, Creatinine 1.34 H, Estim Creat Clear Calc 49.83, Est GFR (MDRD) Af Amer 67, Est GFR (MDRD) Non-Af 56 L, BUN/Creatinine Ratio 20.1 H, Glucose 338 H, Calcium 8.0 L Diagnostic Data Chest X-Ray 05/24/20 14:25 IMPRESSION: Findings suggest a mild degree of vascular congestion with superimposed bibasilar pulmonary infiltrates. Electronically Signed: Dorian Pantoja MD at 14:53 EST , Service support , Chest CTA 05/25/20 07:20 IMPRESSION: Pulmonary emboli seen in branches of both the right and left upper lobe pulmonary arteries. Since prior study, there has been a progression of the bilateral patchy infiltrates in the peripheral lateral distribution with evidence of bibasilar infiltrates and small bilateral effusions worse on the right side. Electronically Signed: Dorian Pantoja MD at 8:44 EST , Service support , Current Medications Acetaminophen (Acetaminophen 325 Mg Tablet) 650 mg PO Q6H PRN PRN PRN Reason: Pain Score 1-10/Temp > 100.7 F Last Admin: 05/24/20 20:27 Dose: 650 mg Documented by: Albuterol Sulfate (Albuterol 2.5 Mg/3 Ml Vial.Neb.) 2.5 mg INHALATION Q4H PRN PRN Reason: SHORTNESS OF BREATH/WHEEZING Apixaban (Apixaban 5 Mg Tablet) 5 mg PO BID VAUGHN Last Admin: 05/25/20 08:43 Dose: 5 mg Documented by: Aspirin (Aspirin E.C. 81 Mg Tablet) 81 mg PO DAILY@0800 [facility] Last Admin: 05/25/20 08:44 Dose: 81 mg Documented by: Atorvastatin Calcium (Atorvastatin Calcium 40 Mg Tablet) 40 mg PO HS [facility] Last Admin: 05/24/20 20:27 Dose: 40 mg Documented by: Carvedilol (Carvedilol 25 Mg Tablet) 25 mg PO BIDCM [facility] Last Admin: 05/25/20 08:43 Dose: 25 mg Documented by: Doxycycline Monohydrate (Doxycycline 100 Mg Capsule) 100 mg PO DAILY [facility] Last Admin: 05/25/20 08:43 Dose: 100 mg Documented by: Fluoxetine HCl (Fluoxetine 10 Mg Capsule) 10 mg PO DAILY [facility] Last Admin: 05/25/20 08:44 Dose: 10 mg Documented by: Gabapentin (Gabapentin 300 Mg Capsule) 300 mg PO TIDCM [facility] Last Admin: 05/25/20 08:43 Dose: 300 mg Documented by: Piperacillin Sod/Tazobactam (Sod 3.375 gm/ Sodium Chloride) 50 mls @ 12.5 mls/hr IV Q8 [facility] Last Admin: 05/25/20 06:00 Dose: 12.5 mls/hr Documented by: Insulin Glargine (Insulin Glargine 100 Units/Ml Pen) 60 units SC DAILY [facility] Last Admin: 05/25/20 08:42 Dose: 60 units Documented by: Insulin Human Lispro (Insulin Lispro 100 Unit/Ml Insuln.Pen) 0 unit SC [facility]; Protocol Last Admin: 05/25/20 08:42 Dose: 4 u Documented by: Lactulose (Lactulose 20 Gm/30 Ml Udc) 20 gm PO 4X/DAY [facility] Last Admin: 05/25/20 09:13 Dose: Not Given Documented by: Latanoprost (Latanoprost 0.005% 1 Bottle) 1 drop EACH EYE QHS [facility] Last Admin: 05/24/20 20:27 Dose: 1 drop Documented by: Lisinopril (Lisinopril 10 Mg Tablet) 10 mg PO DAILY [facility] Last Admin: 05/25/20 08:43 Dose: 10 mg Documented by: Ondansetron HCl (Ondansetron 4 Mg/2 Ml Vial) 4 mg IV Q8H PRN PRN PRN Reason: NAUSEA/VOMITING Pantoprazole Sodium (Pantoprazole Sodium 40 Mg Tablet) 40 mg PO DAILY [facility] Last Admin: 05/25/20 08:43 Dose: 40 mg Documented by: Sodium Chloride (0.9% Saline Lock 10 Ml Syringe) 10 - 40 ml IV UD PRN PRN Reason: SALINE FLUSH Zolpidem Tartrate (Zolpidem Tartrate 5 Mg Tablet) 5 mg PO QHS PRN PRN PRN Reason: INSOMNIA STROKE Vital Signs/Narrative: Vital Signs Temp Pulse Resp BP Pulse Ox 05/25/20 09:04 92 05/25/20 08:50 96.8 F L 66 15 157/113 H 92 05/25/20 08:33 93 05/25/20 07:12 62 Medical Necessity - Tobacco Use Smoking Status: Former smoker Tobacco Use: Cigarettes Assessment/Plan All Active Problems (Last Reviewed 03/04/20 @ 10:[address] Leland Lincoln MD) COVID-19 (Acute) #Secondary bacterial pneumonia after COVID 19 infection shortness of breath getting better on IV zosyn. wbc down to 5.3 blood cultures pending breathing treatment with bronchodilators #Chronic hypoxic respiratory failure back on his baseline 3L of oxygen. breathing treatment with bronchodilators titrate oxygen to maintain sats >90% #BIlateral PE Patient's D-dimer was elevated. CTA of the chest was ordered before I realized patient was on Eliquis. CTA however showed bilateral PE in branches of both the right and left upper lobe pulmonary arteries with progression of bilateral patchy infiltrates in the peripheral lateral region with evidence of bibasilar infiltrates and a small pleural effusion worse on the right side. Patient is currently on Eliquis for history of DVT of lower extremities. Will consult hematology as the presence of these PEs indicate Eliquis failure. #CAMRON: Cr has trended down. Continue gentle hydration with IVF #History of CVA: On aspirin and Eliquis as well as statin. #Hypertension: On Coreg and lisinopril #Type 2 diabetes mellitus: Lantus. Insulin sliding scale. Checks AC at bedtime. #Lipidemia: On statin DVT prophylaxis: not indicated as he is already on eliquis Inpatient E&M: 47027 [facility] L3
--- NOTE | 2020-05-25 11:16 | CASEMGMT ---
Social Work SW spoke with pt by phone due to Covid isolation precautions. Pt states he lives with his daughter Salima Ramos. She works and pt is alone during the day but does see his daughter in the evenings and weekends. Pt states that he is independent with care, still able to drive, do shopping, prepare meals, set up meds, laundry and self care. Pt does have home oxygen and states he hasn't been out for the past 30 days due to Covid infection. Pt states that while he lives with his daughter Salima, his niece Giuliana Ramos is the one who does everything for him. Giuliana is listed on demographic sheet as contact and pt would like this to remain. SW inquired about HCPOA and LW and pt has not completed either document. SW explained documents and also that if pt were not able to make own decisions, dgt Salima would be decision maker, not Giuliana. Pt expresses understanding and wishes to talk to his daughter and niece about it. JOANNE will send advance directive information into pt room with nurse. Pt aware that he can call back to hospital and set appointment with JOANNE to complete MARSHA Nascimento
--- NOTE | 2020-05-25 11:46 | CON.PCM_ITS ---
- Problem List (1) Pulmonary embolism Status: Acute Qualifiers: Chronicity: acute Acute cor pulmonale presence: unspecified Consult Referring Physician: Hospitalist Consult Results: Pulmonary embolism Subjective Date of Service:: 05/25/20 Chief Complaint: SOB History of Present Illness: 74-year-old gentleman who presents with increasing shortness of breath and CTA shows evidence of bilateral pulmonary embolism. Patient was recently hospitalized with acute Covid infection in May 2020 and has been on systemic anticoagulation with Eliquis 5 mg twice daily and a baby aspirin since January 2020 following a cerebrovascular stroke. Patient states that he takes all his pills faithfully that his caregiver and niece Alejandrina give to him. Caregiver confirmed to staff that he has been taking his prescription medications faithfully. Past Medical History: Chronic Problems (Last Reviewed 03/04/20 @ 10:[address] Leland Lincoln MD) Chronic respiratory failure (Chronic) Ischemic cerebrovascular accident (CVA) (Chronic 01/31/20) 3 cm acute infarct in the posterior left parietal lobe. MRI 01/31/2020 Essential (primary) hypertension (Chronic) Hyperlipidemia (Chronic) Stenosis of left carotid artery (Chronic) Irregular plaque at the proximal left internal carotid with 50 to 69% stenosis suggested in the distal left internal carotid 02/01/2020 Peripheral vascular disease due to secondary diabetes mellitus (Chronic) Edema of both lower legs due to peripheral venous insufficiency (Chronic) Stasis dermatitis of both legs (Chronic) Type 2 diabetes mellitus (Chronic) Past Medical/Surgical History: Past Medical History - Most Recent Inpatient Visit Past Medical History Start: 05/24/20 16:57 Text: Status: Complete Freq: ONCE Protocol: Document 05/24/20 16:57 BESSY (Rec: 05/24/20 18:16 BESSY [id number]) BMI Required to complete PMH What is Patient's BMI 39.1 Past Medical History Unable History Recalled No Query Text:Pt Unable/Family Not Present Neurologic Medical History Hx Stroke/TIA Yes Hx Dementia/Alzheimer's No Hx Parkinson's Disease No Hx Seizures No Hx Multiple Sclerosis No Hx Migraines Yes Cardiac Medical History VTE Present on Admission No Hx of Deep Vein Thrombosis/VTE/PE Yes: december Hx Hypertension Yes Hx Chest Pain/Angina Yes Hx Heart Attack No Hx Cardiac Surgery/Stents/Etc. No Hx Heart Failure Yes: pt thinks so Hx Pacemaker/AICD No Hx Irregular Heartbeat and/or Afib No Hx Anticoagulant Therapy Yes: aspirin Query Text:(Coumadin, Aspirin, Plavix, Xarelto, etc.) Hx Pain in Legs when Walking/Leg Cramps Yes: left hip and bilat legs Respiratory Medical History Hx COPD Yes: inhalers and aerosol tx Hx Emphysema Yes: CHRONIC RESPIRATORY FAILURE Hx Smoking Yes Smoking Status Former smoker Tobacco Use Cigarettes Hx Smoking Cessation Date 04/01/98 Hx Smoking Cessation Counseling No Hx Tobacco Use in last 12 months Yes Sent to [facility] Yes Hx Sleep Apnea Yes CPAP Yes BIPAP No STOP Results Positive GI Medical History Hx Ulcer No Hx Hepatitis No Hx Cirrhosis No Hx GI Bleed No Hx Unplanned Weight Loss No Genitourinary Medical History Indwelling Catheter in Place on Arrival/ No Admission Hx Renal Disease No Hx Dialysis No Musculoskeletal History Hx Arthritis Yes Hx Rheumatoid Arthritis No Endocrine Medical History Hx Diabetes Yes Hx Thyroid Disease No Hematologic Medical History Hx of Blood Transfusion No Hx of Transfusion in last 3 Months No Ever experience any problems with No transfusion(s)? Hx of Preganancy in last 3 Months N/A Nurse Filling Out Transfusion & [facility] Questions: Date: 05/24/20 Time: 18:16 Psycho/Social Medical History Hx Depression No Hx Anxiety No Hx Behavior Disorder No Hx Alcohol Use No Hx Substance Use No Other Medical History Hx Blood Disorders No Hx Anemia No Hx Cancer No Hx Drug Resistant Organism No Wound/Pressure Injury Present on Arrival No /Admission Query Text:If yes, chart assessment in Shift/Clinical Findings Central Line/PICC/VAD Present on Arrival No /Admission Antibiotics within last 7 days? No Methicillin Resistant Staphylococcus aureus Screening Active MRSA No Risk for Readmission Number of Risk Factors 5 At Risk for Readmission Patient is At Risk For Readmission Patient is eligible for Call Back Y Past Medical History (Last Reviewed 03/04/20 @ 10:[address] Leland Lincoln MD) Ischemic cerebrovascular accident (CVA) (Chronic 01/31/20) Essential (primary) hypertension (Chronic) Hyperlipidemia (Chronic) Stenosis of left carotid artery (Chronic) Peripheral vascular disease due to secondary diabetes mellitus (Chronic) Edema of both lower legs due to peripheral venous insufficiency (Chronic) Stasis dermatitis of both legs (Chronic) Type 2 diabetes mellitus (Chronic) COPD (chronic obstructive pulmonary disease) (Chronic) Chronic pain syndrome (Chronic) Chronic respiratory failure (Chronic) Obesity (Chronic) Elevated troponin (Resolved 01/31/20) Past Surgical History (Last Reviewed 03/04/20 @ 10:[address] Leland Lincoln MD) History of tracheostomy (Resolved) Status post left hip replacement (Resolved) Maternal Family History: No pertinent history Paternal Family History: No pertinent history - Social History Lives: With Family Smoking Status: Former smoker Tobacco Use: Cigarettes Alcohol: None Drugs: None Allergies/Adverse Reactions: Allergy/AdvReac Type Severity Reaction Status Date / Time celecoxib [From Celebrex] AdvReac PT UNSURE Verified 05/12/20 18:59 OF REACTION Review of Systems Constitutional:: Reports: Weakness, Fatigue, Fever Cardiovascular:: Reports: Dyspnea on exertion, Shortness of breath. Denies: Chest pain, Orthopnea Respiratory: Reports: Cough, Shortness of Breath. Denies: Hemoptysis Gastrointestinal:: Denies: Hematochezia Genitourinary: Denies: Hematuria Musculoskeletal:: Denies: Back pain, Myalgia, Arthralgia Neurological:: Denies: Headache, Dizziness, Visual changes, Tinnitus, Hearing loss Psychiatric: Denies: Anxiety, Depression, Homicidal Ideations, Suicidal Ideations Comment: Systems review was obtained from the patient over the phone and by review of admission H&P Vital Signs Temperature 96.8 F L 05/25/20 08:50 Temperature Source Temporal 05/25/20 08:50 Pulse Rate 66 05/25/20 08:50 Pulse Strength Normal (2+) 05/24/20 22:00 Respiratory Rate 15 05/25/20 08:50 Respiratory Effort Non-Labored 05/25/20 09:04 Respiratory Depth Normal 05/25/20 09:04 Respiratory Pattern Normal 05/25/20 09:04 Blood Pressure 157/113 H 05/25/20 08:50 Blood Pressure Mean 127 05/25/20 08:50 Blood Pressure Source Monitor 05/25/20 08:50 Blood Pressure Position Sitting 05/25/20 08:50 Blood Pressure Location Right Arm 05/25/20 08:50 Pulse Ox 92 05/25/20 09:04 Oxygen Delivery Method Nasal Cannula 05/25/20 09:04 Oxygen Flow Rate (L/min) 3 05/25/20 09:04 - Physical Exam General: Alert, Oriented x3, - - This was over the phone conversation Laboratory Data: Laboratory Tests 05/25/20 05/25/2005/25/21 Range/Units 05:50 05:50 02:50 WBC 5.3 (4.4-11.0) K/mm3 RBC 4.95 (4.6-6.2) M/mm3 Hgb 14.2 (13.0-16.5) g/dL Hct 44.6 (40-54) % MCV 90.1 (80-94) fL MCH 28.7 (27.0-32.0) pg MCHC 31.8 L (32-36) g/dL RDW Std Deviation 43.4 (35.1-43.9) fl RDW Coeff of Fredo 13.2 (11.6-14.6) % Plt Count 117 L (150-450) K/mm3 MPV 11.0 (6.2-12.0) fl Immature Gran % (Auto) 1.700 H (0.0-0.9) % Neut % (Auto) 80.3 H (47-70) % Lymph % (Auto) 11.4 L (19-41) % [place] % (Auto) 6.4 (0-10) % Eos % (Auto) 0.0 (0-5) % Baso % (Auto) 0.2 (0-1) % Absolute Neuts (auto) 4.3 (2.0-7.7) X10^3/uL Absolute Lymphs (auto) 0.61 L (0.83-4.51) X10^3/uL Nucleated RBC % 0 (0-5) % PT (11.7-14.9) SECONDS INR D-Dimer Quant (PE/DVT) (0.27-0.49) FEU/ug/m Sodium 138 (136-145) mmol/L Potassium 4.8 (3.5-5.1) mmol/L Chloride 104 (98-107) mmol/L Carbon Dioxide 28.0 (21.0-32.0) mmol/L Anion Gap 6 (5-15) BUN 27 H (7-18) mg/dL Creatinine 1.34 H (0.70-1.30) mg/dL Estim Creat Clear Calc 49.83 ml/min Est GFR (MDRD) Af Amer 67 (>60) mL/min Est GFR (MDRD) Non-Af 56 L (>60) mL/min BUN/Creatinine Ratio 20.1 H (10-20) RATIO Glucose 338 H (74-106) mg/dL Lactic Acid (0.4-1.9) mmol/L Calcium 8.0 L (8.5-10.1) mg/dL Total Bilirubin (0.20-1.00) mg/dL AST (15-37) U/L ALT (16-61) U/L Alkaline Phosphatase (45-117) U/L Troponin I < 0.015 (<0.045) ng/mL Total Protein (6.4-8.2) g/dL Albumin (3.2-5.0) g/dL Globulin (2.2-4.2) g/dL Albumin/Globulin Ratio (0.9-2.4) RATIO POC Glucose (70-110) mg/dL 05/25/20 05/25/20 05/24/20 Range/Units 02:50 02:25 21:29 WBC (4.4-11.0) K/mm3 RBC (4.6-6.2) M/mm3 Hgb (13.0-16.5) g/dL Hct (40-54) % MCV (80-94) fL MCH (27.0-32.0) pg MCHC (32-36) g/dL RDW Std Deviation (35.1-43.9) fl RDW Coeff of Fredo (11.6-14.6) % Plt Count (150-450) K/mm3 MPV (6.2-12.0) fl Immature Gran % (Auto) (0.0-0.9) % Neut % (Auto) (47-70) % Lymph % (Auto) (19-41) % [place] % (Auto) (0-10) % Eos % (Auto) (0-5) % Baso % (Auto) (0-1) % Absolute Neuts (auto) (2.0-7.7) X10^3/uL Absolute Lymphs (auto) (0.83-4.51) X10^3/uL Nucleated RBC % (0-5) % PT (11.7-14.9) SECONDS INR D-Dimer Quant (PE/DVT) 3.28 H* (0.27-0.49) FEU/ug/m Sodium (136-145) mmol/L Potassium (3.5-5.1) mmol/L Chloride (98-107) mmol/L Carbon Dioxide (21.0-32.0) mmol/L Anion Gap (5-15) BUN (7-18) mg/dL Creatinine (0.70-1.30) mg/dL Estim Creat Clear Calc ml/min Est GFR (MDRD) Af Amer (>60) mL/min Est GFR (MDRD) Non-Af (>60) mL/min BUN/Creatinine Ratio (10-20) RATIO Glucose (74-106) mg/dL Lactic Acid (0.4-1.9) mmol/L Calcium (8.5-10.1) mg/dL Total Bilirubin (0.20-1.00) mg/dL AST (15-37) U/L ALT (16-61) U/L Alkaline Phosphatase (45-117) U/L Troponin I (<0.045) ng/mL Total Protein (6.4-8.2) g/dL Albumin (3.2-5.0) g/dL Globulin (2.2-4.2) g/dL Albumin/Globulin Ratio (0.9-2.4) RATIO POC Glucose 362 H 343 H (70-110) mg/dL 05/24/20 05/24/20 05/24/20 Range/Units 20:40 18:07 14:00 WBC (4.4-11.0) K/mm3 RBC (4.6-6.2) M/mm3 Hgb (13.0-16.5) g/dL Hct (40-54) % MCV (80-94) fL MCH (27.0-32.0) pg MCHC (32-36) g/dL RDW Std Deviation (35.1-43.9) fl RDW Coeff of Fredo (11.6-14.6) % Plt Count (150-450) K/mm3 MPV (6.2-12.0) fl Immature Gran % (Auto) (0.0-0.9) % Neut % (Auto) (47-70) % Lymph % (Auto) (19-41) % [place] % (Auto) (0-10) % Eos % (Auto) (0-5) % Baso % (Auto) (0-1) % Absolute Neuts (auto) (2.0-7.7) X10^3/uL Absolute Lymphs (auto) (0.83-4.51) X10^3/uL Nucleated RBC % (0-5) % PT 14.6 (11.7-14.9) SECONDS INR 1.2 D-Dimer Quant (PE/DVT) (0.27-0.49) FEU/ug/m Sodium (136-145) mmol/L Potassium (3.5-5.1) mmol/L Chloride (98-107) mmol/L Carbon Dioxide (21.0-32.0) mmol/L Anion Gap (5-15) BUN (7-18) mg/dL Creatinine (0.70-1.30) mg/dL Estim Creat Clear Calc ml/min Est GFR (MDRD) Af Amer (>60) mL/min Est GFR (MDRD) Non-Af (>60) mL/min BUN/Creatinine Ratio (10-20) RATIO Glucose (74-106) mg/dL Lactic Acid 0.8 (0.4-1.9) mmol/L Calcium (8.5-10.1) mg/dL Total Bilirubin (0.20-1.00) mg/dL AST (15-37) U/L ALT (16-61) U/L Alkaline Phosphatase (45-117) U/L Troponin I (<0.045) ng/mL Total Protein (6.4-8.2) g/dL Albumin (3.2-5.0) g/dL Globulin (2.2-4.2) g/dL Albumin/Globulin Ratio (0.9-2.4) RATIO POC Glucose 175 H (70-110) mg/dL 05/24/20 05/24/20 Range/Units 14:00 14:00 WBC 13.3 H (4.4-11.0) K/mm3 RBC 4.73 (4.6-6.2) M/mm3 Hgb 13.3 (13.0-16.5) g/dL Hct 42.1 (40-54) % MCV 89.0 (80-94) fL MCH 28.1 (27.0-32.0) pg MCHC 31.6 L (32-36) g/dL RDW Std Deviation 43.4 (35.1-43.9) fl RDW Coeff of Fredo 13.2 (11.6-14.6) % Plt Count 149 L (150-450) K/mm3 MPV 10.4 (6.2-12.0) fl Immature Gran % (Auto) 0.700 (0.0-0.9) % Neut % (Auto) 79.9 H (47-70) % Lymph % (Auto) 8.0 L (19-41) % [place] % (Auto) 11.3 H (0-10) % Eos % (Auto) 0.0 (0-5) % Baso % (Auto) 0.1 (0-1) % Absolute Neuts (auto) 10.7 H (2.0-7.7) X10^3/uL Absolute Lymphs (auto) 1.07 (0.83-4.51) X10^3/uL Nucleated RBC % 0 (0-5) % PT (11.7-14.9) SECONDS INR D-Dimer Quant (PE/DVT) (0.27-0.49) FEU/ug/m Sodium 136 (136-145) mmol/L Potassium 4.4 (3.5-5.1) mmol/L Chloride 104 (98-107) mmol/L Carbon Dioxide 27.0 (21.0-32.0) mmol/L Anion Gap 5 (5-15) BUN 24 H (7-18) mg/dL Creatinine 1.44 H (0.70-1.30) mg/dL Estim Creat Clear Calc 46.37 ml/min Est GFR (MDRD) Af Amer 62 (>60) mL/min Est GFR (MDRD) Non-Af 51 L (>60) mL/min BUN/Creatinine Ratio 16.7 (10-20) RATIO Glucose 162 H (74-106) mg/dL Lactic Acid (0.4-1.9) mmol/L Calcium 7.7 L (8.5-10.1) mg/dL Total Bilirubin 0.60 (0.20-1.00) mg/dL AST 16 (15-37) U/L ALT 22 (16-61) U/L Alkaline Phosphatase 83 (45-117) U/L Troponin I < 0.015 (<0.045) ng/mL Total Protein 5.4 L (6.4-8.2) g/dL Albumin 2.0 L (3.2-5.0) g/dL Globulin 3.4 (2.2-4.2) g/dL Albumin/Globulin Ratio 0.6 L (0.9-2.4) RATIO POC Glucose (70-110) mg/dL Laboratory Tests 05/25/20 05:50 PSA Screen 0.62 Diagnostic Data: Diagnostic Data I personally reviewed CTA images of May 25, 2020 and concur with the reported findings Chest CTA 05/25/20 07:20 IMPRESSION: Pulmonary emboli seen in branches of both the right and left upper lobe pulmonary arteries. Since prior study, there has been a progression of the bilateral patchy infiltrates in the peripheral lateral distribution with evidence of bibasilar infiltrates and small bilateral effusions worse on the right side. Electronically Signed: Dorian Pantoja MD at 8:44 EST , Service support , Assessment and Plan 74-year-old gentleman who presents with acute bilateral pulmonary embolism following recent (less than 1 month) COVID-19 infection and while on full systemic anticoagulation with Eliquis 5 mg twice daily and a baby aspirin daily since January 2020 for cerebrovascular disease. Patient and his niece confirm that he takes his medications faithfully without failure. Impression and recommendation: The cause for coagulation failure despite optimal therapy is not clear but can be due to: 1. Recent Covid infection. 2. Underlying malignancy, with PSA of 0.6 prostate cancer is unlikely, he had 3 CTAs of the chest within the span of the past 6 months and although they do not show definitive mass or pathologic adenopathy, he has nonspecific infiltrates that could be related to pneumonia and will need to be followed up to ensure clearing. Advise screening for colon cancer with a colonoscopy when he recovers from the acute illness. 3. An antiphospholipid antibody syndrome, limited testing with anticardiolipin antibodies is feasible now while being on full systemic anticoagulation and these were ordered. 4. Advise full systemic anticoagulation with low molecular weight heparin such as Lovenox 1 mg/kg subcutaneously every 12 hours for at least 3 months and then reassess in the outpatient clinic. If twice daily dosing is not feasible following hospital discharge, Lovenox 1.5 mg/kg once daily is an acceptable compromise. 5. Advise continued low-dose aspirin daily. 6. Follow-up in hematology outpatient clinic in 3 months. This was a virtual visit with the patient over the phone to limit potential exposure to Covid infection. I reviewed his medical records in EMR, personally reviewed his CAT scan images of May 2020. I discussed his case with the hospitalist Dr. Sandoval. Km Feliz MD [employer], [facility] Divisions of Medical Oncology & Hematology Department of Internal Medicine [place] [id number] This note was generated using a voice recognition system software. Although it was reviewed by the author prior to finalization, it may still contain incorrect words, spelling, and punctuation that were not noted when reviewing prior to johana ing. If a clinically significant typo or inaccurately typed phrase is noted, please notify the author. Medications: Prescriptions This Visit Medication Instructions Recorded Acetaminophen [Tylenol] 1,000 mg PO Q8 PRN 05/24/20 Lisinopril 10 mg PO DAILY 05/24/20 Medications Added to Medication List This Visit Category Date Time Status Aspirin E.C. [Ecotrin] Med 05/25/20 08:00 Active 81 mg PO DAILY@0800 Buprenorphine [Butrans 5 Mcg/Hr] Med 05/31/20 10:00 Active 2 each TD QWEEK Doxycycline Med 05/25/20 10:00 Active 100 mg PO DAILY Fluoxetine [Prozac] Med 05/25/20 10:00 Active 10 mg PO DAILY Insulin Glargine [Lantus (BKC)] Med 05/25/20 10:00 Active 60 units SC DAILY Lisinopril [Zestril] Med 05/25/20 10:00 Active 10 mg PO DAILY Pantoprazole Sodium [Protonix] Med 05/25/20 10:00 Active 40 mg PO DAILY Primary Care Provider: Dr. Dex Valencia DO Referring Provider:
[2020-05-25 11:51] LABS: PSA,Total - Annual Screen 0.62 ng/mL (0.00-4.00)
[2020-05-25 16:55] LABS: Bedside Glucose 318 mg/dL (70-110)
[2020-05-25] MEDS: Enoxaparin 120 MG/0.8 ML Syringe SC (20:17)
[2020-05-25] MEDS: Atorvastatin Calcium 40 MG Tablet PO (20:18)
[2020-05-25] MEDS: Latanoprost 0.005% 1 Bottle 1 DRP EACH EYE (20:18)
[2020-05-26] VITALS (12 sets, daily range): BP systolic 140–157; BP diastolic 58–84; PULSE 55–63; RESP 16–22; TEMP 36.2–36.4; O2SAT 94–97
[2020-05-26] MEDS: Zolpidem Tartrate 5 MG Tablet PO (00:51)
[2020-05-26 03:18] LABS: Absolute Lymphocyte Count 1.02 X10^3/uL (0.83-4.51); Absolute Neutrophil Count 10.6 X10^3/uL (2.0-7.7); Basophil# 0.03 X10^3/uL; Basophil% 0.2 % (0-1); Hematocrit 43.7 % (40-54); Hemoglobin 14.2 g/dL (13.0-16.5); Lymphocyte # 1.02 X10^3/ul (4.0); Lymphocyte % 8.1 % (19-41); Mean Corp Hgb Conc 32.5 g/dL (32-36); Mean Corpuscular Hgb 28.6 pg (27.0-32.0); Mean Corpuscular Volume 88.1 fL (80-94); Mean Platelet Vol. 11.1 fl (6.2-12.0); Monocyte# 0.83 X10^3/uL; Monocyte% 6.6 % (0-10); NRBC Flagged by Analyzer 0 % (0-5); Neutrophil # 10.63 X10^3/uL (2.7-7.7); Neutrophil % 84.5 % (47-70); Platelet Count 153 K/mm3 (150-450); RBC Distribution Width CV 13.2 % (11.6-14.6); RBC Distribution Width SD 42.2 fl (35.1-43.9); Red Blood Count 4.96 M/mm3 (4.6-6.2); White Blood Count 12.6 K/mm3 (4.4-11.0)
[2020-05-26 03:32] LABS: Anion Gap 4 (5-15); BUN 29 mg/dL (7-18); BUN/Creat Ratio 23.8 RATIO (10-20); Chloride 104 mmol/L (98-107); Creatinine, Serum 1.22 mg/dL (0.70-1.30); EST Glomerular Filtration Rate 62 mL/min (>60); Est Glom Filt Rate - Afr Amer 75 mL/min (>60); Estimated Creatinine Clearance 54.73 ml/min; Glucose 339 mg/dL (74-106); Potassium 4.5 mmol/L (3.5-5.1); Sodium Level 134 mmol/L (136-145)
[2020-05-26] MEDS: Insulin Lispro 100 UNIT/ML INSULN.PEN SC ×4 (06:48→21:45)
[2020-05-26] MEDS: Enoxaparin 120 MG/0.8 ML Syringe SC ×2 (07:53→21:42)
[2020-05-26] MEDS: Pantoprazole Sodium 40 MG Tablet PO (07:53)
[2020-05-26] MEDS: Gabapentin 300 MG Capsule PO ×3 (07:53→16:07)
[2020-05-26] MEDS: Aspirin E.C. 81 MG Tablet PO (07:53)
[2020-05-26] MEDS: Carvedilol 25 MG Tablet PO ×2 (07:53→16:07)
[2020-05-26] MEDS: Lisinopril 10 MG Tablet PO (07:53)
[2020-05-26] MEDS: Doxycycline 100 MG CAPSULE PO (07:53)
[2020-05-26] MEDS: FLUoxetine 10 MG Capsule PO (08:03)
--- NOTE | 2020-05-26 10:19 | PCM.PN.HOSP ---
Patient Problems: Active and Suspected Problems (Last Reviewed 03/04/20 @ 10:[address] Leland Lincoln MD) Pulmonary embolism (Acute) Subjective: Patient ever and examined. He feels well and had no complaints. Shortness of breath is getting better, though he remains on 5L of oxygen. Review of systems is otherwise negative. CTA of the chest done yesterday showed bilateral PE in the upper lung lobes, though he is on eliquis. Hematology was consulted as patient had been compliant with his eliquis; per hematology, he was placed on SQ lovenox therapeutic dose. Vitals/I&O's: Vital Signs Temp Pulse Resp BP Pulse Ox 97.2 F L 56 L 22 H 141/77 H 95 05/26/20 07:49 05/26/20 07:49 05/26/20 07:49 05/26/20 07:49 05/26/20 07:49 Oxygen Flow Rate (L/min) 5 Oxygen Delivery Method Nasal Cannula Weight: 265 lb 0.001 oz Body Mass Index (BMI) 39.1 Intake and Output for Last 24 Hours 05/24/20 05/25/20 05/26/20 23:59 23:59 23:59 Intake Total 1050 / 1050 2630 / 2630 410 / 410 Output Total 2024 / 2024 550 / 550 Balance 1050 / 1050 605 / 605 -140 / -140 General: Alert, Oriented x3, Cooperative, No apparent distress HEENT: Atraumatic, PERRLA, EOMI, Normocephalic Oral: Dry Mucosa Neck: Supple, No JVD, Negative Carotid Bruits Lungs: - - Diminished breath sounds bibasilarly. No wheezes or crackles. on 5L of oxygen. Cardiovascular: Regular rate, Regular Rhythm, Normal S1, Normal S2, No murmurs Abdomen: Bowel Sounds Present, Soft, Non Tender, Non-Distended, No Hepato-splenomegaly Extremities: No clubbing, No cyanosis, No edema, Capillary Refill Less than 3 Seconds Skin: No rashes, No breakdown Musculoskeletal: No Tenderness to Palpation of Joints or Extremities Lymphatic: No Cervical, Supraclavicular, or Inguinal Adenopathy Neurological: Cranial nerves II-XII grossly intact, Neuro grossly intact, Motor Exam 5/5 strength throughout Psych/Mental Status: Normal Affect, Appropriate, Alert and oriented to time, place, person, mood and affect Laboratory Results 05/25/20 05:50: PSA Screen 0.62 05/25/20 12:35: Anti-Cardiolipin IgG Ab Pending, Anti-Cardiolipin IgA Ab Pending, Anti-Cardiolipin IgM Ab Pending 05/25/20 16:44: POC Glucose 318 H 05/26/20 03:15: WBC 12.6 H, RBC 4.96, Hgb 14.2, Hct 43.7, MCV 88.1, MCH 28.6, MCHC 32.5, RDW Std Deviation 42.2, RDW Coeff of Fredo 13.2, Plt Count 153, MPV 11.1, Immature Gran % (Auto) 0.600, Neut % (Auto) 84.5 H, Lymph % (Auto) 8.1 L, [place] % (Auto) 6.6, Eos % (Auto) 0.0, Baso % (Auto) 0.2, Absolute Neuts (auto) 10.6 H, Absolute Lymphs (auto) 1.02, Nucleated RBC % 0 05/26/20 03:15: Sodium 134 L, Potassium 4.5, Chloride 104, Carbon Dioxide 26.0, Anion Gap 4 L, BUN 29 H, Creatinine 1.22, Estim Creat Clear Calc 54.73, Est GFR (MDRD) Af Amer 75, Est GFR (MDRD) Non-Af 62, BUN/Creatinine Ratio 23.8 H, Glucose 339 H, Calcium 8.0 L Diagnostic Data Chest X-Ray 05/24/20 14:25 IMPRESSION: Findings suggest a mild degree of vascular congestion with superimposed bibasilar pulmonary infiltrates. Electronically Signed: Dorian Pantoja MD at 14:53 EST , Service support , Chest CTA 05/25/20 07:20 IMPRESSION: Pulmonary emboli seen in branches of both the right and left upper lobe pulmonary arteries. Since prior study, there has been a progression of the bilateral patchy infiltrates in the peripheral lateral distribution with evidence of bibasilar infiltrates and small bilateral effusions worse on the right side. Electronically Signed: Dorian Pantoja MD at 8:44 EST , Service support , Current Medications Acetaminophen (Acetaminophen 325 Mg Tablet) 650 mg PO Q6H PRN PRN PRN Reason: Pain Score 1-10/Temp > 100.7 F Last Admin: 05/24/20 20:27 Dose: 650 mg Documented by: Albuterol Sulfate (Albuterol 2.5 Mg/3 Ml Vial.Neb.) 2.5 mg INHALATION Q4H PRN PRN Reason: SHORTNESS OF BREATH/WHEEZING Aspirin (Aspirin E.C. 81 Mg Tablet) 81 mg PO DAILY@0800 COUNTS INCLUDE 234 BEDS AT THE [facility] Last Admin: 05/26/20 07:53 Dose: 81 mg Documented by: Atorvastatin Calcium (Atorvastatin Calcium 40 Mg Tablet) 40 mg PO HS COUNTS INCLUDE 234 BEDS AT THE [facility] Last Admin: 05/25/20 20:18 Dose: 40 mg Documented by: Carvedilol (Carvedilol 25 Mg Tablet) 25 mg PO BIDCM COUNTS INCLUDE 234 BEDS AT THE [facility] Last Admin: 05/26/20 07:53 Dose: 25 mg Documented by: Doxycycline Monohydrate (Doxycycline 100 Mg Capsule) 100 mg PO DAILY COUNTS INCLUDE 234 BEDS AT THE [facility] Last Admin: 05/26/20 07:53 Dose: 100 mg Documented by: Enoxaparin Sodium (Enoxaparin 120 Mg/0.8 Ml Syringe) 120 mg SC Q12 COUNTS INCLUDE 234 BEDS AT THE [facility] Last Admin: 05/26/20 07:53 Dose: 120 mg Documented by: Fluoxetine HCl (Fluoxetine 10 Mg Capsule) 10 mg PO DAILY COUNTS INCLUDE 234 BEDS AT THE [facility] Last Admin: 05/26/20 08:03 Dose: 10 mg Documented by: Gabapentin (Gabapentin 300 Mg Capsule) 300 mg PO TIDCM COUNTS INCLUDE 234 BEDS AT THE [facility] Last Admin: 05/26/20 07:53 Dose: 300 mg Documented by: Piperacillin Sod/Tazobactam (Sod 3.375 gm/ Sodium Chloride) 50 mls @ 12.5 mls/hr IV Q8 COUNTS INCLUDE 234 BEDS AT THE [facility] Last Admin: 05/26/20 06:48 Dose: 12.5 mls/hr Documented by: Insulin Glargine (Insulin Glargine 100 Units/Ml Pen) 60 units SC DAILY COUNTS INCLUDE 234 BEDS AT THE [facility] Last Admin: 05/26/20 07:54 Dose: 60 units Documented by: Insulin Human Lispro (Insulin Lispro 100 Unit/Ml Insuln.Pen) 0 unit SC ACHS COUNTS INCLUDE 234 BEDS AT THE [facility]; Protocol Last Admin: 05/26/20 06:48 Dose: 4 u Documented by: Lactulose (Lactulose 20 Gm/30 Ml Udc) 20 gm PO 4X/DAY COUNTS INCLUDE 234 BEDS AT THE [facility] Last Admin: 05/26/20 07:54 Dose: Not Given Documented by: Latanoprost (Latanoprost 0.005% 1 Bottle) 1 drop EACH EYE QHS COUNTS INCLUDE 234 BEDS AT THE [facility] Last Admin: 05/25/20 20:18 Dose: 1 drop Documented by: Lisinopril (Lisinopril 10 Mg Tablet) 10 mg PO DAILY COUNTS INCLUDE 234 BEDS AT THE [facility] Last Admin: 05/26/20 07:53 Dose: 10 mg Documented by: Ondansetron HCl (Ondansetron 4 Mg/2 Ml Vial) 4 mg IV Q8H PRN PRN PRN Reason: NAUSEA/VOMITING Pantoprazole Sodium (Pantoprazole Sodium 40 Mg Tablet) 40 mg PO DAILY COUNTS INCLUDE 234 BEDS AT THE [facility] Last Admin: 05/26/20 07:53 Dose: 40 mg Documented by: Sodium Chloride (0.9% Saline Lock 10 Ml Syringe) 10 - 40 ml IV UD PRN PRN Reason: SALINE FLUSH Zolpidem Tartrate (Zolpidem Tartrate 5 Mg Tablet) 5 mg PO QHS PRN PRN PRN Reason: INSOMNIA Last Admin: 05/26/20 00:51 Dose: 5 mg Documented by: STROKE Vital Signs/Narrative: Vital Signs Temp Pulse Resp BP Pulse Ox 05/26/20 07:49 97.2 F L 56 L 22 H 141/77 H 95 05/26/20 07:39 94 05/26/20 07:00 55 L Medical Necessity - Tobacco Use Smoking Status: Former smoker Tobacco Use: Cigarettes Assessment/Plan All Active Problems (Last Reviewed 03/04/20 @ 10:[address] Leland Lincoln MD) Pulmonary embolism (Acute) COVID-19 (Acute) #Secondary bacterial pneumonia after COVID 19 infection shortness of breath getting better, though he is on 5L of oxygen on IV zosyn and doxycycline. wbc is up to 12.6 breathing treatment with bronchodilators #Chronic hypoxic respiratory failure now on 5L of oxygen breathing treatment with bronchodilators titrate oxygen to maintain sats >90% #BIlateral PE Patient's D-dimer was elevated. CTA of the chest was ordered before I realized patient was on Eliquis. CTA however showed bilateral PE in branches of both the right and left upper lobe pulmonary arteries with progression of bilateral patchy infiltrates in the peripheral lateral region with evidence of bibasilar infiltrates and a small pleural effusion worse on the right side. hematology on board; eliquis discontinued, and patient started on SQ lovenox 120mg bid. #CAMRON: resolved. Cr down to 1.22 #History of CVA: On aspirin and Eliquis as well as statin. #Hypertension: On Coreg and lisinopril #Type 2 diabetes mellitus: on Lantus 60units daily. Insulin sliding scale. Checks AC at bedtime. Hyperlipidemia: On statin DVT prophylaxis: not indicated as he is already on eliquis Inpatient E&M: 37722 Subs Hosp L2
--- NOTE | 2020-05-26 10:54 | CASEMGMT ---
JOANNA LE NOTE: Spoke naida/[facility], who states they are pt's O2 supplier. Pt goes to [facility]. Current Home O2 orders are 2 L/M continuously. PH: [phone]. Zay BEATTY RN CM
[2020-05-26 16:17] LABS: Anti-Cardiolipin Ab, IgA, Qn < 9 APL U/mL (0-11); Anti-Cardiolipin Ab, IgG, Qn < 9 GPL U/mL (0-14); Anti-Cardiolipin Ab, IgM, Qn 16 MPL U/mL (0-12)
[2020-05-26] MEDS: Latanoprost 0.005% 1 Bottle 1 DRP EACH EYE (21:43)
[2020-05-26] MEDS: Atorvastatin Calcium 40 MG Tablet PO (21:43)
[2020-05-27] VITALS (8 sets, daily range): BP systolic 143–188; BP diastolic 65–80; PULSE 54–70; RESP 18; TEMP 36.1–36.3; O2SAT 92–95
[2020-05-27 04:18] LABS: Absolute Lymphocyte Count 1.65 X10^3/uL (0.83-4.51); Absolute Neutrophil Count 6.7 X10^3/uL (2.0-7.7); Basophil# 0.01 X10^3/uL; Basophil% 0.1 % (0-1); Eosinophil# 0.02 X10^3/uL; Eosinophils% 0.2 % (0-5); Hematocrit 41.4 % (40-54); Hemoglobin 12.8 g/dL (13.0-16.5); Lymphocyte # 1.65 X10^3/ul (4.0); Lymphocyte % 18.1 % (19-41); Mean Corp Hgb Conc 30.9 g/dL (32-36); Mean Corpuscular Hgb 28.1 pg (27.0-32.0); Mean Corpuscular Volume 90.8 fL (80-94); Mean Platelet Vol. 10.4 fl (6.2-12.0); Monocyte% 7.7 % (0-10); NRBC Flagged by Analyzer 0 % (0-5); Neutrophil % 73.2 % (47-70); Platelet Count 180 K/mm3 (150-450); RBC Distribution Width CV 13.3 % (11.6-14.6); RBC Distribution Width SD 44.5 fl (35.1-43.9); Red Blood Count 4.56 M/mm3 (4.6-6.2); White Blood Count 9.1 K/mm3 (4.4-11.0)
[2020-05-27 04:32] LABS: Anion Gap 5 (5-15); BUN 25 mg/dL (7-18); Calcium,Total 7.9 mg/dL (8.5-10.1); Chloride 106 mmol/L (98-107); Creatinine, Serum 1.25 mg/dL (0.70-1.30); EST Glomerular Filtration Rate 60 mL/min (>60); Est Glom Filt Rate - Afr Amer 73 mL/min (>60); Estimated Creatinine Clearance 53.42 ml/min; Glucose 231 mg/dL (74-106); Potassium 4.2 mmol/L (3.5-5.1); Sodium Level 141 mmol/L (136-145)
--- NOTE | 2020-05-27 08:41 | NURSING ---
pt has a [employer] 14 day glucometer. it checks his glucose in his arm. pt glucose was 213, it will be covered with 2units of sliding scale on the MAY.
[2020-05-27] MEDS: Insulin Lispro 100 UNIT/ML INSULN.PEN SC ×2 (08:45→12:28)
[2020-05-27] MEDS: Gabapentin 300 MG Capsule PO ×2 (08:46→12:30)
[2020-05-27] MEDS: Doxycycline 100 MG CAPSULE PO (08:46)
[2020-05-27] MEDS: FLUoxetine 10 MG Capsule PO (08:46)
[2020-05-27] MEDS: Aspirin E.C. 81 MG Tablet PO (08:47)
[2020-05-27] MEDS: Carvedilol 25 MG Tablet PO (08:47)
[2020-05-27] MEDS: Pantoprazole Sodium 40 MG Tablet PO (08:47)
[2020-05-27] MEDS: Lisinopril 10 MG Tablet PO ×2 (08:47→13:59)
[2020-05-27] MEDS: Enoxaparin 120 MG/0.8 ML Syringe SC (08:49)
--- NOTE | 2020-05-27 09:58 | CASEMGMT ---
Addendum entered by Rivas Toro 05/27/20 14:38: Discharge instructions and summary faxed to [facility] Addendum entered by Rivas Toro 05/27/20 11:27: Per JOANNA Levin, ambulatory pulse ox has been completed. Pt does not qualify for more than his baseline O2 of 2 L/M. Addendum entered by Rivas Toro 05/27/20 11:20: Giuliana is aware pt to have ambulatory pulse ox done and may require increase in O2 needs @ discharge. She is to f/u with JOANNA Levin, when she picks pt up re: how much O2 pt will need. She was made aware [facility] would be updated on any increase in O2, if needed. Call received back from Leonel @ [facility] and they are able to accept pt. She is aware pt is discharging home today. Original Note: JOANNA LE note: Pt to discharge home on Lovenox 120 mg SQ Q 12 hrs for bilat PE's. Per pharmacist @ [facility] in [place], this amt exceeds the plan limitations and prior auth is needed. Call placed to [facility] dep't @ and spoke w/Lavelle. Pt's Rx card ID #: [id number]. Prior auth obtained and Lovenox 120 mg SQ Q 12 hrs has been approved. Case #: [id number]. Approved dates from Apr 27, 2020 through May 27 2021. Call placed back to [facility]. Pt's cost of Lovenox is $5. Call placed to pt in his room. He was made aware he will be going home on Lovenox injections. Pt states he is comfortable with doing Lovenox injections as he does his own insulin injections. JOANNA Levin, has done Lovenox injection training with pt. PT/OT notes have been reviewed. Additional therapy is recommended. Pt states he would like to return home and would like [facility]. He asks this JOANNA LE to call his niece, Giuliana, to discuss options of [facility] agencies with her. Call placed to pt's niece, Giuliana. She was made aware pt would like HHC @ discharge. She states pt has had [facility] in the past and she would like them again for pt. She was made aware it is required for pt to receive a list of C providers including quality and resource use data and consistent with the patient's preferred geographic region, medical needs, and insurance network and that this would be placed in pt's room. Giuliana states her preferred provider is [facility]. Pt made aware and is also agreeable to same. Giuilana is aware pt will be discharging home on Lovenox and that he has been instructed on self-administration and states is comfortable w/this. Giuliana inquired if any Lovenox will be sent home w/pt @ discharge today. She was made aware medication will not be sent home with him from [facility] and that the script has been sent to [facility] in [place] and she should pick that up today. She voices understanding. Giuliana made aware pt will need to f/u @ [facility]C. She states she prefers to make that appt herself. She was also made aware pt should be evaluated for new sleep study and she inquired about this process. Pt sees fur nailer, Dr May, in [place] and she was made aware to f/u with him re: same. Pt and Giuliana both stated they had no further questions/concerns/needs re: discharge planning. Call placed to Chacha @ [facility] and referral made for SN, PT/OT. She states pt has had HHC in the past through them @ the [place] Location and she would have [place] review the referral and call this RN CM back. Referral packet faxed at this time. [facility]/[place] location. PH: [phone]. . Pt will need ambulatory pulse ox prior to discharge. CM to follow for increase in O2 needs @ d/c. Zay GARVINN RN CM
--- NOTE | 2020-05-27 10:33 | DCINST_ITS ---
- Discharge Diagnoses Current Active Problems: Current Active and Chronic Problems (Last Reviewed 03/04/20 @ 10:[address] Leland Lincoln MD) Pulmonary embolism (Acute) Chronic respiratory failure (Chronic) Ischemic cerebrovascular accident (CVA) (Chronic 01/31/20) 3 cm acute infarct in the posterior left parietal lobe. MRI 01/31/2020 Essential (primary) hypertension (Chronic) Hyperlipidemia (Chronic) Peripheral vascular disease due to secondary diabetes mellitus (Chronic) Stasis dermatitis of both legs (Chronic) Type 2 diabetes mellitus (Chronic) You will use the following diet at home:: Cardiac Your food should be the consistency of: Regular Your liquids should be the consistency of: Regular/Thin Discharge Activity: Return to Normal Activity Weight Bearing Status: Weight bearing as tolerated Call your doctor if you observe: Fever of 101 or Higher, Shortness of breath, Dizziness, Swelling in the ankles, Increased palpitations (irregular heartbeat) Instructions: Using Oxygen Safely, What Is Pneumonia?, Using Oxygen at Home, Treating Pneumonia, Pulmonary Embolism Allergies/Adverse Reactions: Allergies celecoxib [From Celebrex] Adverse Reaction (Verified 05/12/20 18:59) PT UNSURE OF REACTION Medications to take at Discharge Atorvastatin Calcium [Lipitor] 40 mg PO DAILY 09/26/19 Carvedilol [Coreg] 25 mg PO BID 09/26/19 Furosemide [Lasix] 40 mg PO DAILY 09/26/19 Gabapentin 300 mg PO TID 09/26/19 Insulin Detemir [Levemir FlexPen] 60 unit SQ DAILY 09/26/19 Pantoprazole Sodium [Protonix] 40 mg PO DAILY 09/26/19 Albuterol Aerosols [Ventolin Aerosols] 2.5 mg INHALATION Q6H 11/29/19 Ondansetron [Zofran Odt] 4 mg PO Q8H PRN PRN #10 tab 12/05/19 Albuterol Sulfate [Albuterol Sulfate HFA] 2 puff IH Q6H 01/13/20 Insulin Lispro [Humalog] 0 unit SQ BID 01/13/20 Polyethylene Glycol 3350 [Miralax] 17 gm PO DAILY 01/13/20 Latanoprost 0.005% [Xalatan Opthalmic] 1 drp EACH EYE DAILY 01/31/20 fluoxetine 10 mg capsule 10 mg PO DAILY cap 03/04/20 Buprenorphine 10 mcg TD QWEEK 05/12/20 Aspirin E.C. [Ecotrin] 81 mg PO DAILY@0800 tab 05/14/20 Acetaminophen [Tylenol] 1,000 mg PO Q8 PRN 05/24/20 Lisinopril 10 mg PO DAILY 05/24/20 Enoxaparin [Lovenox] 120 mg SC Q12 #60 syringe 05/26/20 levoFLOXacin tablet [Levaquin tablet] 750 mg PO DAILY #5 tab 05/27/20 The following prescriptions were given: levoFLOXacin tablet [Levaquin tablet] 750 mg PO DAILY #5 tab Transmission Status: Pending to [facility] Enoxaparin [Lovenox] 120 mg SC Q12 #60 syringe Transmission Status: Received by [facility] Primary Care Physician: Dex Valencia DO [Primary Care Provider] - Please follow up with your Primary Care Physician in: 1-2 weeks Test Results: Test results from this visit will be discussed in further detail at your follow- up appointment, if applicable. Please Follow Up With: Km Feliz MD When: 2-4 weeks Please Follow Up With: wound clinic When: 1-2 weeks Proposed Discharge Date: 05/27/20
--- NOTE | 2020-05-27 11:09 | PCM.DC.SUM ---
Discharge Date and Diagnosis - Problem List Patient Problems: Active and Suspected Problems (Last Reviewed 03/04/20 @ 10:[address] Leland Lincoln MD) Pulmonary embolism (Acute) Date of Admission: 05/24/20 Date of Discharge: 05/27/20 - Primary Discharge Diagnosis Acute Problems: Active Problems (Last Reviewed 03/04/20 @ 10:[address] Leland Lincoln MD) Pulmonary embolism (Acute) - Secondary Discharge Diagnosis Chronic Problems: Chronic Problems (Last Reviewed 03/04/20 @ 10:[address] Leland Lincoln MD) Chronic respiratory failure (Chronic) Ischemic cerebrovascular accident (CVA) (Chronic 01/31/20) 3 cm acute infarct in the posterior left parietal lobe. MRI 01/31/2020 Essential (primary) hypertension (Chronic) Hyperlipidemia (Chronic) Stenosis of left carotid artery (Chronic) Irregular plaque at the proximal left internal carotid with 50 to 69% stenosis suggested in the distal left internal carotid 02/01/2020 Peripheral vascular disease due to secondary diabetes mellitus (Chronic) Edema of both lower legs due to peripheral venous insufficiency (Chronic) Stasis dermatitis of both legs (Chronic) Type 2 diabetes mellitus (Chronic) Hospital Course and Treatment Imaging Results: Diagnostic Data Chest X-Ray 05/24/20 14:25 IMPRESSION: Findings suggest a mild degree of vascular congestion with superimposed bibasilar pulmonary infiltrates. Electronically Signed: Dorian Pantoja MD at 14:53 EST , Service support , Chest CTA 05/25/20 07:20 IMPRESSION: Pulmonary emboli seen in branches of both the right and left upper lobe pulmonary arteries. Since prior study, there has been a progression of the bilateral patchy infiltrates in the peripheral lateral distribution with evidence of bibasilar infiltrates and small bilateral effusions worse on the right side. Electronically Signed: Dorian Pantoja MD at 8:44 EST , Service support , hematology Operations: None Procedures: None Summary of Care Provided: The patient is a 74 year old M with an extensive PMH as outlined who was admitted via the ED with a complaint of shortness of breath and diarrhea. His shortness of breath has been getting worse, and he had subjective fever and chills. He was saturating at 82% on 3L of oxygen, so his oxygen was increased to 4L of oxygen. he had abdominal pain and diarrhea as well. He had been also diagnosed with covid 19 on May 07 2020, and CXR showed patchy infiltrate in the lung bases consistent with recent covid infection. HE was admitted for probable secondary bacterial pneumonia and CAMRON. He was hydrated with IVF, and started on IV zosyn. Troponis x 3 were negative. CTA of the chest showed bilateral PE in the upper lobes, even though patient was on eliquis. This was therefore deemed to be eliquis failure as he had been compliant with eliquis. Per hematology recommendation, he was started on therapeutic lovenox. Patient shortness of breath improved and he felt much better. He was discharged home on 06/24/2020. Patient's time of isolation for Covid ended on May 24, 2020 so he was taken out of isolation. He was discharged home on p.o. levofloxacin 750 mg daily x5 days. CAMRON resolved with hydration of fluids. He is follow-up with his PCP and follow-up with hematology on outpatient basis. He is to continue his oxygen at 3 L which she was on at home. Patient seen and examined prior to discharge. He had no complaints. Review of symptoms otherwise negative. Labs and vitals reviewed. Home medication reviewed and reconciled. O/E: Vital Signs Temp Pulse Resp BP Pulse Ox 97.0 F L 54 L 18 166/65 H 95 05/27/20 13:24 05/27/20 13:24 05/27/20 13:24 05/27/20 13:24 05/27/20 13:24 [] General: Alert, Oriented x3, Cooperative, No apparent distress HEENT: Atraumatic, PERRLA, EOMI, Normocephalic Oral: Dry Mucosa Neck: Supple, No JVD, Negative Carotid Bruits Lungs: - - Diminished breath sounds bibasilarly. No wheezes or crackles. on 4L of oxygen. Cardiovascular: Regular rate, Regular Rhythm, Normal S1, Normal S2, No murmurs Abdomen: Bowel Sounds Present, Soft, Non Tender, Non-Distended, No Hepato-splenomegaly Extremities: No clubbing, No cyanosis, No edema, Capillary Refill Less than 3 Seconds Skin: No rashes, No breakdown Musculoskeletal: No Tenderness to Palpation of Joints or Extremities Lymphatic: No Cervical, Supraclavicular, or Inguinal Adenopathy Neurological: Cranial nerves II-XII grossly intact, Neuro grossly intact, Motor Exam 5/5 strength throughout Psych/Mental Status: Normal Affect, Appropriate, Alert and oriented to time, place, person, mood and affect Plan is for Discharge home today. Patient Problems: Active and Suspected Problems (Last Reviewed 03/04/20 @ 10:[address] Leland Lincoln MD) Pulmonary embolism (Acute) - Physical Exam Vitals/I&O's: Vital Signs Temp Pulse Resp BP Pulse Ox 97.4 F L 65 18 143/67 H 92 05/27/20 02:00 05/27/20 07:07 05/27/20 02:00 05/27/20 02:00 05/27/20 07:07 Oxygen Flow Rate (L/min) 5 Oxygen Delivery Method Nasal Cannula Weight: 265 lb 0.001 oz Body Mass Index (BMI) 39.1 Intake and Output for Last 24 Hours 05/25/20 05/26/20 05/27/20 23:59 23:59 23:59 Intake Total 2630 / 2630 1250 / 1250 50 / 50 Output Total 2024 / 2024 1675 / 1675 400 / 400 Balance 605 / 605 -425 / -425 -350 / -350 Laboratory Results 05/25/20 12:35: Anti-Cardiolipin IgG Ab < 9, Anti-Cardiolipin IgA Ab < 9, Anti-Cardiolipin IgM Ab 16 H 05/27/20 04:03: WBC 9.1, RBC 4.56 L, Hgb 12.8 L, Hct 41.4, MCV 90.8, MCH 28.1, MCHC 30.9 L, RDW Std Deviation 44.5 H, RDW Coeff of Fredo 13.3, Plt Count 180, MPV 10.4, Immature Gran % (Auto) 0.700, Neut % (Auto) 73.2 H, Lymph % (Auto) 18.1 L, [place] % (Auto) 7.7, Eos % (Auto) 0.2, Baso % (Auto) 0.1, Absolute Neuts (auto) 6.7, Absolute Lymphs (auto) 1.65, Nucleated RBC % 0 05/27/20 04:03: Sodium 141, Potassium 4.2, Chloride 106, Carbon Dioxide 30.0, Anion Gap 5, BUN 25 H, Creatinine 1.25, Estim Creat Clear Calc 53.42, Est GFR (MDRD) Af Amer 73, Est GFR (MDRD) Non-Af 60, BUN/Creatinine Ratio 20.0, Glucose 231 H, Calcium 7.9 L Current Medications Acetaminophen (Acetaminophen 325 Mg Tablet) 650 mg PO Q6H PRN PRN PRN Reason: Pain Score 1-10/Temp > 100.7 F Last Admin: 05/24/20 20:27 Dose: 650 mg Documented by: Albuterol Sulfate (Albuterol 2.5 Mg/3 Ml Vial.Neb.) 2.5 mg INHALATION Q4H PRN PRN Reason: SHORTNESS OF BREATH/WHEEZING Aspirin (Aspirin E.C. 81 Mg Tablet) 81 mg PO DAILY@0800 [facility] Last Admin: 05/27/20 08:47 Dose: 81 mg Documented by: Atorvastatin Calcium (Atorvastatin Calcium 40 Mg Tablet) 40 mg PO HS [facility] Last Admin: 05/26/20 21:43 Dose: 40 mg Documented by: Carvedilol (Carvedilol 25 Mg Tablet) 25 mg PO BIDCM [facility] Last Admin: 05/27/20 08:47 Dose: 25 mg Documented by: Doxycycline Monohydrate (Doxycycline 100 Mg Capsule) 100 mg PO DAILY [facility] Last Admin: 05/27/20 08:46 Dose: 100 mg Documented by: Enoxaparin Sodium (Enoxaparin 120 Mg/0.8 Ml Syringe) 120 mg SC Q12 [facility] Last Admin: 05/27/20 08:49 Dose: 120 mg Documented by: Fluoxetine HCl (Fluoxetine 10 Mg Capsule) 10 mg PO DAILY [facility] Last Admin: 05/27/20 08:46 Dose: 10 mg Documented by: Furosemide (Furosemide 40 Mg Tablet) 40 mg PO DAILY [facility] Gabapentin (Gabapentin 300 Mg Capsule) 300 mg PO TIDCM [facility] Last Admin: 05/27/20 08:46 Dose: 300 mg Documented by: Piperacillin Sod/Tazobactam (Sod 3.375 gm/ Sodium Chloride) 50 mls @ 12.5 mls/hr IV Q8 [facility] Last Admin: 05/27/20 06:13 Dose: 12.5 mls/hr Documented by: Insulin Glargine (Insulin Glargine 100 Units/Ml Pen) 60 units SC DAILY [facility] Last Admin: 05/27/20 08:49 Dose: 60 units Documented by: Insulin Human Lispro (Insulin Lispro 100 Unit/Ml Insuln.Pen) 0 unit SC ACHS [facility]; Protocol Last Admin: 05/27/20 08:45 Dose: 2 u Documented by: Lactulose (Lactulose 20 Gm/30 Ml Udc) 20 gm PO 4X/DAY [facility] Last Admin: 05/27/20 11:08 Dose: Not Given Documented by: Latanoprost (Latanoprost 0.005% 1 Bottle) 1 drop EACH EYE QHS [facility] Last Admin: 05/26/20 21:43 Dose: 1 drop Documented by: Lisinopril (Lisinopril 10 Mg Tablet) 10 mg PO DAILY [facility] Last Admin: 05/27/20 08:47 Dose: 10 mg Documented by: Ondansetron HCl (Ondansetron 4 Mg/2 Ml Vial) 4 mg IV Q8H PRN PRN PRN Reason: NAUSEA/VOMITING Pantoprazole Sodium (Pantoprazole Sodium 40 Mg Tablet) 40 mg PO DAILY [facility] Last Admin: 05/27/20 08:47 Dose: 40 mg Documented by: Sodium Chloride (0.9% Saline Lock 10 Ml Syringe) 10 - 40 ml IV UD PRN PRN Reason: SALINE FLUSH Zolpidem Tartrate (Zolpidem Tartrate 5 Mg Tablet) 5 mg PO QHS PRN PRN PRN Reason: INSOMNIA Last Admin: 05/26/20 00:51 Dose: 5 mg Documented by: Discharge Diet: Low fat/ Low Cholesterol Discharge Activity: Return to Normal Activity Weight Bearing Status: Weight bearing as tolerated Call your doctor if you observe: Fever of 101 or Higher, Shortness of breath, Dizziness, Swelling in the ankles, Increased palpitations (irregular heartbeat) Home Medications: Medications to take at Discharge Atorvastatin Calcium [Lipitor] 40 mg PO DAILY 09/26/19 Carvedilol [Coreg] 25 mg PO BID 09/26/19 Furosemide [Lasix] 40 mg PO DAILY 09/26/19 Gabapentin 300 mg PO TID 09/26/19 Insulin Detemir [Levemir FlexPen] 60 unit SQ DAILY 09/26/19 Pantoprazole Sodium [Protonix] 40 mg PO DAILY 09/26/19 Albuterol Aerosols [Ventolin Aerosols] 2.5 mg INHALATION Q6H 11/29/19 Ondansetron [Zofran Odt] 4 mg PO Q8H PRN PRN #10 tab 12/05/19 Albuterol Sulfate [Albuterol Sulfate HFA] 2 puff IH Q6H 01/13/20 Insulin Lispro [Humalog] 0 unit SQ BID 01/13/20 Polyethylene Glycol 3350 [Miralax] 17 gm PO DAILY 01/13/20 Latanoprost 0.005% [Xalatan Opthalmic] 1 drp EACH EYE DAILY 01/31/20 fluoxetine 10 mg capsule 10 mg PO DAILY cap 03/04/20 Buprenorphine 10 mcg TD QWEEK 05/12/20 Aspirin E.C. [Ecotrin] 81 mg PO DAILY@0800 tab 05/14/20 Acetaminophen [Tylenol] 1,000 mg PO Q8 PRN 05/24/20 Enoxaparin [Lovenox] 120 mg SC Q12 #60 syringe 05/26/20 Lisinopril 40 mg PO DAILY #30 tab 05/27/20 levoFLOXacin tablet [Levaquin tablet] 750 mg PO DAILY #5 tab 05/27/20 Following Prescriptions Were Given to Patient: levoFLOXacin tablet [Levaquin tablet] 750 mg PO DAILY #5 tab Transmission Status: Received by [id number] Lisinopril 40 mg PO DAILY #30 tab Transmission Status: Received by [id number] Enoxaparin [Lovenox] 120 mg SC Q12 #60 syringe Transmission Status: Received by [id number] Primary Care Physician: Dex Valencia DO [Primary Care Provider] - Please follow up with your Primary Care Physician in: 1-2 weeks Please Follow Up With: Km Feliz MD When: 2-4 weeks Please Follow Up With: wound clinic When: 1-2 weeks Patient Instructions: Using Oxygen Safely, What Is Pneumonia?, Using Oxygen at Home, Treating Pneumonia, Pulmonary Embolism Disposition: Home Minutes spent on discharge:: 40 Patient Condition:: Stable Medical Necessity - Tobacco Use Smoking Status: Former smoker Tobacco Use: Cigarettes Meaningful Use Info Meaningful Use Diagnoses (Choose all that apply): None applicable Inpatient E&M: 92353 Disch Hosp
[2020-05-27] MEDS: Furosemide 40 MG Tablet PO (11:22)
--- NOTE | 2020-05-31 13:20 | CASEMGMT ---
JOANNA DC PHONE CALL DC DATE: 05/27/20 DC DISPOSITION: Home w/Home with HHC through [facility] DC DIAGNOSIS: pulmonary embolism LACE/STRATA: 14/07 Transition of care to [facility] in [place]. Per Anton, SN has opened the case and seen the patient. Kevyn BEATTY RN ACM
--- NOTE | 2020-06-01 10:40 | NURSING ---
DINH DC F/U CALL: Discharge Date: 05/27/2020 Discharge Diagnosis: Pulmonary embolism (Acute) Discharge Disposition: Home with Rx: levoFLOXacin tablet [Levaquin tablet] 750 mg PO DAILY #5 tab, Lisinopril 40 mg PO DAILY #30 tab, Enoxaparin [Lovenox] 120 mg SC Q12 #60 syringe Lace/Strata: 01/01 Called patient listed cell number with no answer and VM box has not been set up yet. DINH Gonzalez
== END 2020-05-27 14:55 | disposition home or self-care (01) | DRG 175 ==
LOC: ED 13:50 → ICU 05-25 05:58
PROVIDERS: Family Medicine; Internal Medicine Hematology & Oncology; Admitting Provider Hospitalist; Emergency Provider Emergency Medicine; PCP Family Medicine; Visit Provider Student in an Organized Health Care Education/Training Program
DX: I26.99 Other pulmonary embolism without acute cor pulmonale (principal); J12.82 Pneumonia due to coronavirus disease 2019; J15.9 Unspecified bacterial pneumonia; N17.9 Acute kidney failure, unspecified; J44.0 Chronic obstructive pulmonary disease with (acute) lower respiratory infection; J96.11 Chronic respiratory failure with hypoxia; B94.8 Sequelae of other specified infectious and parasitic diseases; E86.0 Dehydration; Z99.81 Dependence on supplemental oxygen; R62.7 Adult failure to thrive; Y95 Nosocomial condition; I10 Essential (primary) hypertension; E11.9 Type 2 diabetes mellitus without complications; E78.5 Hyperlipidemia, unspecified; Z79.02 Long term (current) use of antithrombotics/antiplatelets; Z87.891 Personal history of nicotine dependence; Z86.73 Personal history of transient ischemic attack (TIA), and cerebral infarction without residual deficits; Z79.4 Long term (current) use of insulin; Z79.899 Other long term (current) drug therapy; Z86.718 Personal history of other venous thrombosis and embolism
CPT/HCPCS: 71045; 71275; 80048; 80053; 82962; 83605; 84153; 84484; 85025; 85379; 85610; 86147; 93005; 97110; 97162; 97166; 97530; 97535; 99251; 99285; 99406; J7030; Q9967; G0103; G0463

== ENCOUNTER 2020-07-11 03:53 | Inpatient (IN) | payer MEDICARE, BC, SELFPAY ==
[2020-05-24 16:57] VITALS: BMI 39.1
[2020-07-11] VITALS (24 sets, daily range): BP systolic 86–143; BP diastolic 46–72; PULSE 54–108; RESP 12–32; TEMP 37.5–39.6; O2SAT 92–100; BMI 37.5; BMI 37.1
--- NOTE | 2020-07-11 04:16 | RAD_ITS ---
STUDY: X-RAY - PELVIS AND RIGHT HIP REASON FOR EXAM: Male, 75 years old. injury and pain TECHNIQUE: 3 views of the pelvis and hip. COMPARISON: 01/31/2020 FINDINGS: There is a non-specific bowel gas pattern. Normal visualized soft tissue structures. There is right sacroiliac joint fixation as well as bilateral pubic rami fixation hardware. Stable fracture of the left-sided superior pubic ramus plate. There is a left hip endoprosthesis. No hip dislocation. RAD/HIP, UNI W/ Pelvis 2-3 Views IMPRESSION: No acute fracture visualized or hip dislocation. Electronically Signed: Herberth Shelley MD at 5:41 EDT Tel , Service support ,
--- NOTE | 2020-07-11 04:18 | ED.VIS.GEN ---
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 Patient denies any head injury. He denies any chest or abdominal injuries. He states he has had a prior left hip replacement by Dr. Weller. He has a history of stroke, diabetes, venous stasis of the lower extremities, and recently had vein surgery. Patient tells me that he recently stopped his Lovenox 2 days ago because it makes him cold after he injects it. He denies any fevers at home. <Jose Daniel Ritchie - Last Filed: 07/11/20 07:55> <Jonny Wilson - Last Filed: 07/11/20 10:58> Chief Complaint: Fall - Past Medical History (1) Chronic respiratory failure Status: Chronic (2) Essential (primary) hypertension Status: Chronic (3) Hyperlipidemia Status: Chronic (4) Ischemic cerebrovascular accident (CVA) Status: Chronic Comment: 3 cm acute infarct in the posterior left parietal lobe. MRI 01/31/2020 (5) Peripheral vascular disease due to secondary diabetes mellitus Status: Chronic (6) Stasis dermatitis of both legs Status: Chronic (7) Type 2 diabetes mellitus Status: Chronic <Jose Daniel Ritchie - Last Filed: 07/11/20 07:55> Past Medical History Surgical History: total knee arthroplasty, - Smoking Status: Former smoker Drugs: None - Family History Maternal Family History: Reports: No pertinent history Paternal Family History: Reports: No pertinent history <Jose Daniel Ritchie - Last Filed: 07/11/20 07:55> <Jonny Wilson - Last Filed: 07/11/20 10:58> - Allergies and Home Meds Allergies/Adverse Reactions: Allergies celecoxib [From Celebrex] Adverse Reaction (Verified 05/12/20 18:59) PT UNSURE OF REACTION Primary Care Physician: Dex Valencia DO [Primary Care Provider] - Review of Systems General: Denies: Chills, Fever, Sweats Eyes: Denies: Visual changes - bilaterally, Diplopia ENT: Denies: Rhinorrhea, Sore throat Cardiovascular: Denies: Chest pain, Palpitations Respiratory: Denies: Dyspnea, Cough, Dyspnea on exertion Gastrointestinal: Denies: Abdominal pain, Nausea, Vomiting, Diarrhea, Melena, Hematochezia Genitourinary: Denies: Dysuria, Hematuria, Frequency Musculoskeletal: Reports: Swelling, Extremity Pain. Denies: Back pain Skin: Denies: Rash, Wounds Neurological: Denies: Headache, Weakness, Numbness <Jose Daniel Ritchie - Last Filed: 07/11/20 07:55> Physical Exam Vital Signs/Narrative: Vital Signs Temp Pulse Resp BP Pulse Ox 07/11/20 04:12 77 24 H 109/53 L 94 07/11/20 04:00 95 07/11/20 03:54 99.5 F H 93 16 110/62 95 Inital Vital Signs reviewed: Yes General: Well nourished, Well developed, Obese, No Acute Distress Head: Normocephalic, Atraumatic Eyes: Perrl, EOMI ENT: Moist mucous membranes, No rhinorrhea Neck: Supple, Nontender Cardiovascular: Regular rate, Regular rhythm, No murmurs Respiratory: No distress, CTA bilaterally, Chest nontender Abdomen: Soft, Nontender, Nondistended, Normal bowel sounds Back: Nontender, Normal Inspection Extremities: Tenderness - Tenderness of the right hip positive logroll, Edema, - - Venous stasis changes of the bilateral lower extremities Skin: Normal color, No rash Neurological: Alert, Oriented x3, Cranial nerves II-XII grossly intact, Normal Strength, Normal Sensation Psychological: Normal affect, Normal Mood <Jose Daniel Ritchie - Last Filed: 07/11/20 07:55> Vital Signs/Narrative: Vital Signs Pulse Resp BP Pulse Ox 07/11/20 09:00 97 25 H 124/65 H 94 07/11/20 07:09 87 18 109/54 L 97 <Jonny Wilson - Last Filed: 07/11/20 10:58> Diagnostic/Tx/Re-eval Clinical Impression(s) from Imaging Studies Hip/Pelvis X-Ray 07/11/20 04:16 IMPRESSION: No acute fracture visualized or hip dislocation. Electronically Signed: Herberth Shelley MD at 5:41 EDT Tel , Service support , Laboratory Last Values WBC 11.3 K/mm3 (4.4-11.0) H 07/11/20 04:35 RBC 3.79 M/mm3 (4.6-6.2) L 07/11/20 04:35 Hgb 10.8 g/dL (13.0-16.5) L 07/11/20 04:35 Hct 35.5 % (40-54) L 07/11/20 04:35 MCV 93.7 fL (80-94) 07/11/20 04:35 MCH 28.5 pg (27.0-32.0) 07/11/20 04:35 MCHC 30.4 g/dL (32-36) L 07/11/20 04:35 RDW Std Deviation 53.0 fl (35.1-43.9) H 07/11/20 04:35 RDW Coeff of Fredo 15.4 % (11.6-14.6) H 07/11/20 04:35 Plt Count 189 K/mm3 (150-450) 07/11/20 04:35 MPV 9.4 fl (6.2-12.0) 07/11/20 04:35 Immature Gran % (Auto) 1.000 % (0.0-0.9) H 07/11/20 04:35 Neut % (Auto) 70.5 % (47-70) H 07/11/20 04:35 Lymph % (Auto) 12.7 % (19-41) L 07/11/20 04:35 [place] % (Auto) 10.4 % (0-10) H 07/11/20 04:35 Eos % (Auto) 5.0 % (0-5) 07/11/20 04:35 Baso % (Auto) 0.4 % (0-1) 07/11/20 04:35 Absolute Neuts (auto) 8.0 X10^3/uL (2.0-7.7) H 07/11/20 04:35 Absolute Lymphs (auto) 1.44 X10^3/uL (0.83-4.51) 07/11/20 04:35 Nucleated RBC % 0 % (0-5) 07/11/20 04:35 PT 15.7 SECONDS (11.7-14.9) H 07/11/20 04:35 INR 1.3 07/11/20 04:35 APTT 53.3 Seconds (24.1-36.2) H 07/11/20 04:35 Sodium 133 mmol/L (136-145) L 07/11/20 04:35 Potassium 4.5 mmol/L (3.5-5.1) 07/11/20 04:35 Chloride 101 mmol/L (98-107) 07/11/20 04:35 Carbon Dioxide 26.0 mmol/L (21.0-32.0) 07/11/20 04:35 Anion Gap 6 (5-15) 07/11/20 04:35 BUN 32 mg/dL (7-18) H 07/11/20 04:35 Creatinine 2.78 mg/dL (0.70-1.30) H 07/11/20 04:35 Estim Creat Clear Calc 23.67 ml/min 07/11/20 04:35 Est GFR (MDRD) Af Amer 29 mL/min (>60) L 07/11/20 04:35 Est GFR (MDRD) Non-Af 24 mL/min (>60) L 07/11/20 04:35 BUN/Creatinine Ratio 11.5 RATIO (10-20) 07/11/20 04:35 Glucose 196 mg/dL (74-106) H 07/11/20 04:35 Lactic Acid 1.0 mmol/L (0.4-1.9) 07/11/20 06:07 Calcium 8.1 mg/dL (8.5-10.1) L 07/11/20 04:35 Total Bilirubin 0.70 mg/dL (0.20-1.00) 07/11/20 04:35 AST 24 U/L (15-37) 07/11/20 04:35 ALT 38 U/L (16-61) 07/11/20 04:35 Alkaline Phosphatase 80 U/L (45-117) 07/11/20 04:35 Troponin I < 0.015 ng/mL (<0.045) 07/11/20 04:35 Total Protein 5.8 g/dL (6.4-8.2) L 07/11/20 04:35 Albumin 2.0 g/dL (3.2-5.0) L 07/11/20 04:35 Globulin 3.8 g/dL (2.2-4.2) 07/11/20 04:35 Albumin/Globulin Ratio 0.5 RATIO (0.9-2.4) L 07/11/20 04:35 - EKG Initial EKG Interpretation: Sinus Rhythm - EKG demonstrates a sinus rhythm at a rate of 89 with PACs no concerning features of ACS - Medical Decision Making Patient received morphine for pain. My Interpretation of the plain films of the hip x-rays and femur x-rays are negative. Chest x-ray shows no obvious acute pathology. Patient unexpectedly became hypotensive with blood pressure systolic readings in the 70s. He received IV fluids and his blood pressure has improved.. His temperature then began to elevate he is currently at 99.7 orally. Concerned that he may be developing sepsis. Cultures were obtained. He is attempting to give us a urine specimen. At this point care the patient is going to be turned over to the daytime physician for check of urine and admission. <Jose Daniel Ritchie - Last Filed: 07/11/20 07:55> - Medical Decision Making Katie Patient was turned over to me. He spiked a temperature, I discussed with the admitting physician I also evaluated him and seems to me is quite Adamant of pain in the right hip. This will need to be CT. Regardless I will admit. <Jonny Wilson - Last Filed: 07/11/20 10:58> ED Disposition <Jose Daniel Ritchie - Last Filed: 07/11/20 07:55> <Jonny Wilson - Last Filed: 07/11/20 10:58> - Plan for ED Patient: Disposition: Acute Care Hospital [facility] Diagnosis: Contusion, hip, Hypotension, Fever Referrals: Dex Valencia DO [Primary Care Provider] -
[2020-07-11] MEDS: Morphine 4 MG/ML Syringe IV (04:39)
[2020-07-11] MEDS: Ondansetron 4 MG/2 ML Vial IV (04:40)
[2020-07-11 04:44] LABS: Absolute Lymphocyte Count 1.44 X10^3/uL (0.83-4.51); Basophil# 0.04 X10^3/uL; Basophil% 0.4 % (0-1); Eosinophil# 0.56 X10^3/uL; Hematocrit 35.5 % (40-54); Hemoglobin 10.8 g/dL (13.0-16.5); Lymphocyte # 1.44 X10^3/ul (4.0); Lymphocyte % 12.7 % (19-41); Mean Corp Hgb Conc 30.4 g/dL (32-36); Mean Corpuscular Hgb 28.5 pg (27.0-32.0); Mean Corpuscular Volume 93.7 fL (80-94); Mean Platelet Vol. 9.4 fl (6.2-12.0); Monocyte# 1.18 X10^3/uL; Monocyte% 10.4 % (0-10); NRBC Flagged by Analyzer 0 % (0-5); Neutrophil # 7.98 X10^3/uL (2.7-7.7); Neutrophil % 70.5 % (47-70); Platelet Count 189 K/mm3 (150-450); RBC Distribution Width CV 15.4 % (11.6-14.6); Red Blood Count 3.79 M/mm3 (4.6-6.2); White Blood Count 11.3 K/mm3 (4.4-11.0)
[2020-07-11 04:51] LABS: International Normalized Ratio 1.3; Prothrombin Time (Protime)PT. 15.7 SECONDS (11.7-14.9)
[2020-07-11 04:53] LABS: Partial Thromboplast Time 53.3 Seconds (24.1-36.2)
[2020-07-11 05:03] LABS: ALB/GLOB Ratio 0.5 RATIO (0.9-2.4); AST(SGOT) 24 U/L (15-37); Alanine Aminotransfer ALT/SGPT 38 U/L (16-61); Alkaline Phosphatase 80 U/L (45-117); Anion Gap 6 (5-15); BUN 32 mg/dL (7-18); BUN/Creat Ratio 11.5 RATIO (10-20); Calcium,Total 8.1 mg/dL (8.5-10.1); Chloride 101 mmol/L (98-107); Creatinine, Serum 2.78 mg/dL (0.70-1.30); EST Glomerular Filtration Rate 24 mL/min (>60); Est Glom Filt Rate - Afr Amer 29 mL/min (>60); Estimated Creatinine Clearance 23.67 ml/min; Globulin 3.8 g/dL (2.2-4.2); Glucose 196 mg/dL (74-106); Potassium 4.5 mmol/L (3.5-5.1); Protein, Total 5.8 g/dL (6.4-8.2); Sodium Level 133 mmol/L (136-145)
--- NOTE | 2020-07-11 05:45 | EKG12_ITS ---
Test Reason : DYSRYTHMIA Blood Pressure : / mmHG Vent. Rate : 089 BPM Atrial Rate : 089 BPM P-R Int : 160 ms QRS Dur : 114 ms QT Int : 374 ms P-R-T Axes : 000 002 056 degrees QTc Int : 455 ms Sinus rhythm with Premature atrial complexes Low voltage QRS (Limb Leads) Borderline ECG Confirmed by CORIE SOTO, CARLEE ([id number]), editor department PRASANNA LOBO ([id number]) on 07/13/2020 10:59:43 AM Referred By: ARABELLA Confirmed By:CARLEE FONTENOT MD
[2020-07-11] MEDS: 0.9% Normal Saline 1,000 ML 999 ML IV (06:05)
--- NOTE | 2020-07-11 07:10 | RAD_ITS ---
STUDY: X-RAY - RIGHT FEMUR REASON FOR STUDY: Male, 75 years old. Injury and pain TECHNIQUE: 6 view(s) of the femur. COMPARISON: None. FINDINGS: There is no fracture or dislocation in the right femur. There are moderate degenerative changes in the right hip. The visualized soft tissues are within normal limits. There are no radiodense foreign bodies. RAD/Femur Min 2 Views IMPRESSION: No fracture or dislocation in the right femur. Moderate degenerative changes in the right hip. Electronically Signed: Contreras Urbina MD at 8:35 EDT Tel , Service support ,
--- NOTE | 2020-07-11 07:10 | RAD_ITS ---
STUDY: X-RAY CHEST REASON FOR EXAM: Male, 75 years old. Cough TECHNIQUE: Frontal view of the chest COMPARISON: 05/12/20 FINDINGS: There are mild congestive changes noted. The lungs are otherwise clear. There are no pleural effusions. There is no pneumothorax. The heart is enlarged, but stable in size. The visualized osseous structures are within normal limits. RAD/Chest 1 View (Portable) IMPRESSION: Mild pulmonary vascular congestion. Electronically Signed: Contreras Urbina MD at 8:34 EDT Tel , Service support ,
[2020-07-11 10:15] LABS: Color, Urine Amber (Yellow); Glucose, Dipstick 50 mg/dl (Normal); Ketone-Dipstick Negative (Negative); Leukocyte Esterase-Dipstick Negative /ul (Negative); Nitrite-Dipstick Negative (Negative); Occult Blood-Urine 10 /ul (Negative); Protein-Dipstick 500 mg/dl (Negative); Specific Gravity, Urine 1.025 (1.002-1.030); Urine Clarity Cloudy (Clear); Urine Urobilinogen 1 mg/dl (Normal)
[2020-07-11 10:17] LABS: Urine Bilirubin Dipstick 1 mg/dL (Negative)
[2020-07-11 10:28] LABS: White Blood Cells 0-5 SEEN /hpf (0-5)
[2020-07-11 10:29] LABS: Amorphous Sediment 1+; Bacteria RARE /hpf (None Seen); Mucous, Urine RARE /hpf (<or=2+); Red Blood Cells-Urine 0-5 SEEN /hpf (0-5); Squamous Epithelial Cells - UA 0-5 SEEN /hpf (0-5)
--- NOTE | 2020-07-11 10:47 | NURSING ---
DR ANNE MARIE MCKEE
--- NOTE | 2020-07-11 11:08 | NURSING ---
MED SURG ANNE MARIE WEAKNESS, HIP PAIN
--- NOTE | 2020-07-11 11:10 | NURSING ---
DR KENNEY IN ER
--- NOTE | 2020-07-11 12:05 | HP.PCM_ITS ---
Problem List (1) CAMRON (acute kidney injury) Status: Acute (2) CKD (chronic kidney disease) stage 3, GFR 30-59 ml/min Status: Chronic (3) Contusion, hip Status: Acute (4) Hypotension Status: Acute (5) Fever Status: Acute (6) Pulmonary embolism Status: Chronic Qualifiers: Chronicity: chronic Acute cor pulmonale presence: unspecified (7) COVID-19 Status: Acute (8) Ischemic cerebrovascular accident (CVA) Status: Chronic Comment: 3 cm acute infarct in the posterior left parietal lobe. MRI 01/31/2020 (9) Essential (primary) hypertension Status: Chronic (10) Hyperlipidemia Status: Chronic (11) Stenosis of left carotid artery Status: Chronic Comment: Irregular plaque at the proximal left internal carotid with 50 to 69% stenosis suggested in the distal left internal carotid 02/01/2020 (12) Peripheral vascular disease due to secondary diabetes mellitus Status: Chronic (13) Edema of both lower legs due to peripheral venous insufficiency Status: Chronic (14) Stasis dermatitis of both legs Status: Chronic (15) Type 2 diabetes mellitus Status: Chronic (16) Metabolic encephalopathy Status: Acute (17) AMNA (obstructive sleep apnea) Status: Chronic (18) Cellulitis Status: Acute Qualifiers: Site of cellulitis: extremity Site of cellulitis of extremity: lower extremity History of Present Illness Date of Admission: 07/11/20 Mr. Ramos is a 75 year old WM with a past medical history of chronic low back and right leg pain, COPD, bilateral lower extremity venous insufficiency with chronic edema, hypertension, hyperlipidemia, stroke-01/2020, obesity, DM-2, left carotid artery stenosis, history of traumatic pelvic fracture, depression, diabetic neuropathy, bilateral pulmonary emboli that occurred on full dose Eliquis, and recent COVID-19 pneumonia. The patient was diagnosed with COVID-19 pneumonia on May 07, 2020 and this had resolved he had a recent admission from 05/24/2020 to 05/27/2020 where he was found to have a pulmonary embolus and was treated for a bacterial superinfection. At discharge from that hospitalization he was placed on Lovenox given he had pulmonary emboli bilaterally while on Eliquis and he was to follow-up with hematology oncology. He was also discharged on oral antibiotics and 3 L nasal cannula. Per discussion with his caregiver who is at the bedside he stopped taking his Lovenox on 07/08/2020 because he said it felt cold when he injected it. Did to the emergency department at [facility] on 07/11/2020 with a chief complaint of right leg pain. He is not able to give any history and he presents with his niece who is his caregiver and she gives his history. She reports that since he had his Covid vaccine approximately a week and a half ago he has been feeling ill. She reports intermittent fevers at home and progressive debility with decreased ability to bear weight on his right lower extremity. She states that this is been a problem for approximately 1 week now. He does follow for vein surgery in [place] related to his chronic venous insufficiency but not recently. She also reports his oral intake has decreased in this past week and a half as well. He had increased confusion and per the niece is not his baseline mentally. In the emergency department his temperature was 99.7. He had a heart rate of 101. His blood pressures normal, he is mildly tachypneic and his oxygen saturations are 93 to 97% on room air. His CBC shows a mild leukocytosis at 11.3 and anemia with a hemoglobin of 10.8 his PT and PTT are elevated but his INR is within normal limits. His CMP shows mild hyponatremia with a sodium of 133, and elevated BUN and creatinine at 32 and 2.78 respectively (baseline creatinine 1.2-1.3). His lactate is within normal limits, his liver enzymes are within normal limits, and his troponin is not elev ated. His UA is overall unremarkable other than proteinuria, small occult blood, and glucose. His chest x-ray shows mild vascular congestion. His EKG shows normal sinus rhythm with an incomplete bundle branch block and no acute ischemic changes. X-rays of his hip and pelvis show no acute fracture or dislocation but show moderate degenerative changes in the right hip. His Covid test was negative. Blood cultures and urine cultures are pending. In the emergency department he was given IV fluids, morphine for pain, and Zofran for nausea. He will be admitted to PCU for further work-up and care. Past Medical History Past Medical History (Chronic Problems): Chronic Problems (Last Reviewed 07/11/20 @ 12:[address] Aaliyah Pope DO) CKD (chronic kidney disease) stage 3, GFR 30-59 ml/min (Chronic) AMNA (obstructive sleep apnea) (Chronic) Pulmonary embolism (Chronic) Ischemic cerebrovascular accident (CVA) (Chronic 01/31/20) 3 cm acute infarct in the posterior left parietal lobe. MRI 01/31/2020 Essential (primary) hypertension (Chronic) Hyperlipidemia (Chronic) Stenosis of left carotid artery (Chronic) Irregular plaque at the proximal left internal carotid with 50 to 69% stenosis suggested in the distal left internal carotid 02/01/2020 Peripheral vascular disease due to secondary diabetes mellitus (Chronic) Edema of both lower legs due to peripheral venous insufficiency (Chronic) Stasis dermatitis of both legs (Chronic) Type 2 diabetes mellitus (Chronic) Medical History: Medical History (Last Reviewed 07/11/20 @ 12:[address] Aaliyah Pope DO) Ischemic cerebrovascular accident (CVA) (Chronic) Onset Date: 01/31/20 I63.9 3 cm acute infarct in the posterior left parietal lobe. 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) I87.2, R60.9 Stasis dermatitis of both legs (Chronic) I87.2 Type 2 diabetes mellitus (Chronic) E11.9 COPD (chronic obstructive pulmonary disease) J44.9 Chronic pain syndrome G89.4 Chronic respiratory failure J96.10 Obesity E66.9 Elevated troponin Onset Date: 01/31/20 R77.8 Allergies celecoxib [From Celebrex] Adverse Reaction (Verified 05/12/20 18:59) PT UNSURE OF REACTION Home Medications: Ambulatory Orders Medication Instructions Recorded Atorvastatin Calcium [Lipitor] 40 mg PO DAILY 09/26/19 Carvedilol [Coreg] 25 mg PO BID 09/26/19 Furosemide [Lasix] 40 mg PO DAILY 09/26/19 Gabapentin 300 mg PO TID 09/26/19 Insulin Detemir [Levemir FlexPen] 60 unit SQ DAILY 09/26/19 Pantoprazole Sodium [Protonix] 40 mg PO DAILY 09/26/19 Albuterol Aerosols [Ventolin 2.5 mg INHALATION Q6H 11/29/19 Aerosols] Ondansetron [Zofran Odt] 4 mg PO Q8H PRN PRN #10 tab 12/05/19 Albuterol Sulfate [Albuterol 2 puff IH Q6H 01/13/20 Sulfate HFA] Insulin Lispro [Humalog] 0 unit SQ BID 01/13/20 Polyethylene Glycol 3350 [Miralax] 17 gm PO DAILY 01/13/20 Latanoprost 0.005% [Xalatan 1 drp EACH EYE DAILY 01/31/20 Opthalmic] fluoxetine 10 mg capsule 10 mg PO DAILY cap 03/04/20 Buprenorphine 10 mcg TD QWEEK 05/12/20 Aspirin E.C. [Ecotrin] 81 mg PO DAILY@0800 tab 05/14/20 Acetaminophen [Tylenol] 1,000 mg PO Q8 PRN 05/24/20 Enoxaparin [Lovenox] 120 mg SC Q12 #60 syringe 05/26/20 Lisinopril 40 mg PO DAILY #30 tab 05/27/20 levoFLOXacin tablet [Levaquin 750 mg PO DAILY #5 tab 05/27/20 tablet] Surgical History: Surgical History (Last Reviewed 07/11/20 @ 12:[address] Aaliyah Pope DO) History of tracheostomy Z98.890 Status post left hip replacement Z96.642 Surgical History: total knee arthroplasty, - Psychiatric History: No pertinent psych hx Lives: With Family Smoking Status: Former smoker Tobacco Use: Cigarettes Alcohol: Rare Drugs: None - *Family History Maternal History Items: No pertinent history Paternal History Items: No pertinent history Review of Systems Unable to obtain accurate/complete ROS d/t: Secondary to patient's mental status VTE Information - Inpt Only VTE Present on Admission: No VTE Mechan Device Prophylaxis: None VTE Pharm Prophylaxis ordered?: Yes Patient Problems: Active and Suspected Problems (Last Reviewed 07/11/20 @ 12:[address] Aaliyah Pope DO) Contusion, hip (Acute) Hypotension (Acute) Fever (Acute) CAMRON (acute kidney injury) (Acute) Metabolic encephalopathy (Acute) COVID-19 (Acute) - Physical Exam Vitals/I&O's: Vital Signs Temp Pulse Resp BP Pulse Ox 99.7 F H 101 H 26 H 143/66 H 93 07/11/20 11:53 07/11/20 11:53 07/11/20 11:53 07/11/20 11:53 07/11/20 11:53 Oxygen Flow Rate (L/min) 4 Oxygen Delivery Method Room Air Weight: 115.5 kg Body Mass Index (BMI) 37.5 Intake and Output for Last 24 Hours 07/09/20 07/10/20 07/11/20 23:59 23:59 23:59 Intake Total 1000 / 1000 Balance 1000 / 1000 General: Cooperative, Well developed, Well nourished, Confused, - - Elderly obese white male lying in bed sleeping, difficult to arouse, niece at bedside HEENT: Atraumatic, PERRLA, EOMI, Normocephalic, EAC Clear Oral: No Gingival or Mucosal Lesions/ Ulcerations, Dry Mucosa, - - edentulous, Mallampati 3, no thrush Neck: Supple, No JVD, Negative Carotid Bruits, Negative Hepatojugular Reflux, No Nodes, No Nuchal Rigidity, Trachea Midline, Thyroid Normal Size and Texture Lungs: Normal air movement, No rhonchi, No wheeze, No rales, Diminished - Diffusely Cardiovascular: Regular rate, Normal S1, Normal S2, No murmurs, No Ectopic Activity, No rub noted, No Gallop, - - Few ectopic beats-PACs Abdomen: Bowel Sounds Present, Soft, Non Tender, Non-Distended, Obese, Hernia - Small reducible umbilical hernia, - - Multiple areas of ecchymosis related to Lovenox injections Extremities: No clubbing, No cyanosis, Capillary Refill Less than 3 Seconds, Edema - Bilateral lower extremity right greater than left, - - Decreased peripheral pulses but normal cap refill bilateral lower extremities Skin: No rashes, No breakdown, - - Right lower extremity is erythematous and warm, tender to palpation Musculoskeletal: No Muscle Wasting, Arthritic Changes, Tenderness - Right lower extremity Lymphatic: No Cervical, Supraclavicular, or Inguinal Adenopathy Neurological: Cranial nerves II-XII grossly intact, Deep Tendon Reflexes 2+/4 and Symmetrical, Coordination normal, - - Decreased sensation bilateral feet Psych/Mental Status: Flat Affect, - - Confused Microbiology Past 72 Hours 07/11/20 07:56 Mucosa - Nose SARS-CoV-2 Antigen (Rapid) - Final Laboratory Results 07/11/20 04:35: WBC 11.3 H, RBC 3.79 L, Hgb 10.8 L, Hct 35.5 L, MCV 93.7, MCH 28.5, MCHC 30.4 L, RDW Std Deviation 53.0 H, RDW Coeff of Fredo 15.4 H, Plt Count 189, MPV 9.4, Immature Gran % (Auto) 1.000 H, Neut % (Auto) 70.5 H, Lymph % (Auto) 12.7 L, [place] % (Auto) 10.4 H, Eos % (Auto) 5.0, Baso % (Auto) 0.4, Absolute Neuts (auto) 8.0 H, Absolute Lymphs (auto) 1.44, Nucleated RBC % 0 07/11/20 04:35: PT 15.7 H, INR 1.3, APTT 53.3 H 07/11/20 04:35: Sodium 133 L, Potassium 4.5, Chloride 101, Carbon Dioxide 26.0, Anion Gap 6, BUN 32 H, Creatinine 2.78 H, Estim Creat Clear Calc 23.67, Est GFR (MDRD) Af Amer 29 L, Est GFR (MDRD) Non-Af 24 L, BUN/Creatinine Ratio 11.5, Glucose 196 H, Calcium 8.1 L, Total Bilirubin 0.70, AST 24, ALT 38, Alkaline P hosphatase 80, Total Protein 5.8 L, Albumin 2.0 L, Globulin 3.8, Albumin/Globulin Ratio 0.5 L 07/11/20 04:35: Troponin I < 0.015 07/11/20 06:07: Lactic Acid 1.0 07/11/20 09:55: Urine Color Ilana, Urine Clarity Cloudy, Urine pH 5.0, Ur Specific [place] 1.025, Urine Protein 500 H, Urine Glucose (UA) 50 H, Urine Ketones Negative, Urine Occult Blood 10 H, Urine Nitrite Negative, Urine Darrin irubin 1 H, Urine Urobilinogen 1 H, Ur Leukocyte Esterase Negative, Urine RBC 0- 5 SEEN, Urine WBC 0-5 SEEN, Ur Squamous Epith Cells 0-5 SEEN, Amorphous Sediment 1+, Urine Bacteria RARE, Urine Mucus RARE Assessment/Plan All Active Problems (Last Reviewed 07/11/20 @ 12:[address] Aaliyah Pope DO) Contusion, hip (Acute) Hypotension (Acute) Fever (Acute) CAMRON (acute kidney injury) (Acute) Metabolic encephalopathy (Acute) Cellulitis (Acute) COVID-19 (Acute) Right lower extremity cellulitis -Start vancomycin x1 dose and check a.m. level -Start Zosyn -Blood and urine cultures are pending -Monitor right lower extremity for reduced erythema and tenderness -No need for ultrasound bilateral lower extremity since patient will be anticoagulated fully anyway -Consult wound care Acute on chronic right leg pain/back pain -Check CT of right hip as x-rays were negative -Able to do MRI secondary to metallic devices -Continue transdermal buprenorphine -As needed oxycodone -Sickle therapy/Occupational Therapy consult -Sees Dr. Austin at baseline CAMRON on CKD stage IIIa -Normal saline at 100 cc/h -Hold Lasix -Hold lisinopril -Gabapentin -Reduce Lantus dose -Repeat BMP in a.m. and if not trending down will work-up further -Juan Acute anemia -Monitor counts -If there is a decline will assess guaiac stool Leukocytosis -Infectious In progress Acute pulmonary emboli -Patient discontinued Lovenox last Saturday -Start heparin drip until renal function has normalized and then restart Lovenox -Per documentation patient has failed oral anticoagulation -We will need follow-up with heme-onc after discharge as scheduled -Further work-up in progress as outpatient Metabolic encephalopathy -Check ABG for CO2 retention -Suspect related to fever, infection, medication, CAMRON -Continue to monitor mental status -Hold gabapentin Hypertension -Hold lisinopril -Continue Coreg -As needed hydralazine -Hold Lasix DM-2 -Continue Lantus but reduce dose from 40-60 with CAMRON -Cardiac/renal/carb controlled diet as mental status allows -SSI GERD -Protonix DVT prophylaxis -Full anticoagulation with heparin drip CODE STATUS -Full code Inpatient E&M: 39023 Init Hosp L3
[2020-07-11 12:41] LABS: Base Excess -2 mmol/L (-2 to +2); Bicarbonate 25.5 mmol/L (22-26); Blood Gas Specimen Type ART; LPM 3.5 /min; O2 Delivery Device Cannula; PO2 57 mmHG (75-100); SITE L Brach; SO2 84 % (95-99); Total Carbon Dioxide 27 mmol/L; pCO2 58.2 mmHg (35-45); pH 7.25 (7.35-7.45)
--- NOTE | 2020-07-11 13:02 | CT_ITS ---
STUDY: CT RIGHT HIP WITHOUT CONTRAST REASON FOR EXAM: Male, 75 years old. Pain RADIATION DOSAGE (If Supplied By Facility): CTDIvol = ( 29.58 ) mGy, DLP = ( 886.60 ) mGycm TECHNIQUE: Transaxial images were obtained through the right hip without intravenous contrast. Sagittal and coronal images were reconstructed. Individualized dose optimization techniques were used for this CT. COMPARISON: None. FINDINGS: There are fixation screws in the right sacroiliac joint and in the pubic symphysis. These are not fully visualized on this study. There is no fracture or dislocation in the right hip. There are advanced degenerative changes in the right hip with slight flattening of the femoral head, sclerosis and subchondral cysts. This is likely due to early avascular necrosis. The visualized soft tissues are within normal limits. CT/Extremity Lower without Contra IMPRESSION: No fracture or dislocation in the right hip. 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 Electronically Signed: Contreras Urbina MD at 14:34 EDT Tel , Service support ,
[2020-07-11] MEDS: Acetaminophen 325 MG Tablet 650 MG PO (14:17)
[2020-07-11] MEDS: 0.9% Saline Lock 10 ML Syringe IV ×3 (14:28→15:15)
[2020-07-11] MEDS: 0.9% Normal Saline 1,000 ML 100 ML IV (14:28)
[2020-07-11 14:33] LABS: Partial Thromboplast Time 47.3 Seconds (24.1-36.2)
--- NOTE | 2020-07-11 15:08 | NURSING ---
Attempted to update home medication list, but unable as pt does not know meds. Awaiting phone call back from pt's niece.
[2020-07-11] MEDS: Heparin Injection (Vial) 5,000 UNIT/ML VIAL 9500 UNIT IV (15:15)
[2020-07-11] MEDS: HEPARIN/D5w 25,000 UNITS 25,000 UNITS/250 ML IV.SOLN. 16 UNITS IV (15:43)
[2020-07-11] MEDS: oxyCODONE 5 MG Tablet PO (16:13)
[2020-07-11 18:00] LABS: Bedside Glucose 180 mg/dL (70-110)
[2020-07-11 18:50] LABS: M R Staph aureus DNA By PCR Negative (Negative); Probe Check PASS; Specimen Processing Control PASS
[2020-07-11 21:50] LABS: Allen Test Positive; Base Excess -3 mmol/L (-2 to +2); Bicarbonate 24.5 mmol/L (22-26); Blood Gas Specimen Type ART; Comment 16/8; FI02 45; O2 Delivery Device BiPAP; PO2 69 mmHG (75-100); SITE L Radial; SO2 90 % (95-99); Total Carbon Dioxide 26 mmol/L; pCO2 56.1 mmHg (35-45); pH 7.25 (7.35-7.45)
--- NOTE | 2020-07-11 21:53 | CPS ---
o2 increased to 55%
[2020-07-11] MEDS: Acetaminophen 650 MG Suppository RC (21:59)
[2020-07-11 22:26] LABS: Bedside Glucose 168 mg/dL (70-110)
--- NOTE | 2020-07-11 22:41 | NURSING ---
box toe cementer spoke to Khushboo Klein, niece of pt. Her number is [phone]. We can either contact her or Salima Ramos, which is another niece of the pt. She is next of kin, and her number is [phone]. JOANNA Le.
[2020-07-11 22:52] LABS: Partial Thromboplast Time 73.9 Seconds (24.1-36.2)
[2020-07-12] VITALS (14 sets, daily range): BP systolic 40–158; BP diastolic 26–87; PULSE 83–115; RESP 12–38; TEMP 38.1–38.7; O2SAT 89–100
[2020-07-12] MEDS: Albuterol 2.5 MG/3 ML VIAL.NEB. INHALATION (00:25)
[2020-07-12] MEDS: Metoprolol Tartrate 5 MG/5 ML Vial 2.5 MG IV (00:29)
[2020-07-12] MEDS: 0.9% Normal Saline 1,000 ML 100 ML IV (00:30)
[2020-07-12] MEDS: 0.9% Saline Lock 10 ML Syringe IV ×2 (00:30→00:40)
[2020-07-12] MEDS: Morphine 4 MG/ML Syringe IV (00:42)
[2020-07-12 03:31] LABS: Allen Test Positive; Base Excess -5 mmol/L (-2 to +2); Bicarbonate 21.8 mmol/L (22-26); Blood Gas Specimen Type ART; FI02 78; PO2 86 mmHG (75-100); SITE L Radial; SO2 95 % (95-99); Total Carbon Dioxide 23 mmol/L; pCO2 48.9 mmHg (35-45); pH 7.26 (7.35-7.45)
[2020-07-12 05:01] LABS: Absolute Lymphocyte Count 1.34 X10^3/uL (0.83-4.51); Absolute Neutrophil Count 10.5 X10^3/uL (2.0-7.7); Basophil# 0.04 X10^3/uL; Basophil% 0.3 % (0-1); Hematocrit 36.4 % (40-54); Hemoglobin 10.7 g/dL (13.0-16.5); Lymphocyte # 1.34 X10^3/ul (4.0); Lymphocyte % 10.4 % (19-41); Mean Corp Hgb Conc 29.4 g/dL (32-36); Mean Corpuscular Hgb 27.5 pg (27.0-32.0); Mean Corpuscular Volume 93.6 fL (80-94); Mean Platelet Vol. 9.9 fl (6.2-12.0); Monocyte# 0.86 X10^3/uL; Monocyte% 6.7 % (0-10); NRBC Flagged by Analyzer 0.2 % (0-5); Neutrophil # 10.54 X10^3/uL (2.7-7.7); Neutrophil % 81.7 % (47-70); POSITIVE MORPHOLOGY YES; Platelet Count 167 K/mm3 (150-450); RBC Distribution Width CV 16.1 % (11.6-14.6); RBC Distribution Width SD 55.8 fl (35.1-43.9); Red Blood Count 3.89 M/mm3 (4.6-6.2); White Blood Count 12.9 K/mm3 (4.4-11.0)
[2020-07-12 05:06] LABS: Differential Indicated SCAN CRITERIA MET
[2020-07-12 05:27] LABS: Vancomycin, Random Level 14.7 ug/mL (0.0-15.0)
[2020-07-12 05:29] LABS: Partial Thromboplast Time 101.1 Seconds (24.1-36.2)
[2020-07-12 05:30] LABS: ALB/GLOB Ratio 0.5 RATIO (0.9-2.4); AST(SGOT) 46 U/L (15-37); Alanine Aminotransfer ALT/SGPT 65 U/L (16-61); Albumin, Serum 1.8 g/dL (3.2-5.0); Alkaline Phosphatase 86 U/L (45-117); Anion Gap 7 (5-15); BUN 47 mg/dL (7-18); BUN/Creat Ratio 10.9 RATIO (10-20); Calcium,Total 7.8 mg/dL (8.5-10.1); Chloride 107 mmol/L (98-107); Creatinine, Serum 4.33 mg/dL (0.70-1.30); EST Glomerular Filtration Rate 14 mL/min (>60); Est Glom Filt Rate - Afr Amer 17 mL/min (>60); Estimated Creatinine Clearance 15.19 ml/min; Globulin 3.9 g/dL (2.2-4.2); Glucose 125 mg/dL (74-106); Magnesium 1.9 mg/dL (1.6-2.6); Phosphorus 3.7 mg/dL (2.5-4.9); Potassium 4.5 mmol/L (3.5-5.1); Protein, Total 5.7 g/dL (6.4-8.2); Sodium Level 137 mmol/L (136-145); Thyroid Stim Hormone (TSH) 1.12 uIU/mL (0.358-3.74)
[2020-07-12 05:49] LABS: Differential Comment SCANNED; Toxic Granulation 1+
[2020-07-12 05:50] LABS: Platelet Estimate ADEQUATE (ADEQ); Platelet Morphology LARGE
--- NOTE | 2020-07-12 06:16 | CB_ITS ---
Nathaniel Christine Summary Notified by nurse that patient has hypotension and was not responding to commands. Normal saline ordered at wide open. Patient was examined at bedside. Patient was not responding to deep sternal rub. He had no pause. He was having agonal respiration. A NATHANIEL CHRISTINE called. ACLS started. Patient was found to be in PEA's. Received multiple rounds of epinephrine. Also patient received bicarbonate and magnesium IV. ROSC was obtained. Family was noted. Levophed drip was ordered and patient was transported to the intensive care unit . Enroute to the transitional care unit patient lost his pulse again. Epinephrine was given. ACLS was resumed. At intensive care unit patient's repeatedly lost his pulse and received multiple rounds of ACLS. Family was notified x2. Salima daughter LETTY said she was on the way to the intensive care unit. Patient received multiple amps of bicarbonate. Levophed drip was running. On 07/12/2020 at 6:06 AM patient .
--- NOTE | 2020-07-12 06:21 | EXP.PCM_ITS ---
Preliminary Cause of Sepsis Date of Admission: 07/11/20 Date of : 07/12/20 - Principle Diagnosis Sepsis Problem List: Active and Suspected Problems (Last Reviewed 07/11/20 @ 12:[address] Aaliyah Pope DO) Sepsis Contusion, hip (Acute) Hypotension (Acute) Fever (Acute) CAMRON (acute kidney injury) (Acute) Metabolic encephalopathy (Acute) Cellulitis (Acute) Hospital Course Patient was admitted with right lower extremity cellulitis. He was started on Zosyn. He had a fever and tachypnea. Blood cultures showed staph aureus; PCR did not show MRSA. Patient became hypotensive. Lactic acid was ordered. Patient was examined at the bedside. Normal saline was ordered wide open. Patient was not responding to sternal rubs. He had no pulse and he was in agonal respiration. Patient received multiple rounds of ACLS. He received bicarbonate; magnesium and epinephrine as part of ACLS. He had a chest compression. He was found to be in PEA. Patient achieved ROSC multiple times and lost his pulse multiple times. He was placed on Levophed drip. On 07/12/2020 patient . Patient's sepsis was secondary to right lower extremity cellulitis and staphylococcus aureus bacteremia. Other conditions that was treated during his hospitalization include acute kidney injury on CKD stage IIIa. CAMRON on CKD stage IIIa was treated with a IV fluids; and nephrotoxins were withheld. He had acute anemia; likely inflammatory that was trended. The patient had acute pulmonary emboli that was treated with heparin drip. Patient was on Lovenox outpatient for pulmonary emboli but he discontinued Lovenox 3 days before prese ntation. Patient was treated for acute encephalopathy secondary to hypercapnia and infection. He was placed on BiPAP for his hypercapnia. He was treated for chronic diabetes mellitus with adjustment of home long-acting insulin and correction scale insulin. Patient was physically examined. Patient had no heart sounds or lung sounds. Patient had no pulse. Patient had no corneal reflex. Patient was pronounced . Date of 07/12/2020. Time of : 6:06 AM Immediate cause of : Sepsis Other Diagnosis contributing to his immediate cause of : Staphylococcus aureus bacteremia; right lower extremity cellulitis. CAMRON on CKD stage IIIa; acute pulmonary emboli. Other significant conditions contribute to but not resulting in the underlying cause of : Hypertension; diabetes mellitus Did tobacco contribute to : Yes patient was a former smoker. Did COVID-19 contribute to cause of : No. Although patient had COVID-19 pneumonia on May 07, 2020 this had resolved Inpatient E&M: 10804 Disch Hosp
--- NOTE | 2020-07-12 06:33 | PCM.CON.CC ---
Problem List (1) Cardiac arrest due to other underlying condition Status: Acute (2) Sepsis Status: Acute (3) Hypotension Status: Acute (4) Fever Status: Acute (5) CAMRON (acute kidney injury) Status: Acute (6) CKD (chronic kidney disease) stage 3, GFR 30-59 ml/min Status: Chronic (7) Metabolic encephalopathy Status: Acute (8) AMNA (obstructive sleep apnea) Status: Chronic (9) Cellulitis Status: Acute Qualifiers: Site of cellulitis: extremity Site of cellulitis of extremity: lower extremity (10) Essential (primary) hypertension Status: Chronic (11) Hyperlipidemia Status: Chronic (12) Stenosis of left carotid artery Status: Chronic Comment: Irregular plaque at the proximal left internal carotid with 50 to 69% stenosis suggested in the distal left internal carotid 02/01/2020 (13) Peripheral vascular disease due to secondary diabetes mellitus Status: Chronic (14) Stasis dermatitis of both legs Status: Chronic (15) Type 2 diabetes mellitus Status: Chronic Reason for Consult Date of Consultation: 07/12/20 Reason for Consultation: Cardiac arrest History of Present Illness: The patient is a 75 year old M, with past medical history listed below, who presented to [facility] on 07/11/2020 secondary to a controlled fall. Patient reportedly had wedged himself between his bed and other furniture and presented secondary to right hip pain. Patient had a complex past medical history for peripheral vascular disease and was taking Lovenox at home. On presentation to the ER, patient was normotensive at 109/54 with a saturation of 97%. Patient was not tachycardic. X-ray was unremarkable, but patient did have a leukocytosis of 11.3 with 5% eosinophils and a PTT of 53.3. Patient had a significant elevation of creatinine at 2.78. LFTs were within normal limits. Patient did receive some morphine for pain, but while in the ER became significantly hypotensive with pressure readings in the 70s. Patient was given a fluid bolus and improved. Patient was admitted to the hospital secondary to concerns for sepsis. Patient reportedly decompensated overnight. A CODE BLUE was called at 5:17 AM and patient was emergently intubated. Patient was being transferred to the intensive care unit when he again lost his pulse at 5:41 AM. Patient received multiple rounds of epinephrine, bicarbonate secondary to PEA. Patient did have multiple brief episodes of ROSC, but then rapidly deteriorated. Patient was pronounced by myself at 6:06 AM. Family is being updated. Additional history and information is unavailable at this time. Patient was seen secondary to cardiac arrest, but appeared to have significant metabolic acidosis leading to refractory shock. Defer to hospitalist, but it appears that sepsis versus acute kidney injury is the cause of . TIME: 35 minutes critical care time spent addressing patient's cardiac arrest, septic shock, review of all data and collaboration with care team (5:30 AM to 6:06 AM) Past Medical History Past Medical History (Chronic Problems): Chronic Problems (Last Reviewed 07/11/20 @ 12:[address] Aaliyah Pope DO) CKD (chronic kidney disease) stage 3, GFR 30-59 ml/min (Chronic) AMNA (obstructive sleep apnea) (Chronic) Pulmonary embolism (Chronic) Ischemic cerebrovascular accident (CVA) (Chronic 01/31/20) 3 cm acute infarct in the posterior left parietal lobe. MRI 01/31/2020 Essential (primary) hypertension (Chronic) Hyperlipidemia (Chronic) Stenosis of left carotid artery (Chronic) Irregular plaque at the proximal left internal carotid with 50 to 69% stenosis suggested in the distal left internal carotid 02/01/2020 Peripheral vascular disease due to secondary diabetes mellitus (Chronic) Edema of both lower legs due to peripheral venous insufficiency (Chronic) Stasis dermatitis of both legs (Chronic) Type 2 diabetes mellitus (Chronic) Medical History: Medical History (Last Reviewed 07/11/20 @ 12:[address] Aaliyah Pope DO) Ischemic cerebrovascular accident (CVA) (Chronic) Onset Date: 01/31/20 I63.9 3 cm acute infarct in the posterior left parietal lobe. 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) I87.2, R60.9 Stasis dermatitis of both legs (Chronic) I87.2 Type 2 diabetes mellitus (Chronic) E11.9 COPD (chronic obstructive pulmonary disease) J44.9 Chronic pain syndrome G89.4 Chronic respiratory failure J96.10 Obesity E66.9 Elevated troponin Onset Date: 01/31/20 R77.8 Allergies celecoxib [From Celebrex] Adverse Reaction (Verified 05/12/20 18:59) PT UNSURE OF REACTION Home Medications: Ambulatory Orders Medication Instructions Recorded Atorvastatin Calcium [Lipitor] 40 mg PO DAILY 09/26/19 Carvedilol [Coreg] 25 mg PO BID 09/26/19 Furosemide [Lasix] 40 mg PO DAILY 09/26/19 Gabapentin 300 mg PO TID 09/26/19 Insulin Detemir [Levemir FlexPen] 60 unit SQ DAILY 09/26/19 Pantoprazole Sodium [Protonix] 40 mg PO DAILY 09/26/19 Albuterol Aerosols [Ventolin 2.5 mg INHALATION Q6H 11/29/19 Aerosols] Ondansetron [Zofran Odt] 4 mg PO Q8H PRN PRN #10 tab 12/05/19 Albuterol Sulfate [Albuterol 2 puff IH Q6H 01/13/20 Sulfate HFA] Insulin Lispro [Humalog] 0 unit SQ BID 01/13/20 Polyethylene Glycol 3350 [Miralax] 17 gm PO DAILY 01/13/20 Latanoprost 0.005% [Xalatan 1 drp EACH EYE DAILY 01/31/20 Opthalmic] fluoxetine 10 mg capsule 10 mg PO DAILY cap 03/04/20 Buprenorphine 10 mcg TD QWEEK 05/12/20 Aspirin E.C. [Ecotrin] 81 mg PO DAILY@0800 tab 05/14/20 Acetaminophen [Tylenol] 1,000 mg PO Q8 PRN 05/24/20 Lisinopril 40 mg PO DAILY #30 tab 05/27/20 Enoxaparin [Lovenox] 120 mg SC Q12 07/11/20 Linacolotide [Linzess] 145 mcg PO DAILY 07/11/20 Surgical History: Surgical History (Last Reviewed 07/11/20 @ 12:[address] Aaliyah Pope DO) History of tracheostomy Z98.890 Status post left hip replacement Z96.642 Surgical History: total knee arthroplasty, - Psychiatric History: No pertinent psych hx Lives: With Family Smoking Status: Former smoker Tobacco Use: Cigarettes Alcohol: Rare Drugs: None - *Family History Maternal History Items: No pertinent history Paternal History Items: No pertinent history Patient Problems: Active and Suspected Problems (Last Reviewed 07/11/20 @ 12:[address] Aaliyah Pope, DO) Contusion, hip (Acute) Hypotension (Acute) Fever (Acute) CAMRON (acute kidney injury) (Acute) Metabolic encephalopathy (Acute) Cellulitis (Acute) COVID-19 (Acute) - Physical Exam Vitals/I&O's: Vital Signs Temp Pulse Resp BP Pulse Ox 38.2 C H 90 25 H 158/87 H 95 07/12/20 05:00 07/12/20 05:44 07/12/20 05:44 07/12/20 05:44 07/12/20 05:00 Oxygen Flow Rate (L/min) 5 Oxygen Delivery Method Bi-pap Weight: 114.1 kg Body Mass Index (BMI) 37.1 Intake and Output for Last 24 Hours 07/10/20 07/11/20 07/12/20 23:59 23:59 23:59 Intake Total / 1000 / 1000 Output Total 300 / 300 Balance 1971. / 1671. 700 / 700 Microbiology Past 72 Hours 07/11/20 07:55 Blood Culture (Wb) - Anticubital Left Blood Culture - Preliminary 07/11/20 08:05 Blood Culture (Wb) - Left Hand Bacteria Detection (PCR) - Preliminary Staphylococcus aureus 07/11/20 08:05 Blood Culture (Wb) - Left Hand Blood Culture - Preliminary 07/11/20 07:56 Mucosa - Nose SARS-CoV-2 Antigen (Rapid) - Final Laboratory Results 07/11/20 06:07: Lactic Acid 1.0 07/11/20 09:55: Urine Color Ilana, Urine Clarity Cloudy, Urine pH 5.0, Ur Specific [place] 1.025, Urine Protein 500 H, Urine Glucose (UA) 50 H, Urine Ketones Negative, Urine Occult Blood 10 H, Urine Nitrite Negative, Urine Bilirubin 1 H, Urine Urobilinogen 1 H, Ur Leukocyte Esterase Negative, Urine RBC 0-5 SEEN, Urine WBC 0-5 SEEN, Ur Squamous Epith Cells 0-5 SEEN, Amorphous Sediment 1+, Urine Bacteria RARE, Urine Mucus RARE 07/11/20 12:33: Specimen Type ART, Sample Site L Brach, pH 7.25 L, Bicarbonate Actual 25.5, Total CO2 27, Base Excess -2, O2 Saturation 84 L, ABG pCO2 58.2 H, ABG pO2 57 L, O2 Delivery Device Cannula, Liter Flow 3.5 07/11/20 13:50: APTT 47.3 H 07/11/20 13:50: Procalcitonin 6.00 H 07/11/20 16:40: MRSA (PCR) Negative 07/11/20 17:56: POC Glucose 180 H 07/11/20 21:35: APTT 73.9 H 07/11/20 21:47: Specimen Type ART, Sample Site L Radial, pH 7.25 L, Bicarbonate Actual 24.5, Total CO2 26, Base Excess -3 L, O2 Saturation 90 L, O2 % 45, ABG pCO2 56.1 H, ABG pO2 69 L, Carlos Test Positive, O2 Delivery Device BiPAP, Clinical Comments 14/1107/11/20 22:23: POC Glucose 168 H 07/12/20 03:23: Specimen Type ART, Sample Site L Radial, pH 7.26 L, Bicarbonate Actual 21.8 L, Total CO2 23, Base Excess -5 L, O2 Saturation 95, O2 % 78, ABG pCO2 48.9 H, ABG pO2 86, Carlos Test Positive, Clinical Comments AerVo 78% 55 l/p 07/12/20 04:54: WBC 12.9 H, RBC 3.89 L, Hgb 10.7 L, Hct 36.4 L, MCV 93.6, MCH 27.5, MCHC 29.4 L, RDW Std Deviation 55.8 H, RDW Coeff of Fredo 16.1 H, Plt Count 167, MPV 9.9, Immature Gran % (Auto) 0.900, Neut % (Auto) 81.7 H, Lymph % (Auto) 10.4 L, Graham % (Auto) 6.7, Eos % (Auto) 0.0, Baso % (Auto) 0.3, Absolute Neuts (auto) 10.5 H, Absolute Lymphs (auto) 1.34, Nucleated RBC % 0.2, Differential Comment SCANNED, Toxic Granulation 1+, Platelet Estimate ADEQUATE, Plt Morphology Comment LARGE 07/12/20 04:54: Sodium 137, Potassium 4.5, Chloride 107, Carbon Dioxide 23.0, Anion Gap 7, BUN 47 H, Creatinine 4.33 H, Estim Creat Clear Calc 15.19, Est GFR (MDRD) Af Amer 17 L, Est GFR (MDRD) Non-Af 14 L, BUN/Creatinine Ratio 10.9, Glucose 125 H, Calcium 7.8 L, Phosphorus 3.7, Magnesium 1.9, Total Bilirubin 0.70, AST 46 H, ALT 65 H, Alkaline Phosphatase 86, Total Protein 5.7 L, Albumin 1.8 L, Globulin 3.9, Albumin/Globulin Ratio 0.5 L, TSH 1.12 07/12/20 04:54: Random Vancomycin 14.7 07/12/20 04:54: APTT 101.1 H* 07/12/20 04:54: Troponin I < 0.015 Current Medications Acetaminophen (Acetaminophen 325 Mg Tablet) 650 mg PO Q6H PRN PRN PRN Reason: Pain Score 1-10/Temp > 100.7 F Last Admin: 07/11/20 14:17 Dose: 650 mg Documented by: Al Hydroxide/Mg Hydroxide (Mag Hydrox/Al Hydrox/Simeth 30 Ml Udc) 30 ml PO Q6H PRN PRN PRN Reason: Gastric Burning Albuterol Sulfate (Albuterol 2.5 Mg/3 Ml Vial.Neb.) 2.5 mg INHALATION Q6HWA.RT [facility] Last Admin: 07/12/20 00:25 Dose: 2.5 mg Documented by: Aspirin (Aspirin E.C. 81 Mg Tablet) 81 mg PO DAILY@0800 [facility] Atorvastatin Calcium (Atorvastatin Calcium 40 Mg Tablet) 40 mg PO DAILY [facility] Carvedilol (Carvedilol 25 Mg Tablet) 25 mg PO BID [facility] Last Admin: 07/11/20 22:21 Dose: Not Given Documented by: Fluoxetine HCl (Fluoxetine 10 Mg Capsule) 10 mg PO DAILY [facility] Heparin Sodium (Porcine) (Heparin Injection (Vial) 5,000 Unit/Ml Vial) 0 unit IV UD PRN; Protocol PRN Reason: dose adjustment Hydralazine HCl (Hydralazine 20 Mg/Ml Vial) 10 mg IV Q6H PRN PRN PRN Reason: SBP>160 Sodium Chloride () 1,000 mls @ 100 mls/hr IV .Q10H [facility] Last Admin: 07/12/20 00:30 Dose: 100 mls/hr Documented by: Piperacillin Sod/Tazobactam (Sod 3.375 gm/ Sodium Chloride) 50 mls @ 12.5 mls/hr IV Q8 [facility] Last Admin: 07/11/20 22:25 Dose: Not Given Documented by: Heparin Sodium/Dextrose () 25,000 units in 250 mls @ 16 mls/hr IV .[id number] [facility]; Protocol Last Titration: 07/11/20 22:56 Dose: 1,600 units/hr, 16 mls/hr Documented by: Sodium Chloride () 250 mls @ 15 mls/hr IV .[id number] PRN PRN Reason: Saline Flush Last Infusion: 07/11/20 17:49 Dose: 0 mls/hr Documented by: Sodium Chloride () 250 mls @ 15 mls/hr IV .[id number] PRN PRN Reason: Additional IVPB Infusion Norepinephrine Bitartrate 8 mg (/ Sodium Chloride) 250 mls @ 9.375 mls/hr CONT INF .[id number] [facility]; Protocol Insulin Glargine (Insulin Glargine 100 Units/Ml Pen) 40 units SC DAILY [facility] Latanoprost (Latanoprost 0.005% 1 Bottle) 1 drp EACH EYE DAILY [facility] Morphine Sulfate (Morphine 4 Mg/Ml Syringe) 4 mg IV Q4H PRN PRN PRN Reason: Pain Score 4-10 Last Admin: 07/12/20 00:42 Dose: 4 mg Documented by: Nutritional Formula (Lactose Free) (Glucerna Shake 120 Ml Liquid) 120 ml PO 4X/DAY [facility] Last Admin: 07/11/20 21:33 Dose: Not Given Documented by: Ondansetron HCl (Ondansetron 4 Mg/2 Ml Vial) 4 mg IV Q8H PRN PRN PRN Reason: NAUSEA/VOMITING Oxycodone HCl (Oxycodone 5 Mg Tablet) 5 mg PO Q4H PRN PRN PRN Reason: Pain Score 4-5 Last Admin: 07/11/20 16:13 Dose: 5 mg Documented by: Oxycodone HCl (Oxycodone 5 Mg Tablet) 10 mg PO Q4H PRN PRN PRN Reason: Pain Score 6-10 Pantoprazole Sodium (Pantoprazole Sodium 40 Mg Tablet) 40 mg PO DAILY [facility] Polyethylene Glycol (Polyethylene Glycol 3350 17 Gm Packet) 17 gm PO DAILY [facility] Senna/Docusate Sodium (Senna/Docusate Sodium 1 Tablet) 2 tablet PO BID PRN PRN PRN Reason: Constipation Sodium Chloride (0.9% Saline Lock 10 Ml Syringe) 10 - 40 ml IV UD PRN PRN Reason: SALINE FLUSH Last Admin: 07/12/20 00:40 Dose: 10 ml Documented by: Assessment/Plan Active and Suspected Problems (Last Reviewed 07/11/20 @ 12:[address] Aaliyah Pope, DO) Contusion, hip (Acute) Hypotension (Acute) Fever (Acute) CAMRON (acute kidney injury) (Acute) Metabolic encephalopathy (Acute) Cellulitis (Acute) COVID-19 (Acute) Neuro: Cardiovascular: Respiratory: Gastrointestinal: Genitourinary: ID: Hematology: Endocrine: Skin: Lines/Tubes: Checklist: Time: [id number]: [id number] Critical care first hour
--- NOTE | 2020-07-12 06:37 | NURSING ---
Code blue called at 0517, see code documentation. at bedside. JOANNA Le.
--- NOTE | 2020-07-12 07:20 | NURSING ---
[facility] called and released the body. Family remains in room with patient.
--- NOTE | 2020-07-12 07:39 | NURSING ---
Pt transported up to ICU at 0535 following ROSC w/ nursing supervisor dry cell assembly, [employer] CHEMIST, PCU VIDEO GAME TECHNICIAN, and respiratory therapists. During transport to ICU, pt coded in the elevator and CPR was initiated. See code blue documentation. JOANNA Le.
--- NOTE | 2020-07-12 07:40 | NURSING ---
0699- Spoke on the phone with [facility] in regards to patient's passing. Clarified with them that patient's last medications in last hour of life was 1 L bolus of NS, 3 doses of epi, and 4 amps of bicarb pushed during the code. [facility] stated that they would be faxing over paperwork for possible eye donation. [phone]- Spoke with the nursing teacher, Dr. Damian and notified her of patient's passing. Dr. Damian released the body.
[2020-07-12 19:06] LABS: Bedside Glucose 136 mg/dL (70-110)
== END 2020-07-12 11:53 | DRG 871 ==
LOC: ED 07:54 → PCU 11:33 → ICU 07-12 06:43
PROVIDERS: Internal Medicine Critical Care Medicine; Admitting Provider Internal Medicine; Emergency Provider Emergency Medicine; PCP Family Medicine; Visit Provider Internal Medicine
DX: A41.01 Sepsis due to Methicillin susceptible Staphylococcus aureus (principal); I26.99 Other pulmonary embolism without acute cor pulmonale; G93.41 Metabolic encephalopathy; L03.115 Cellulitis of right lower limb; N17.9 Acute kidney failure, unspecified; I12.9 Hypertensive chronic kidney disease with stage 1 through stage 4 chronic kidney disease, or unspecified chronic kidney disease; N18.31 Chronic kidney disease, stage 3a; E11.22 Type 2 diabetes mellitus with diabetic chronic kidney disease; E66.9 Obesity, unspecified; S70.01XA Contusion of right hip, initial encounter; W06.XXXA Fall from bed, initial encounter; Y93.89 Activity, other specified; Y92.003 Bedroom of unspecified non-institutional (private) residence as the place of occurrence of the external cause; Y99.8 Other external cause status; Z87.891 Personal history of nicotine dependence; Z68.37 Body mass index [BMI] 37.0-37.9, adult; M54.5 Low back pain; G89.29 Other chronic pain; D63.1 Anemia in chronic kidney disease; K21.9 Gastro-esophageal reflux disease without esophagitis; I46.8 Cardiac arrest due to other underlying condition
CPT/HCPCS: 31500; 36415; 36600; 71045; 73502; 73552; 73700; 80053; 80202; 81001; 82803; 82962; 83605; 83735; 84100; 84145; 84443; 84484; 85025; 85610; 85730; 87040; 87077; 87086; 87149; 87186; 87426; 87641; 92950; 93005; 94003; 94640; 99285; J7030; J7040; J7050; A4216; J2405; J3475